=== PATIENT | female | born 2000 | race Caucasian/White ===

== ENCOUNTER 2021-11-02 11:46 | Outpatient (CLI) | payer OTHER, SELFPAY ==
[2021-11-02 12:14] LABS: Appearance Urine Clear (Clear); Bilirubin Urine Negative (Negative); Color Urine Light Yellow (Yellow); Glucose Urine UA Negative (Negative); Ketones Urine Negative (Negative); Leukocyte Esterase Ur Negative (Negative); Nitrate Urine Negative (Negative); Protein Urine Negative (Negative); Urobilinogen Urine 0.2 mg/dL (0.2-1.0); pH Urine 5.5 (5.0-8.0)
[2021-11-02 12:34] LABS: Influenza Control Valid (Valid)
[2021-11-02 12:40] LABS: Add Urine Microscopic? YES; Bacteria Urine Trace /hpf; Blood Urine Trace-Intact (Negative); RBC Urine 0-2 /hpf (0-2); Squamous Epithelial Cell Urine Few /hpf (Few); WBC Urine None seen /hpf (0-3)
== END 2021-11-02 11:47 | disposition home or self-care (01) ==
LOC: CHSLAB 11:51
PROVIDERS: PCP Internal Medicine; Visit Provider Nurse Practitioner Family
DX: R30.0 Dysuria (principal); R50.9 Fever, unspecified; R52 Pain, unspecified
CPT/HCPCS: 81001; 87086; 87804

== ENCOUNTER 2022-12-20 13:14 | Outpatient (CLI) | payer SELFPAY ==
--- NOTE | ~2022-12-20 | XR_ITS ---
EXAMINATION: XR chest 2V 12/20/2022 13:46 INDICATION: Chronic cough PROCEDURE: 2 view chest COMPARISON: 07/19/2016 FINDINGS: The lungs are clear. The cardiomediastinal silhouette is within normal limits. There are no pleural effusions. There is no pneumothorax suspected. IMPRESSION: 1: NO ACUTE CARDIOPULMONARY DISEASE. 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
[2022-12-20 13:35] LABS: Hematocrit 44.6 % (35.0-49.0); Hemoglobin 14.7 g/dL (12.0-15.0); Mean Corpuscular Hemoglobin 28.5 pg (27.0-31.0); Mean Corpuscular Volume 86.6 fL (78.0-102.0); Mean Platelet Volume 9.8 fl (9.2-11.8); Platelet Count Result 387 K/mm3 (150-420); Red Blood Count 5.15 M/mm3 (4.20-5.40); Red Cell Distribution Width 13.1 % (11.6-14.4); White Blood Count 18.8 K/mm3 (4.8-10.8)
[2022-12-20 13:51] LABS: Band Neutrophils Percent 0 % (0-6); Eosinophils Absolute Manual 0.18 K/mm3 (0.02-0.5); Eosinophils Percent Manual 1 % (1-6); Lymphocytes Absolute Manual 7.33 K/mm3 (1.1-4.5); Lymphocytes Percent Manual 39 % (18-44); Monocytes Absolute Manual 0.75 K/mm3 (0.1-0.90); Monocytes Percent Manual 4 % (3-9); Neutrophils Absolute Manual 10.52 K/mm3 (1.7-7.2); Neutrophils Percent Manual 56 % (46-73); Platelet Estimate Adequate (Adequate); Total Cells Counted 100
[2022-12-20 13:58] LABS: SPREG INTERNAL CONTROL Positive; Serum Qual hCG Negative
[2022-12-20 14:21] LABS: Alanine Aminotransferase 46 U/L (14-59); Albumin Level 3.7 g/dL (3.4-5.0); Alkaline Phosphatase 78 U/L (46-116); Anion Gap 11 mmol/L (8-16); Aspartate Amino Transferase 26 U/L (15-37); Bilirubin,Total 0.5 mg/dL (0.00-1.00); Blood Urea Nitrogen 17 mg/dL (7-18); Calcium 9.1 mg/dL (8.5-10.1); Carbon Dioxide 25 mmol/L (21-32); Chloride 107 mmol/L (98-108); Estimated Glomerular Filt Rate > 60; Free T3 3.16 pg/mL (2.18-3.98); Free T4 Free Thyroxine 1.06 ng/dL (0.76-1.46); Glucose 107 mg/dL (70-99); Osmolality Calculated 297 mOsm/kg (285-295); Potassium 4.3 mmol/L (3.5-5.1); Sodium 143 mmol/L (136-145); Thyroid Stimulating Hormone 3.22 uIU/mL (0.36-3.74); Total Protein 7.8 g/dL (6.4-8.2)
[2022-12-23 04:17] LABS: FSH 7.8 mIU/mL (***); LH 7.1 mIU/mL (***)
[2022-12-26 18:42] LABS: Estrogen 413.2 pg/mL
[2022-12-27 12:52] LABS: Testosterone Total 36 ng/dL (2-45)
== END 2022-12-20 13:15 | disposition home or self-care (01) ==
PROVIDERS: PCP Internal Medicine; Visit Provider Internal Medicine
DX: R10.9 Unspecified abdominal pain (principal); N91.2 Amenorrhea, unspecified; R05.9 Cough, unspecified
CPT/HCPCS: 36415; 71046; 80053; 82672; 83001; 83002; 84403; 84439; 84443; 84481; 84703; 85025

== ENCOUNTER 2022-12-23 07:56 | Outpatient (CLI) | payer SELFPAY ==
--- NOTE | ~2022-12-23 | US_ITS ---
Pelvic ultrasound. Clinical History: Amenorrhea, pelvic pain Technique: Realtime transabdominal and transvaginal scanning of the pelvis was performed. Color flow Doppler and Doppler spectral analysis were performed. Findings: The uterus is anteverted. The endometrial stripe has a thickness of 7 mm. No focal mass is identified. The right ovary is not visualized. No significant right ovarian or adnexal mass is seen. The left ovary measures 1.7 x 1.8 x 1.5 cm. There is a probable left paraovarian cyst measuring 2.9 c m in diameter. There is no evidence of free fluid in the cul de sac. Impression: Left ovarian cyst versus paraovarian cyst measuring 2.9 cm in diameter. Right ovary not seen. Reviewed, dictated and finalized at [facility]. 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 Right ovary not seen.
--- NOTE | ~2022-12-23 | US_ITS ---
US right upper quadrant INDICATION: Right upper quadrant pain PROCEDURE: Realtime right upper abdominal ultrasound. COMPARISON: No prior studies for comparison. FINDINGS: The pancreas is normal without focal mass or pancreatic ductal dilation. Liver echotexture is increased, consistent with fatty infiltration. There is a small hypoechoic mass of the left hepat ic lobe measuring 3 cm. There is normal directional flow in the portal vein. There are gallstones. No gallbladder wall thickening or pericholecystic fluid. Common bile duct mike ures 5 mm. No sonographic Rios's sign. IMPRESSION: 1: 3 cm hypoechoic mass of the liver. Recommend correlation with CT or MRI abdomen with/without contr ast. 2: Gallstones. Reviewed, dictated and finalized at location L. 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 Recommend correlation with CT or MRI abdo men with/without contrast. 2: Gallstones.
== END 2022-12-23 07:57 | disposition home or self-care (01) ==
LOC: CHSIMG 07:58
PROVIDERS: PCP Internal Medicine; Visit Provider Internal Medicine
DX: R10.9 Unspecified abdominal pain (principal); N91.2 Amenorrhea, unspecified; R05.9 Cough, unspecified; N83.202 Unspecified ovarian cyst, left side; R16.0 Hepatomegaly, not elsewhere classified; K80.20 Calculus of gallbladder without cholecystitis without obstruction
CPT/HCPCS: 76705; 76856

== ENCOUNTER 2022-12-30 08:29 | Outpatient (CLI) | payer OTHER, SELFPAY | END 2022-12-30 08:30 | disposition home or self-care (01) | LOC: CHSIMG 08:30 | PROVIDERS: PCP Internal Medicine; Visit Provider Internal Medicine | DX: R16.0 Hepatomegaly, not elsewhere classified (principal) | CPT/HCPCS: 99199 ==

== ENCOUNTER 2023-01-14 15:29 | Emergency (ER) | payer SELFPAY ==
--- NOTE | ~2023-01-14 | XR_ITS ---
XR knee RT 3V DATE: 01/14/2023 17:20 INDICATION: Knee locked up TECHNIQUE: 3 views including crosstable lateral COMPARISON: None FINDINGS: No fracture or dislocation or joint effusion. Joint spaces are well preserved. No radiopaqu e intra-articular loose body or chondrocalcinosis. No periosteal reaction or bone destruction. IMPRESSION: Negative Reviewed, dictated and finalized at location A. IMPRESSION: Negative
[2023-01-14 16:08] VITALS: BP 124/85; PULSE 68; RESP 16; TEMP 36.7; O2SAT 100
--- NOTE | 2023-01-14 17:51 | ED.EXTPRO ---
HPI - Extremity Problem General Chief complaint: Extremity Problem,Nontraumatic Stated complaint: right knee locked up Time Seen by Provider: 01/14/23 17:44 Source: RN notes reviewed History of Present Illness HPI Narrative: Patient presents emergency department from work via EMS for right knee pain. Patient states she was standing working when her right knee locked up. States that she had pain over the right anterior knee and felt like she could not bend it. She states is now better and does feel like she can mildly bend states that she has had similar episodes before in the past and has seen orthopedics states she was told she needs an MRI but secondary to insurance reasons has not had the MRI. She states she did take a Tylenol with some relief she denies any direct trauma or injury or falling on the knee she denies any pain in the right hip or ankle denies numbness or tingling in the Related Data Allergies Allergy/AdvReac Type Severity Reaction Status Date / Time No Known Allergies Allergy Verified 01/14/23 15:29 Review of Systems Review of Systems: Gen.: Denies fevers or chills Musculoskeletal: See HPI Neuro: Denies numbness, tingling, weakness Skin: Denies rash Endo: Denies DM PMFSH Past Medical History Medical History (Updated 01/14/23 @ 17:54 by Edwar Burns DO) Patient denies significant medical history Social History Social History (Updated 01/14/23 @ 17:52 by Edwar Burns DO) Smoking status: Never smoker Exam Narrative: APPEARANCE: No acute distress, nontoxic, resting in bed Eyes: EOMI HEENT: Normocephalic, atraumatic, RESPIRATORY: No respiratory distress MUSCULOSKELETAl: Tender to palpation over the anterior knee no tenderness over the medial lateral or posterior knee, pain with flexion greater than 45 degrees no tenderness of the right hip or ankle, posterior tibialis pulse 2+ neurovascular intact NEURO: Awake and alert. Following commands, speech normal, no focal deficits SKIN:: Warm, dry. Normal Color no rash or lesions Course Course Emergency Course: Discussed with patient results of workup and diagnosis. Discussed need for follow-up with primary care, proper use of medication, and reasons to return to the emergency department. Patient understands and agrees to current treatment plan Vital Signs Vital signs: Vital Signs Temperature 98.1 F 01/14/23 16:08 Pulse Rate 68 01/14/23 16:08 Respiratory Rate 16 01/14/23 16:08 Blood Pressure 124/85 01/14/23 16:08 Pulse Oximetry 100 01/14/23 16:08 Oxygen Delivery Room Air 01/14/23 16:08 Temperature 98.1 F 01/14/23 16:08 Pulse Rate 68 01/14/23 16:08 Respiratory Rate 16 01/14/23 16:08 Blood Pressure 124/85 01/14/23 16:08 Pulse Oximetry 100 01/14/23 16:08 Oxygen Delivery Room Air 01/14/23 16:08 MDM - Extremity (Nontraumatic) MDM Narrative Medical decision making narrative: Patient presents for right knee locking up to [place] history of similar total she is MRI tenderness over the anterior knee suspect a component of a meniscus tear. I did discuss this with the patient with shared decision making will place in knee immobilizer and discharged to follow-up with orthopedics Imaging Data Radiologist's impression: ITS Impressions Knee X-Ray 01/14/23 17:34 IMPRESSION: Negative Discharge Plan Discharge Clinical Impression: Right knee sprain Patient Disposition: Home, Self-Care Condition: Stable Instructions: Antibiotic Form, Knee Pain (ED) Additional Instructions: Return for increasing pain numbness or tingling in extremities or any other symptoms or concern Prescriptions: New ibuprofen 600 mg tablet 600 mg PO TID PRN (Reason: pain) Qty: 12 0RF Follow-up/Referrals: Cleveland Barahona MD [Primary Care Provider] - Pepe Hall MD [Physician] - (Follow-up in 2 to 3 days for further orthopedic treatment and evaluation) Stand Alone Forms: Wo
[2023-01-14] MEDS: IBUPROFEN 600 MG TABLET PO (18:02)
== END 2023-01-14 18:08 | disposition home or self-care (01) ==
PROVIDERS: Emergency Provider Emergency Medicine; PCP Internal Medicine
DX: S83.91XA Sprain of unspecified site of right knee, initial encounter (principal); X58.XXXA Exposure to other specified factors, initial encounter
CPT/HCPCS: 73562; 99283; A9270

== ENCOUNTER 2023-02-08 11:59 | Emergency (ER) | payer SELFPAY ==
--- NOTE | ~2023-02-08 | US_ITS ---
US abdomen limited DATE: 02/08/2023 13:32 INDICATION: Right upper quadrant abdominal pain. Gallstones reported on 12/23/2022 right upper quadrant abdominal ultrasound examination TECHNIQUE: Real-time imaging of liver, pancreas, gallbladder COMPARISON: 12/23/2022 right upper quadrant abdominal ultrasound examination FINDINGS: There are multiple dependent filling defects of the gallbladder consistent with cholelithia sis. No gallbladder wall thickening or pericholecystic fluid or fat stranding. Negative sonographic M urphy's sign. The common bile duct measures up to 5.5 mm, within normal range. Hepatic steatosis. Normal hepatopedal portal venous flow direction. No pancreatic abnormality. IMPRESSION: Cholelithiasis; no gallbladder wall thickening, pericholecystic fluid collection. Negativ e sonographic Rios's sign Reviewed, dictated and finalized at Location A. Reviewed, dictated and finalized at location L. IMPRESSION: Cholelithiasis; no gallbladder wall thickening, pericholecystic flu id collection. Negative sonographic Rios's sign
[2023-02-08 12:00] VITALS: BP 136/94; PULSE 82; RESP 16; TEMP 36.5; O2SAT 98
--- NOTE | 2023-02-08 12:03 | ED.ABDPAIN ---
HPI - Abdominal Pain General Chief Complaint: Abdominal Pain Stated Complaint: abdominal pain Time Seen by Provider: 02/08/23 12:03 Source: patient Mode of arrival: ambulatory Limitations: no limitations History of Present Illness HPI narrative: 22-year-old female was diagnosed with gallstones last month. She presents to the ER with a 2 day history of -- right upper quadrant abdominal pain with radiation to the back. She has nausea without any vomiting. No fever or chills. MD elicited complaint: abdominal pain Pertinent past history: other ( History of gallstones) Onset (ago): day(s) ( started 2 days ago) Pain Consistency: constant Location: RUQ Severity: moderate Quality: aching Radiation: R flank and back Exacerbating factors: nothing Relieving factors: nothing Associated symptoms: denies other symptoms and nausea Related Data Date of Last Menstrual Period: 01/10/23 Patient : No Home Medications Medication Instructions Recorded Confirmed No Home Medications 02/08/23 02/08/23 Allergies Allergy/AdvReac Type Severity Reaction Status Date / Time No Known Allergies Allergy Verified 02/08/23 12:02 Review of Systems Review of Systems: All systems reviewed & are unremarkable except as noted in HPI and below Constitutional: Constitutional: Reports as per HPI and Reports no additional constitutional complaints Eyes: Eyes: Reports as per HPI and Reports no additional eye complaints ENT: Reports system reviewed and no additional complaints, except as documented and Reports as per HPI Cardiovascular: Cardiovascular: Reports as per HPI and Reports no additional cardiovascular complaints Respiratory: Respiratory: Reports as per HPI and Reports no additional respiratory complaints Gastrointestinal: Gastrointestinal: Reports as per HPI, Reports no additional gastrointestinal complaints, Reports abdominal pain and Reports nausea Genitourinary: Genitourinary: Reports no additional female genitourinary complaints and Reports as per HPI Musculoskeletal: Musculoskeletal: Reports no additional musculoskeletal complaints and Reports as per HPI Integumentary/Breasts: Skin/Breast: Reports system reviewed and no additional complaints, except as docu and Reports as per HPI Neurologic: Reports system reviewed and no additional complaints, except as documented and Reports as per HPI Psychiatric: Psychiatric: Reports no additional psychiatric complaints and Reports as per HPI Endocrine: Endocrine: Reports no additional endocrine complaints and Reports as per HPI Hematologic/Lymphatic: Hematologic/Lymphatic: Reports no additional hematologic/lymphatic complaints Allergic/Immunologic: Allergic/Immunologic: Reports no additional allergic/immunologic complaints and Reports as per HPI PMFSH Past Medical History Medical History (Updated 02/08/23 @ 14:26 by Andrew Yip MD) Gallstones Patient denies significant medical history Social History Social History (Updated 01/14/23 @ 17:52 by Edwar Burns DO) Smoking status: Never smoker Exam Const: General: healthy appearing Orientation/consciousness: patient oriented x3 Limitations: no limitations HENMT: Head: normal to inspection Ears: external ears normal Face/Nose/Sinus: Normal external nose present Face and sinus: normal facial exam Mouth: Yes Normal oral and palatal mucosa present Throat: posterior oropharynx normal Eyes: Conjunctivae: conjunctivae normal Pupils: Equal, round and reactive pupils present EOM: EOMs intact bilaterally Direct Ophthalmoscopy: no photophobia Neck: Neck: normal visual inspection, no lymphadenopathy and no meningeal signs Chest: Chest palpation & inspection: normal inspection of the chest Resp: Effort & Inspection: normal respiratory effort Auscultation: clear to auscultation bilaterally Cardio: Rate: regular rate Rhythm: regular rhythm GI: GI Palp: Yes Soft to palpation Auscultation: normal bowel sounds
[2023-02-08 12:24] LABS: Basophils Absolute Auto 0.05 K/mm3 (0.00-0.10); Basophils Percent Auto 0.4 % (0.0-1.0); Eosinophils Absolute Auto 0.28 K/mm3 (0.02-0.50); Hematocrit 42.9 % (35.0-49.0); Hemoglobin 13.8 g/dL (12.0-15.0); Immature Granulocyte Absolute 0.07 K/mm3 (0.00-0.00); Immature Granulocyte Percent A 0.5 % (0.0-0.0); Lymphocytes Absolute Auto 4.24 K/mm3 (1.10-4.50); Lymphocytes Percent Auto 30.9 % (18.0-42.0); Mean Corpuscular HGB Conc 32.2 g/dL (32.0-36.0); Mean Corpuscular Hemoglobin 28.3 pg (27.0-31.0); Mean Corpuscular Volume 87.9 fL (78.0-102.0); Mean Platelet Volume 9.7 fl (9.2-11.8); Monocytes Absolute Auto 0.77 K/mm3 (0.10-0.90); Monocytes Percent Auto 5.6 % (2.0-11.0); Neutrophils Absolute Auto 8.3 K/mm3 (1.7-7.2); Neutrophils Percent Auto 60.6 % (50.0-70.0); Platelet Count Result 343 K/mm3 (150-420); Red Blood Count 4.88 M/mm3 (4.20-5.40); Red Cell Distribution Width 13.5 % (11.6-14.4); White Blood Count 13.7 K/mm3 (4.8-10.8)
[2023-02-08 12:37] LABS: INR 0.9; Prothrombin Time 9.9 Seconds (9.50-12.10)
[2023-02-08 12:40] LABS: Alanine Aminotransferase 39 U/L (14-59); Albumin Level 3.2 g/dL (3.4-5.0); Alkaline Phosphatase 66 U/L (46-116); Anion Gap 7 mmol/L (8-16); Aspartate Amino Transferase 17 U/L (15-37); Bilirubin Direct 0.1 mg/dL (0-0.2); Bilirubin,Total 0.5 mg/dL (0.00-1.00); Blood Urea Nitrogen 14 mg/dL (7-18); Calcium 8.7 mg/dL (8.5-10.1); Carbon Dioxide 30 mmol/L (21-32); Chloride 104 mmol/L (98-108); Estimated CRCL calculation 123 ml/min; Estimated Glomerular Filt Rate > 60; Glucose 110 mg/dL (70-99); Lipase 28 U/L (16-77); Osmolality Calculated 293 mOsm/kg (285-295); Potassium 4.3 mmol/L (3.5-5.1); Sodium 141 mmol/L (136-145); Total Protein 7.1 g/dL (6.4-8.2)
[2023-02-08 12:40] LABS: Appearance Urine Clear (Clear); Bilirubin Urine Negative (Negative); Blood Urine Negative (Negative); Color Urine Light Yellow (Yellow); Glucose Urine UA Negative (Negative); Ketones Urine Negative (Negative); Leukocyte Esterase Ur Trace LEU/UL (Negative); Nitrate Urine Negative (Negative); Protein Urine Negative (Negative); Specific Grav Ur 1.025 (1.010-1.020); Urobilinogen Urine 0.2 mg/dL (0.2-1.0)
[2023-02-08 12:42] LABS: Pregnancy On Board Control Positive; Urine Pregnancy Test Negative
[2023-02-08 12:45] LABS: Add Urine Microscopic? YES; Bacteria Urine 2+ /hpf; RBC Urine None seen /hpf (0-2); Squamous Epithelial Cell Urine Moderate /hpf (Few); WBC Urine 0-3 /hpf (0-3)
[2023-02-08 12:46] LABS: Lactic Acid Reflex 1.5 mmol/L (0.4-2.0)
[2023-02-08 14:10] VITALS: BP 137/92; PULSE 62; RESP 16; O2SAT 98
[2023-02-08] MEDS: HYDROmorphone HCL INJ (*CRX) 2 MG/ML VIAL 1 MG IM (14:15)
[2023-02-08] MEDS: ONDANSETRON HCL ODT 4 MG TABLET PO (14:16)
[2023-02-08 14:41] VITALS: TEMP 36.7
== END 2023-02-08 14:43 | disposition home or self-care (01) ==
PROVIDERS: Emergency Provider Internal Medicine Critical Care Medicine; PCP Internal Medicine
DX: K80.20 Calculus of gallbladder without cholecystitis without obstruction (principal)
CPT/HCPCS: 36415; 76705; 80048; 80076; 81001; 81025; 83605; 83690; 85025; 85610; 96372; 99284; A9270; J1170

== ENCOUNTER 2023-05-17 16:41 | Outpatient (CLI) | payer OTHER, SELFPAY ==
[2023-05-17 17:27] LABS: Alanine Aminotransferase 40 U/L (14-59); Albumin Level 3.6 g/dL (3.4-5.0); Alkaline Phosphatase 76 U/L (46-116); Amylase 28 U/L (25-115); Aspartate Amino Transferase 25 U/L (15-37); Bilirubin Direct 0.1 mg/dL (0-0.2); Bilirubin,Total 0.7 mg/dL (0.00-1.00); Lipase 30 U/L (16-77); Total Protein 7.3 g/dL (6.4-8.2)
== END 2023-05-17 16:42 | disposition home or self-care (01) ==
LOC: CHSLAB 16:45
PROVIDERS: PCP Internal Medicine; Visit Provider Surgery
DX: K80.20 Calculus of gallbladder without cholecystitis without obstruction (principal)
CPT/HCPCS: 36415; 80076; 82150; 83690

== ENCOUNTER 2023-05-20 00:48 | Day surgery (SDC) | payer OTHER, SELFPAY ==
[2023-05-16 10:26] VITALS: BMI 58.9
--- NOTE | 2023-05-16 10:35 | PC.NURSE ---
Report to the Outpatient Waiting Room, entrance under the green pavilion located off [facility], at time 11:30 on date 05/20/23. Planned Procedure Time: 1:30. Time changes happen often and if your time is changed the preop area will call you the afternoon before. - You and your visitor will be asked to self-screen and do not enter if you have any COVID symptoms. - A mask is optional within the hospital at this time. Patients may have clear liquids (water, carbonated beverages, clear teas, apple juice) until 3 hours prior to surgery (10:30) with a maximum of 20 ounces. - No food from midnight until time of surgery Take the following medications with a SIP of water the morning of surgery: N/A DO NOT STOP ANY OF YOUR OTHER PRESCRIPTION MEDICATIONS PRIOR TO SURGERY ?EXCEPT THE FOLLOWING Medications to discontinue per physician: N/A Date to take last dose: N/A Please no make-up, nail nauruan, hairspray, perfume, deodorant, or body powder the day of surgery. No jewelry (including any body piercings) or valuables the day of surgery, leave them at home. Please take a shower or bath the night before, or the morning of, surgery with an antibacterial soap (HIBICLENS). Wear comfortable, loose fitting clothing. - Jewelry must be removed prior to entering the operating room. Rings and piercings that are not removed may be cut off. - The hospital will not accept responsibility for valuables. - Please leave all valuables, including medications, at home the day of surgery. If you are going home after surgery, a licensed lokie driver must drive you home. - NO public transportation without another adult if you receive anesthesia. - We recommend that an adult stay with you for 24 hours following discharge. - We also recommend that you do not drive, make important decision, drink alcoholic beverages, or take any drugs that were not prescribed by your health care provider for at least 24 hours after your discharge time. Follow any additional instructions given to you from your surgeon. If you or anyone in your household have experienced Covid symptoms in the past week, please notify your surgeon or the nurse liaison at the phone number below for possible testing. Telephone instructions given to PT - ALBIN HENLEY and asked if any additional questions and then verbalized understanding. Patient advised to call surgeon office or pre surgery nurse liaison [phone] if any additional questions.
--- NOTE | 2023-05-19 09:07 | WPDANESEPPF ---
Anes - Initial Pre Proc Eval Procedure: Operation Date: 05/20/23 13:30 Proposed Procedures p Laparoscopic Cholecystectomy, Possible Open - He Lowe DO Date/Time: 05/19/23 09:07 Surgeon: He Lowe DO Pre Op Diagnosis: symptomatic cholelithiasis Patient Data Age: 22 Gender: F Height: 1.55 m Weight: 141.55 kg Allergies Allergy/AdvReac Type Severity Reaction Status Date / Time morphine Allergy Hives Verified 05/20/23 12:00 Home Medications Medication Instructions Recorded Confirmed Type medroxyprogesterone 10 mg tablet 10 mg PO MONTHLY 02/23/23 05/16/23 History (Provera) Patient hx anesthesia problems: none Family hx anesthesia problems: none Results Review: All pre-operative results and documents have been reviewed as part of the pre-operative evaluation. [facility] Past Medical History Medical History Gallstones Patient denies significant medical history Family History Family History Other Diabetes mellitus Heart disease Hypertension Lung cancer Social History Social History Smoking status: Never smoker Alcohol intake: current Alcohol use details: NONE SINCE April Substance use: never Substance use type: does not use Living arrangements: with family Spiritual care concerns: No Anes - Eval Final PreProcedure Day of Procedure 05/19/23 09:07 Patient weight: super morbidly obese Heart: regular rate and rhythm Lungs: clear to auscultation Airway: Mallampati scale class II Neurological: alert and oriented Last oral intake: >/= 8 hours ASA classification: III Emergent: no Anesthetic plan: proceed Anesthesia type and monitoring: general ETT and standard monitoring Results Review: All pre-operative results and documents have been reviewed as part of the pre-operative evaluation. Informed Consent: The patient's anesthetic plan and its attendant risks and benefits were discussed with the patient/family/POA. Questions were solicited and answers provided to the satisfaction of the patient/family/POA.
[2023-05-20] VITALS (8 sets, daily range): BP systolic 124–150; BP diastolic 70–97; PULSE 61–87; RESP 14–23; TEMP 36.3–37.1; O2SAT 96–100
[2023-05-20] MEDS: ACETAMINOPHEN 500 MG TABLET 1000 MG PO (12:01)
[2023-05-20] MEDS: KETOROLAC 15 MG/ML VIAL (*BKC) IV PUSH (12:34)
[2023-05-20] MEDS: LACTATED RINGERS 1,000 ML 30 ML IV CONT ×2 (12:34→14:49)
--- NOTE | 2023-05-20 13:32 | PM.IMHP ---
H&P: HPI History of Present Illness Date/Time: 05/20/23 13:32 Chief Complaint: Symptomatic cholelithiasis Narrative: This is a 22-year-old woman who presents for laparoscopic cholecystectomy. She reports no significant changes since last seen in the office. Review of Systems Review of Systems: All systems reviewed & are unremarkable except as noted in HPI and below Constitutional: Constitutional: Denies chills, Denies fever(s), Denies headache(s) and Denies weight loss Eyes: Eyes: Denies change in vision ENT: Denies dizziness, Denies headache(s), Denies neck mass and Denies throat swelling Cardiovascular: Cardiovascular: Denies chest pain, Denies lightheadedness and Denies dyspnea Respiratory: Respiratory: Denies cough, Denies dyspnea and Denies wheezing Gastrointestinal: Gastrointestinal: Denies abdominal pain, Denies change in bowel habits, Denies nausea and Denies vomiting Genitourinary: Genitourinary: Denies hematuria and Denies dysuria Musculoskeletal: Musculoskeletal: Reports as per HPI Integumentary/Breasts: Skin/Breast: Reports as per HPI Neurologic: Denies dizziness and Denies headache(s) Allergic/Immunologic: Allergic/Immunologic: Denies throat swelling and Denies wheezing PMFSH Past Medical History Medical History Gallstones Patient denies significant medical history Family History Family History Other Diabetes mellitus Heart disease Hypertension Lung cancer Social History Social History Smoking status: Never smoker Alcohol intake: current Alcohol use details: NONE SINCE April Substance use: never Substance use type: does not use Living arrangements: with family Spiritual care concerns: No Meds Home Medications and Allergies Home Medications Medication Instructions Recorded Confirmed Type medroxyprogesterone 10 mg tablet 10 mg PO MONTHLY 02/23/23 05/16/23 History (Provera) Allergies Allergy/AdvReac Type Severity Reaction Status Date / Time morphine Allergy Hives Verified 05/20/23 12:00 Vital Signs Vital Signs - 24 hr 05/20/23 12:35 Temperature 37.1 C Pulse Rate 78 Respiratory Rate 18 Blood Pressure 144/97 H Pulse Oximetry 100 Oxygen Delivery Room Air Exam Const: General: no acute distress and alert Orientation/consciousness: patient oriented x3 HENMT: Head: normocephalic and atraumatic Ears: hearing grossly normal bilaterally Face/Nose/Sinus: Normal nares present Mouth: Yes Normal oral and palatal mucosa present Eyes: Periorbital: periorbital findings normal Sclera: sclerae normal EOM: EOMs intact bilaterally Neck: Neck: normal visual inspection, no lymphadenopathy and trachea midline Chest: Chest palpation & inspection: normal inspection of the chest Resp: Effort & Inspection: normal respiratory effort Auscultation: clear to auscultation bilaterally Cardio: Jugular venous distension: no JVD Rate: regular rate Rhythm: regular rhythm Heart sounds: S1 normal heart sound present and S2 normal heart sound present Peripheral pulses: Peripheral pulses 2+ throughout GI: Inspection: normal to inspection GI Palp: Yes Soft to palpation, No Tenderness to palpation present (GI), No Guarding due to palpation present (GI) and No Rebound tenderness present Percussion: Yes normal to percussion Auscultation: normal bowel sounds : General: Yes no CVA tenderness Back/Spine/Pelvis: Back: no CVA tenderness Neuro: General: patient oriented x3, no focal motor deficits and CN's II-XI intact bilaterally Cognition (Neuro): normal cognition Speech: normal speech Motor exam (neuro): 5/5 motor strength present throughout Extrem: General: capillary refill normal and no clubbing, cyanosis or edema Assessment and Plan Assessment and plan (1) Symptomatic cholelith
--- NOTE | 2023-05-20 13:36 | WPDHPUPDATE1 ---
History and Physical Update Update Date/Time: 05/20/23 13:36 History and Physical has been reviewed, including an updated exam of the patient. There are NO changes in the patient's condition. Risks, benefits, and alternatives have been discussed and questions answered. Patient agrees to proceed with procedure.
[2023-05-20] MEDS: ceFAZolin 3 GM/D5W 100 ML 100 ML IVPB (13:47)
[2023-05-20] MEDS: BUPIVACAINE/EPINEPHRINE 0.25% 50 ML VIAL 30 ML INFILTRATE (14:05)
--- NOTE | 2023-05-20 14:58 | W.PM.PROC2 ---
Procedure Note - Detailed Date of Procedure 05/20/23 Pre-op Diagnosis symptomatic cholelithiasis Post-op Diagnosis Same Procedure Performed Laparoscopic Cholecystectomy Surgeon He Lowe, DO Anesthesia General and Local (0.5% bupivacaine) Indications A 22-year-old woman who presents for laparoscopic cholecystectomy. She has been experiencing frequent bouts of upper abdominal pain for the past 8-10 months. She sometimes has symptoms for 5 times a day. She has tried staying on a low-fat diet but still continues to have symptoms. An ultrasound was obtained in [place] and this showed evidence of cholelithiasis. Discussions were made with the patient about treatment options and decision was made to proceed with laparoscopic cholecystectomy, possible open. Findings Laparoscopic cholecystectomy was performed. The patient's gallbladder had a few pericholecystic adhesions and was slightly dilated and distended. The cystic duct appeared normal in size. There were several small gallstones within the gallbladder. No other intra-abdominal abnormalities were noted. The gallbladder was removed and sent to the lab for pathology. Description of Procedure Procedure as well as risks, benefits, and alternatives were discussed with patient. Written consent was obtained and placed in chart prior to procedure. The patient was brought back to surgical suite. Patient was placed in supine position on operating table. Time-out was done to confirm patient and procedure. Patient was then intubated by the anesthesia department. Abdomen was prepped and draped in sterile fashion using chlorhexidine prep. 0.5% bupivacaine with epinephrine was infiltrated at each site of incision. A 5 millimeter incision was made near the umbilicus, and a 5 millimeter Optiview trocar was advanced through the abdominal layers under direct visualization. Once inside the abdominal cavity, carbon dioxide was insufflated to create a pneumoperitoneum. The camera was inserted and the abdomen was inspected. No immediate abnormalities were identified. The patient was placed in reverse Trendelenburg position and rotated slightly to the left. An 11 millimeter incision was made in the subxiphoid region, and an 11 millimeter trocar was inserted under direct visualization. Two 5 millimeter incisions were made in the right upper quadrant, and two 5 millimeter trocars were inserted under direct visualization. The gallbladder was identified and grasped at the fundus and retracted superiorly. It was then grasped at the infundibulum retracted laterally. Careful dissection around the neck of the gallbladder was performed using blunt dissection with a [place] grasper and hook electrocautery. The cystic duct was identified, and a window was created behind it. The cystic artery was also identified and a window was created behind it. The critical view of safety was identified, visualizing the cystic duct running directly into the neck of the gallbladder, and the cystic artery running directly into the wall of the gallbladder. A 5 millimeter clip boiler operator was then used to place 2 clips proximally and 1 clip distally on both the cystic duct and cystic artery. They were then both transected using endoscopic scissors. Once safely away from the quentin hepatitis, the gallbladder was dissected free from the liver bed using hook electrocautery. Hemostasis was achieved along the way. The gallbladder was removed completely and then removed through the subxiphoid port. The liver bed was then inspected. Hemostasis appeared adequate, and our clips appeared secure. The area was gently irrigated with sterile saline. No other abnormalities were seen. The patient was flattened out in bed, and 1 final inspection was made around the abdominal cavity. The subxiphoid port was removed, and a Chris Valeria cone was used to approximate the fascia with an 0-Vicryl simple interrupted suture. The remaining ports were then rem
[2023-05-20] MEDS: fentaNYL CITRATE INJ (*CRX) 100 MCG/2 ML VIAL 25 MCG IV PUSH ×4 (15:06→15:25)
--- NOTE | 2023-05-20 15:18 | SUR.PHASEI ---
1516: Simple mask removed.
[2023-05-20] MEDS: ONDANSETRON INJ 4 MG/2 ML VIAL IV PUSH (16:04)
[2023-05-20] MEDS: oxyCODONE HCL (*CRX) 5 MG TAB IR PO (16:08)
== END 2023-05-20 16:42 | disposition home or self-care (01) ==
PROVIDERS: PCP Internal Medicine; Visit Provider Surgery
PROC: 0FT44ZZ Resection of Gallbladder, Percutaneous Endoscopic Approach (ICD-10-PCS; CPT 47562; principal; 2023-05-20 13:30)
DX: K80.10 Calculus of gallbladder with chronic cholecystitis without obstruction (principal); E66.01 Morbid (severe) obesity due to excess calories; Z68.43 Body mass index [BMI] 50.0-59.9, adult
CPT/HCPCS: 47562; 36415; 86850; 86900; 86901; 88304; A9270; J0330; J0690; J1100; J1885; J2250; J2405; J2704; J3010; J7030; J7120

== ENCOUNTER 2023-10-11 14:59 | Outpatient (CLI) | payer OTHER, SELFPAY ==
[2023-10-11 15:13] LABS: Basophils Absolute Auto 0.1 K/mm3 (0.0-0.1); Basophils Percent Auto 0.5 % (0.2-1.2); Eosinophils Absolute Auto 0.4 K/mm3 (0-0.3); Eosinophils Percent Auto 2.2 % (0-4.4); Hematocrit 42.4 % (37.0-47.0); Hemoglobin 13.7 g/dL (12.0-15.0); Immature Granulocyte Percent A 0.6 % (0-0.5); Lymphocytes Absolute Auto 6.85 K/mm3 (0.9-3.2); Lymphocytes Percent Auto 40.5 % (18.3-44.2); Mean Corpuscular HGB Conc 32.3 g/dl (32-36); Mean Corpuscular Hemoglobin 28.1 pg (26-34); Mean Corpuscular Volume 86.9 fl (80-100); Mean Platelet Volume 9.3 fl (7.4-10.4); Monocytes Absolute Auto 1.1 K/mm3 (0.1-0.6); Monocytes Percent Auto 6.4 % (2.6-8.5); Neutrophils Absolute Auto 8.4 K/mm3 (1.3-6.7); Neutrophils Percent Auto 49.8 % (45.5-73.1); Platelet Count Result 379 k/mm3 (150-375); Red Blood Count 4.88 M/mm3 (4.2-5.4); Red Cell Distribution Width 13.5 % (11.5-14.5); White Blood Count 16.9 K/mm3 (4.5-10.0)
[2023-10-11 15:25] LABS: Alanine Aminotransferase 37 U/L (6-35); Albumin Level 4.2 g/dL (3.5-5.1); Alkaline Phosphatase 66 U/L (38-126); Anion Gap 8 mmol/L (8-16); Aspartate Amino Transferase 36 U/L (14-36); Bilirubin,Total 0.5 mg/dL (0.2-1.3); Blood Urea Nitrogen 16 mg/dL (7-17); Calcium 9.3 mg/dL (8.4-10.2); Carbon Dioxide 26 mmol/L (22-30); Chloride 105 mmol/L (98-107); Cholesterol 173 mg/dL (0-200); Estimated Glomerular Filt Rate > 60; Glucose 81 mg/dL (65-110); HDL Direct 39 mg/dL; Potassium 4.2 mmol/L (3.4-5.0); Sodium 139 mmol/L (137-145); Triglycerides 210 mg/dL (<150)
[2023-10-11 15:35] LABS: LDL Cholesterol Direct 98 mg/dL
== END 2023-10-11 15:00 | disposition home or self-care (01) ==
LOC: ANHLAB 15:01
PROVIDERS: PCP Internal Medicine; Visit Provider Nurse Practitioner Family
DX: D72.829 Elevated white blood cell count, unspecified (principal); R73.09 Other abnormal glucose; K76.0 Fatty (change of) liver, not elsewhere classified; R16.0 Hepatomegaly, not elsewhere classified; Z13.6 Encounter for screening for cardiovascular disorders
CPT/HCPCS: 36415; 80053; 80061; 83036; 85025

== ENCOUNTER 2023-10-25 21:42 | Emergency (ER) | payer OTHER, SELFPAY ==
--- NOTE | ~2023-10-25 | XR_ITS ---
Clinical Indication: Pain PA view of the chest: Comparison: 12/20/2022 Findings: The lungs are clear, without evidence of focal consolidation or pleural effusion. Cardiome diastinal silhouette is within normal limits. Bones and soft tissues are unremarkable. Impression: Normal chest. Reviewed, dictated and finalized at [facility]. INE TRACER Impression: Normal chest.
--- NOTE | ~2023-10-25 | US_ITS ---
US abdomen limited DATE: 10/26/2023 08:43 INDICATION: Right upper quadrant abdominal pain TECHNIQUE: Real-time imaging of liver, pancreas, gallbladder COMPARISON: None FINDINGS: There is hepatic steatosis. No hepatic space occupying mass lesion is detected. Normal hepatopedal portal venous flow direction. The gallbladder is surgically absent. The common bile duct measures 4 mm, normal. IMPRESSION: Hepatic steatosis Status post cholecystectomy Reviewed, dictated and finalized at [facility]. Reviewed, dictated and finalized at [facility]. SUPPORT ENGINEER
--- NOTE | ~2023-10-25 | CT_ITS ---
CT of the Abdomen and Pelvis: Indication: Abdominal pain Technique: 2.5 mm axial scans were obtained through the abdomen and pelvis following intravenous adm inistration of 100 cc of Omnipaque 350. Dose reduction technique was used on this scan by utilizing a utomated exposure control and iterative reconstruction technique. The dose-length product (DLP) was 1 834.40 mGy-cm. Findings: Scans through the lung bases are unremarkable. There is diffuse fatty infiltration of liver. Cholecystectomy clips are present. The spleen, pancreas , adrenals and kidneys are within normal limits. No evidence of aortic aneurysm. No lymphadenopathy . No bowel obstruction or bowel wall thickening. There is no evidence to suggest acute appendicitis. Images through the pelvis were performed. Urinary bladder unremarkable. No adnexal mass seen. No asci david. Impression: No acute abnormality. Diffuse fatty infiltration of liver. Reviewed, dictated and finalized at [facility]. ER Impression: No acute abnormality. Diffuse fatty infiltration of liver.
[2023-10-25 21:49] VITALS: BP 144/93; PULSE 62; RESP 15; TEMP 36.9; O2SAT 99
[2023-10-26 02:15] LABS: Hematocrit 42.2 % (37.0-47.0); Hemoglobin 13.3 g/dL (12.0-15.0); Mean Corpuscular HGB Conc 31.5 g/dl (32-36); Mean Corpuscular Hemoglobin 27.7 pg (26-34); Mean Corpuscular Volume 87.9 fl (80-100); Mean Platelet Volume 10.1 fl (7.4-10.4); Platelet Count Result 369 k/mm3 (150-375); Red Cell Distribution Width 13.5 % (11.5-14.5); White Blood Count 15.9 K/mm3 (4.5-10.0)
[2023-10-26 02:22] LABS: Appearance Urine Clear (Clear); Bacteria Urine Rare /hpf; Bilirubin Urine Negative (Negative); Blood Urine 2+ (Negative); Color Urine Yellow (Yellow); Glucose Urine UA Negative (Negative); Ketones Urine Negative (Negative); Leukocyte Esterase Ur Negative LEU/UL (Negative); Nitrate Urine Negative (Negative); Non Pathogenic Casts 0-2; Protein Urine Negative (Negative); RBC Urine 0-2 /hpf (0-2); Specific Grav Ur 1.027 (1.001-1.035); Squamous Epithelial Cell Urine None seen /hpf (Few); WBC Urine 0-5 /hpf; pH Urine 6.5 (5.0-9.0)
[2023-10-26 02:26] LABS: Add Urine Microscopic? YES
[2023-10-26 02:28] LABS: Alanine Aminotransferase 28 U/L (6-35); Albumin Level 3.9 g/dL (3.5-5.1); Alkaline Phosphatase 54 U/L (38-126); Anion Gap 10 mmol/L (8-16); Aspartate Amino Transferase 33 U/L (14-36); Bilirubin,Total 0.6 mg/dL (0.2-1.3); Blood Urea Nitrogen 19 mg/dL (7-17); Carbon Dioxide 23 mmol/L (22-30); Chloride 106 mmol/L (98-107); Estimated CRCL calculation 131 ml/min; Estimated Glomerular Filt Rate > 60; Glucose 96 mg/dL (65-110); Lipase 97 U/L (23-300); Potassium 4.2 mmol/L (3.4-5.0); Sodium 139 mmol/L (137-145)
[2023-10-26 02:49] LABS: Band Neutrophils Percent 2 % (0-6); Eosinophils Absolute Manual 0.31 K/mm3 (0.02-0.5); Eosinophils Percent Manual 2 % (0-4); Lymphocytes Absolute Manual 5.56 K/mm3 (1.1-4.5); Lymphocytes Percent Manual 35 % (18-44); Monocytes Absolute Manual 0.63 K/mm3 (0.1-0.90); Monocytes Percent Manual 4 % (3-9); Neutrophils Absolute Manual 9.38 K/mm3 (1.7-7.2); Neutrophils Percent Manual 57 % (46-73); Platelet Estimate Adequate (Adequate); Total Cells Counted 100
[2023-10-26 02:50] LABS: Hypochromasia 1+ (NORMAL); Schistocytes None Seen (NORMAL)
[2023-10-26 03:37] VITALS: BP 140/88; PULSE 78; RESP 17; O2SAT 98
--- NOTE | 2023-10-26 05:30 | ED.ABDPAIN ---
HPI - Abdominal Pain General Chief Complaint: Abdominal Pain <Leandro Brito DO - Last Filed: 10/26/23 08:29> Stated Complaint: RUQ pain/flank pain <Leandro Brito DO - Last Filed: 10/26/23 08:29> Time Seen by Provider: 10/26/23 03:20 <Leandro Brito DO - Last Filed: 10/26/23 08:29> Source: patient <Leandro Brito DO - Last Filed: 10/26/23 08:29> Limitations: no limitations <Leandro Brito DO - Last Filed: 10/26/23 08:29> History of Present Illness HPI narrative: Patient is a 22-year-old female present to the emergency department complaining of abdominal pain. Patient states she has been having pain in her right upper quadrant that is stabbing and has been going on since the past 1 week with no history of pain in the past, originally was coming and going last for about 5 minutes when it happened and she had associated anything that was bringing not make it go away however last night around 8:43 p.m. became constant, the pain is radiating to her back, right side, has not noticed any making it better or worse, tried Tylenol and 9:00 p.m. without any significant relief. Patient also last menstrual period was in August. Patient denies being sexually active. Patient denies dysuria, hematuria, history kidney stones, chest pain, shortness of breath, cough, fever, nausea, vomiting, diarrhea, melena, hematochezia, recent injuries, recent illness. <DO Reji Jaimes Last Filed: 10/26/23 08:29> Related Data Home Medications: Home Medications Medication Instructions Recorded Confirmed norethindrone 1 mg-ethinyl 1 tablet PO DAILY 10/10/23 10/10/23 estradiol 20 mcg (24)-iron 75 mg (4) tablet () omeprazole 20 mg capsule,delayed 20 mg PO DAILY 10/10/23 10/10/23 release <DO Reji Jaimes Last Filed: 10/26/23 08:29> Allergies/Adverse Reactions: Allergies Allergy/AdvReac Type Severity Reaction Status Date / Time morphine Allergy Hives Verified 10/26/23 05:05 <Leandro Brito DO - Last Filed: 10/26/23 08:29> Review of Systems Review of Systems: A 10 system review of systems was completed on the patient and is negative except for what is stated in the HPI. Nursing and ancillary documentation was reviewed. <Leandro Brito DO - Last Filed: 10/26/23 08:29> [facility] Past Medical History Medical History: Medical History (Updated 10/26/23 @ 08:14 by Leandro Brito DO) Acid reflux Elevated glucose Elevated WBCs Encounter to establish care Gallstones Hepatic steatosis Hypersomnia Left ankle pain Major depression Mass of left lobe of liver Morbid obesity with BMI of 60.0-69.9, adult Patient denies significant medical history Right knee pain Snoring <Laendro Brito DO - Last Filed: 10/26/23 08:29> Surgical History Surgical History: Surgical History (Updated 10/10/23 @ 12:50 by Darrell Hylton [facility]) History of cholecystectomy 05/20/2023 <Leandro Brito DO - Last Filed: 10/26/23 08:29> Family History Family History: Family History (Updated 10/10/23 @ 13:07 by Darrell Hylton [facility]) Father Alcoholism Diabetes mellitus Hypertension Heart disease Mother Ovarian cancer Sibling Depression Grandparent Hypertension Heart disease Grandparent Alcoholism Lung cancer <Leandro Brito DO - Last Filed: 10/26/23 08:29> Social History Social History: Social History (Updated 10/10/23 @ 13:10 by Darrell Hylton [facility]) Smoking status: Current every day smoker Tobacco type: e-cigarettes/vaping Smokeless tobacco user: chewing tobacco Alcohol intake: current Drinks per week: 20 Alcohol use details: Vodka Substance use: current Substance use type: marijuana Do You Feel Safe in your Home?: Yes Lack of Transportation: No Lack of Food: Never True Current Housing: I Have Housing Concerned About Future Housing: No Difficulty Paying Gas/Electric Bills: No
[2023-10-26] MEDS: KETOROLAC 15 MG/ML VIAL (*BKC) IV PUSH (05:34)
[2023-10-26 05:38] VITALS: BP 141/67; PULSE 80; RESP 16; O2SAT 99
[2023-10-26 06:09] LABS: Creatine Kinase 92 U/L (30-135)
[2023-10-26 07:18] VITALS: BP 132/77; PULSE 78; RESP 18; O2SAT 100
[2023-10-26] MEDS: FAMOTIDINE 20 MG/2 ML VIAL IV PUSH (08:28)
[2023-10-26] MEDS: MAG HYDROX/AL HYDROX/SIMETH 30 ML UDC PO (08:28)
== END 2023-10-26 09:54 | disposition home or self-care (01) ==
PROVIDERS: Student in an Organized Health Care Education/Training Program; Emergency Provider Emergency Medicine; PCP Nurse Practitioner Family
DX: R10.11 Right upper quadrant pain (principal); F17.290 Nicotine dependence, other tobacco product, uncomplicated
CPT/HCPCS: 36415; 71045; 74177; 76705; 80053; 81001; 81025; 82550; 83690; 85025; 96374; 96375; 99284; A9270; J1885; Q9967

== ENCOUNTER 2023-12-06 08:19 | Outpatient (CLI) | payer OTHER, SELFPAY ==
--- NOTE | 2023-12-08 16:53 | WPDHOMESLEEP ---
Sleep Study - Home Unattended Date of Study: 12/06/23 Ordering Provider: Ethel Liz NP Interpreting Provider: Alley Carreno MD Home Sleep Study Type: Watch PAT Height: 1.57 m Weight: 148.778 kg Body Mass Index: 60.0 Neck Circumference (inches): 19.5 [place]: 3 Reason for Sleep Study Hypersomnolence Sleep History Kristian Matta is a 23-year-old woman with difficulty getting to sleep and staying asleep. Melatonin helped for about a month but then it lost its benefit. She has depression, anxiety, heartburn, IBS, PCOS, recent diagnosis of hypertension. She was taken off bupropion after she completed her sleep questionnaire. She rarely awakens from sleep short of breath. She frequently wakes at night with heartburn, belching or coughing.??She constantly snores, and constantly snores loudly enough that others complain. She rarely has trouble sleeping when she has a cold. She rarely wakes up gasping for breath during the night. She occasionally has breathing problems at night. She occasionally sweats excessively at night. She occasionally notices her heart pounding or beating irregularly during the night. She never falls asleep during the day. She never falls asleep involuntarily, never falls asleep while driving. She never experiences loss of muscle tone with strong emotion. She never feels paralyzed on waking or falling asleep. She constantly experiences vivid dreams upon waking or falling asleep. She rarely feels afraid of going to sleep. She constantly has nightmares. She frequently recalls her dreams. She constantly has thoughts racing through her mind. She constantly feels sad or depressed. She occasionally feels anxiety. She constantly notices parts of her body jerk. She never kicks during the night. She occasionally feels crawling or aching feelings in her legs. She rarely feels leg pain at night. She never has morning jaw pain, nor does she grind her teeth at night. She constantly feels bothered by pain during the day, is occasionally awakened by pain during the night. She constantly wakes up feeling stiff in the morning, constant wakes feeling sore or achy in the morning. She rarely awakens with pain in her neck, spine, or joints. She reports a weight gain of 30 lb during the last year. Normal bedtime is between 9:00 p.m. and 10:00 p.m., falling asleep within an hour or two, waking at least 5 times during the night, occurring in the middle of the night or the isotope technologist hours. While awake, she goes to the bathroom or sometimes stays in bed and repositions herself. It may take her anywhere between 10 minutes and 25 minutes to return to sleep. Her normal wake time is between 5:00 a.m. and 9:00 a.m.. On weekends, her bedtime is later, between 10:00 p.m. and 11:00 p.m.. Her wake time on weekends is between 3:00 a.m. and 11:00 a.m.. She estimates getting between 3 and 4 hours of sleep on a normal night. She is always so tired that she never wants to go out to have social activities. She takes naps in the afternoon or evening however a short nap lasting 10-15 minutes is not refreshing. She is drowsy for 3 hours after waking. Habits:??Tobacco: Never smoker Caffeine: 1-3 per day. Alcohol: none Recreational substances: none PMFSH Past Medical History Medical History Acid reflux Elevated BP without diagnosis of hypertension Elevated glucose Elevated WBCs Encounter to establish care Essential hypertension Gallstones Hepatic steatosis Hypersomnia Left ankle pain Major depression Mass of left lobe of liver Morbid obesity with BMI of 60.0-69.9, adult Palpitations Patient denies significant medical history Right knee pain Right sided abdominal pain Snoring Surgical History Surgical History History of cholecystectomy 05/20/2023 Family History Family History (Reviewed 12/13/23 @ 00:26 by Alley Plascencia
[2023-12-13 00:44] VITALS: BMI 60.0
== END 2023-12-07 07:30 | disposition home or self-care (01) ==
LOC: ANHCSM 08:20
PROVIDERS: PCP Nurse Practitioner Family; Visit Provider Nurse Practitioner Family
DX: G47.10 Hypersomnia, unspecified (principal)
CPT/HCPCS: 95800

== ENCOUNTER 2023-12-08 12:35 | Emergency (ER) | payer OTHER, SELFPAY | END 2023-12-08 14:03 | disposition left against medical advice (07) | PROVIDERS: PCP Nurse Practitioner Family | DX: Z53.21 Procedure and treatment not carried out due to patient leaving prior to being seen by health care provider (principal) | CPT/HCPCS: 99199 ==

== ENCOUNTER 2023-12-14 13:33 | Outpatient (CLI) | payer OTHER, SELFPAY ==
--- NOTE | 2023-12-14 13:41 | ECHO_ITS ---
Patient Info Name: Esme Matta Age: 23 years : 2000 Gender: Female Ht: 61 in Wt: 328 lbs BSA: 2.64 m2 HR: 76 bpm BP: 146 / 86 mmHg Technical Quality: Fair Exam Date: 12/14/2023 1:54 PM Exam Location: Echo Lab Patient Status: Outpatient Admit Date: 12/14/2023 Staff Ordering Physician: Ethel Liz NP Electron Beam Machine Welder Setter: Attending Provider: Ethel Liz NP Exam Type: CA echo doppler color flow Study Info Indications R00.2 - Palpitations Summary 1. Left ventricular chamber dimension is normal. 2. Left ventricular systolic function is normal, estimated at 60-65%. 3. There is mild concentric increased left ventricular wall thickness. 4. The left ventricular diastolic function is normal. 5. E/e' 7 is not elevated. Left Ventricle E/e' 7 is not elevated. Left ventricular chamber dimension is normal. Left ventricular systolic function is normal, estimated at 60-65%. There is mild concentric increased left ventricular wall thickness. The left ventricular diastolic function is normal. Right Ventricle Right ventricular systolic function is normal and with normal TAPSE 2.0 cm. Right ventricular chamber dimension is normal. Left Atria Left atrial chamber dimension is normal. Right Atria Right atrial chamber dimension is normal. Aortic Valve The aortic valve is trileaflet. There is no aortic valve stenosis. There is no aortic valve regurgitation. Pulmonic Valve There is no pulmonic regurgitation. Mitral Valve There is no mitral valve stenosis. There is no mitral valve regurgitation. Tricuspid Valve There is no tricuspid valve regurgitation. Pericardium/Pleural There is no pericardial effusion. Inferior Vena Cava Normal inferior vena cava with >50% collapse upon inspiration consistent with normal right atrial pressure, 5 mmHg. Aorta The aortic root size at the sinus of Valsalva is normal. Left Ventricular Outflow Tract Name Value Normal LVOT 2D LVOT Diameter 2.1 cm LVOT Doppler LVOT Peak Gradient 3 mmHg LVOT Mean Gradient 2 mmHg LVOT VTI 17 cm LVOT VTI/AV VTI Ratio 0.8 LVOT Stroke Volume 63 ml LVOT CO 4.7 l/min LVOT CI 1.8 l/min/m2 Pulmonic Valve Name Value Normal PV Doppler PV Peak Gradient 3 mmHg Mitral Valve Name Value Normal MV Doppler MV Decel [place] 863 cm/s2 MV PHT 28 ms MV Area (PHT) 7.8 cm2 4.0-5.0 MV Diastolic Function
--- NOTE | 2023-12-14 14:21 | ECG_ITS ---
Measurements Intervals [place] Rate: 71 P: 37 ID: [id number] QRS: 57 QRSD: 93 T: 19 QT: 381 QTc: 414 Interpretive Statements SINUS RHYTHM WITH SINUS ARRHYTHMIA BORDERLINE ECG NO PREVIOUS ECG AVAILABLE FOR COMPARISON Electronically Signed On 12-14-2023 16:30:52 LINE CREW SUPERVISOR by Shilo Bridges M.D.
== END 2023-12-14 13:34 | disposition home or self-care (01) ==
LOC: ANHCARD 13:33
PROVIDERS: PCP Nurse Practitioner Family; Visit Provider Nurse Practitioner Family
DX: R93.1 Abnormal findings on diagnostic imaging of heart and coronary circulation (principal); E66.01 Morbid (severe) obesity due to excess calories; Z68.44 Body mass index [BMI] 60.0-69.9, adult
CPT/HCPCS: 93005; 93306

== ENCOUNTER 2023-12-22 09:30 | Outpatient (CLI) | payer OTHER, SELFPAY ==
--- NOTE | 2024-01-11 20:20 | WPDSLEEPSTUD ---
Sleep Study Date of Study: 12/22/23 Ordering Provider: Ethel Liz NP Interpreting Physician: Iram Johnson DO Sleep Study Type: CPAP Titration Height: 1.55 m Weight: 147.871 kg Body Mass Index: 61.6 Neck Circumference (inches): 19.5 [place]: 3 Reason for Sleep Study The patient had a WatchPAT home sleep test on 12/06/2023 that showed an overall AHI of 4.3 with desaturation down to 86%. Sleep History Kristian Matta is a 23-year-old woman with difficulty getting to sleep and staying asleep.? Melatonin helped for about a month but then it lost its benefit.? She has depression, anxiety, heartburn, IBS, PCOS, recent diagnosis of hypertension.? She was taken off bupropion after she completed her sleep questionnaire.? She rarely awakens from sleep short of breath.? She frequently wakes at night with heartburn, belching or coughing.??She constantly snores, and constantly snores loudly enough that others complain. She rarely has trouble sleeping when she has a cold.? She rarely wakes up gasping for breath during the night. She occasionally has breathing problems at night. She occasionally sweats excessively at night. She occasionally notices her heart pounding or beating irregularly during the night.? She never falls asleep during the day.? She never falls asleep involuntarily, never falls asleep while driving. She never experiences loss of muscle tone with strong emotion.? She never feels paralyzed on waking or falling asleep. She?constantly experiences vivid dreams upon waking or falling asleep. She rarely feels afraid of going to sleep. She?constantly has nightmares. She frequently recalls her dreams. She constantly has thoughts racing through her mind. She constantly feels sad or depressed. She occasionally feels anxiety. She constantly notices parts of her body jerk.? She never kicks during the night. She? occasionally feels crawling or aching feelings in her legs. She rarely feels leg pain at night. She never has morning jaw pain, nor does she grind her teeth at night.? She?constantly feels bothered by pain during the day, is occasionally awakened by pain during the night. She constantly wakes up feeling stiff in the morning,? constant wakes feeling sore or achy in the morning.? She rarely awakens with pain in her neck, spine, or joints.? ? She reports a weight gain of 30 lb during the last year. Normal bedtime is between 9:00 p.m. 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 While awake, she goes to the bathroom or sometimes stays in bed and repositions herself.? It may take her anywhere between 10 minutes and 25 minutes to return to sleep.? Her normal wake time is between 5:00 a.m. and 9:00 a.m..? On weekends, her bedtime is later, between 10:00 p.m. and 11:00 p.m..? Her wake time on weekends is between 3:00 a.m. and 11:00 a.m..? She estimates getting between 3 and 4 hours of sleep on a normal night.? She is always so tired that she never wants to go out to have social activities. ? She takes naps in the afternoon or evening however a short nap lasting 10-15 minutes is not refreshing.? She is drowsy for 3 hours after waking.? Habits:??Tobacco:? Never smoker? ? ? Caffeine: 1-3 per day. ? Alcohol: none ? ? Recreational substances: none PMFSH Past Medical History Medical History Acid reflux Elevated BP without diagnosis of hypertension Elevated glucose Elevated WBCs Encounter to establish care Essential hypertension Gallstones Hepatic steatosis Hypersomnia Left ankle pain Major depression Mass of left lobe of liver Morbid obesity with BMI of 60.0-69.9, adult Palpitations Patient denies significant medical history Right knee pain Right sided abdominal pain Snoring Surgical History Surgical History History of cholecys
== END 2023-12-23 06:52 | disposition home or self-care (01) ==
LOC: ANHCSM 09:31
PROVIDERS: PCP Nurse Practitioner Family; Visit Provider Nurse Practitioner Family
DX: G47.10 Hypersomnia, unspecified (principal)
CPT/HCPCS: 95811; 99199

== ENCOUNTER 2023-12-24 19:20 | Emergency (ER) | payer OTHER, SELFPAY ==
--- NOTE | 2023-12-24 20:18 | ED.GENADULT ---
HPI - General Adult General Chief complaint: Extremity Injury, Lower Stated complaint: L ankle injury Time Seen by Provider: 12/24/23 19:27 Source: patient Mode of arrival: ambulatory Limitations: no limitations History of Present Illness HPI narrative: This is a 23-year-old female who presents to the ED with chief complaint of left ankle pain x2 years. States it is worse in the past couple of days and has been affecting her ability to work. She works long shifts and has had difficulty with standing on the ankle for long periods of time. States that she had initial injury 2 years ago where she slipped on the ice never had it looked at. She feels that this is caused her to have chronic pain in the ankle. She also reports bilateral lower extremity edema at baseline. Denies fevers, chills, nausea, vomiting, numbness, weakness Related Data Home Medications Medication Instructions Recorded Confirmed norethindrone 1 mg-ethinyl 1 tablet PO DAILY 10/10/23 12/22/23 estradiol 20 mcg (24)-iron 75 mg (4) tablet () dulaglutide 0.75 mg/0.5 mL 0.75 mg subcut WEEKLY 11/11/23 12/22/23 subcutaneous pen injector (Trulicity) Allergies Allergy/AdvReac Type Severity Reaction Status Date / Time morphine Allergy Hives Verified 12/24/23 19:53 Review of Systems Review of Systems: All systems as dictated in [facility] Past Medical History Medical History Acid reflux Elevated BP without diagnosis of hypertension Elevated glucose Elevated WBCs Encounter to establish care Essential hypertension Gallstones Hepatic steatosis Hypersomnia Left ankle pain Major depression Mass of left lobe of liver Morbid obesity with BMI of 60.0-69.9, adult Palpitations Patient denies significant medical history Right knee pain Right sided abdominal pain Snoring Surgical History Surgical History History of cholecystectomy 05/20/2023 Family History Family History Father Alcoholism Diabetes mellitus Hypertension Heart disease Mother Ovarian cancer Sibling Depression Grandparent Hypertension Heart disease Grandparent Alcoholism Lung cancer Social History Social History Smoking status: Current every day smoker Smokeless tobacco user: chewing tobacco Alcohol intake: former Substance use: current Substance use type: marijuana Other substance usage details: daily Do You Feel Safe in your Home?: Yes Lack of Transportation: No Lack of Food: Never True Current Housing: I Have Housing Concerned About Future Housing: No Difficulty Paying Gas/Electric Bills: No Difficulty Paying for Meds: No Currently Unemployed: YES Education: Trade/Vocational Certificate Difficulty w/ Childcare or Family Care: No Living arrangements: with family Spiritual care concerns: No Exam Narrative: GENERAL: Well-appearing, well-nourished, and in no acute distress. Morbidly obese HEAD: Normocephalic, atraumatic. EYES: PERRLA and EOMI. ENT: Nares clear, no rhinorrhea or epistaxis. Mucous membranes moist. Oropharynx without tonsillar hypertrophy exudate or other lesions. NECK: Supple. No adenopathy or masses. CHEST: No respiratory distress. Clear to auscultation. No wheezes rales or rhonchi HEART: Regular rate and rhythm. No murmur heard. Normal peripheral pulses. ABDOMEN: Soft, nontender, nondistended, normal active bowel sounds. MSK: Mild left ankle swelling and tenderness. Pain with range of motion. SKIN: Warm, dry, no rash. NEURO: Alert and oriented x3. No focal deficits. PSYCH: Normal mood and affect. Course Vital Signs Vital signs: Vital Signs Pulse Rate 92 12/24/23 20:51 Respiratory Rate 18 12/24/23 20:51 Blood Pressure 146/84 H 12/24/23 20:51
[2023-12-24] MEDS: KETOROLAC 30 MG/ML VIAL (*BKC) IM (20:49)
[2023-12-24 20:51] VITALS: BP 146/84; PULSE 92; RESP 18; O2SAT 98
== END 2023-12-24 20:52 | disposition home or self-care (01) ==
PROVIDERS: Emergency Provider Physician Assistant; PCP Nurse Practitioner Family
DX: M25.572 Pain in left ankle and joints of left foot (principal); I10 Essential (primary) hypertension; E66.01 Morbid (severe) obesity due to excess calories; Z68.43 Body mass index [BMI] 50.0-59.9, adult; K21.9 Gastro-esophageal reflux disease without esophagitis; F17.220 Nicotine dependence, chewing tobacco, uncomplicated; Z90.49 Acquired absence of other specified parts of digestive tract; F32.9 Major depressive disorder, single episode, unspecified; R06.83 Snoring; Z79.85 Long-term (current) use of injectable non-insulin antidiabetic drugs
CPT/HCPCS: 96372; 99283; J1885

== ENCOUNTER 2024-01-18 10:14 | Outpatient (CLI) | payer OTHER, SELFPAY ==
--- NOTE | 2024-01-27 13:04 | WPDSLEEPSTUD ---
Sleep Study Date of Study: 01/18/24 Ordering Provider: Ethel Liz NP Interpreting Physician: Iram Johnson DO Sleep Study Type: Split Polysomnogram Height: 1.55 m Weight: 147.871 kg Body Mass Index: 61.6 Neck Circumference (inches): 19 Fithian: 3 Reason for Sleep Study Difficulty falling and staying asleep Sleep History Kristian Matta is a 23-year-old woman with difficulty getting to sleep and staying asleep.? Melatonin helped for about a month but then it lost its benefit.? She has depression, anxiety, heartburn, IBS, PCOS, recent diagnosis of hypertension.? She was taken off bupropion after she completed her sleep questionnaire.? She rarely awakens from sleep short of breath.? She frequently wakes at night with heartburn, belching or coughing.??She constantly snores, and constantly snores loudly enough that others complain. She rarely has trouble sleeping when she has a cold.? She rarely wakes up gasping for breath during the night. She occasionally has breathing problems at night. She occasionally sweats excessively at night. She occasionally notices her heart pounding or beating irregularly during the night.? She never falls asleep during the day.? She never falls asleep involuntarily, never falls asleep while driving. She never experiences loss of muscle tone with strong emotion.? She never feels paralyzed on waking or falling asleep. She?constantly experiences vivid dreams upon waking or falling asleep. She rarely feels afraid of going to sleep. She?constantly has nightmares. She frequently recalls her dreams. She constantly has thoughts racing through her mind. She constantly feels sad or depressed. She occasionally feels anxiety. She constantly notices parts of her body jerk.? She never kicks during the night. She? occasionally feels crawling or aching feelings in her legs. She rarely feels leg pain at night. She never has morning jaw pain, nor does she grind her teeth at night.? She?constantly feels bothered by pain during the day, is occasionally awakened by pain during the night. She constantly wakes up feeling stiff in the morning,? constant wakes feeling sore or achy in the morning.? She rarely awakens with pain in her neck, spine, or joints.? ? She reports a weight gain of 30 lb during the last year. Normal bedtime is between 9:00 p.m. 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 While awake, she goes to the bathroom or sometimes stays in bed and repositions herself.? It may take her anywhere between 10 minutes and 25 minutes to return to sleep.? Her normal wake time is between 5:00 a.m. and 9:00 a.m..? On weekends, her bedtime is later, between 10:00 p.m. and 11:00 p.m..? Her wake time on weekends is between 3:00 a.m. and 11:00 a.m..? She estimates getting between 3 and 4 hours of sleep on a normal night.? She is always so tired that she never wants to go out to have social activities. ? She takes naps in the afternoon or evening however a short nap lasting 10-15 minutes is not refreshing.? She is drowsy for 3 hours after waking.? Habits:??Tobacco:? Never smoker? ? ? Caffeine: 1-3 per day. ? Alcohol: none ? ? Recreational substances: none [facility] Past Medical History Medical History Acid reflux Elevated BP without diagnosis of hypertension Elevated glucose Elevated WBCs Encounter to establish care Essential hypertension Gallstones Hepatic steatosis Hypersomnia Left ankle pain Major depression Mass of left lobe of liver Morbid obesity with BMI of 60.0-69.9, adult Palpitations Patient denies significant medical history Right knee pain Right sided abdominal pain Snoring Surgical History Surgical History History of cholecystectomy 05/20/2023 Family History Family History (Reviewed 01/27/24 @ 13:0
[2024-01-27 13:07] VITALS: BMI 61.6
== END 2024-01-19 07:30 | disposition home or self-care (01) ==
LOC: ANHCSM 10:14
PROVIDERS: PCP Nurse Practitioner Family; Visit Provider Nurse Practitioner Family
DX: G47.33 Obstructive sleep apnea (adult) (pediatric) (principal)
CPT/HCPCS: 95811

== ENCOUNTER 2024-02-08 16:13 | Emergency (ER) | payer OTHER, SELFPAY ==
[2024-02-08 16:23] VITALS: BP 126/88; PULSE 75; RESP 18; TEMP 36.8; O2SAT 98
[2024-02-08 16:24] VITALS: BP 126/88; PULSE 75; RESP 18; TEMP 36.8; O2SAT 98
--- NOTE | 2024-02-08 16:25 | ED.URI ---
HPI - URI/Sore Throat General Chief Complaint: Upper Respiratory Infection Stated Complaint: sorethroat,bilateral ear discomfort,cough Time Seen by Provider: 02/08/24 16:25 History of Present Illness HPI Narrative: 23 y/o female presented for c/o sore throat, nasal congestion, bilateral ear pressure and cough. Onset 2 days. Endorses sick contacts. Taking otc med for symptoms. Denies sob, wheezing, n/v/d/f/c. Related Data Home Medications Medication Instructions Recorded Confirmed drospirenone (contraceptive) 4 mg 02/08/24 02/08/24 (28) tablet (Slynd) Allergies Allergy/AdvReac Type Severity Reaction Status Date / Time morphine Allergy Hives Verified 02/08/24 16:23 Review of Systems Review of Systems: CONSTITUTIONAL: Denies body aches, fever, chills, or sweats. EYES: Denies visual changes, redness, or discharge. ENT: Reports rhinorrhea, congestion, sore throat, otalgia. CARDIOVASCULAR: Denies chest pain, palpitations, or edema. RESPIRATORY: Denies dyspnea. GASTROINTESTINAL: Denies abdominal pain, nausea, vomiting, or diarrhea. SKIN: Denies rash, itching, or wounds. MUSCULOSKELETAL: Denies back pain, joint pain, or myalgia. NEUROLOGIC: Denies headache PMFSH Past Medical History Medical History Acid reflux Elevated BP without diagnosis of hypertension Elevated glucose Elevated WBCs Encounter to establish care Essential hypertension Gallstones Hepatic steatosis Hypersomnia Left ankle pain Major depression Mass of left lobe of liver Morbid obesity with BMI of 60.0-69.9, adult Palpitations Patient denies significant medical history Right knee pain Right sided abdominal pain Snoring Surgical History Surgical History History of cholecystectomy 05/20/2023 Family History Family History Father Alcoholism Diabetes mellitus Hypertension Heart disease Mother Ovarian cancer Sibling Depression Grandparent Hypertension Heart disease Grandparent Alcoholism Lung cancer Social History Social History Smoking status: Current every day smoker Smokeless tobacco user: chewing tobacco Alcohol intake: former Substance use: current Substance use type: marijuana Other substance usage details: daily Do You Feel Safe in your Home?: Yes Lack of Transportation: No Lack of Food: Never True Current Housing: I Have Housing Concerned About Future Housing: No Difficulty Paying Gas/Electric Bills: No Difficulty Paying for Meds: No Currently Unemployed: YES Education: Trade/Vocational Certificate Difficulty w/ Childcare or Family Care: No Living arrangements: with family Spiritual care concerns: No Exam Narrative: GENERAL: well-appearing, no acute distress. EYES: conjunctivae clear ENT: Mucous membranes moist. Right TM erythematous, bulging and intact; canal not erythematous, no drainage no tragal tenderness; Left TM unable to visualize due to excess cerumen. Oropharynx erythematous without lesions. Tonsils enlarged and without exudate. No drooling, no hoarseness, no trismus, uvula midline. No tripod positioning, hot potato voice, or soft palate swelling. CHEST: Clear to auscultation, breath sounds equal. HEART: Regular rate and rhythm. No murmur heard. SKIN: Warm, dry, no rash. NEURO: Alert and oriented x3. Course Course Emergency Course: Patient is aware of diagnosis, understands and agrees to treatment plan. Anticipatory guidance given. Patient agrees to follow-up as directed and is aware of reasons to seek care at the emergency department. Portions of this record may have been created with voice recognition software Level of Care: Express Care Visit Vital Signs Vital signs: Vital Signs Temperature 98.2 F 02/07
== END 2024-02-08 16:46 | disposition home or self-care (01) ==
PROVIDERS: Emergency Provider Nurse Practitioner Family; PCP Nurse Practitioner Family
DX: U07.1 COVID-19 (principal); H66.001 Acute suppurative otitis media without spontaneous rupture of ear drum, right ear; F17.220 Nicotine dependence, chewing tobacco, uncomplicated; F12.90 Cannabis use, unspecified, uncomplicated; K21.9 Gastro-esophageal reflux disease without esophagitis; I10 Essential (primary) hypertension; E66.01 Morbid (severe) obesity due to excess calories; Z68.44 Body mass index [BMI] 60.0-69.9, adult
CPT/HCPCS: 87081; 87426; 87804; 87880; 99213; G0463

== ENCOUNTER 2024-02-21 12:22 | Emergency (ER) | payer OTHER, SELFPAY ==
[2024-02-21] VITALS (14 sets, daily range): BP systolic 110–161; BP diastolic 77–125; PULSE 91–105; RESP 16–29; TEMP 36.5; O2SAT 98–100
--- NOTE | ~2024-02-21 | XR_ITS ---
EXAMINATION: XR chest 2V DATE: 02/21/2024 12:53 INDICATION: Chest pain. Heart palpitations. TECHNIQUE: Frontal and lateral views of the chest were obtained. COMPARISON: Chest single view 10/26/2023 FINDINGS: The lung volumes are small. There is no pneumonia, pleural effusion, or pneumothorax. The h eart size is normal. IMPRESSION: 1. No acute cardiopulmonary disease. Reviewed, dictated and finalized at location A.
--- NOTE | 2024-02-21 12:30 | ECG_ITS ---
SEE SCANNED COPY FOR CONFIRMED REPORT. MTDD
[2024-02-21 12:45] LABS: Basophils Absolute Auto 0.1 K/mm3 (0.0-0.1); Basophils Percent Auto 0.6 % (0.2-1.2); Eosinophils Absolute Auto 0.5 K/mm3 (0-0.3); Eosinophils Percent Auto 2.9 % (0-4.4); Hematocrit 42.6 % (37.0-47.0); Hemoglobin 13.8 g/dL (12.0-15.0); Immature Granulocyte Absolute 0.14 K/mm3 (0.00-0.031); Immature Granulocyte Percent A 0.9 % (0-0.5); Lymphocytes Absolute Auto 3.83 K/mm3 (0.9-3.2); Lymphocytes Percent Auto 24.5 % (18.3-44.2); Mean Corpuscular HGB Conc 32.4 g/dl (32-36); Mean Corpuscular Hemoglobin 27.7 pg (26-34); Mean Corpuscular Volume 85.5 fl (80-100); Mean Platelet Volume 9.8 fl (7.4-10.4); Monocytes Absolute Auto 0.9 K/mm3 (0.1-0.6); Monocytes Percent Auto 5.8 % (2.6-8.5); Neutrophils Absolute Auto 10.2 K/mm3 (1.3-6.7); Neutrophils Percent Auto 65.3 % (45.5-73.1); Platelet Count Result 331 k/mm3 (150-375); Red Blood Count 4.98 M/mm3 (4.2-5.4); Red Cell Distribution Width 14.2 % (11.5-14.5); White Blood Count 15.7 K/mm3 (4.5-10.0)
[2024-02-21 12:55] LABS: INR 0.9; Prothrombin Time 12.9 Seconds (11.1-14.7)
[2024-02-21 12:56] LABS: Alanine Aminotransferase 50 U/L (6-35); Albumin Level 4.3 g/dL (3.5-5.1); Alkaline Phosphatase 75 U/L (38-126); Anion Gap 4 mmol/L (4-12); Aspartate Amino Transferase 39 U/L (14-36); Bilirubin,Total 0.7 mg/dL (0.2-1.3); Blood Urea Nitrogen 13 mg/dL (7-17); Calcium 9.1 mg/dL (8.4-10.2); Carbon Dioxide 27 mmol/L (22-30); Chloride 104 mmol/L (98-107); Estimated CRCL calculation 177 ml/min; Estimated Glomerular Filt Rate > 60; Glucose 133 mg/dL (65-110); Lipase 100 U/L (23-300); Partial Thromboplastin Time 27.8 Seconds (22.3-36.8); Potassium 4.3 mmol/L (3.4-5.0); Sodium 135 mmol/L (137-145)
[2024-02-21 13:07] LABS: Troponin I < 0.012 ng/mL (0.000-0.034)
--- NOTE | 2024-02-21 14:15 | ED.GENADULT ---
HPI - General Adult General Chief complaint: Chest Pain <Martina Chacko February, YOUTH DIRECTOR - Last Filed: 02/21/24 19:32> Stated complaint: chest pain <Martina Chacko February, YOUTH DIRECTOR - Last Filed: 02/21/24 19:32> Time Seen by Provider: 02/21/24 14:16 <Martina Cahcko February, - Last Filed: 02/21/24 19:32> Focused HPI: Esme Matta is a 23 y/o female who presents today [facility] reports of driving today and started to have mid sternal chest pain radiating to the left and then shortly after started to have heart palpations maybe about 2 hours ago. Reports of having chest pain at an 8/10 and the palpitations are now off and on. She also reports of feeling shortness of breath that is new. She has a Warehouse Shipping Clerk Dr. Stoner who currently has her on a heart monitor for two weeks she will have it removed on February 23 - this is to clear her for surgery to have an upper scope done. GENERAL: Well-appearing, well-nourished, and in no acute distress. HEAD: Normocephalic, atraumatic. CHEST: Clear to auscultation. ?No respiratory distress. HEART: Regular rate and rhythm.? NEURO: ?Alert and oriented x3. Patient screened in triage and initial orders placed.? ?Additional care and disposition to be based upon?diagnostic testing and treatment. <Martina Chacko February, - Last Filed: 02/21/24 19:32> History of Present Illness HPI narrative: 23-year-old female present to the emergency department for evaluation substernal chest pain and heart palpitations. Patient states that she has both these on a frequent basis. Patient states she has chest pain multiple times a week and states she is currently being worked up for heart palpitations and patient does have an event recorder in place. patient states today she had short episode chest pain and then had an episode of heart palpitations and patient presented emergency department for evaluation. Upon arrival to the ED patient is no longer having her palpitations or chest pain. <Aron Sanchez MD - Last Filed: 02/21/24 22:12> Related Data Home medications: Home Medications Medication Instructions Recorded Confirmed drospirenone (contraceptive) 4 mg 02/08/24 02/08/24 (28) tablet (Slynd) <Martina Chacko February, - Last Filed: 02/21/24 19:32> Allergies/adverse reactions: Allergies Allergy/AdvReac Type Severity Reaction Status Date / Time morphine Allergy Hives Verified 02/08/24 16:23 <Martina Chacko February, - Last Filed: 02/21/24 19:32> Review of Systems Review of Systems: All systems reviewed & are unremarkable except as noted in HPI and below <Aron Sanchez MD - Last Filed: 02/21/24 22:12> [facility] Past Medical History Medical History: Medical History Acid reflux Elevated BP without diagnosis of hypertension Elevated glucose Elevated WBCs Encounter to establish care Essential hypertension Gallstones Hepatic steatosis Hypersomnia Left ankle pain Major depression Mass of left lobe of liver Morbid obesity with BMI of 60.0-69.9, adult Palpitations Patient denies significant medical history Right knee pain Right sided abdominal pain Snoring <Martina Gandhi - Last Filed: 02/21/24 19:32> Surgical History Surgical History: Surgical History History of cholecystectomy 05/20/2023 <Martina Gandhi - Last Filed: 02/21/24 19:32> Family History Family History: Family History Father Alcoholism Diabetes mellitus Hypertension Heart disease Mother Ovarian cancer Sibling Depression Grandparent Hypertension Heart disease Grandparent Alcoholism Lung cancer <Martina Gandhi - Last Filed: 02/21/24 19:32> Social History Social History: Social History Smoking status: Current every day smoker Smokeless tobacco user: chewing tobacco
[2024-02-21 15:09] LABS: D Dimer 0.36 ug/mL (<0.48)
--- NOTE | 2024-02-21 15:29 | ECG_ITS ---
SEE SCANNED COPY FOR CONFIRMED REPORT. MTDD
[2024-02-21 16:07] LABS: Troponin I < 0.012 ng/mL (0.000-0.034)
== END 2024-02-21 17:32 | disposition home or self-care (01) ==
PROVIDERS: Student in an Organized Health Care Education/Training Program; Emergency Provider Emergency Medicine; PCP Nurse Practitioner Family
DX: R07.2 Precordial pain (principal); R00.2 Palpitations; I10 Essential (primary) hypertension; E66.01 Morbid (severe) obesity due to excess calories; Z68.44 Body mass index [BMI] 60.0-69.9, adult; K21.9 Gastro-esophageal reflux disease without esophagitis; F32.9 Major depressive disorder, single episode, unspecified; Z90.49 Acquired absence of other specified parts of digestive tract; F17.220 Nicotine dependence, chewing tobacco, uncomplicated; R94.31 Abnormal electrocardiogram [ECG] [EKG]
CPT/HCPCS: 36415; 71046; 80053; 83690; 83735; 84443; 84484; 85025; 85380; 85610; 85730; 93005; 99284

== ENCOUNTER 2024-02-24 09:47 | Outpatient (CLI) | payer OTHER, SELFPAY ==
--- NOTE | ~2024-02-24 | US_ITS ---
EXAMINATION: US retroperitoneal duplex ltd DATE: 02/24/2024 10:40 CDT INDICATION: Accelerated hypertension. TECHNIQUE: Sonographic imaging of the kidneys was performed with a 3.5 MHz transducer. Retroperitone al duplex sonogram of the renal arteries also obtained. FINDINGS: No focal flow abnormalities are seen in the renal arteries on color Doppler. The peak syst olic velocity ranges of the right and left renal arteries and aorta are 53 cm per second, 119 cm per second, and 128 cm per second, respectively. The velocities and renal to aortic ratios are within nor mal limits. IMPRESSION: 1. No Doppler evidence of renal artery stenosis. Reviewed, dictated and finalized at location B.
== END 2024-02-24 09:48 | disposition home or self-care (01) ==
LOC: ANHIMG 09:47
PROVIDERS: PCP Nurse Practitioner Family; Visit Provider Internal Medicine
DX: I10 Essential (primary) hypertension (principal)
CPT/HCPCS: 93976

== ENCOUNTER 2024-03-26 11:08 | Outpatient (CLI) | payer OTHER, SELFPAY ==
[2024-03-30 07:08] LABS: Renin 35.51 ng/mL/h (0.25-5.82)
[2024-04-02 13:22] LABS: Metanephrine, Free <25 pg/mL (<=57); Normetanephrine, Free 69 pg/mL (<=148); Total, Free (MN + NMN) 69 pg/mL (<=205)
[2024-04-08 14:53] LABS: PRA 24.23 ng/mL/h (0.25-5.82)
== END 2024-03-26 11:09 | disposition home or self-care (01) ==
LOC: ANHLAB 11:10
PROVIDERS: PCP Nurse Practitioner Family; Visit Provider Internal Medicine
DX: I10 Essential (primary) hypertension (principal)
CPT/HCPCS: 36415; 82088; 83835; 84244; 84443

== ENCOUNTER 2024-04-01 22:16 | Emergency (ER) | payer OTHER, SELFPAY ==
[2024-04-01] VITALS (8 sets, daily range): BP systolic 135–143; BP diastolic 86–100; PULSE 106–115; RESP 19–29; TEMP 36.9; O2SAT 94–100
--- NOTE | ~2024-04-01 | CT_ITS ---
CT of the Abdomen and Pelvis: Indication: Abdominal pain Technique: 2.5 mm axial scans were obtained through the abdomen and pelvis following intravenous adm inistration of 100 cc of Omnipaque 350. Dose reduction technique was used on this scan by utilizing a utomated exposure control and iterative reconstruction technique. The dose-length product (DLP) was 1 672.66 mGy-cm. COMPARISON: 10/26/2019 Findings: Scans through the lung bases are unremarkable. There is diffuse hepatic steatosis. Cholecystectomy clips are present. The spleen, pancreas, adrenals and kidneys are within normal limits. No evidence of aortic aneurysm. No lymphadenopathy. No bowel obstruction or bowel wall thickening. There is no evidence to suggest acute appendicitis. Images through the pelvis were performed. Urinary bladder unremarkable. No pelvic mass seen. No ascit es. Impression: Diffuse hepatic steatosis. No acute abnormality seen otherwise. Reviewed, dictated and finalized at [facility]. Impression: Diffuse hepatic steatosis. No acute abnormality seen otherwise.
--- NOTE | ~2024-04-01 | XR_ITS ---
Clinical Indication: Chest pain PA and lateral views of the chest: Comparison: 02/21/2024 Findings: The lungs are clear, without evidence of focal consolidation or pleural effusion. Cardiome diastinal silhouette is within normal limits. Bones and soft tissues are unremarkable. Impression: Normal chest. Reviewed, dictated and finalized at location . Impression: Normal chest.
--- NOTE | 2024-04-01 22:21 | ECG_ITS ---
[facility] [address] Test Date: 2024-04-01 Pat Name: Esme Matta Department: Room: Gender: F Sql Dba: : 2000 Requested By: July tSroud Order Number: [id number] Cely MD: Roddy Leahy M.D. Measurements Intervals [place] Rate: 114 P: 38 [place]: 159 QRS: 38 QRSD: 94 T: 27 QT: 324 QTc: 447 Interpretive Statements SINUS TACHYCARDIA OTHERWISE NORMAL ECG ECG No previous ECG available for comparison Electronically Signed On 04-02-2024 08:11:30 CDT by Roddy Leahy M.D.
[2024-04-01 23:21] LABS: Basophils Absolute Auto 0.1 K/mm3 (0.0-0.1); Basophils Percent Auto 0.4 % (0.2-1.2); Eosinophils Absolute Auto 0.3 K/mm3 (0-0.3); Eosinophils Percent Auto 1.7 % (0-4.4); Hematocrit 41.6 % (37.0-47.0); Hemoglobin 13.4 g/dL (12.0-15.0); Immature Granulocyte Absolute 0.19 K/mm3 (0.00-0.031); Lymphocytes Absolute Auto 5.25 K/mm3 (0.9-3.2); Lymphocytes Percent Auto 27.6 % (18.3-44.2); Mean Corpuscular HGB Conc 32.2 g/dl (32-36); Mean Corpuscular Hemoglobin 27.6 pg (26-34); Mean Corpuscular Volume 85.8 fl (80-100); Mean Platelet Volume 9.7 fl (7.4-10.4); Monocytes Absolute Auto 1.2 K/mm3 (0.1-0.6); Monocytes Percent Auto 6.3 % (2.6-8.5); Platelet Count Result 353 k/mm3 (150-375); Red Blood Count 4.85 M/mm3 (4.2-5.4); Red Cell Distribution Width 13.9 % (11.5-14.5)
[2024-04-01 23:34] LABS: Alanine Aminotransferase 39 U/L (6-35); Albumin Level 4.1 g/dL (3.5-5.1); Alkaline Phosphatase 80 U/L (38-126); Anion Gap 6 mmol/L (4-12); Aspartate Amino Transferase 35 U/L (14-36); Bilirubin,Total 0.5 mg/dL (0.2-1.3); Blood Urea Nitrogen 14 mg/dL (7-17); Calcium 8.8 mg/dL (8.4-10.2); Carbon Dioxide 28 mmol/L (22-30); Chloride 102 mmol/L (98-107); Estimated CRCL calculation 156 ml/min; Estimated Glomerular Filt Rate > 60; Glucose 273 mg/dL (65-110); Lipase 121 U/L (23-300); Potassium 4.1 mmol/L (3.4-5.0); Sodium 136 mmol/L (137-145)
[2024-04-01] MEDS: SODIUM CHLORIDE 0.9% IV 1,000 ML 999 ML IV CONT (23:34)
[2024-04-01 23:44] LABS: INR 0.9; Partial Thromboplastin Time 28.9 Seconds (22.3-36.8); Prothrombin Time 12.8 Seconds (11.1-14.7)
[2024-04-01 23:45] LABS: Troponin I < 0.012 ng/mL (0.000-0.034)
[2024-04-01 23:52] LABS: D Dimer 0.33 ug/mL (<0.48)
[2024-04-02] VITALS (7 sets, daily range): BP systolic 135–165; BP diastolic 92–95; PULSE 99–111; RESP 16–25; O2SAT 95–100
--- NOTE | 2024-04-02 00:12 | ED.CHESTPAIN ---
HPI - Chest Pain General Chief Complaint: Chest Pain <NADER Marques Last Filed: 04/02/24 14:04> Stated Complaint: chest pain, SOB, elevated HR, N/V <Lili Golden PA-C - Last Filed: 04/02/24 14:04> Time Seen by Provider: 04/01/24 23:10 <NADER Marques Last Filed: 04/02/24 14:04> Source: patient <NADER Marques Last Filed: 04/02/24 14:04> Mode of arrival: ambulatory <NADER Marques Filed: 04/02/24 14:04> Limitations: no limitations <NADER Marques Last Filed: 04/02/24 14:04> History of Present Illness HPI narrative: Patient is a 23-year-old female who presents the ED with report of chest pain and shortness of breath. Patient reports around 8:00 p.m. tonight she began vomiting. She had a few episodes of emesis. She thought she may be having acid reflux. She attempted taking famotidine, but denied improvement. She then developed chest pain around 10:00 p.m. throughout her left-sided chest. States pain radiates through to her back. She also reports feeling short of breath. Mother bedside reports patient's heart rate was in the 130s at that time while she was resting. She was then prompted here for further evaluation. Patient has been seeing Dr. Stoner with cardiology for similar issues. She reports pain throughout her right upper abdomen, which she reports is fairly chronic related to her fatty liver disease. Denies fevers. Denies lower extremity pain or swelling. <NADER Marques Last Filed: 04/02/24 14:04> Related Data Home Medications: Home Medications Medication Instructions Recorded Confirmed drospirenone (contraceptive) 4 mg 02/08/24 03/21/24 (28) tablet (Slynd) <NADER Marques Last Filed: 04/02/24 14:04> Allergies/Adverse Reactions: Allergies Allergy/AdvReac Type Severity Reaction Status Date / Time morphine Allergy Hives Verified 04/01/24 23:01 <Lili Golden PA-C - Last Filed: 04/02/24 14:04> Review of Systems Review of Systems: CONSTITUTIONAL: Denies fever, chills, or sweats. ENT: Denies rhinorrhea, congestion, sore throat. CARDIOVASCULAR: See HPI. RESPIRATORY: See HPI. GASTROINTESTINAL: See HPI GENITOURINARY: Denies dysuria or hematuria. MUSCULOSKELETAL: See HPI <Lili Golden PA-C - Last Filed: 04/02/24 14:04> All systems reviewed & are unremarkable except as noted in HPI and below <Lili Golden PA-C - Last Filed: 04/02/24 14:04> [facility] Past Medical History Medical History: Medical History Acid reflux Elevated BP without diagnosis of hypertension Elevated glucose Elevated WBCs Encounter to establish care Essential hypertension Gallstones Hepatic steatosis Hypersomnia Left ankle pain Major depression Mass of left lobe of liver Morbid obesity with BMI of 60.0-69.9, adult Palpitations Patient denies significant medical history Right knee pain Right sided abdominal pain Snoring <Lili Golden PA-C - Last Filed: 04/02/24 14:04> Surgical History Surgical History: Surgical History History of cholecystectomy 05/20/2023 <Lili Golden PA-C - Last Filed: 04/02/24 14:04> Family History Family History: Family History Father Alcoholism Diabetes mellitus Hypertension Heart disease Mother Ovarian cancer Sibling Depression Grandparent Hypertension Heart disease Grandparent Alcoholism Lung cancer <Lili Golden PA-C - Last Filed: 04/02/24 14:04> Social History Social History: Social History Smoking status: Current every day smoker Smokeless tobacco user: chewing tobacco Alcohol intake: form
[2024-04-02] MEDS: ACETAMINOPHEN 500 MG TABLET 1000 MG PO (00:19)
[2024-04-02] MEDS: KETOROLAC 30 MG/ML VIAL (*BKC) IV PUSH (00:19)
[2024-04-02] MEDS: BELLADONNA ALK/PHENOB ELIX 10 ML, MAG HYDROX/ALUMINUM HYD/SIMETH 30 ML, LIDOCAINE HCL 2... PO (00:19)
--- NOTE | 2024-04-02 00:41 | PC.NURSE ---
Patient taken to CT via stretcher at this time.
--- NOTE | 2024-04-02 00:45 | PC.NURSE ---
MAR is down at this time, patients pain reassessment is 3/10 on pain in her chest.
[2024-04-02 00:57] LABS: SPREG INTERNAL CONTROL Positive; Serum Qual hCG Negative
--- NOTE | 2024-04-02 01:15 | PC.NURSE ---
MAR is down at this time, unable to scan NS. 2nd liter of NS hung via gravity for 2nd bolus at 0115.
[2024-04-02 02:25] LABS: Troponin I < 0.012 ng/mL (0.000-0.034)
== END 2024-04-02 03:09 | disposition home or self-care (01) ==
PROVIDERS: Emergency Medicine; Emergency Provider Physician Assistant; PCP Nurse Practitioner Family
DX: R07.89 Other chest pain (principal); R10.10 Upper abdominal pain, unspecified; R00.0 Tachycardia, unspecified; E66.01 Morbid (severe) obesity due to excess calories; Z68.44 Body mass index [BMI] 60.0-69.9, adult
CPT/HCPCS: 36415; 71046; 74177; 80053; 83690; 84484; 84703; 85025; 85380; 85610; 85730; 93005; 96361; 96374; 99284; A9270; J1885; J7030; Q9967

== ENCOUNTER 2024-04-27 00:24 | Emergency (ER) | payer OTHER, SELFPAY ==
[2024-04-27 00:25] VITALS: BP 153/87; PULSE 113; RESP 20; TEMP 36.4; O2SAT 99
[2024-04-27 02:11] LABS: Basophils Absolute Auto 0.1 K/mm3 (0.0-0.1); Basophils Percent Auto 0.4 % (0.2-1.2); Eosinophils Absolute Auto 0.4 K/mm3 (0-0.3); Eosinophils Percent Auto 2.1 % (0-4.4); Hematocrit 39.9 % (37.0-47.0); Hemoglobin 13.5 g/dL (12.0-15.0); Immature Granulocyte Absolute 0.18 K/mm3 (0.00-0.031); Immature Granulocyte Percent A 0.9 % (0-0.5); Lymphocytes Absolute Auto 5.46 K/mm3 (0.9-3.2); Lymphocytes Percent Auto 27.4 % (18.3-44.2); Mean Corpuscular HGB Conc 33.8 g/dl (32-36); Mean Corpuscular Hemoglobin 28.4 pg (26-34); Mean Platelet Volume 9.7 fl (7.4-10.4); Monocytes Absolute Auto 1.3 K/mm3 (0.1-0.6); Monocytes Percent Auto 6.3 % (2.6-8.5); Neutrophils Absolute Auto 12.5 K/mm3 (1.3-6.7); Neutrophils Percent Auto 62.9 % (45.5-73.1); Platelet Count Result 342 k/mm3 (150-375); Red Blood Count 4.75 M/mm3 (4.2-5.4); White Blood Count 19.9 K/mm3 (4.5-10.0)
[2024-04-27 02:20] LABS: Alanine Aminotransferase 38 U/L (6-35); Albumin Level 4.2 g/dL (3.5-5.1); Alkaline Phosphatase 76 U/L (38-126); Anion Gap 9 mmol/L (4-12); Aspartate Amino Transferase 32 U/L (14-36); Bilirubin,Total 0.5 mg/dL (0.2-1.3); Blood Urea Nitrogen 15 mg/dL (7-17); Calcium 9.2 mg/dL (8.4-10.2); Carbon Dioxide 24 mmol/L (22-30); Chloride 104 mmol/L (98-107); Estimated CRCL calculation 162 ml/min; Estimated Glomerular Filt Rate > 60; Glucose 257 mg/dL (65-110); Lipase 143 U/L (23-300); Sodium 137 mmol/L (137-145)
[2024-04-27 03:33] LABS: Appearance Urine Clear (Clear); Bacteria Urine None Seen /hpf; Bilirubin Urine Negative (Negative); Blood Urine 3+ (Negative); Color Urine Yellow (Yellow); Glucose Urine UA 1+ mg/dL (Negative); Ketones Urine Negative (Negative); Leukocyte Esterase Ur Negative LEU/UL (Negative); Nitrate Urine Negative (Negative); Non Pathogenic Casts 0-2; Protein Urine Negative (Negative); RBC Urine >100 /hpf (0-2); Specific Grav Ur 1.021 (1.001-1.035); Squamous Epithelial Cell Urine None Seen /hpf (Few); WBC Urine 0-5 /hpf (0-3); pH Urine 5.5 (5.0-9.0)
[2024-04-27 03:34] LABS: Add Urine Microscopic? YES
--- NOTE | 2024-04-27 03:55 | ED.ABDPAIN ---
HPI - Abdominal Pain General Chief Complaint: Abdominal Pain Stated Complaint: liver pain Time Seen by Provider: 04/27/24 03:31 Source: patient Limitations: no limitations History of Present Illness HPI narrative: Patient is a 23-year-old female presents to the emergency department complaining of right upper quadrant pain. Patient states she had she knows that he liver can cause pain however she woke up this morning approximately 24 hours ago with right upper quadrant pain that overall been constant, stabbing, nonradiating, no history the pain in the past, notes that she has been having chronic pain in her epigastric region for the past approximately 1 month and has an upcoming appointment with Gastroenterology for an EGD in approximately 10 days and has been taking Protonix. Patient denies urinary discomfort, diarrhea, constipation, recent injuries, recent illness, nausea, vomiting, chest pain, difficulty breathing, fever, rash. Patient admits to taking Tylenol for the pain with only minimal relief. Patient is noticing the making the pain better or worse. Related Data Home Medications Medication Instructions Recorded Confirmed drospirenone (contraceptive) 4 mg 1 tablet PO DAILY 02/08/24 04/23/24 (28) tablet (Slynd) Allergies Allergy/AdvReac Type Severity Reaction Status Date / Time morphine Allergy Hives Verified 04/01/24 23:01 Review of Systems Review of Systems: A 10 system review of systems was completed on the patient and is negative except for what is stated in the HPI. Nursing and ancillary documentation was reviewed. [facility] Past Medical History Medical History Acid reflux Elevated BP without diagnosis of hypertension Elevated glucose Elevated WBCs Encounter to establish care Essential hypertension Gallstones Hepatic steatosis Hypersomnia Left ankle pain Major depression Mass of left lobe of liver Morbid obesity with BMI of 60.0-69.9, adult Palpitations Patient denies significant medical history Right knee pain Right sided abdominal pain Snoring Surgical History Surgical History History of cholecystectomy 05/20/2023 Family History Family History Father Alcoholism Diabetes mellitus Hypertension Heart disease Mother Ovarian cancer Sibling Depression Grandparent Hypertension Heart disease Grandparent Alcoholism Lung cancer Social History Social History Smoking status: Current every day smoker Smokeless tobacco user: chewing tobacco Alcohol intake: former Substance use: current Substance use type: marijuana Other substance usage details: daily Do You Feel Safe in your Home?: Yes Lack of Transportation: No Lack of Food: Never True Current Housing: I Have Housing Concerned About Future Housing: No Difficulty Paying Gas/Electric Bills: No Difficulty Paying for Meds: No Currently Unemployed: YES Education: Trade/Vocational Certificate Difficulty w/ Childcare or Family Care: No Living arrangements: with roommate(s) Spiritual care concerns: No Comments At time of signature, I have reviewed and agree with nursing past medical, surgical, social and family history unless otherwise noted. Please see the nursing chart for further information. There is no relevant family history pertinent to the presenting complaint. Exam Narrative: CONST: No acute distress. Well nourished. Obese. HENMT: Head is normocephalic and atraumatic. Moist mucous membranes. No posterior oropharynx erythema. EYES: No conjunctival icterus, injection, or pallor. PERRL. NECK: No meningeal signs. RESP: Able to speak in full sentences. Normal respiratory effort. CTAB. CARDIO: Regular rate. Regular rhythm. 2+ DP and rad
[2024-04-27] MEDS: FAMOTIDINE 20 MG/2 ML VIAL IV PUSH (04:11)
[2024-04-27] MEDS: DICYCLOMINE HCL INJ 20 MG/2 ML VIAL IM (04:11)
[2024-04-27] MEDS: KETOROLAC 15 MG/ML VIAL (*BKC) IV PUSH (04:12)
[2024-04-27] MEDS: MAG HYDROX/AL HYDROX/SIMETH 30 ML UDC PO (04:12)
[2024-04-27] MEDS: SODIUM CHLORIDE 0.9% IV 1,000 ML 999 ML IV CONT (04:12)
[2024-04-27 04:22] VITALS: BP 116/70; PULSE 102; RESP 21; TEMP 36.7; O2SAT 97
--- NOTE | 2024-04-27 04:45 | ECG_ITS ---
Test Date: 2024-04-27 05:15:29 Measurements Intervals [place] Rate: 92 P: 31 HI: 165 QRS: 56 QRSD: 92 T: 10 QT: 357 QTc: 442 Interpretive Statements SINUS RHYTHM DELAYED PRECORDIAL R/S TRANSITION CONSIDER INFERIOR INFARCT, AGE INDETERMINATE ABNORMAL ECG Compared to ECG 04/01/2024 22:30:46 Sinus tachycardia no longer present Electronically Signed On 04-27-2024 06:18:51 CDT by Michael Encinas D.O.
== END 2024-04-27 05:49 | disposition home or self-care (01) ==
PROVIDERS: Emergency Provider Student in an Organized Health Care Education/Training Program; PCP Nurse Practitioner Family
DX: R10.11 Right upper quadrant pain (principal); I10 Essential (primary) hypertension; E66.01 Morbid (severe) obesity due to excess calories; Z68.44 Body mass index [BMI] 60.0-69.9, adult; K21.9 Gastro-esophageal reflux disease without esophagitis; F32.9 Major depressive disorder, single episode, unspecified; F17.200 Nicotine dependence, unspecified, uncomplicated; F17.220 Nicotine dependence, chewing tobacco, uncomplicated; Z90.49 Acquired absence of other specified parts of digestive tract; Z79.3 Long term (current) use of hormonal contraceptives; Z79.899 Other long term (current) drug therapy
CPT/HCPCS: 36415; 80053; 81001; 83690; 85025; 93005; 96361; 96372; 96374; 96375; 99284; A9270; J0500; J1885; J7030

== ENCOUNTER 2024-05-08 02:11 | Day surgery (SDC) | payer OTHER, SELFPAY ==
[2024-04-23 16:19] VITALS: BMI 63.6
[2024-05-08 09:55] VITALS: BP 133/67; PULSE 106; RESP 22; TEMP 36.2; O2SAT 96
[2024-05-08] MEDS: LACTATED RINGERS 1,000 ML 150 ML IV CONT (10:10)
--- NOTE | 2024-05-08 10:50 | WPDANESEPPF ---
Anes - Initial Pre Proc Eval Procedure: Operation Date: 05/08/24 15:00 Proposed Procedures p Esophagogastroduodenoscopy - Ming Silva MD Date/Time: 05/08/24 10:50 Surgeon: Ming Silva MD Pre Op Diagnosis: Unspecified abdominal pain, GERD without esophagit Patient Data Age: 23 Gender: F Height: 1.57 m Weight: 157.7 kg Last Vital Signs Temp 97.2 F L 05/08/24 09:55 Pulse 106 H 05/08/24 09:55 Resp 22 H 05/08/24 09:55 BP 133/67 05/08/24 09:55 Pulse Ox 96 05/08/24 09:55 O2 Del Method Room Air 05/08/24 09:55 Allergies Allergy/AdvReac Type Severity Reaction Status Date / Time morphine Allergy Hives Verified 05/08/24 09:54 Home Medications Medication Instructions Recorded Confirmed Type escitalopram oxalate 20 mg tablet 20 mg PO DAILY #30 tabs 12/06/23 04/23/24 Rx (Lexapro) amlodipine 5 mg tablet 5 mg PO DAILY #30 tabs 12/22/23 04/23/24 Rx dicyclomine 20 mg tablet See Rx Instructions .Route 01/06/24 04/23/24 Rx .COMPLEX #90 tabs drospirenone (contraceptive) 4 mg 1 tablet PO DAILY 02/08/24 04/23/24 History (28) tablet (Slynd) hydrochlorothiazide 12.5 mg tablet 12.5 mg PO QAM #30 tabs 02/09/24 04/23/24 Rx lisinopril 10 mg tablet 10 mg PO DAILY #30 tabs 03/21/24 04/23/24 Rx pantoprazole 40 mg tablet,delayed See Rx Instructions .Route 04/09/24 04/23/24 Rx release .COMPLEX #60 tabs trazodone 50 mg tablet 50 mg PO QHS #30 tabs 04/18/24 04/23/24 Rx acetaminophen 500 mg tablet 500 mg PO Q6H PRN pain #30 tabs 04/27/24 05/08/24 Rx aluminum-mag hydroxide-simethicone 10 ml PO QID PRN dyspepsia #3,000 04/27/24 05/08/24 Rx 200 mg-200 mg-20 mg/5 mL oral susp mL (Maalox Advanced) dicyclomine 10 mg capsule 10 mg PO QID PRN abdominal pain 04/27/24 05/08/24 Rx #20 caps Patient hx anesthesia problems: none Family hx anesthesia problems: none Results Review: All pre-operative results and documents have been reviewed as part of the pre-operative evaluation. [facility] Past Medical History Medical History Acid reflux Elevated BP without diagnosis of hypertension Elevated glucose Elevated WBCs Encounter to establish care Essential hypertension Gallstones Hepatic steatosis Hypersomnia Left ankle pain Major depression Mass of left lobe of liver Morbid obesity with BMI of 60.0-69.9, adult Palpitations Patient denies significant medical history Right knee pain Right sided abdominal pain Snoring Surgical History Surgical History History of cholecystectomy 05/20/2023 Family History Family History Father Alcoholism Diabetes mellitus Hypertension Heart disease Mother Ovarian cancer Sibling Depression Grandparent Hypertension Heart disease Grandparent Alcoholism Lung cancer Social History Social History Smoking status: Current every day smoker Smokeless tobacco user: chewing tobacco Alcohol intake: former Substance use: current Substance use type: marijuana Other substance usage details: daily Do You Feel Safe in your Home?: Yes Lack of Transportation: No Lack of Food: Never True Current Housing: I Have Housing Concerned About Future Housing: No Difficulty Paying Gas/Electric Bills: No Difficulty Paying for Meds: No Currently Unemployed: YES Education: Trade/Vocational Certificate Difficulty w/ Childcare or Family Care: No Living arrangements: with roommate(s) Spiritual care concerns: No Anes - Eval Final PreProcedure Day of Procedure 05/08/24 10:50 Patient weight: super morbidly obese Heart: regular rate and rhythm Lungs: clear to auscultation Airway: Mallampati scale class II Neurological: alert and oriented Last oral intake: >/= 8 hours
--- NOTE | 2024-05-08 10:57 | PM.HPGS ---
History of Present Illness History of Present Illness Consent: Risks, benefits, and alternatives have been discussed and questions answered. Patient agrees to proceed with procedure. Chief complaint: Unspecified abdominal pain, GERD without esophagit Narrative: Esme Matta is a 23 year old female here for first egd, c/o intermittent upper abdominal pain, had cholecystectomy Review of Systems Review of Systems: All systems reviewed & are unremarkable except as noted in HPI and below PMFSH Past Medical History Medical History Acid reflux Elevated BP without diagnosis of hypertension Elevated glucose Elevated WBCs Encounter to establish care Essential hypertension Gallstones Hepatic steatosis Hypersomnia Left ankle pain Major depression Mass of left lobe of liver Morbid obesity with BMI of 60.0-69.9, adult Palpitations Patient denies significant medical history Right knee pain Right sided abdominal pain Snoring Surgical History Surgical History History of cholecystectomy 05/20/2023 Family History Family History Father Alcoholism Diabetes mellitus Hypertension Heart disease Mother Ovarian cancer Sibling Depression Grandparent Hypertension Heart disease Grandparent Alcoholism Lung cancer Social History Social History Smoking status: Current every day smoker Smokeless tobacco user: chewing tobacco Alcohol intake: former Substance use: current Substance use type: marijuana Other substance usage details: daily Do You Feel Safe in your Home?: Yes Lack of Transportation: No Lack of Food: Never True Current Housing: I Have Housing Concerned About Future Housing: No Difficulty Paying Gas/Electric Bills: No Difficulty Paying for Meds: No Currently Unemployed: YES Education: Trade/Vocational Certificate Difficulty w/ Childcare or Family Care: No Living arrangements: with roommate(s) Spiritual care concerns: No Meds Home Medications and Allergies Home Medications Medication Instructions Recorded Confirmed Type escitalopram oxalate 20 mg tablet 20 mg PO DAILY #30 tabs 12/06/23 04/23/24 Rx (Lexapro) amlodipine 5 mg tablet 5 mg PO DAILY #30 tabs 12/22/23 04/23/24 Rx dicyclomine 20 mg tablet See Rx Instructions .Route 01/06/24 04/23/24 Rx .COMPLEX #90 tabs drospirenone (contraceptive) 4 mg 1 tablet PO DAILY 02/08/24 04/23/24 History (28) tablet (Slynd) hydrochlorothiazide 12.5 mg tablet 12.5 mg PO QAM #30 tabs 02/09/24 04/23/24 Rx lisinopril 10 mg tablet 10 mg PO DAILY #30 tabs 03/21/24 04/23/24 Rx pantoprazole 40 mg tablet,delayed See Rx Instructions .Route 04/09/24 04/23/24 Rx release .COMPLEX #60 tabs trazodone 50 mg tablet 50 mg PO QHS #30 tabs 04/18/24 04/23/24 Rx acetaminophen 500 mg tablet 500 mg PO Q6H PRN pain #30 tabs 04/27/24 05/08/24 Rx aluminum-mag hydroxide-simethicone 10 ml PO QID PRN dyspepsia #3,000 04/27/24 05/08/24 Rx 200 mg-200 mg-20 mg/5 mL oral susp mL (Maalox Advanced) dicyclomine 10 mg capsule 10 mg PO QID PRN abdominal pain 04/27/24 05/08/24 Rx #20 caps Allergies Allergy/AdvReac Type Severity Reaction Status Date / Time morphine Allergy Hives Verified 05/08/24 09:54 Vital Signs Vital Signs - 24 hr 05/08/24 09:55 Temperature 97.2 F L Pulse Rate 106 H Respiratory Rate 22 H Blood Pressure 133/67 Pulse Oximetry 96 Oxygen Delivery Room Air Exam Const: General: comfortable, no acute distress and obese HENMT: Face/Nose/Sinus: Normal nares present Eyes: General: appearance normal, both eyes and all related structures Neck: Neck: no JVD Resp: Auscultation: clear to auscultation bilaterally Cardio: Rate: regular rate Rhythm: regular rhythm
[2024-05-08] MEDS: BENZOCAINE (*SP) 60 ML SPRAY CAN (HURRICAINE) 1 SPRAY MUCOUS MEM (11:05)
[2024-05-08 11:18] VITALS: BP 118/78; PULSE 102; RESP 19; O2SAT 99
[2024-05-08 11:28] VITALS: BP 123/61; PULSE 96; RESP 20; O2SAT 100
[2024-05-08 11:38] VITALS: BP 129/74; PULSE 98; RESP 22; O2SAT 100
== END 2024-05-08 11:42 | disposition home or self-care (01) ==
PROVIDERS: PCP Nurse Practitioner Family; Referring Provider Nurse Practitioner; Visit Provider Internal Medicine Gastroenterology
PROC: 0DJ08ZZ Inspection of Upper Intestinal Tract, Via Natural or Artificial Opening Endoscopic (ICD-10-PCS; CPT 43235; principal; 2024-05-08 15:00)
DX: K29.50 Unspecified chronic gastritis without bleeding (principal); K29.80 Duodenitis without bleeding; I10 Essential (primary) hypertension; K21.9 Gastro-esophageal reflux disease without esophagitis; K76.0 Fatty (change of) liver, not elsewhere classified; F32.A Depression, unspecified; E66.01 Morbid (severe) obesity due to excess calories; Z68.44 Body mass index [BMI] 60.0-69.9, adult; F12.90 Cannabis use, unspecified, uncomplicated; Z87.891 Personal history of nicotine dependence
CPT/HCPCS: 43239; 88305; J2704; J7120

== ENCOUNTER 2024-05-28 08:11 | Outpatient (CLI) | payer OTHER, SELFPAY ==
[2024-05-28 08:44] LABS: Anion Gap 9 mmol/L (4-12); Blood Urea Nitrogen 18 mg/dL (7-17); Calcium 8.8 mg/dL (8.4-10.2); Carbon Dioxide 26 mmol/L (22-30); Chloride 98 mmol/L (98-107); Cholesterol 174 mg/dL (0-200); Estimated Glomerular Filt Rate > 60; Glucose 255 mg/dL (65-110); HDL Direct 28 mg/dL; Potassium 4.6 mmol/L (3.4-5.0); Sodium 133 mmol/L (137-145); Triglycerides 294 mg/dL (<150)
[2024-05-28 08:47] LABS: Rheumatoid Factor < 12.0 IU/ML (<12)
[2024-05-28 08:55] LABS: LDL Cholesterol Direct 114 mg/dL
[2024-05-28 09:15] LABS: Cortisol Random 1.11 ug/dL
[2024-05-28 14:42] LABS: Hemoglobin A1C 8.3 % (<5.7)
[2024-05-30 12:28] LABS: ANA Cascade Screen NEGATIVE (NEGATIVE)
[2024-05-30 13:43] LABS: CRP, High Sensitivity >20.0 mg/L
== END 2024-05-28 08:12 | disposition home or self-care (01) ==
LOC: ANHLAB 08:12
PROVIDERS: PCP Nurse Practitioner Family; Visit Provider Nurse Practitioner Family
DX: M25.50 Pain in unspecified joint (principal); I10 Essential (primary) hypertension; R63.5 Abnormal weight gain; R73.09 Other abnormal glucose
CPT/HCPCS: 36415; 80048; 80061; 82533; 83036; 86038; 86141; 86225; 86235; 86364; 86430; 87081; 87426; 87880; 99213; G0463

== ENCOUNTER 2024-05-28 08:42 | Emergency (ER) | payer OTHER, SELFPAY ==
[2024-05-28 09:30] VITALS: BP 129/87; PULSE 87; RESP 18; TEMP 36.2; O2SAT 100
--- NOTE | 2024-05-28 09:31 | ED.URI ---
HPI - URI/Sore Throat General Chief Complaint: Upper Respiratory Infection Stated Complaint: sorethroat,cough Source: patient, RN notes reviewed and old records reviewed Mode of arrival: ambulatory Limitations: no limitations History of Present Illness HPI Narrative: patient presents with complaints of dry cough for approximately 1 month. She denies any shortness of breath. Denies any wheezes. She is also complaining that she had a few episodes of nausea yesterday and some diarrhea. She has not had any episodes today. She did vomit 1 time yesterday. She reports runny nose and sore throat for about 3 days. She is unsure of fever status. She does complain of some headache and body ache well as some left ear pain. She has not been taking anything for her symptoms Related Data Home Medications Medication Instructions Recorded Confirmed progesterone micronized PO 05/23/24 05/23/24 Allergies Allergy/AdvReac Type Severity Reaction Status Date / Time morphine Allergy Hives Verified 05/28/24 09:32 Review of Systems Review of Systems: All systems reviewed & are unremarkable except as noted in HPI and below Constitutional: Constitutional: Reports no additional constitutional complaints ENT: Reports system reviewed and no additional complaints, except as documented, Reports otalgia and Reports post nasal drip Cardiovascular: Cardiovascular: Reports as per HPI and Reports no additional cardiovascular complaints Respiratory: Respiratory: Reports as per HPI, Reports no additional respiratory complaints, Reports cough, Denies pain with cough and Denies wheezing Gastrointestinal: Gastrointestinal: Reports as per HPI, Reports no additional gastrointestinal complaints, Denies abdominal pain, Reports loose stools and Reports nausea Genitourinary: Genitourinary: Reports no additional female genitourinary complaints Musculoskeletal: Musculoskeletal: Reports as per HPI and Reports myalgias Neurologic: Reports as per HPI [facility] Past Medical History Medical History Acid reflux Arthralgia of multiple joints Elevated BP without diagnosis of hypertension Elevated glucose Elevated WBCs Encounter to establish care Essential hypertension Gallstones Hepatic steatosis Hypersomnia Hypertension Left ankle pain Major depression Mass of left lobe of liver Morbid obesity with BMI of 60.0-69.9, adult Palpitations Patient denies significant medical history Right knee pain Right sided abdominal pain Snoring Weight gain, abnormal Surgical History Surgical History History of cholecystectomy 05/20/2023 Family History Family History Father Alcoholism Diabetes mellitus Hypertension Heart disease Mother Ovarian cancer Sibling Depression Grandparent Hypertension Heart disease Grandparent Alcoholism Lung cancer Social History Social History Smoking status: Current every day smoker Smokeless tobacco user: chewing tobacco Alcohol intake: former Substance use: current Substance use type: marijuana Other substance usage details: daily Do You Feel Safe in your Home?: Yes Lack of Transportation: No Lack of Food: Never True Current Housing: I Have Housing Concerned About Future Housing: No Difficulty Paying Gas/Electric Bills: No Difficulty Paying for Meds: No Currently Unemployed: YES Education: Trade/Vocational Certificate Difficulty w/ Childcare or Family Care: No Living arrangements: with roommate(s) Spiritual care concerns: No Comments At the time of my signature, I reviewed and agree with the nursing past medical, surgical, social, and family history. There is no relevant family history pertinent to the patient complaint. Exam Const: General: maritza
[2024-05-28 09:54] LABS: EDSTREPNEGPOS1 Presumptive Negative
== END 2024-05-28 10:27 | disposition home or self-care (01) ==
PROVIDERS: Emergency Provider Nurse Practitioner Family; PCP Nurse Practitioner Family
DX: J40 Bronchitis, not specified as acute or chronic (principal); H60.332 Swimmer's ear, left ear; Z20.822 Contact with and (suspected) exposure to COVID-19; F17.220 Nicotine dependence, chewing tobacco, uncomplicated; F12.90 Cannabis use, unspecified, uncomplicated; K21.9 Gastro-esophageal reflux disease without esophagitis; I10 Essential (primary) hypertension; K76.0 Fatty (change of) liver, not elsewhere classified; E66.01 Morbid (severe) obesity due to excess calories; Z68.43 Body mass index [BMI] 50.0-59.9, adult
CPT/HCPCS: 87081; 87426; 87880; 99213; G0463

== ENCOUNTER 2024-07-10 02:29 | Day surgery (SDC) | payer OTHER, SELFPAY ==
[2024-07-04 09:28] VITALS: BMI 67.3
--- NOTE | 2024-07-04 09:36 | PC.NURSE ---
Addendum entered by Val Miranda RN 07/04/24 13:46: PT INSTRUCTED NOT TO USE CHEWING TOBACCO ON THE MORNING OF SURGERY Original Note: Report to the Outpatient Waiting Room, entrance under the [facility] located off [facility], at time _0900_ on date 07/10/24_. Planned Procedure Time: _1100_.? Time changes happen often and if your time is changed the preop area will call you the afternoon before. - You and your visitor will be asked to self-screen and do not enter if you have any COVID symptoms. Please call surgeon if you need to reschedule. - A mask is optional within the hospital at this time. Patients may have clear liquids (water, carbonated beverages, clear teas, apple juice) until 3 hours prior to surgery with a maximum of 20 ounces. - No food from midnight until time of surgery and no smoking - Infants may have breast milk until 4 hours before surgery, infant formula 6 hours prior to surgery. - Children will be allowed to drink immediately following surgery.? If applicable, please bring a bottle or sippy cup to assist with drinking. Juice, water, soda, and popsicles are readily available.? For infants on formula, please bring formula the day of surgery.? Pacifiers are allowed. Take only the following medications with a SIP of water on the morning of surgery: ____AMLODIPINE, BUSPERONE, SERTRALINE DO NOT STOP ANY OF YOUR OTHER PRESCRIPTION MEDICATIONS PRIOR TO SURGERY EXCEPT THE FOLLOWING Medications to discontinue per physician NONE Date to take last dose Please no make-up, nail croatian, hairspray, perfume, deodorant, or body powder the day of surgery.? No jewelry (including any body piercings) or valuables the day of surgery, leave them at home.? Please take a shower or bath the night before, or the morning of, surgery with an antibacterial soap.? Wear comfortable, loose fitting clothing.? Children are encouraged to wear pajamas. - Jewelry must be removed prior to entering the operating room.? Rings and piercings that are not removed may be cut off. - The hospital will not accept responsibility for valuables.? - Please leave all valuables, including medications, at home the day of surgery. If you are going home after surgery, a licensed trolley coach driver must drive you home.? - NO public transportation without another adult if you receive anesthesia. - We recommend that an adult stay with you for 24 hours following discharge. - We also recommend that you do not drive, make important decision, drink alcoholic beverages, or take any drugs that were not prescribed by your health care provider for at least 24 hours after your discharge time. For Pediatric surgeries, we recommend two adults accompany the child home. Follow any additional instructions given to you from your surgeon. Telephone instructions given to BEER__and asked if any additional questions and then verbalized understanding. Patient advised to call surgeon office or pre surgery nurse liaison [phone] if any additional questions.
[2024-07-10] VITALS (8 sets, daily range): BP systolic 137–159; BP diastolic 78–99; PULSE 76–100; RESP 16–27; TEMP 36.6; O2SAT 95–99; BMI 66.0
[2024-07-10 09:09] LABS: Glucose Point of Care 165 mg/dl (65-105)
--- NOTE | 2024-07-10 09:42 | WPDHPUPDATE1 ---
History and Physical Update Update Date/Time: 07/10/24 09:42 History and Physical has been reviewed, including an updated exam of the patient. There are NO changes in the patient's condition. Risks, benefits, and alternatives have been discussed and questions answered. Patient agrees to proceed with procedure.
--- NOTE | 2024-07-10 09:42 | PM.IMHP ---
H&P: HPI History of Present Illness Date/Time: 07/10/24 09:42 Chief Complaint: amenorrhea Narrative: this patient is a 23-year-old female with longstanding amenorrhea and abnormal uterine bleeding. We agreed to perform hysteroscopy D&C with endometrial biopsy. The patient understands the details of the procedure. The procedure has been explained in detail. She understands the risks. She understands that injuries may occur that result in hospitalization, more surgery, and severe illness. She understands risk of hemorrhage and infection. She denies any chest pain or shortness of breath. She denies any nausea, vomiting, fever, chills. Review of Systems Review of Systems: All systems reviewed & are unremarkable except as noted in HPI and below Constitutional: Constitutional: Denies chills, Denies fatigue, Denies fever(s) and Denies weakness Eyes: Eyes: Denies blurry vision, Denies change in vision, Denies loss of peripheral vision, Denies loss of vision, Denies other visual disturbances and Denies eye pain ENT: Denies vertigo, Denies dizziness, Denies hearing loss, Denies mouth pain, Denies nasal obstruction, Denies neck mass and Denies neck pain Cardiovascular: Cardiovascular: Denies chest pain, Denies diaphoresis, Denies syncope, Denies leg edema and Denies dyspnea Respiratory: Respiratory: Denies chest congestion, Denies cough, Denies hemoptysis, Denies dyspnea and Denies wheezing Gastrointestinal: Gastrointestinal: Denies abdominal pain, Denies constipation, Denies diarrhea, Denies nausea and Denies vomiting Genitourinary: Genitourinary: Denies hematuria, Denies change in libido, Denies nocturia, Denies genital lesions, Denies flank pain and Denies urinary urgency Musculoskeletal: Musculoskeletal: Denies abnormal gait, Denies back pain, Denies myalgias, Denies arthralgias, Denies joint swelling, Denies muscle weakness and Denies neck pain Integumentary/Breasts: Skin/Breast: Denies swelling, Denies breast pain, Denies breast mass, Denies dry skin, Denies nipple discharge, Denies unusual bruising and Denies jaundice Neurologic: Denies Neuro-related abnormal movements, Denies Abnormal speech present, Denies abnormal gait, Denies behavioral changes, Denies confusion, Denies vertigo, Denies dizziness, Denies syncope, Denies loss of vision, Denies memory loss, Denies convulsions and Denies weakness Psychiatric: Psychiatric: Denies abnormal sleep pattern, Denies behavioral changes, Denies change in libido, Denies confusion, Denies depression, Denies anhedonia and Denies memory loss Endocrine: Endocrine: Reports no additional endocrine complaints, Denies change in libido and Denies fatigue Hematologic/Lymphatic: Hematologic/Lymphatic: Reports no additional hematologic/lymphatic complaints Allergic/Immunologic: Allergic/Immunologic: Reports no additional allergic/immunologic complaints and Denies wheezing [facility] Past Medical History Medical History (Updated 07/10/24 @ 09:43 by Diogo Bryan MD) Acid reflux Arthralgia of multiple joints Elevated BP without diagnosis of hypertension Elevated glucose Elevated WBCs Encounter to establish care Essential hypertension Gallstones Hepatic steatosis Hypersomnia Hypertension Hypertriglyceridemia Left ankle pain Major depression Mass of left lobe of liver Morbid obesity with BMI of 60.0-69.9, adult Palpitations Patient denies significant medical history Right knee pain Right sided abdominal pain Snoring Type 2 diabetes mellitus with morbid obesity Weight gain, abnormal Surgical History Surgical History History of cholecystectomy 05/20/2023 Family History Family History Father Alcoholism Diabetes mellitus Hypertension Heart disease Mother Ovarian cancer Sibling Depression Grandparent Hypertension Heart disease Grandparent Alcoholism Lung cancer
--- NOTE | 2024-07-10 09:46 | WPDANESEPPF ---
Anes - Initial Pre Proc Eval Procedure: Operation Date: 07/10/24 11:00 Proposed Procedures p Hysteroscopy with Biopsy of Endometrium - Diogo Bryan MD Date/Time: 07/10/24 09:46 Surgeon: Diogo Bryan MD Pre Op Diagnosis: Abnormal Uterine Bleeding Patient Data Age: 23 Gender: F Height: 1.57 m Weight: 167 kg Allergies Allergy/AdvReac Type Severity Reaction Status Date / Time morphine Allergy Hives Verified 07/04/24 09:23 Home Medications Medication Instructions Recorded Confirmed Type amlodipine 5 mg tablet 5 mg PO DAILY #30 tabs 12/22/23 07/04/24 Rx dicyclomine 20 mg tablet See Rx Instructions .Route 01/06/24 07/04/24 Rx .COMPLEX #90 tabs trazodone 50 mg tablet 50 mg PO QHS #30 tabs 04/18/24 07/04/24 Rx hydrochlorothiazide 12.5 mg tablet 12.5 mg PO QAM #30 tabs 05/09/24 07/04/24 Rx pantoprazole 40 mg tablet,delayed See Rx Instructions .Route 05/09/24 07/04/24 Rx release .COMPLEX #60 tabs losartan 25 mg tablet 25 mg PO DAILY #30 tabs 05/23/24 07/04/24 Rx progesterone micronized 200 mg PO DAILY 05/23/24 07/04/24 History albuterol sulfate 90 mcg/actuation 2 puff inhalation QID PRN 05/28/24 07/04/24 Rx aerosol inhaler (Proventil HFA) shortness of breath or wheezing #8.5 grams blood-glucose meter (Blood Glucose #1 ea 06/04/24 07/04/24 Rx Monitoring kit) blood sugar diagnostic (OneTouch #100 ea 06/07/24 07/04/24 Rx Verio test strips) dulaglutide 0.75 mg/0.5 mL 0.75 mg (0.5 mL) subcut WEEKLY #2 06/14/24 07/04/24 Rx [facility] buspirone 7.5 mg tablet 7.5 mg PO BID #60 tabs 06/29/24 07/04/24 Rx sertraline 100 mg tablet 100 mg PO DAILY #30 tabs 06/29/24 07/04/24 Rx metformin 500 mg tablet,extended 1,000 mg PO BID 07/04/24 07/04/24 History release 24 hr Laboratory Tests 07/10/24 09:04 POC Capillary Glucose 165 H mg/dl (65-105) Patient hx anesthesia problems: none Family hx anesthesia problems: none Results Review: All pre-operative results and documents have been reviewed as part of the pre-operative evaluation. [facility] Past Medical History Medical History Acid reflux Arthralgia of multiple joints Elevated BP without diagnosis of hypertension Elevated glucose Elevated WBCs Encounter to establish care Essential hypertension Gallstones Hepatic steatosis Hypersomnia Hypertension Hypertriglyceridemia Left ankle pain Major depression Mass of left lobe of liver Morbid obesity with BMI of 60.0-69.9, adult Palpitations Patient denies significant medical history Right knee pain Right sided abdominal pain Snoring Type 2 diabetes mellitus with morbid obesity Weight gain, abnormal Surgical History Surgical History History of cholecystectomy 05/20/2023 Family History Family History Father Alcoholism Diabetes mellitus Hypertension Heart disease Mother Ovarian cancer Sibling Depression Grandparent Hypertension Heart disease Grandparent Alcoholism Lung cancer Social History Social History Smoking status: Current every day smoker Smokeless tobacco user: chewing tobacco Additional smoking assessment comments: DAILY USE Alcohol intake: former Alcohol use details: LAST DRINK 3 MONTHS- HEAVY USE PRIOR TO THIS DATE Substance use: former Substance use type: marijuana Other substance usage details: daily Last use: 2 MONTHS 2 TIMES PER WEEK Do You Feel Safe in your Home?: Yes Lack of Transportation: No Lack of Food: Never True Current Housing: I Have Housing Concerned About Future Housing: No Difficulty Paying Gas/Electric Bills: No Difficulty Paying for Meds: No Currently Unemployed: YES Education: Trade/Vocational Certificate Diffic
[2024-07-10] MEDS: ACETAMINOPHEN 500 MG TABLET 1000 MG PO (09:47)
[2024-07-10] MEDS: LACTATED RINGERS 1,000 ML 30 ML IV CONT ×2 (09:55→12:25)
[2024-07-10 09:57] LABS: BEDSIDEPREGUCG Negative (Negative)
[2024-07-10] MEDS: LIDOCAINE HCL 1% LOCAL INJ 20 ML VIAL 10 ML INFILTRATE (10:46)
--- NOTE | 2024-07-10 10:47 | W.PM.PROC2 ---
Procedure Note - Detailed Date of Procedure 07/10/24 Pre-op Diagnosis Abnormal Uterine Bleeding Post-op Diagnosis Same Procedure Performed Hysteroscopy D&C , IUD insertion Surgeon Diogo Bryan MD Anesthesia MAC Indications abnormal uterine bleeding Findings normal-appearing vulva, vagina, cervix. Normal endometrial cavity. Description of Procedure the patient was taken the operating room. She was prepped and draped in the dorsal lithotomy position after induction of mac anesthesia. A speculum was placed in the vagina. The cervix was grasped with a tenaculum. The cervix was dilated about 1 cm. The hysteroscope was inserted. The intrauterine cavity and endocervix were evaluated. Hysteroscope was withdrawn. A medium-size curette was used to curettage all the surfaces were within the endometrial cavity. the sample was collected on Telfa and sent to pathology. The hysteroscope was reinserted and the above findings were noted. IUD was inserted. It was inserted to the uterine fundus and the applicator was discharged and withdrawn. Patient tolerated the procedure well. The speculum and tenaculum were removed. She was taken recovery room in stable condition. Sponge lap and needle counts were correct x2. Estimated Blood Loss 40 Drains No Packing No Pathology Yes Complications No immediate complications Condition Stable Disposition PACU
[2024-07-10 10:56] LABS: Glucose Point of Care 146 mg/dl (65-105)
[2024-07-10] MEDS: fentaNYL CITRATE INJ (*CRX) 100 MCG/2 ML VIAL 25 MCG IV PUSH ×4 (10:58→11:14)
[2024-07-10] MEDS: oxyCODONE HCL (*CRX) 5 MG TAB IR PO (11:40)
[2024-07-10] MEDS: KETOROLAC 30 MG/ML VIAL (*BKC) IV PUSH (12:28)
[2024-07-10] MEDS: HYDROmorphone HCL INJ (*CRX) 1 MG/ML SYR IV PUSH (12:29)
== END 2024-07-10 13:05 | disposition home or self-care (01) ==
PROVIDERS: PCP Nurse Practitioner Family; Visit Provider Obstetrics & Gynecology
PROC: 0U5B8ZZ Destruction of Endometrium, Via Natural or Artificial Opening Endoscopic (ICD-10-PCS; CPT 58563; principal; 2024-07-10 11:00)
DX: N93.9 Abnormal uterine and vaginal bleeding, unspecified (principal); I10 Essential (primary) hypertension; E11.9 Type 2 diabetes mellitus without complications; E78.1 Pure hyperglyceridemia; K21.9 Gastro-esophageal reflux disease without esophagitis; K76.0 Fatty (change of) liver, not elsewhere classified; F12.90 Cannabis use, unspecified, uncomplicated; F17.220 Nicotine dependence, chewing tobacco, uncomplicated; Z79.51 Long term (current) use of inhaled steroids; Z79.85 Long-term (current) use of injectable non-insulin antidiabetic drugs; Z79.84 Long term (current) use of oral hypoglycemic drugs
CPT/HCPCS: 58558; 58300; 82948; 88305; A9270; J1170; J1885; J2250; J2405; J2704; J3010; J7120

== ENCOUNTER 2024-08-29 11:14 | Outpatient (CLI) | payer OTHER, SELFPAY ==
[2024-08-29 12:15] LABS: Alanine Aminotransferase 55 U/L (6-35); Albumin Level 4.3 g/dL (3.5-5.1); Alkaline Phosphatase 99 U/L (38-126); Anion Gap 11 mmol/L (4-12); Aspartate Amino Transferase 54 U/L (14-36); Bilirubin,Total 0.7 mg/dL (0.2-1.3); Blood Urea Nitrogen 14 mg/dL (7-17); Calcium 9.2 mg/dL (8.4-10.2); Carbon Dioxide 28 mmol/L (22-30); Chloride 97 mmol/L (98-107); Cholesterol 185 mg/dL (0-200); Estimated Glomerular Filt Rate > 60; Glucose 333 mg/dL (65-110); HDL Direct 27 mg/dL; Potassium 4.2 mmol/L (3.4-5.0); Sodium 136 mmol/L (137-145); Triglycerides 329 mg/dL (<150)
[2024-08-29 12:25] LABS: LDL Cholesterol Direct 117 mg/dL
== END 2024-08-29 11:15 | disposition home or self-care (01) ==
LOC: ANHLAB 11:16
PROVIDERS: PCP Nurse Practitioner Family; Visit Provider Nurse Practitioner Family
DX: E78.1 Pure hyperglyceridemia (principal); E11.69 Type 2 diabetes mellitus with other specified complication; E66.01 Morbid (severe) obesity due to excess calories
CPT/HCPCS: 36415; 80053; 80061; 83036

== ENCOUNTER 2024-09-06 13:01 | Emergency (ER) | payer OTHER, SELFPAY ==
--- NOTE | ~2024-09-06 | CT_ITS ---
EXAMINATION: CT abdomen pelvis wo con DATE: 09/06/2024 16:47 INDICATION: Left flank pain. Hematuria. TECHNIQUE: Computed tomography (CT) of the abdomen and pelvis was performed without intravenous contr ast. Automated exposure control and iterative reconstruction technique were employed. The dose-length product was 1681.92 mGy-cm. COMPARISON: CT abdomen and pelvis 04/02/2024 FINDINGS: The visualized portions of the lung bases demonstrate minimal atelectasis. No pleural effus ion. The heart size is normal. No pericardial effusion. There is diffuse hepatic steatosis. There are changes of cholecystectomy. The spleen, pancreas, adrenal glands, and kidneys are normal. There is n o urolithiasis. There is an intrauterine device in expected position. There are no dilated loops of b owel. The appendix is normal. There are no pathologically enlarged lymph nodes. There is no free intr aperitoneal fluid. There is mild thoracic and lumbar spondylosis. There is mild chronic height loss o f multiple thoracic vertebral bodies. IMPRESSION: 1. No urolithiasis. 2. Diffuse hepatic steatosis. Reviewed, dictated and finalized at location A. ULTING ANALYST
[2024-09-06 13:03] VITALS: BP 150/94; PULSE 94; RESP 17; TEMP 36.3; O2SAT 98
--- NOTE | 2024-09-06 14:07 | ED_ITS ---
HPI - Back Pain/Injury General Chief Complaint: Back Pain/Injury Stated Complaint: hematuria, left flank pain Time Seen by Provider: 09/06/24 17:40 Focused HPI: 23-year-old female presents emergency department for gross hematuria and left flank pain for 1 day. Patient denies abdominal pain, dysuria. She is reporting urinary frequency and urgency. Denies history of kidney stones. No fevers. Denies nausea or vomiting GENERAL: Well-appearing, well-nourished, and in no acute distress. HEAD: Normocephalic, atraumatic. CHEST: Clear to auscultation. ?No respiratory distress. HEART: Regular rate and rhythm.? NEURO: ?Alert and oriented x3. Patient screened in triage and initial orders placed.? ?Additional care and disposition to be based upon?diagnostic testing and treatment. History of Present Illness HPI Narrative: Agree with the above triage Related Data Home Medications Medication Instructions Recorded Confirmed progesterone micronized 200 mg PO DAILY 05/23/24 09/04/24 metformin 500 mg tablet,extended 1,000 mg PO BID 07/04/24 09/04/24 release 24 hr losartan 25 mg tablet 100 mg PO DAILY 09/04/24 09/04/24 Allergies Allergy/AdvReac Type Severity Reaction Status Date / Time morphine Allergy Hives Verified 09/04/24 13:09 Review of Systems Review of Systems: All systems reviewed & are unremarkable except as noted in HPI and below PMFSH Past Medical History Medical History Acid reflux Anxiety Arthralgia of multiple joints Elevated BP without diagnosis of hypertension Elevated glucose Elevated WBCs Encounter to establish care Essential hypertension Gallstones Hepatic steatosis Hypersomnia Hypertension Hypertriglyceridemia Left ankle pain Major depression Mass of left lobe of liver Morbid obesity with BMI of 60.0-69.9, adult Palpitations Patient denies significant medical history Right knee pain Right sided abdominal pain Snoring Type 2 diabetes mellitus with morbid obesity Weight gain, abnormal Surgical History Surgical History History of cholecystectomy 05/20/2023 Family History Family History Father Alcoholism Diabetes mellitus Hypertension Heart disease Mother Ovarian cancer Sibling Depression Grandparent Hypertension Heart disease Grandparent Alcoholism Lung cancer Social History Social History Smoking status: Never smoker Smokeless tobacco user: chewing tobacco Additional smoking assessment comments: DAILY USE Alcohol intake: former Alcohol use details: LAST DRINK 3 MONTHS- HEAVY USE PRIOR TO THIS DATE Substance use: former Substance use type: marijuana Other substance usage details: daily Last use: 2 MONTHS 2 TIMES PER WEEK Do You Feel Safe in your Home?: Yes Lack of Transportation: No Lack of Food: Never True Current Housing: I Have Housing Concerned About Future Housing: No Difficulty Paying Gas/Electric Bills: No Difficulty Paying for Meds: No Currently Unemployed: YES Education: Trade/Vocational Certificate Difficulty w/ Childcare or Family Care: No Living arrangements: with family Spiritual care concerns: No Exam Narrative: GENERAL: Well-appearing, well-nourished, and in no acute distress. HEAD: Normocephalic, atraumatic. EYES: EOMI. ENT: Nares clear, no rhinorrhea or epistaxis. Mucous membranes moist. NECK: Supple. CHEST: Clear to auscultation. No respiratory distress. HEART: Regular rate and rhythm. No murmur heard. Normal peripheral pulses. ABDOMEN: Soft, nontender, nondistended, normal active bowel sounds. Left CVA tenderness EXTREMITIES: Normal range of motion. No edema. SKIN: Warm, dry, no rash. NEURO: No focal deficits. Alert and oriented x3 Course Vital Signs Vital signs: Vital Signs Temperature 97.4 F L 09/06/24 13:03 Pulse Rate 94 09/06/24 13:03 Respiratory Rate 17 09/06/24 13:03 Blood Pressure 150/94 H 09/06/24 13:03 Pulse Oximetry 98 09/06/24 13:03 Oxygen Delivery Room Air 09/06/24 13:03 Temperature 97.4 F L 09/06/24 13:03 Pulse Rate 94 09/06/24 13:03 Respiratory Rate 17 09/06/24 13:03 Blood Pressure 150/94 H 09/06/24 13:03 Pulse Oximetry 98 09/06/24 13:03 Oxygen Delivery Room Air 09/06/24 13:03 MDM - Back Pain/Injury MDM Narrative Medical decision making narrative: 23-year-old female with history of hypertension, insulin-dependent diabetes, GERD presents to the emergency department for hematuria and left flank pain for 1 day. Triage vitals are significant for blood pressure 150/94, otherwise un remarkable. Patient is afebrile nontoxic appearing. Exam significant for left- sided CVA tenderness. Abdomen is soft and nontender. Workup reveals a leukocytosis of 17.2 which patient states is chronic, no bandemia. Chemistries reveal chronic elevation in AST and ALT, stable creatinine of 0.7. Urinalysis significant for large amount of hematuria and 51-[address] abdomen pelvis shows no urolithiasis. There is evidence of hepatic steatosis which is also known to the patient. Patient was updated on workup. Plan to treat as pyelonephritis with ciprofloxacin and azo. Encouraged Tylenol ibuprofen as needed for pain and close follow-up with her PCP. Discussed strict ED return precautions. She is agreeable with the plan verbalized understanding. Discharged in stable condition. Lab Data 09/06/24 16:04 09/06/24 16:04 Labs: Lab Results 09/06/24 09/06/24 Range/Units 14:07 16:04 WBC 17.2 H (4.5-10.0) K/mm3 RBC 5.15 (4.2-5.4) M/mm3 Hgb 14.0 (12.0-15.0) g/dL Hct 42.7 (37.0-47.0) % MCV 82.9 (80-100) fl MCH 27.2 (26-34) pg MCHC 32.8 (32-36) g/dl RDW 14.2 (11.5-14.5) % Plt Count 357 (150-375) k/mm3 MPV 10.0 (7.4-10.4) fl Immature Gran % (Auto) 0.8 H (0-0.5) % Neut % (Auto) 64.6 (45.5-73.1) % Lymph % (Auto) 26.0 (18.3-44.2) % [place] % (Auto) 5.6 (2.6-8.5) % Eos % (Auto) 2.6 (0-4.4) % Baso % (Auto) 0.4 (0.2-1.2) % Lymph # (Auto) 4.47 H (0.9-3.2) K/mm3 [place] # (Auto) 1.0 H (0.1-0.6) K/mm3 Eos # (Auto) 0.4 H (0-0.3) K/mm3 Baso # (Auto) 0.1 (0.0-0.1) K/mm3 Abs Immat Gran (auto) 0.13 H (0.00-0.031) K/mm3 Absolute Neuts (auto) 11.1 H (1.3-6.7) K/mm3 Absolute Nucleated RBC 0.000 (0.0-0.012) K/mm3 Nucleated RBC % 0.0 (0.0-0.2) % Sodium 136 L (137-145) mmol/L Potassium 4.1 (3.4-5.0) mmol/L Chloride 97 L (98-107) mmol/L Carbon Dioxide 29 (22-30) mmol/L Anion Gap 10 (4-12) mmol/L BUN 17 (7-17) mg/dL Creatinine 0.70 (0.7-1.0) mg/dL Estim Creat Clear Calc 162 ml/min Estimated GFR > 60 (59 - ) Glucose 278 H (65-110) mg/dL Calcium 9.4 (8.4-10.2) mg/dL Total Bilirubin 0.8 (0.2-1.3) mg/dL AST 55 H (14-36) U/L ALT 56 H (6-35) U/L Alkaline Phosphatase 85 (38-126) U/L Total Protein 9.0 H (6.3-8.2) g/dL Albumin 4.5 (3.5-5.1) g/dL Lipase 111 (23-300) U/L Urine Color Adriana (Yellow) Urine Appearance Sl cloudy (Clear) Urine pH 7.5 (5.0-9.0) Ur Specific [place] 1.035 (1.001-1.035) Urine Protein 2+ H (Negative) mg/dL Urine Glucose (UA) 3+ H (Negative) mg/dL Urine Ketones Negative (Negative) mg/dL Ur Blood (Man) 3+ H (Negative) Urine Nitrate Negative (Negative) Urine Bilirubin 1+ H (Negative) Urine Urobilinogen 1.0 (<2.0) mg/dL Add Ur Microanalysis Reviewed Leukocyte Esterase Rfl 1+ H (Negative) MICKY/UL Urine RBC >100 H (0-2) /hpf Urine WBC 51-100 H (0-3) /hpf Ur Squamous Epith Cells Few (Few) /hpf Urine Bacteria 4+ /hpf Urine Casts 3-5 Hyaline Casts Present (None) /lpf POC Urine HCG, Qual Negative (Negative) Discharge Plan Discharge Clinical Impression: Pyelonephritis, Fatty liver Patient Disposition: Home, Self-Care Condition: Stable Instructions: Antibiotic Form, Kidney Infection (ED) Additional Instructions: You were evaluated in the emergency department for left flank pain and blood in your urine. The CT scan shows no kidney stones. You do have evidence of fatty liver disease on CT. Your urine does show infection. Given your pain overlying her kidneys and your urine test, I am concerned you have a kidney infection called pyelonephritis. Please take the antibiotics as directed. Take azo as needed for bladder spasms. Take Tylenol ibuprofen as needed for pain. Return to the emergency department if he develops significantly worsening pain, your are unable to tolerate food or fluids, fever, or other concerning symptoms. Prescriptions: New ciprofloxacin HCl 500 mg tablet 500 mg PO Q12H Qty: 14 0RF phenazopyridine [Pyridium] 200 mg tablet 200 mg PO TID PRN (Reason: pain) Qty: 10 0RF No Action albuterol sulfate [Proventil HFA] 90 mcg/actuation HFA aerosol inhaler 2 puff inhalation QID PRN (Reason: shortness of breath or wheezing) Qty: 8.5 0RF amlodipine 5 mg tablet 5 mg PO DAILY Qty: 30 11RF progesterone micronized 200 mg PO DAILY losartan 25 mg tablet 100 mg PO DAILY Trulicity 1.5 mg/0.5 mL pen injector 1.5 mg subcut WEEKLY Qty: 2 0RF Rx Instructions: call office for refill sertraline 50 mg tablet 50 mg PO DAILY Qty: 30 11RF Rx Instructions: take with 100mg sertraline tab to equal 150mg tab Jardiance 10 mg tablet 10 mg PO QAM Qty: 30 11RF sertraline 100 mg tablet 100 mg PO DAILY Qty: 30 11RF buspirone 7.5 mg tablet 7.5 mg PO BID Qty: 60 11RF metformin 500 mg tablet extended release 24 hr 1,000 mg PO BID Rx Instructions: start 1 tab daily x1 week. Increase by 1 tab each week to 2 tabs 2x/day with meals. trazodone 50 mg tablet 50 mg PO QHS Qty: 30 5RF pantoprazole 40 mg tablet,delayed release (DR/EC) See Rx Instructions .ROUTE .COMPLEX Qty: 60 11RF Dose Instruction: TAKE 1 TABLET BY MOUTH TWICE DAILY Rx Instructions: TAKE 1 TABLET BY MOUTH TWICE DAILY hydrochlorothiazide 12.5 mg tablet 12.5 mg PO QAM Qty: 30 5RF (DME) blood-glucose meter [Blood Glucose Monitoring] Kit See Rx Instructions .Route Qty: 1 0RF Rx Instructions: As directed (DME) OneTouch Verio test strips Strip See Rx Instructions .Route Qty: 100 3RF Rx Instructions: As directed dicyclomine 20 mg tablet See Rx Instructions .ROUTE .COMPLEX Qty: 90 11RF Dose Instruction: TAKE 1 TABLET BY MOUTH THREE TIMES DAILY Rx Instructions: TAKE 1 TABLET BY MOUTH THREE TIMES DAILY Follow-up/Referrals: Ethel Liz NP [Primary Care Provider] -
[2024-09-06 16:08] LABS: BEDSIDEPREGUCG Negative (Negative)
[2024-09-06 16:13] LABS: Basophils Absolute Auto 0.1 K/mm3 (0.0-0.1); Basophils Percent Auto 0.4 % (0.2-1.2); Eosinophils Absolute Auto 0.4 K/mm3 (0-0.3); Eosinophils Percent Auto 2.6 % (0-4.4); Hematocrit 42.7 % (37.0-47.0); Immature Granulocyte Absolute 0.13 K/mm3 (0.00-0.031); Immature Granulocyte Percent A 0.8 % (0-0.5); Lymphocytes Absolute Auto 4.47 K/mm3 (0.9-3.2); Mean Corpuscular HGB Conc 32.8 g/dl (32-36); Mean Corpuscular Hemoglobin 27.2 pg (26-34); Mean Corpuscular Volume 82.9 fl (80-100); Monocytes Percent Auto 5.6 % (2.6-8.5); Neutrophils Absolute Auto 11.1 K/mm3 (1.3-6.7); Neutrophils Percent Auto 64.6 % (45.5-73.1); Platelet Count Result 357 k/mm3 (150-375); Red Blood Count 5.15 M/mm3 (4.2-5.4); Red Cell Distribution Width 14.2 % (11.5-14.5); White Blood Count 17.2 K/mm3 (4.5-10.0)
[2024-09-06 16:22] LABS: Alanine Aminotransferase 56 U/L (6-35); Albumin Level 4.5 g/dL (3.5-5.1); Alkaline Phosphatase 85 U/L (38-126); Anion Gap 10 mmol/L (4-12); Aspartate Amino Transferase 55 U/L (14-36); Bilirubin,Total 0.8 mg/dL (0.2-1.3); Blood Urea Nitrogen 17 mg/dL (7-17); Calcium 9.4 mg/dL (8.4-10.2); Carbon Dioxide 29 mmol/L (22-30); Chloride 97 mmol/L (98-107); Estimated CRCL calculation 162 ml/min; Estimated Glomerular Filt Rate > 60; Glucose 278 mg/dL (65-110); Lipase 111 U/L (23-300); Potassium 4.1 mmol/L (3.4-5.0); Sodium 136 mmol/L (137-145)
[2024-09-06 16:26] LABS: Add Urine Microscopic? YES; Bacteria Urine 4+ /hpf; Bilirubin Urine 1+ (Negative); Blood Urine 3+ (Negative); Glucose Urine UA 3+ mg/dL (Negative); Hyaline Casts Urine Present /lpf; Ketones Urine Negative (Negative); Leukocyte Esterase Ur 1+ LEU/UL (Negative); Need Manual Microscopic Reviewed; Nitrate Urine Negative (Negative); Protein Urine 2+ mg/dL (Negative); RBC Urine >100 /hpf (0-2); Specific Grav Ur 1.035 (1.001-1.035); Squamous Epithelial Cell Urine Few /hpf (Few); WBC Urine 51-100 /hpf (0-3); pH Urine 7.5 (5.0-9.0)
[2024-09-06 16:38] LABS: Appearance Urine Sl Cloudy (Clear); Color Urine Amber (Yellow)
[2024-09-06] MEDS: PHENAZOPYRIDINE HCL 100 MG TABLET PO (18:26)
[2024-09-06] MEDS: CIPROFLOXACIN 500 MG TAB PO (18:26)
== END 2024-09-06 18:27 | disposition home or self-care (01) ==
PROVIDERS: Emergency Provider Physician Assistant; PCP Nurse Practitioner Family
DX: N12 Tubulo-interstitial nephritis, not specified as acute or chronic (principal); K76.0 Fatty (change of) liver, not elsewhere classified; I10 Essential (primary) hypertension; F41.8 Other specified anxiety disorders; E11.9 Type 2 diabetes mellitus without complications; E66.01 Morbid (severe) obesity due to excess calories; Z68.44 Body mass index [BMI] 60.0-69.9, adult
CPT/HCPCS: 36415; 74176; 80053; 81001; 81025; 83690; 85025; 87077; 87086; 87186; 99284; A9270

== ENCOUNTER 2024-10-23 11:25 | Emergency (ER) | payer OTHER, SELFPAY ==
[2024-10-23 11:36] VITALS: BP 148/78; PULSE 109; RESP 18; TEMP 37.1; O2SAT 98
--- NOTE | 2024-10-23 12:21 | ED_ITS ---
HPI - URI/Sore Throat General Chief Complaint: Upper Respiratory Infection Stated Complaint: sore throat and tonsil swelling Time Seen by Provider: 10/23/24 12:25 Source: patient, RN notes reviewed and old records reviewed Mode of arrival: ambulatory Limitations: no limitations History of Present Illness HPI Narrative: 23-year-old female presents to the [facility] with complaints of a sore throat. Symptoms started 2 days ago. Reports fevers as high as 101. Onset (ago): day(s) (2) Treatments prior to arrival: acetaminophen Related Data Home Medications ?Medication ?Instructions ?Recorded ?Confirmed ?Last Taken ?Type metformin 500 mg tablet,extended 1,000 mg PO BID 07/04/24 10/23/24 Unknown History release 24 hr metoprolol tartrate 25 mg tablet mg 10/23/24 Unknown History Allergies Allergy/AdvReac Type Severity Reaction Status Date / Time bupropion (From Wellbutrin) Allergy Intermediate Agitated Verified 10/23/24 12:33 morphine Allergy Hives Verified 10/23/24 12:33 Review of Systems Review of Systems: All systems reviewed & are unremarkable except as noted in HPI and below Constitutional: Constitutional: Reports no additional constitutional complaints ENT: Reports as per HPI Cardiovascular: Cardiovascular: Reports no additional cardiovascular complaints, Denies chest pain and Denies dyspnea Respiratory: Respiratory: Reports no additional respiratory complaints, Denies chest congestion, Denies cough and Denies dyspnea Musculoskeletal: Musculoskeletal: Reports no additional musculoskeletal complaints Integumentary/Breasts: Skin/Breast: Reports system reviewed and no additional complaints, except as docu PMFSH Past Medical History Medical History Anxiety Hypertriglyceridemia Type 2 diabetes mellitus with morbid obesity Arthralgia of multiple joints Hypertension Weight gain, abnormal Essential hypertension Elevated BP without diagnosis of hypertension Palpitations Right sided abdominal pain Morbid obesity with BMI of 60.0-69.9, adult Mass of left lobe of liver Hepatic steatosis Elevated glucose Elevated WBCs Hypersomnia Snoring Right knee pain Left ankle pain Major depression Encounter to establish care Acid reflux Gallstones Patient denies significant medical history Surgical History Surgical History History of cholecystectomy 05/20/2023 Family History Family History Father Alcoholism Diabetes mellitus Hypertension Heart disease Mother Ovarian cancer Sibling Depression Grandparent Hypertension Heart disease Grandparent Alcoholism Lung cancer Social History Social History Smoking status: Never smoker Smokeless tobacco user: chewing tobacco Additional smoking assessment comments: DAILY USE Alcohol intake: former Alcohol use details: LAST DRINK 3 MONTHS- HEAVY USE PRIOR TO THIS DATE Substance use: former Substance use type: marijuana Other substance usage details: daily Last use: 2 MONTHS 2 TIMES PER WEEK Do You Feel Safe in your Home?: Yes Lack of Transportation: No Lack of Food: Never True Current Housing: I Have Housing Concerned About Future Housing: No Difficulty Paying Gas/Electric Bills: No Difficulty Paying for Meds: No Currently Unemployed: YES Education: Trade/Vocational Certificate Difficulty w/ Childcare or Family Care: No Living arrangements: with family Spiritual care concerns: No Comments At the time of my signature, I reviewed and agree with the nursing past medical, surgical, social, and family history. There is no relevant family history pertinent to the patient complaint. Exam Const: General: cooperative, healthy appearing, comfortable, no acute distress, well developed, alert and well nourished Nutritional Appearance: well nourished and obese Orientation/consciousness: patient oriented x3 Limitations: no limitations HENMT: Head: normal to inspection Ears: hearing grossly normal bilaterally, external ears normal, TM's normal bilaterally, EAC's normal, mastoids normal and no periauricular adenopathy Mouth: Yes Normal oral and palatal mucosa present, Yes lip normal, Yes tongue normal and Yes moist mucous membranes Throat: posterior oropharynx normal, tonsils normal, uvula midline, postnasal drainage and no uvular edema Eyes: General: appearance normal, both eyes and all related structures Alignment and Position: alignment normal Neck: Neck: normal visual inspection, full ROM, no lymphadenopathy and no meningeal signs Chest: Chest palpation & inspection: normal inspection of the chest Resp: Effort & Inspection: normal respiratory effort and able to speak in complete sentences Auscultation: clear to auscultation bilaterally, no crackles, no rales, no rhonchi and no wheezes Cardio: Rate: regular rate Skin: General skin exam: normal color and no rashes or lesions noted Neuro: General: patient oriented x3, gait normal, moves all extremities and no meningeal signs Cognition (Neuro): normal cognition Speech: normal speech Gait exam (Neuro): Normal gait present Extrem: General: normal to inspection, full ROM, capillary refill normal and normal gait Psych: Appearance: grossly normal and well kempt Mental Status: mental status grossly normal Speech and movement: Normal speech and movement present and Clear speech present Affect: normal affect Attitude: cooperative Course Course Level of Care: Express Care Visit Vital Signs Vital signs: Vital Signs Temperature 98.8 F 10/23/24 11:36 Pulse Rate 109 H 10/23/24 11:36 Respiratory Rate 18 10/23/24 11:36 Blood Pressure 148/78 H 10/23/24 11:36 Pulse Oximetry 98 10/23/24 11:36 Oxygen Delivery Room Air 10/23/24 11:36 Temperature 98.8 F 10/23/24 11:36 Pulse Rate 109 H 10/23/24 11:36 Respiratory Rate 18 10/23/24 11:36 Blood Pressure 148/78 H 10/23/24 11:36 Pulse Oximetry 98 10/23/24 11:36 Oxygen Delivery Room Air 10/23/24 11:36 Reviewed MDM - URI/Sore Throat MDM Narrative Medical decision making narrative: Patient sitting comfortably in exam room. Nontoxic, vitals stable. Patient in no acute distress. Patient presents with 2 day history of a sore throat. Strep test is negative. Postnasal drainage noted on exam. No other acute findings. Patient appropriate for outpatient treatment and follow-up Discharge instructions reviewed with patient, as well as provided in writing per nursing staff. The instructions also include specific and strict return/GO TO THE ER as well as f/u information. All questions have been answered, and the patient deny any further questions with discharge and discharge plan. Some parts of this dictation were generated by voice recognition software and may contain typographical and/or grammatical inaccuracies. Differential Diagnosis Differential diagnosis: Likely upper respiratory infection, otitis media, sinusitis, viral infection, bronchitis, influenza and pharyngitis Lab Data Labs: Lab Results 10/23/24 Range/Units 12:45 POC Grp A Strep Screen Negative (Negative) Reviewed Critical Care Time Critical Care Time Critical Care Time: No Discharge Plan Discharge Clinical Impression: Acute viral pharyngitis Patient Disposition: Home, Self-Care Condition: Stable Instructions: Antibiotic Form, Pharyngitis (ED) Additional Instructions: Your rapid strep swab was negative today at [facility]. A throat culture will be sent to the laboratory for further testing. If the test is positive, you will receive a phone call within 48 hours and an appropriate antibiotic will be initiated at that time. Your symptoms are likely due to a viral illness, which is not treated with antibiotics. Typically viral infections last 7-10 days, can linger for couple of weeks. It is very important to treat your symptoms. Drink plenty of water, Gatorade, Pedialyte, ice pops or Jell-O. -Alternate Tylenol and Motrin per package directions for fever or pain. You can alternate every 4 hours -Antihistamine medication such as Zyrtec/Claritin/Ekta during the day can help improve symptoms. -doing daily nasal irrigations can help relieve pressure your sinuses. Things like a Neti pot -Use Flonase twice a day for 5 days then daily to help reduce the inflammation and dry up your sinuses. -You can also use Mucinex. Be sure to drink plenty of water with this medication at least 8 ounces with every dose and it is important to drink 8 to 10 glasses of water per day. Water is a natural decongestant -Eat and drink things that are easy to swallow, like tea or soup, or popsicles. -Oral rinses such as: Salt water gargles and/or may use topical anesthetic (eg. Chloraseptic spray) or lozenges to relieve dryness or throat pain). -Frequent hand washing or hand supervisor landscape is one of the best ways to prevent spread of infection. -Using a vaporizer or humidifier at night will also help thin secretions and help with coughing up phlegm. -Follow up with primary care provider in 7-10 days if condition is not improving - For new or worsening symptoms go directly to the nearest ER Patient Language: Latvian Prescriptions: No Action albuterol sulfate [Proventil HFA] 90 mcg/actuation HFA aerosol inhaler 2 puff inhalation QID PRN (Reason: shortness of breath or wheezing) Qty: 8.5 0RF metoprolol tartrate 25 mg tablet sertraline 50 mg tablet 50 mg PO DAILY Qty: 30 11RF Rx Instructions: take with 100mg sertraline tab to equal 150mg tab Jardiance 10 mg tablet 10 mg PO QAM Qty: 30 11RF sertraline 100 mg tablet 100 mg PO DAILY Qty: 30 11RF buspirone 7.5 mg tablet 7.5 mg PO BID Qty: 60 11RF metformin 500 mg tablet extended release 24 hr 1,000 mg PO BID Rx Instructions: start 1 tab daily x1 week. Increase by 1 tab each week to 2 tabs 2x/day with meals. ciprofloxacin HCl 500 mg tablet 500 mg PO Q12H Qty: 14 0RF phenazopyridine [Pyridium] 200 mg tablet 200 mg PO TID PRN (Reason: pain) Qty: 10 0RF pantoprazole 40 mg tablet,delayed release (DR/EC) See Rx Instructions .ROUTE .COMPLEX Qty: 60 11RF Dose Instruction: TAKE 1 TABLET BY MOUTH TWICE DAILY Rx Instructions: TAKE 1 TABLET BY MOUTH TWICE DAILY hydrochlorothiazide 12.5 mg tablet 12.5 mg PO QAM Qty: 30 5RF (DME) blood-glucose meter [Blood Glucose Monitoring] Kit See Rx Instructions .Route Qty: 1 0RF Rx Instructions: As directed dicyclomine 20 mg tablet See Rx Instructions .ROUTE .COMPLEX Qty: 90 11RF Dose Instruction: TAKE 1 TABLET BY MOUTH THREE TIMES DAILY Rx Instructions: TAKE 1 TABLET BY MOUTH THREE TIMES DAILY trazodone 50 mg tablet 50 mg PO QHS Qty: 30 5RF (DME) OneTouch Verio test strips Strip See Rx Instructions .Route Qty: 100 3RF Rx Instructions: As directed Trulicity 1.5 mg/0.5 mL pen injector 1.5 mg subcut WEEKLY Qty: 2 5RF Rx Instructions: call office for refill losartan 100 mg tablet 100 mg PO DAILY Qty: 90 3RF amlodipine 5 mg tablet 5 mg PO DAILY Qty: 30 11RF Follow-up/Referrals: Ethel Liz NP [Primary Care Provider] - 2 Weeks ([facility] follow-up Blood pressure check, 148/78) Time of Disposition: 12:51
[2024-10-23 12:47] LABS: EDSTREPNEGPOS1 Negative (Negative)
== END 2024-10-23 12:56 | disposition home or self-care (01) ==
PROVIDERS: Emergency Provider Nurse Practitioner; PCP Nurse Practitioner Family
DX: J02.8 Acute pharyngitis due to other specified organisms (principal); E11.9 Type 2 diabetes mellitus without complications; Z79.84 Long term (current) use of oral hypoglycemic drugs; I10 Essential (primary) hypertension; K21.9 Gastro-esophageal reflux disease without esophagitis; E78.1 Pure hyperglyceridemia; E66.01 Morbid (severe) obesity due to excess calories; Z68.44 Body mass index [BMI] 60.0-69.9, adult
CPT/HCPCS: 87081; 87880; 99203; G0463

== ENCOUNTER 2024-12-27 12:15 | Outpatient (CLI) | payer OTHER, SELFPAY ==
--- OUTSIDE RECORDS SUMMARY | 2024-12-27 13:35 | XMS_ITS | Clinical Summary ---
Author Organization [facility] Address [facility] [place] [address] Care Team Providers Care Fire And Safety Helper Name Role Phone Cleveland Barahona MD Primary Care Provider [phone] Allergies Active Allergy Reactions Criticality Noted Date Comments Morphine Hives 10/27/2023 Medications medroxyPROGESTERon e (PROVERA) 10 MG tablet Take 1 tablet x 10 days every 30 days if no menses occurs and urine test is neg. 3 Active HYDROcodone-acetam inophen (NORCO) 5-325 MG tabletIndications: Acute Pain < 7 Day Supply Take 1-2 tablets by mouth every 6 (six) hours as needed for Pain. Indications: Acute Pain < 7 Day Supply 16 tablet 3 Active ondansetron (ZOFRAN-ODT) 4 MG disintegrating tabletIndications: Biliary colic Take 1 tablet (4 mg total) by mouth every 8 (eight) hours as needed for Nausea. 12 tablet 3 Active Active Problems No known active problems Family History Medical History Relation Comments Diabetes Father No Known Problems Mother Relation Status Comments Father Mother Alive Social History Tobacco Use Types Packs/Day Years Used Date Smoking Tobacco: Never Smokeless Tobacco: Never Tobacco Cessation:Counseling Given: Not Answered Alcohol Use Standard Drinks/Week Comments Yes 0 (1 standard drink = 0.6 oz pur e alcohol) Comments No Sex and Gender Information Value Date Recorded Sex Assigned at Not on file Legal Sex Female 8:12 PM CDT Gender Identity Not on file Sexual Orientation Not on file Last Filed Vital Signs Vital Sign Reading Time Taken Comments Blood Pressure 158/103 10/27/2023 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 Pulse 73 10/27/2023 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 Temperature 36.6 C (97.9 F) 10/27/2023 2:18 PM CHEMICAL PLANT OPERATOR Respiratory Rate 20 10/27/2023 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 Oxygen Saturation 98% 10/27/2023 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 Inhaled Oxygen Concentration - - Weight 147.8 kg (325 lb 13.4 oz) 10/27/2023 2:18 PM CHEMICAL PLANT OPERATOR Height 154.9 cm (5' 1 ) 10/27/2023 2:18 PM CHEMICAL PLANT OPERATOR Body Mass Index 61.57 10/27/2023 2:18 PM CHEMICAL PLANT OPERATOR Plan of Treatment Health Maintenance Due Date Last Done Comments Annual Physical 2003 Hepatitis C 2018 DTaP, Tdap and Td Vaccines (7 - Td or Tdap) 05/24/2022 05/24/2012, 08/26/2005, 04/15/2003, Additional history exists COVID-19 Vaccine ( season) 2024 12/22/2021, 10/21/2021, 04/08/2021, Additional history exists Chlamydia Screening Females ages 16-24 07/07/2024 07/07/2023 Influenza Adult (#1) 2024 09/28/2003 Cervical Cancer Screening Pap Smear (Age 21 to 29) Every 3 Years 07/07/2026 07/07/2023, 07/07/2023, 07/07/2023 Cervical Cancer Screening 07/07/2026 Hepatitis B Vaccines Completed 08/17/2001, 2000, 2000 Pneumococcal Vaccine: Pediatrics (0 to 5 Years) and At-Risk Patients (6 to 64 Years) Aged Out 04/15/2003, 05/17/2001, 03/15/2001, Additional history exists No longer eligible based on patient's age to complete this topic HPV Vaccines Completed 05/24/2012, 050 10/2011, 12/01/2011 Meningococcal Vaccine Completed 05/31/2018, 012 Meningococcal B Vaccine Aged Out No l onger eligible based on patient's age to complete this topic RSV Immunizations Under 20 Months Aged Out No longer eligible based on patient's age to complete this topic Insurance [employer] Care Teams Fire And Safety Helper Relationship Specialty Start Date End Date Cleveland Barahona MD [address] [place] [address] PCP - General INTERNAL MEDICINE 02/18/22
--- OUTSIDE RECORDS SUMMARY | 2024-12-27 13:35 | XMS_ITS | CONTINUITY OF CARE DOCUMENT ---
Author Name paola, paola Address Unknown Organization [facility] Address [id number] [place] [address] [address] [place] [address] Phone [phone] Care Team Providers Care Community Health Educator Name Role Phone Raj SIMS, Marvin Unavailable [phone] TREVOR SIMS, HUSSEIN Unavailable Unavailable INSURANCE PROVIDERS Payer name Policy type / Coverage type [place] [employer] party ID [employer] MEDICA[employer] Medicaid [id number]
--- OUTSIDE RECORDS SUMMARY | 2024-12-27 13:35 | XMS_ITS | Referral Summary ---
Author Organization [facility] Address [address] [place] [address] Care Team Providers Care Fingerprint Expert Name Role Phone Becca Hernandez NP Primary Care Provid er Allergies Active Allergy Reactions Criticality Noted Date Comments Morphine Hives Medium 12/08/2023 Bupropion Agitation Low 12/08/2023 Medications amLODIPine (NORVASC) 5 mg tablet Take 1 tablet (5 mg total) by mouth daily 12/22/2023 Active amoxicillin-clav ulanate (AUGMENTIN) 875-125 mg per tablet Take 1 tablet by mouth every 12 (twelve) hours for 7 days 02/08/2024 Active dicyclomine (BENTYL) 20 mg tablet Take 1 tablet (20 mg total) by mouth 3 (three) times a day Active Slynd tablet tablet TAKE 1 TABLET BY MOUTH WITH A MEAL EVERY DAY FOR 90 DAYS 01/24/2024 Active escitalopram (LEXAPRO) 20 mg tablet Take 1 tablet (20 mg total) by mouth daily 01/12/2024 Active hydroCHLOROthiaz yaron (HYDRODIURIL) 12.5 mg tablet Take 1 tablet (12.5 mg total) by mouth daily 02/09/[address] (PROTONIX) 40 mg EC tablet Take 1 tablet (40 mg total) by mouth 2 (two) times a day Active Active Problems Problem Noted Date Diagnosed Date Morbid obesity 02/10/2024 Palpitations 02/10/2024 Hypertension 02/10/2024 Obstructive sleep apnea 02/10/2024 Tobacco dependence 02/10/2024 Social History Tobacco Use Types Packs/Day Years Used Date Smoking Tobacco: Never Smokeless Tobacco: Never Tobacco Cessation:Counseling Given: Not Answered Personal Safety Answer Date Recorded Have you ever been in or are you currently in a harmful physical or emotional relationship or is someone making you feel afraid or unsafe? 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 Gender Identity Not on file Sexual Orientation Not on file Last Filed Vital Signs Vital Sign Reading Time Taken Comments Blood Pressure 125/67 04/27/2024 8:53 PM CDT Pulse 99 04/27/2024 8:53 PM CDT Temperature 36.7 C (98.1 F) 04/27/2024 5:54 PM CDT Respiratory Rate 20 04/27/2024 8:53 PM CDT Oxygen Saturation 97% 04/27/2024 8:53 PM CDT Inhaled Oxygen Concentration - - Weight 158.8 kg (350 lb) 04/27/2024 5:54 PM CDT Height 157.5 cm (5' 2 ) 04/27/2024 5:54 PM CDT Body Mass Index 64.02 04/27/2024 5:54 PM CDT Plan of Treatment Not on file Insurance [facility] Care Teams Fingerprint Expert Relationship Specialty Start Date End Date Becca Hernandez NP [address] [place], [place] [id number] PCP - General Nurse Practitioner 12/14/23
--- OUTSIDE RECORDS SUMMARY | 2024-12-27 13:35 | XMS_ITS | Data Portability ---
Author Organization [facility] Address [address] [place] [address] [place] [address] Care Team Providers Care Chief Arson Division Name Role Phone PATRICIA WILLIAM Primary Care Provider RACHEL ALBERT Primary Care Provider Assessment No assessment recorded. Plan of Treatment Reminders Order Date Submit Date Provider Last Modified By Organization Details Last Modified Time Details Appointments None recorded. Lab None recorded. Referral None recorded. Procedures None recorded. Surgeries None recorded. Imaging US, transvagina l 2023 024 [email or web address] [facility], [address], [place], [address], 4 19:45:10 Medication Orders clotrimazol e-betametha sone 1 %-0.05 % topical cream 2024 025 [id number], [address], [place], [id number], 5 12:50:15 metronidazo le 0.75 % (37.5 mg/5 gram) vaginal gel 2023 024 [id number], [address], [place], [id number], 4 11:06:13 Mirena 21 mcg/24 hr (up to 8 years) 52 mg intrauterin e device 2023 024 [email or web address] Not available 14:08:12 Patient TargetsNo targets recorded. Patient InstructionsNo instructions recorded. Reason for Referral None Reported. Results Created Date Observation Date Name Description Value Unit Range Abnormal Flag Note LastModifiedBy Organization Detail LastModifiedTime 08/15/2008/15/2024 US, pelvi s No observ ation record ed. [facility] [address], [place], [address], 08/15/2024 17:30:18 08/15/2008/15/2024 US, trans vagin al No observ ation record ed. [facility] [address], [place], [address], 08/15/2024 17:30:31 08/15/2008/15/2024 US, pelvi s No observ ation record ed. [email or web address], [place], [address], 08/16/2024 16:07:33 08/30/20 24 08/30/2024 US, trans vagin al No observ ation record ed. [email or web address] [facility] [address], [place], [address], 08/30/2024 21:42:27 08/30/2008/30/2024 , trans vagin al No observ ation record ed. [email or web address] [address], [place], [address], 08/30/2024 21:42:27 Result Notes None recorded. Problems Name Problem SNOMED Code Status Onset Date Resolution Date Notes Provider Name and Address Organization Details Recorded Time Polycystic ovary syndrome 768996317 Active 2023 Becca Hernandez [facility]- [address], [place], [address], [place] - [facility] 14:57:33 Insulin resistance 223916004 Active 2014 Becca Hernandez [facility] [address], [place], [address], [facility] 4 09:49:09 Secondary amenorrhea 438553878 Active 2017 Becca Hernandez [facility] [address], [place], [address], [facility] 4 09:50:15 Hypertriglyc eridemia 711341533 Active 2023 Becca Hernandez [facility] [address], [place], [address], [facility] 4 09:50:27 Chronic peptic ulcer 628005174 Active 2022 Becca Hernandez [facility] [address], [place], [address], [facility] 4 09:50:53 Problem Notes None recorded. Procedures Surgical History Date Name Laterality Status Provider Name and Address Organization Details Recorded Time 024 IUD Removal completed Diogo Bryan MD [address], [place], [address], [facility] 08/20/2024 14:41:43 024 IUD Insertion completed Diogo Bryan MD [address], [place], [address], [facility] 08/20/2024 14:41:33 024 Laparoscopy completed Digna Ace [facility] 10/26/2024 14:39:20 024 endoscopy completed Estrella Johnson [facility] 05/10/2024 16:00:13 023 Date of Last Pap Smear completed Digna Ace [facility] 08/09/2023 15:03:22 023 cholecystectomy completed Digna Ace [facility] 06/30/2023 14:39:16 Imaging Results Imaging Date Name Status LastModified by Organization Details LastModified Time 08/15/2024 US, pelvis completed [facility] [address], [place], [address], 08/15/2024 17:30:18 08/15/2024 US, transvaginal completed [email or web address] [address], [place], [address], 08/15/2024 17:30:31 08/15/2024 US, pelvis completed [email or web address], [place], [address], 08/16/2024 16:07:33 08/30/2024 US, [facility]aginal [email or web address] [address], [place], [address], 08/30/2024 21:42:27 08/30/2024 US, transvaginal completed [email or web address] [address], [place], [address], 08/30/2024 21:42:27 Procedure Notes None recorded. Medical Equipment None Reported. Allergies Allergen ID Allergen Name Allergen Category Reaction Reaction Severity Criticality Documentation Date Start Date Code Code System Note Provider Name and Address Organization Details Recorded Time 69639 morphine medicatio n Not available Not available Not available 05/18/2024 7052 RxNorm Tara lira [facility] 14:01:04 Medications Name Sig Start Date Stop Date Status Note LastModified by Organization Details LastModified Time Prescriptio n - Prior Authorizati on Request 11/01 completed Not Available Not Available Not Available medroxyprog esterone 10 mg tablet Take 1 tablet x 10 days every 30 days if no menses occurs and urine test is neg. 10/07 completed Not Available Not Available Not Available Mirena 21 mcg/24 hr (up to 8 years) 52 mg intrauterin e device Take 1 device by intrauter ine route. 2023 active Not Available Not Available Not Avai lable trazodone 50 mg tablet TAKE 1 TABLET BY MOUTH EVERY DAY AT BEDTIME active Not Available Not Available No t Available azithromyci n 250 mg tablet 07/07 completed Not Available Not Available Not Available ibuprofen 800 mg tablet Take 1 tablet 2 hours before the procedure . active Not Available Not Available No t Available hydrocodone 5 mg-acetamin ophen 325 mg tablet 06/30 completed Not Available Not Available Not Available metronidazo le 0.75 % (37.5 mg/5 gram) vaginal gel Insert 1 applicato rful every day by vaginal route. 09/24 completed Not Available Not Available Not Available famotidine 40 mg tablet TAKE 1 TABLET BY MOUTH EVERY DAY AT BEDTIME 11/01 completed Not Available Not Available Not Available prednisone 20 mg tablet 08/09 completed Not Available Not Available Not Available sertraline 100 mg tablet TAKE 1 TABLET BY MOUTH DAILY active Not Available Not Available No t Available amlodipine 2.5 mg tablet TAKE 1 TABLET BY MOUTH DAILY 01/23 completed Not Available Not Available Not Available amlodipine 5 mg tablet TAKE 1 TABLET BY MOUTH DAILY active Not Available Not Available No t Available ciprofloxac in 500 mg tablet TAKE 1 TABLET BY MOUTH EVERY 12 HOURS 09/24 completed Not Available Not Available Not Available tramadol 50 mg tablet TAKE 1 TO 2 TABLETS BY MOUTH EVERY 6 HOURS NEEDED FOR PAIN 12/30 completed Not Available Not Available Not Available ondansetron 8 mg disintegrat ing tablet Take 1 tablet 2 hours before procedure . 08/29 completed Not Available Not Available Not Available ketorolac 10 mg tablet TAKE 1 TABLET BY MOUTH EVERY 6 HOURS FOR 5 DAYS 05/18 completed Not Available Not Available Not Available oxycodone-a cetaminophe n 5 mg-325 mg tablet take 2 tablets 2 hours before the procedure 08/29 completed Not Available Not Available Not Available alprazolam 0.5 mg tablet Take 1 tablet 2 hours before the procedure . 08/29 completed Not Available Not Available Not Available dicyclomine 20 mg tablet TAKE 1 TABLET BY MOUTH THREE TIMES DAILY active Not Available Not Available No t Available dexamethaso ne 1 mg tablet 07/27 completed Not Available Not Available Not Available phenazopyri dine 100 mg tablet TAKE 1 TABLET BY MOUTH THREE TIMES DAILY NEEDED FOR PAIN 09/24 completed Not Available Not Available Not Available pantoprazol e 40 mg tablet,abdi yed release TAKE 1 TABLET BY MOUTH TWICE DAILY active Not Available Not Available No t Available clotrimazol e-betametha sone 1 %-0.05 % topical cream APPLY TOPICALLY TO THE AFFECTED AND SURROUNDI NG AREAS TWICE DAILY IN THE MORNING AND IN THE EVENING FOR 2 WEEKS active Not Available Not Available No t Available lisinopril 10 mg tablet TAKE 1 TABLET BY MOUTH DAILY 07/27 completed Not Available Not Available Not Available losartan 25 mg tablet TAKE 1 TABLET BY MOUTH DAILY 07/27 completed Not Available Not Available Not Available progesteron e micronized 200 mg capsule TAKE 1 CAPSULE BY MOUTH EVERY DAY active Not Available Not Available No t Available betamethaso ne dipropionat e 0.05 % topical cream Apply by topical route for 20 days. active Not Available Not Available No t Available buspirone 7.5 mg tablet TAKE 1 TABLET BY MOUTH TWICE DAILY active Not Available Not Available No t Available zolpidem 10 mg tablet TAKE 1 TABLET BY MOUTH ONCE WHEN YOU GO TO SLEEP STUDY 07/27 completed Not Available Not Available Not Available albuterol sulfate HFA 90 mcg/actuati on aerosol inhaler INHALE 2 PUFFS BY MOUTH FOUR TIMES DAILY NEEDED FOR SHORTNESS OF BREATH OR WHEEZING active Not Available Not Available No t Available losartan 100 mg tablet TAKE 1 TABLET BY MOUTH EVERY DAY 10/26 completed Not Available Not Available Not Available metformin ER 500 mg tablet,exte nded release 24 hr active Not Available Not Available Not Available clotrimazol e 1 % topical cream APPLY TO THE AFFECTED AND SURROUNDI NG AREAS OF SKIN BY TOPICAL ROUTE 2 TIMES PER DAY IN THE MORNING AND EVENING active Not Available Not Available No t Available sertraline 50 mg tablet active Not Available Not Available Not Available dicyclomine 10 mg capsule TAKE 1 CAPSULE BY MOUTH FOUR TIMES DAILY NEEDED FOR ABDOMINAL PAIN 05/18 completed Not Available Not Available Not Available Kelsi (28) 3 mg-0.03 mg tablet Take 1 tablet every day by oral route. 10/07 completed Not Available Not Available Not Available amoxicillin 875 mg-potassiu m clavulanate 125 mg tablet TAKE 1 TABLET BY MOUTH EVERY 12 HOURS FOR 7 DAYS 05/10 completed Not Available Not Available Not Available neomycin-po lymyxin-hyd rocort 3.5 mg-10,000 unit/mL-1 % ear drops,susp SHAKE LIQUID AND INSTILL 4 DROPS INTO LEFT EAR EVERY 12 HOURS FOR 7 DAYS 07/27 completed Not Available Not Available Not Available escitalopra m 10 mg tablet TAKE 1 TABLET BY MOUTH DAILY 07/27 completed Not Available Not Available Not Available escitalopra m 20 mg tablet TAKE 1 TABLET BY MOUTH DAILY 10/26 completed Not Available Not Available Not Available aripiprazol e 5 mg tablet TAKE 1 TABLET BY MOUTH EVERY DAY AT BEDTIME 08/20 completed Not Available Not Available Not Available bupropion HCl XL 150 mg 24 hr tablet, extended release TAKE 1 TABLET BY MOUTH EVERY MORNING 07/27 completed Not Available Not Available Not Available .03/22 (28) 1.5 mg-30 mcg (21)/75 mg (7) tablet Take 1 tablet every day by oral route with meal(s) for 90 days. 11/01 completed Not Available Not Available Not Available metoprolol tartrate 25 mg tablet TAKE 1 TABLET BY MOUTH TWICE DAILY active Not Available Not Available No t Available hydrochloro thiazide 12.5 mg tablet TAKE 1 TABLET BY MOUTH EVERY MORNING active Not Available Not Available No t Available OneTouch Verio test strips USE DIRECTED 10/26 completed Not Available Not Available Not Available Jardiance 10 mg tablet TAKE 1 TABLET BY MOUTH EVERY MORNING active Not Available Not Available No t Available Trulicity 1.5 mg/0.5 mL subcutaneou s pen injector Inject 0.5 mL every week by subcutane ous route as directed for 28 days. active Not Available Not Available No t Available Trulicity 0.75 mg/0.5 mL subcutaneou s pen injector ADMINISTE R 0.75 MG UNDER THE SKIN WEEKLY 09/24 completed Not Available Not Available Not Available OneTouch Verio Flex Meter USE DIRECTED 07/27 completed Not Available Not Available Not Available Ozempic 0.25 mg or 0.5 mg (2 mg/1.5 mL) subcutane s pen injector 11/16 completed Not Available Not Available Not Available Slynd 4 mg (28) tablet TAKE 1 TABLET BY MOUTH WITH A MEAL EVERY DAY FOR 90 DAYS 05/10 completed Not Available Not Available Not Available Jolanta 1.5 mg-30 mcg tablet TAKE 1 TABLET BY MOUTH EVERY DAY WITH A MEAL FOR 90 DAYS 12/15 completed Not Available Not Available Not Available Ozempic 0.25 mg or 0.5 mg (2 mg/3 mL) [facility] pen injector 11/16 completed Not Available Not Available Not Available Vitals Date Recorded Body height Body mass index (BMI) Body weight Systolic blood pressure Diastolic blood pressure Provider Name and Address Organization Details Last Updated DateTime 08/20/2024 157.48 cm 65.8 kg/m2 200802.2 5 g 118 mm[Hg] 80 mm[Hg] [facility] 4 11:16:01 Date Recorded Body height Body mass index (BMI) Body weight Systolic blood pressure Diastolic blood pressure Provider Name and Address Organization Details Last Updated DateTime 08/29/2024 157.48 cm 65.3 kg/m2 261956.4 8 g 150 mm[Hg] 94 mm[Hg] [facility] 4 14:16:12 Date Recorded Body height Body mass index (BMI) Body weight Systolic blood pressure Diastolic blood pressure Provider Name and Address Organization Details Last Updated DateTime 09/24/2024 157.48 cm 65.3 kg/m2 988464.4 8 g 141 mm[Hg] 95 mm[Hg] [facility] 4 11:03:39 Date Recorded Body height Body mass index (BMI) Body weight Systolic blood pressure Diastolic blood pressure Provider Name and Address Organization Details Last Updated DateTime 10/26/2024 157.48 cm 62.7 kg/m2 285564.1 8 g 131 mm[Hg] 93 mm[Hg] Digna Ace [facility] 14:36:46 Social History Question Answer Notes LastModified by Organizat ion Details LastModified Time Tobacco Smoking Status Never Smoker Stefanie Nassar soraya, [facility] 06/30/2023 14:31:55 Do You Have An Advance Directive? No Information not available 05/03/2023 What Is Your Level Of Alcohol Consumption? Occasional Information not available 12/30/2022 How Many Years Have You Consumed Alcohol? 1 Information not available 01/11/2023 Are You Blind Or Do You Have Difficulty Seeing? No Information not available 01/11/2023 What Is Your Level Of Caffeine Consumption? Moderate Information not available 01/11/2023 How Much Tobacco Do You Chew? 2-4/day Information not available 07/27/2024 In The 14 Days Before Symptom Onset, Have You Had Close Contact With A Laboratory-confi rmed COVID-19 While That Case Was Ill? No Information not available 12/30/2022 In The 14 Days Before Symptom Onset, Have You Had Close Contact With A Person Who Is Under Investigation For COVID-19 While That Person Was Ill? No Information not available 12/30/2022 Have You Been To An Area Known To Be High Risk For COVID-19? No Information not available 12/30/2022 Are You Currently Employed? Yes [email or web address] Information not available 06/30/2023 Are You Deaf Or Do You Have Serious Difficulty Hearing? No Information not available 01/11/2023 What Type Of Diet Are You Following? REGULAR Information not available 12/30/2022 What Is The Highest Grade Or Level Of School You Have Completed Or The Highest Degree You Have Received? 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 Yes Information not available 01/11/2023 Do You Use Protection During Sex? No Information not available 01/11/2023 Do You Use Your Seat Belt Or Car Seat Routinely? No Information not available 01/11/2023 Are You Sexually Active? Yes Female Partners Information not available 06/30/2023 Do You Have Smoke And Carbon Monoxide Detectors In Your Home? Yes Information not available 01/11/2023 How Much Tobacco Do You Smoke? No Information not available 01/11/2023 Do You Feel Stressed (tense, Restless, Nervous, Or Anxious, Or Unable To Sleep At Night)? [id number] Information not available 01/11/2023 Do You Use Any Illicit Or Recreational Drugs? No Information not available 12/30/2022 Do You Use Sunscreen Routinely? No Information not available 01/11/2023 Has Tobacco Cessation Counseling Been Provided? No [email or web address] Information not available 06/30/2023 Have You Used IV Drugs? No Information not available 01/11/2023 Do You Or Have You Ever Used Any Other Forms Of Tobacco Or Nicotine? No [email or web address] Information not available 06/30/2023 Sex: Unknown Functional Status Question Answer Note LastModified by Organization D etails LastModified Time Are you able to walk? YESWOREST Information not available 01/11/2023 What is your exercise level? Moderate Information not available 01/11/2023 Mental Status None recorded. Family History Relationship Description Onset Age of this Age Resolved Age Notes LastModified by Organization Details LastModified Time Father Diabetes mellitus [email or web address] Not available 2022 14:42:16 Mother Malignant tumor of ovary [email or web address] Not available 2022 14:42:16 Paternal Grandmother Malignant tumor of lung [email or web address] Not available 2022 14:42:16 Maternal Grandmother Hypertensive disorder [email or web address] Not available 2022 14:42:16 Maternal Grandmother Hypercholest erolemia [email or web address] Not available 2022 14:42:16 Unspecified Relation Family history unknown [email or web address] Not available 2024 13:56:33 Medical History Condition Response Allergies (Food, seasonal, environmental ) N Other Y Breast Cancer N Drug/Latex Allergies/Reactions N Blood Transfusion N Dermatologic Disorders N Lung Disease N Defects or Inherited Disease N Breast Problem N Gestational Diabetes N Hematologic disorders N Anesthesia Complications N History of STI N Deep Vein Thrombosis N Polycystic ovary syndrome Y Anxiety Disorder N Autoimmune disease N Arthritis N Infertility N Polyps N Acid Reflux (GERD) N History of abnormal pap N Cancer N Stroke N Varicosities N Neurologic/Epilepsy N Endometriosis N High Cholesterol Y Headaches N Fibromyalgia N Kidney Disease N Heart Problems N Kidney or Bladder Problems N Thyroid Problems N GI Problems Y Eating Disorder N Anemia N Art (IVF or FET) N Psychiatric Illness N Ovarian Cancer N Diabetes Y Pulmonary (TB, Asthma) N Hepatitis/Liver Disease N No Past Medical History Y Eczema N Urinary Tract Infection N Abuse/Domestic Violence N Asthma N Trauma/Violence N Depression/ depression N Heart Disease N Pre-Eclampsia N Hypertension Y Osteoporosis N Thrombophilias N Gynecological History Statement/Question Response Abnormal Pap N Flow Heavy Date of LMP 08/20/2024 N Was last menstrual period normal N STIs/STDs N HPV Vaccine Y Current Control Method IUD Are cycles usually normal N Sexually Active? Y Menses Monthly N Age of first menstrual cycle 10 Date of Last Pap Smear 07/07/2023 Sexual Problems? N LMP Unknown N Obstetrics History GPAL:G 0 P 0 0 0 0 Past Encounters Encounter ID Performer Location Encounter Start Date Encounter Closed Date Diagnosis/Indication Diagnosis SNOMED-CT Code Diagnosis ICD10 Code Diagnosis Note [id number] Becca Hernandez [facility] [address] [address] 12/30/2022 12:18:03 12/30/2022 16:58:19 Secondary amenorrhea 609631278 N91.1 Today we discussed menses & amenorrhei c status.Ris k for precancers and cancers with this type of situation. Recommend EMBx, pap, STD screen.She is very hesitant today for pelvic exam .We decided we would do the following: Trial of provera for withdrawal bleed; US is 7mm EMC.Discus sed US. Will f/u x 2wks and continue to discuss PCOS/menst rual status; deciding what we will do to continue monthly or q3mos menses; discuss EMBx to ensure no cancers/ab n cells present. Agreeable to working in a step-rodriguez fashion and building rapport before more invasive procedures pursued.Se casey gleason and heather gleason of this plan of care. Rx sent with instructsonia herrera reviewed. Counseled on medication R/B's, Most common side effects, & use. All questions were answered to patient satisfacti on. Time spent in visit is a total of 30 mins with at least 50% of visit consisting of counseling and review of plan of care. Cyst of left ovary 12831 50120 4658876 N83.202 Left cyst vs paratubal cyst very smallLikel y not the source of pain that has been plaguing herMore concerned about lack of monthly cycles which we discussedP COS is suspected. Will see if recent cholestero l, hbga1c etc have been performed by PCP.If not will update those next visit. FSH/LH: 7.8/7.1Tot al T- 36 wnlEstroge n (e1): 413.2 [id number] Becca Hernandez [facility] [address] [address] 01/11/2023 12:29:58 01/11/2023 13:32:02 Secondary amenorrhea 157430155 N91.1 Today we discussed trial of provera.Maida gleason tolerated medication well but has not initiated a withdrawal bleed.She likely has PCOS/Secon norma PCOS.She is nervous about EMBx so we agreed to the followin. Use Provera monthly every 30 days after ensuring neg UPT.Not interested in daily BC method at this time. 2. Repeat US in 8wks to ensure small cyst is gone but also evaluate the uterine lining. We will then revisit the need for EMBx at that time. 3. she is also self pay so we are trying to minimize costs while still moving forward with what is required for her health. Will reach out with US results & additional plan of care moving forward. Time spent in visit is a total of 15 mins with at least 50% of visit consisting of counseling and review of plan of care. [id number] Sharita Lieberman [facility] [address] [address] 05/02/2023 16:04:08 05/02/2023 16:44:12 Pain in pelvis 79124713 R10.2 [id number] Becca Hernandez [place] [address] [address] 05/03/2023 14:32:39 05/03/2023 15:07:47 Secondary amenorrhea 313458775 N91.1 Today we discussed US.Left ovarian cyst is smaller than previous 3cm cyst and no sx's.Not reported to be complex or alarming.W ill monitor for now and repeat if any changes or sx's.She voices she is having cycles with Provera every 30 days.Had not had a cycle yet at time of US but will have one as soon as she is done taking her 10 days of provera. Will make appt for pap smear/WWE this coming month prior to gallbladde r surgery 05/20. Time spent in visit is a total of 15 mins with at least 50% of visit consisting of counseling and review of plan of care. [id number] Becca Hernandez [facility] [address],[place] [address] 06/30/2023 14:31:50 06/30/2023 14:54:46 Sexually transmitted infectious disease 5995410 A64 Today would like STD urine & serum labs.Will update on resultsRes chedule WWE visit. Time spent in visit is a total of 15 mins with at least 50% of visit consisting of counseling and review of plan of care. [id number] Becca Hernandez [facility] [address],[place] [address] 07/07/2023 14:22:21 07/07/2023 14:48:02 Gynecologic examination 08149917 Z01.419 Take Calcium with Vitamin D 1200mg daily if not receiving in daily diet. It is strongly advised to have an annual flu shot and up can obtain at most pharmacies . If you have not had a TDap shot in the last 10 years you should obtain one as well. Discussed with patient & provided with informatio n regarding Gardisil vaccine to prevent the 4 strains for HPV that cause cervical cancer if under age 26. Encourage safe sexual practices, to use condoms and limit partners if not already in a monogamous relationsh ip. Do monthly self breast exams. Have mammogram yearly or every other year depending on family history. BRCA testing is now available for patients with strong genetic history of female cancer. If interested contact the office. Engage in daily exercise of low impact aerobic exercise 45-60 minutes 4-5 times weekly. Avoid tobacco and illicit drugs as well as using moderation with alcohol intake less than 1-2 8 oz beverages daily. This lifestyle behavior pattern will lead to less health conditions and longer life span. If BMI greater than 25 weight watchers or dietary consult advised. Patient received above instructio ns, and questions have been answered. If you have any questions please call or respond to this email. Patient was made aware of the patient portal and may obtain a paper copy of today's plan if desired. Pap sentSTD Screen sentGeneti c Screen discussedC olon Screen naDexa [facility] [id number] Becca Hernandez [facility] [address],[place] [address] 08/09/2023 14:35:44 08/09/2023 15:26:55 Secondary amenorrhea [id number] N91.1 Today we discussed switching from Provera q1mos to daily BCP CONNER to regularly produce a cycle for reassuranc e. She declined need for UPT as has not been sexually active in the last few months;ivana e test neg. Discussed all control options in great detail. Pt would like to start ocp. She is aware of the risks and benefits. She does not have any medical condition that is contraindi cated with the use of estrogen containing control. Pt will start her pills on the first tuesday following the start of her period. She is aware it is not effective for control the first month. She is also aware of the importance of taking at the same time every day. Encouraged use of condoms as the pill does not protect against STD's. Will return in 3 months for med check. Consent was read and signed. Pt verbalized understand ing. Time spent in visit is a total of 30 mins with at least 50% of visit consisting of counseling and review of plan of care. [id number] Becca Hernandez [facility] [address],[place] [address] 11/01/2023 13:43:06 11/01/2023 15:07:32 Polycystic ovary syndrome [id number] E28.2 Z68.44 Today we discussed PCOS and the multifacet ed aspects of this health condition which include metabolic syndrome/I ncrease risks type 2 diabetes/H TN/Hyperch olesteremi a/obesity/ fertility. Criteria for metabolic syndrome discussed (meets 3 out of the five listed)-wi ll test for additional risks/abn labs.Abdom inal obesity. High blood pressure of 130/80 mm Hg (millimete rs of mercury) or higher. Impaired fasting blood glucose. ... High triglyceri de levels of more than 150 mg/dL. Low HDL (good) cholestero l. Insulin resistance 16755 5000 E88.819 Will see if qualifies for injectable or something other than Metformin with her prominent Hx of peptic ulcer/Gall bladder and it likelihood of causing significan t GI issues or exacerbati on of these issues. [facility] [id number] N91.1 Patient is here today for a medicaton check of control. She voices goals of therapy have been met with use of this therapy. She denies neg side effects. She is eating, drinking, sleeping well; moods are stable & periods are well regulated. Wishes to continue this method of BC. Appropriat e to continue this medication but aware she will omit the placebo week which has iron and is aggravatin g her peptic ulcer. Time spent in visit is a total of 30 mins with at least 50% of visit consisting of counseling and review of plan of care. Hyperlipid emia screening [id number] Z13.220 Update to check for high LDL/TG/Tot al/Low HDL [id number] MARCK [facility] [address] [address] 11/16/2023 15:55:38 11/22/2023 17:14:20 Insulin resistance 278024242 E88.819 Z68.44 E66.9 E88.810 E28.2 Will complete 0.75mg weekly x 4wks.Then, return to office for med check & if tolerating we increase to next dose. In depth deputy general counsel on trulicity purpose, dosage, dosage schedule, administra tion, and our goals.Unde rstanding verbalized by both patient & her female partner.Wi ll return in 4wks med check & will likely increase dosage at that time.Advis ed to bring used injector pens to office to throw in biohazard waste.Unde rstanding and agreeable. Time spent in visit is a total of 30 mins with at least 50% of visit consisting of counseling and review of plan of care. [id number] Becca Hernandez [facility] [address],[place] [address] 12/13/2023 15:42:18 12/13/2023 16:18:12 Prediabetes 182552724 R73.03 Z68.44 E88.810 E28.2 Z83.49 Patient is here today for a medicaton check of trulicity. She has noticed a decrease in her appetite but does feel she starts to overeat towards the end of the week.We also discussed bringing up emotional eating to her current therapist. We need to work on this aspect or else no medication we give will ever help her. She denies neg side effects. She is eating, drinking, sleeping well; moods are stable & periods are well regulated. Wishes to continue this method of Pre-diabet es medication . Appropriat e to continue this medication . Rx increase to 1.5/wk for the next 2mos. Time spent in visit is a total of 25 mins with at least 50% of visit consisting of counseling and review of plan of care. Tachycardia 6791113 R00. [address] for random HBP/Palpit ations Contracept ion care management [id number] N91.1 BCP switched to POP only vs CONNER due to verbalizat ion of heart palpitatio ns/HBP. Will f/u in 7wks at med check for trulicity. [id number] [facility] [address],[place] [address] 01/24/2024 15:12:35 01/24/2024 16:03:45 Venereal disease screening 299226339 Z11.3 STD screen urine sent to confirm no std.Partne r recently treated for trich (female partner)Wi ll reach out with results. Time spent in visit is a total of 15 mins with at least 50% of visit consisting of counseling and review of plan of care. Contracept ion care management [id number] N91.1 BCP switched to POP only vs CONNER due to verbalizat ion of heart palpitatio ns/HBP.Alon ples given x 6mosCall for additional samples if neededDoin g well. [id number] MARCK Donohue [facility] [address] [address] 05/10/2024 15:49:03 05/10/2024 16:28:39 Abnormal uterine bleeding 2917229503 9100 N93.9 The patient and I discussed the various causes of abnormal uterine bleeding, including polyps, fibroids, hyperplasi a, atypia, anovulatio n, etc. We reviewed the typical evaluation with labs, pelvic US and possible endometria l biopsy. pelvic u/s scheduledd eclined STI screen and UPTlabs orderedwil l d/c slynd and start prometrium 200mg daily until f/u appointmen tquestions answered, ED precaution s discussed Patient is to contact office or go to nearest ED/Urgent care if fever >/= 100.1, pain, excessive bleeding, unusual drainage or swelling in area of concern; or experienci ng worsening sx's or new onset of concerning sx's. Understand ing verbalized . All questions answered to patient satisfacti on. Time spent in visit is a total of 20 mins with at least 50% of visit consisting of counseling and review of plan of care. Polycystic ovary syndrome [id number] E28.2 [id number] [facility] [address],[place] [address] 05/15/2024 11:58:20 05/15/2024 12:31:15 Abnormal uterine bleeding [id number] 9100 N93.9 [id number] Diogo Bryan MD [facility] [address] [address] 05/18/2024 13:42:09 05/18/2024 14:52:30 Abnormal uterine bleeding 5785447824 9100 N93.9 this patient is a 23-year-ol d female presents for follow-up on ultrasound and abnormal uterine bleeding. We talked about her excess body weight and polycystic ovarian syndrome. We discussed abnormal uterine bleeding and amenorrhea . We discussed polycystic ovarian syndrome. We discussed the diagnosis. We discussed the underlying disease process. We discussed laboratory evaluation . We discussed her ultrasound and laboratory results. We discussed the prevention of endometria l cancer. We discussed protecting the endometriu m and how that is carried out. We discussed treatment in the context of a desired . We discussed medical treatment. We discussed the risk associated with PCOS and long-term health outcomes. We talked about treatment. Talked about ruling endometria l cancer and preventing endometria l cancer. Patient has never had irregular. . We need to rule out endometria l cancer in this young individual . We will perform hysterosco py D&C. I strongly recommend that for her she agreed to proceed. At that time we will insert Mirena IUD to prevent endometria l cancer. I spent over 40 minutes on the patient's care. We arranged for surgery. We talked about the procedure in detail. Talked about the risks, benefits, and alternativ es. Talked about laboratory evaluation . We agreed to proceed with laboratory evaluation Preoperative state 57753 002 Z78.9 [id number] Diogo Bryan MD [facility] [address],[place] [address] 07/27/2024 11:03:55 07/27/2024 12:23:34 Contraception care management [id number] Z30.9 23-year-ol d female who 1 week from a IUD insertion under anesthesia . Hysterosco py D and C was also performed. She tolerated well. She has no complaints . She will return later for IUD check. [id number] [facility] [address] [address] 08/15/2024 10:37:45 08/15/2024 11:14:49 Pain in pelvis 89460544 R10.2 [id number] Diogo Bryan MD [facility] [address],[place] [address] 08/20/2024 10:28:22 08/20/2024 15:10:06 Insertion of intrauterine contraceptive device [id number] Z30.430 IUD was removed replaced. She tolerated it well. To follow up in 1 month [id number] Diogo Bryan MD [facility] [address],[place] [address] 08/29/2024 13:50:59 08/29/2024 15:00:33 Pain in pelvis 87810890 R10.2 23-year-ol d female. Patient has pain after IUD insertion. She also has some foul-smell ing vaginal discharge. She has had some unusual vaginal discharge some acute mucus and brown flecks. I spent over 20 minutes on her care. Talked about solutions, treatment, prescribed medication , we discussed risks, benefits, and alternativ es to medication s. She was given precaution s and instructio ns on medication . We agreed to ultrasound the uterus and determine IUD placement. Possible malpositio sonia of the IUD Bacterial vaginosis 4197 16338 N76.0 [id number] [facility] [address],[place] [address] 08/30/2024 16:35:42 08/30/2024 17:27:27 Mechanical complication of intrauterine contraceptive device 443357576 T83.39XA [id number] Diogo Bryan MD [facility] [address],[place] [address] 09/24/2024 10:33:04 09/24/2024 11:22:24 Contraception care management 895337549 Z30.9 This patient is a 23 female who presents for IUD check. She had a mirena IUD inserted [facility] 1 month ago. She has no complaints . She denies any excessive bleeding or pain. She has had some cramping and some spotting. Otherwise, she feels that is going well and wants to continue her IUD. [id number] Diogo Bryan MD [facility] [address],[place] [address] 10/26/2024 13:56:29 10/29/2024 07:50:21 Tinea corporis 82798471 B35.4 Health Concerns Section Related Observation LastModified by Organization Detai ls LastModified Time None Recorded Concern Status LastModified by Organization Details LastModified Time None Recorded Advance Directives Directive N: Payers Encounter Date Sequence Insurance Name Policy Number Policy Leija Covered Member ID Leija Member ID Guarantor Name 08/20/2024 1 [employer] (MEDICAID HMO) [id number] Mac Matta [id number] [facility] 08/29/2024 1 [employer] (MEDICAID HMO) [id number] Mac Cuevaelin [id number] [facility] 08/30/2024 1 [employer] (MEDICAID HMO) [id number] Mac Cuevaelin [id number] [facility] 09/24/2024 1 [employer] (MEDICAID HMO) [id number] Mac Cuevaelin [id number] [facility] 10/26/2024 1 [employer] (MEDICAID HMO) [id number] Mac Cuevaelin [id number] [facility] Notes Date Note Type Note Provider Name and Address Organization Details Recorded Time 08/20/2024 text/html Patient presents for IUD removal and insertion. The procedure was explained to the patient in detail. She understands the procedure. She understands the risks, benefits, and alternatives. She has completed the informed consent process and is ready to proceed. Digoo Bryan MD [address], [place], [address], [facility] 08/20/2024 14:47:03 08/29/2024 text/html 23-year-old fema le. Patient has pain after IUD insertion. She also has some foul-smelling vaginal discharge. She has had some unusual vaginal discharge some acute mucus and brown flecks. I spent over 20 minutes on her care. Talked about solutions, treatment, prescribed medication, we discussed risks, benefits, and alternatives to medications. She was given precautions and instructions on medication. We agreed to ultrasound the uterus and determine IUD placement. Possible malpositioned of the IUD Diogo Bryan MD [address], [place], [address], [facility] 08/29/2024 15:00:24 09/24/2024 text/html This patient is a 23 female who presents for IUD check. She had a mirena IUD inserted approximately 1 month ago. She has no complaints. She denies any excessive bleeding or pain. She has had some cramping and some spotting. Otherwise, she feels that is going well and wants to continue her IUD. Diogo Bryan MD [address], [place], [address], [facility] 09/24/2024 11:20:29 10/26/2024 text/html 23-year-old ángel ross complains of skin changes on her pannus in the bilateral inguinal areas. It was examined. There is erythema with sharp demarcation and well-defined borders. It is erythematous this, white areas. Clearly tinea corporis is present. To start a anti-Fungal/steroid cream. to follow-up in a couple of weeks. Talked about the medication. However risks, benefits, and alternatives. Talked about instructions. Diogo Bryan MD [address], [place], [address], [facility] 10/27/2024 12:52:27 OBGyn Episode No OBEpisode recorded.
--- OUTSIDE RECORDS SUMMARY | 2024-12-27 13:35 | XMS_ITS | Encounter Summary ---
Author Organization [facility] Address [address] [place] [address] Care Team Providers Care Retail Service Lead Merchandiser Name Role Phone Unavailable Primary Care Provider Unavailabl e Encounter Details Date Type Department Care Team (Late st Contact Info) Description 12/26/2024 External Device Data [facility] Provider, Abstract NO ADDRESS ON FILE Social History Tobacco Use Types Packs/Day Years Used Date Smoking Tobacco: Never Smokeless Tobacco: Never Alcohol Use Standard Drinks/Week Comments Yes 0 (1 standard drink = 0.6 oz pur e alcohol) None since 11/2023 Feeling Safe Answer Date Recorded Are you in a relationship wi th someone who hurts you emotionally and/or physically? No 06/08/2024 Comments No Sex and Gender Information Value Date Recorded Sex Assigned at Not on file Legal Sex Female 12:12 PM CDT Gender Identity Not on file Sexual Orientation Not on file documented as of this encounter Plan of Treatment Upcoming Encounters Date Type Department Care Team (Late st Contact Info) Description 12/31/2024 1:30 PM CDT Office Visit [facility] Oncology and Hematology - [place] [address] [place] [address] Felipe Joyner MD [address] [facility] [address] [place] [address] documented as of this encounter Visit Diagnoses Not on filedocumented in this encounter
--- OUTSIDE RECORDS SUMMARY | 2024-12-27 13:35 | XMS_ITS | Clinical Summary ---
Author Organization [facility] Address [address] [place] [address] Care Team Providers Care Visual Education Director Name Role Phone Becca Hernandez NP Primary [...] Obstructive sleep apnea 02/10/2024 Tobacco dependence 02/10/2024 Medical History Medical History Date Comments Hypertension Family History Medical History Relation Name Comments Diabetes Father Heart disease Father Diabetes Maternal Grandmother Hypertension Maternal Grandmother Ovarian cancer Mother Lung cancer Paternal Grandmother Relation Name Status Comments Father Maternal Grandmother Mother Paternal Grandmother Social History Tobacco Use Types Packs/Day Years [...] on file Legal Sex 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 Gender Identity Not on file Sexual Orientation Not on file Obstetrics History Last Filed Vital Signs Vital Sign Reading [...] 04/27/2024 5:54 PM CDT Plan of Treatment Health Maintenance Due Date Last Done Comments Cervical Cancer Screening 2000 Depression Screening 2000 Hepatitis C Screening 2000 Regular Well Visit/Exam 18-64 2018 DTaP/Tdap/Td Vaccine (7 - Td or Tdap) 05/24/2022 05/24/2012, 08/26/2005, 04/15/2003, Additional history exists Influenza Vaccine (#1) 2024 09/28/2003 Hepatitis B Screening Completed 08/17/2001 , 2000, 2000 Pneumococcal vaccine <65 Completed 003, 05/17/2001, 03/15/2001, Additional history exists HPV Vaccines Completed 05/24/2012, 05/0 10/2011, 12/01/2011 Varicella Vaccines Completed 06/09/2015, 02/08/2002 Insurance [facility] Care Teams Visual Education Director Relationship Specialty Start Date End Date Becca Hernandez NP [address] [place] [address] PCP - General Nurse Practitioner 12/14/23
--- OUTSIDE RECORDS SUMMARY | 2024-12-27 13:35 | XMS_ITS | Clinical Summary ---
Author Organization [facility] Address [address] [address] [place] [address] Phone Care Team Providers Care Trial Management Associate Name Role Phone Unavailable Primary Care Provider Unavailabl e Allergies Active Allergy Reactions Criticality Noted Date Comments Morphine Hives,Nausea and Vomiting High 05/01/2024 Medications dicyclomine (BENTYL) 20 mg tablet Take 20 mg by mouth 3 times daily. Active amLODIPine (NORVASC) 5 mg tablet Take 5 mg by mouth daily. Active escitalopram oxalate (LEXAPRO) 20 mg tablet Take 20 mg by mouth daily. Active hydroCHLOROthiaz yaron 12.5 mg tablet Take 12.5 mg by mouth daily. Active lisinopriL (PRINIVIL) 10 mg tablet Take 10 mg by mouth daily. Active pantoprazole (PROTONIX) 40 mg Tablet, Delayed Release (E.C.) Take 40 mg by mouth daily. Active drospirenone, contraceptive, (Slynd) 4 mg (28) Tablet Take by mouth daily. Active traZODone (DESYREL) 50 mg tablet Take 50 mg by mouth daily at bedtime. Active losartan potassium (LOSARTAN ORAL) Take by mouth daily. Active PROGESTERONE MICRONIZED ORAL Take by mouth daily at bedtime. Active Active Problems No known active problems Encounters Date Type Department Care Team Description 12/26/2024 External Device Data [facility] ABSTRACTION Provider, Abstract 12/12/2024 External Device Data [facility] ABSTRACTION Provider, Abstract 11/20/2024 External Device Data [facility] ABSTRACTION Provider, Abstract 11/15/2024 External Device Data [facility] ABSTRACTION Provider, Abstract from Last 3 Months Social History Tobacco Use Types Packs/Day Years [...] Sign Reading Time Taken Comments Blood Pressure 119/78 06/08/2024 9:10 AM CDT Pulse 79 06/08/2024 9:10 AM CDT Temperature 36.1 C (96.9 F) 06/08/2024 9:10 AM CDT Respiratory Rate 18 06/08/2024 9:10 AM CDT Oxygen Saturation 96% 06/08/2024 9:10 AM CDT Inhaled Oxygen Concentration - - Weight 165.1 kg (364 lb) 06/08/2024 6:45 AM CDT Height 157.5 cm (5' 2 ) 05/01/2024 9:36 AM CDT Body Mass Index 66.58 05/01/2024 9:36 AM CDT Plan of Treatment Upcoming Encounters Date Type Department Care Team (Late st Contact Info) Description 12/31/2024 1:30 PM CDT Office Visit [facility] Oncology and Hematology [facility] [address] [facility] [address] [place] [address] Felipe Joyner MD [address] [facility] [address] [place] [address] Health Maintenance Due Date Last Done Comments HPV VACCINES (1 - 3-dose series) 2015 DTAP/TDAP/TD VACCINES (1 - Tdap) 2019 HEPATITIS B VACCINES (1 of 3 - 19+ 3-dose series) 10/24 CERVICAL CANCER SCREENING 2021 INFLUENZA VACCINE (#1) 2024 Preventative Visit-Managed Medicaid 07/08/202407/07 [place] Advance Directives For more information, please contact: [phone] * Full Code (Latest Code Status on File) Date Activated Date Inactivated Comments 06/08/2024 6:25 AM 06/08/2024 11:33 AM
[2024-12-27 13:51] LABS: Alanine Aminotransferase 60 U/L (6-35); Albumin Level 4.1 g/dL (3.5-5.1); Alkaline Phosphatase 77 U/L (38-126); Anion Gap 8 mmol/L (4-12); Aspartate Amino Transferase 64 U/L (14-36); Bilirubin,Total 0.5 mg/dL (0.2-1.3); Blood Urea Nitrogen 11 mg/dL (7-17); Calcium 9.1 mg/dL (8.4-10.2); Carbon Dioxide 28 mmol/L (22-30); Chloride 104 mmol/L (98-107); Cholesterol 156 mg/dL (0-200); Estimated Glomerular Filt Rate > 60; Glucose 149 mg/dL (65-110); HDL Direct 29 mg/dL; Potassium 4.4 mmol/L (3.4-5.0); Sodium 140 mmol/L (137-145); Triglycerides 161 mg/dL (<150)
[2024-12-27 14:04] LABS: LDL Cholesterol Direct 104 mg/dL
[2024-12-27 15:52] LABS: Hemoglobin A1C 7.2 % (<5.7)
== END 2024-12-27 12:16 | disposition home or self-care (01) ==
LOC: ANHLAB 12:16
PROVIDERS: PCP Nurse Practitioner Family; Visit Provider Nurse Practitioner Family
DX: E11.69 Type 2 diabetes mellitus with other specified complication (principal); E78.1 Pure hyperglyceridemia; E66.01 Morbid (severe) obesity due to excess calories
CPT/HCPCS: 36415; 80053; 80061; 83036

== ENCOUNTER 2024-12-28 11:35 | Emergency (ER) | payer OTHER, SELFPAY ==
--- NOTE | 2024-12-28 11:39 | ED.NAVMDI ---
HPI - Nausea/Vomiting/Diarrhea General Chief complaint: Nausea/Vomiting/Diarrhea Stated complaint: vomiting and diarrhea Time Seen by Provider: 12/28/24 11:38 Source: patient Mode of arrival: ambulatory Limitations: no limitations History of Present Illness HPI Narrative: Patient is a 24-year-old female who presents with persistent diarrhea for 2 and half months. Patient states she normally has diarrhea but is more intermittent. Patient has GI doctor that she has not called. Patient had lab work completed yesterday with no significant abnormalities. Patient reports vomiting multiple times yesterday with bile like consistency. Patient states she has only vomited once this morning. Denies any blood in vomit or diarrhea. Denies any dark brown or black bile or diarrhea. Patient states she is currently able to keep fluids down. Patient denies any changes in diet or medications. Related Data Home Medications ?Medication ?Instructions ?Recorded ?Confirmed ?Last Taken ?Type metformin 500 mg tablet,extended 1,000 mg PO BID 07/04/24 10/23/24 Unknown History release 24 hr metoprolol tartrate 25 mg tablet mg 10/23/24 Unknown History Allergies Allergy/AdvReac Type Severity Reaction Status Date / Time bupropion (From Wellbutrin) Allergy Intermediate Agitated Verified 12/28/24 11:38 morphine Allergy Mild Hives Verified 12/28/24 11:38 Review of Systems Review of Systems: All systems reviewed & are unremarkable except as noted in HPI and below Constitutional: Constitutional: Denies body ache(s), Denies chills, Denies fatigue, Denies fever(s), Denies headache(s), Denies malaise and Denies weakness Eyes: Eyes: Denies blurry vision, Denies irritation and Denies loss of vision ENT: Denies otalgia, Denies headache(s), Denies nasal discharge, Denies sinus pain and Denies sore throat Cardiovascular: Cardiovascular: Denies chest pain, Denies irregular heart rhythm and Denies dyspnea Respiratory: Respiratory: Denies dyspnea Gastrointestinal: Gastrointestinal: Denies abdominal pain, Denies melena, Denies hematochezia, Reports diarrhea, Reports nausea and Reports vomiting Musculoskeletal: Musculoskeletal: Denies back pain, Denies myalgias and Denies arthralgias Integumentary/Breasts: Skin/Breast: Denies pruritus and Denies rash Neurologic: Denies headache(s), Denies loss of vision and Denies weakness Psychiatric: Psychiatric: Reports no additional psychiatric complaints Endocrine: Endocrine: Denies fatigue PMFSH Past Medical History Medical History Anxiety Hypertriglyceridemia Type 2 diabetes mellitus with morbid obesity Arthralgia of multiple joints Hypertension Weight gain, abnormal Essential hypertension Elevated BP without diagnosis of hypertension Palpitations Right sided abdominal pain Morbid obesity with BMI of 60.0-69.9, adult Mass of left lobe of liver Hepatic steatosis Elevated glucose Elevated WBCs Hypersomnia Snoring Right knee pain Left ankle pain Major depression Encounter to establish care Acid reflux Gallstones Patient denies significant medical history Surgical History Surgical History History of cholecystectomy 05/20/2023 Family History Family History Father Alcoholism Diabetes mellitus Hypertension Heart disease Mother Ovarian cancer Sibling Depression Grandparent Hypertension Heart disease Grandparent Alcoholism Lung cancer Social History Social History Smoking status: Never smoker Smokeless tobacco user: chewing tobacco Additional smoking assessment comments: DAILY USE Alcohol intake: former Alcohol use details: LAST DRINK 3 MONTHS- HEAVY USE PRIOR TO THIS DATE Substance use: former Substance use type: marijuana Other substance usage details: daily Last use: 2 MONTHS 2 TIMES PER WEEK Do You Feel Safe in your Home?: Yes Lack of Transportation: No Lack of Food: Never True Current Housing: I Have Housing Concerned About Future Housing: No Difficulty Paying Gas/Electric Bills: No Difficulty Paying for Meds: No Currently Unemployed: YES Education: Trade/Vocational Certificate Difficulty w/ Childcare or Family Care: No Living arrangements: with family Spiritual care concerns: No Comments At time of signature, agree with nursing past medical, surgical, social and family history. There is no relevant family history pertinent to the presenting complaint. Exam Const: General: cooperative, healthy appearing, comfortable, no acute distress and well nourished Nutritional Appearance: well nourished and obese Orientation/consciousness: patient oriented x3 Limitations: no limitations HENMT: Head: normal to inspection, normocephalic and atraumatic Ears: hearing grossly normal bilaterally and external ears normal Face/Nose/Sinus: Normal external nose present, normal facial exam and face symmetric Face and sinus: normal facial exam and face symmetric Mouth: Yes lip normal Eyes: General: appearance normal, both eyes and all related structures Alignment and Position: alignment normal and position normal Periorbital: periorbital findings normal Eyelids: eyelids normal Pupils: Equal, round and reactive pupils present EOM: EOMs intact bilaterally Neck: Neck: normal visual inspection, full ROM and supple Chest: Chest palpation & inspection: normal inspection of the chest Resp: Effort & Inspection: normal respiratory effort and able to speak in complete sentences Auscultation: clear to auscultation bilaterally Cardio: Rate: regular rate Rhythm: regular rhythm Heart sounds: S1 normal heart sound present and S2 normal heart sound present GI: Inspection: normal to inspection GI Palp: No abdominal tenderness and Yes Soft to palpation Auscultation: normal bowel sounds Skin: General skin exam: normal color and no rashes or lesions noted Neuro: General: patient oriented x3 and moves all extremities Cranial nerves: Yes Equal, round and reactive pupils present Speech: normal speech Gait exam (Neuro): Normal gait present Extrem: General: normal to inspection, full ROM and no edema Psych: Appearance: grossly normal and well kempt Mental Status: mental status grossly normal Speech and movement: Normal speech and movement present Affect: normal affect Attitude: cooperative Thought process: Normal thought process present Course Course Emergency Course: Patient is aware of diagnosis, understands and agrees to treatment plan. Anticipatory guidance given. Patient agrees to follow-up as directed and is aware of reasons to seek care at the emergency department. Portions of this record may have been created with voice recognition software Level of Care: Express Care Visit Vital Signs Vital signs: Reviewed MDM - Nausea/Vomiting/Diarrhea MDM Narrative Medical decision making narrative: Patient has called PCP and waning phone call. Patient states she will call her GI doctor and make an appointment. Pt well hydrated appearing, in no respiratory distress, hemodynamically stable. Recommend supportive care. The patient is stable at time of discharge the clinical impression was discussed and the patient was given the opportunity to ask questions, which were addressed as completely as possible given the information available at present. Anticipatory guidance and return to care precautions were discussed and the importance of primary care follow-up was stressed and encouraged. The patient voiced understanding of the plan, indications to return, and the need for follow-up. Exam findings show no acute concerns or changes Patient is appropriate for outpatient treatment and follow-up. Differential Diagnosis Differential diagnosis: Likely traveler's diarrhea, food poisoning, gastroenteritis, clostridium difficile infection, drug-induced nausea and vomiting and dehydration Medical Records Attestation: I reviewed the patient's medical records. Discharge Plan Discharge Clinical Impression: Gastroenteritis Patient Disposition: Home, Self-Care Condition: Stable Instructions: Gastroenteritis (ED) Additional Instructions: Stay hydrated. Take small sips of fluid containing electrolytes frequently(Body [place], Gatorade, Powerade, liquid IV). Eat small meals that her very bland including bananas, applesauce, rice, toast, boiled or grilled chicken, soup. Do not eat anything fried, spicy or overly acidic. You should go to the hospital if you experience return of persistent nausea and vomiting that does not resolve and does not allow you to tolerate any food or fluids, persistent fevers for greater than 2-3 more days, increasing abdominal pain that persists despite medications, persistent diarrhea, dizziness, syncope (fainting), or for any other concerns. Patient Language: Romansh Prescriptions: No Action albuterol sulfate [Proventil HFA] 90 mcg/actuation HFA aerosol inhaler 2 puff inhalation QID PRN (Reason: shortness of breath or wheezing) Qty: 8.5 0RF metoprolol tartrate 25 mg tablet sertraline 50 mg tablet 50 mg PO DAILY Qty: 30 11RF Rx Instructions: take with 100mg sertraline tab to equal 150mg tab Jardiance 10 mg tablet 10 mg PO QAM Qty: 30 11RF sertraline 100 mg tablet 100 mg PO DAILY Qty: 30 11RF buspirone 7.5 mg tablet 7.5 mg PO BID Qty: 60 11RF metformin 500 mg tablet extended release 24 hr 1,000 mg PO BID Rx Instructions: start 1 tab daily x1 week. Increase by 1 tab each week to 2 tabs 2x/day with meals. ciprofloxacin HCl 500 mg tablet 500 mg PO Q12H Qty: 14 0RF phenazopyridine [Pyridium] 200 mg tablet 200 mg PO TID PRN (Reason: pain) Qty: 10 0RF pantoprazole 40 mg tablet,delayed release (DR/EC) See Rx Instructions .ROUTE .COMPLEX Qty: 60 11RF Dose Instruction: TAKE 1 TABLET BY MOUTH TWICE DAILY Rx Instructions: TAKE 1 TABLET BY MOUTH TWICE DAILY (DME) blood-glucose meter [Blood Glucose Monitoring] Kit See Rx Instructions .Route Qty: 1 0RF Rx Instructions: As directed dicyclomine 20 mg tablet See Rx Instructions .ROUTE .COMPLEX Qty: 90 11RF Dose Instruction: TAKE 1 TABLET BY MOUTH THREE TIMES DAILY Rx Instructions: TAKE 1 TABLET BY MOUTH THREE TIMES DAILY (DME) OneTouch Verio test strips Strip See Rx Instructions .Route Qty: 100 3RF Rx Instructions: As directed Trulicity 1.5 mg/0.5 mL pen injector 1.5 mg subcut WEEKLY Qty: 2 5RF Rx Instructions: call office for refill losartan 100 mg tablet 100 mg PO DAILY Qty: 90 3RF amlodipine 5 mg tablet 5 mg PO DAILY Qty: 30 11RF hydrochlorothiazide 12.5 mg tablet 12.5 mg PO QAM Qty: 30 5RF trazodone 50 mg tablet 50 mg PO QHS PRN (Reason: sleep) Qty: 30 3RF Follow-up/Referrals: Ethel Liz NP [Primary Care Provider] - 3 Days Stand Alone Forms: Work/School Release IP Time of Disposition: 12:05
[2024-12-28 11:47] VITALS: BP 130/79; PULSE 70; RESP 16; TEMP 36.4; O2SAT 99
--- OUTSIDE RECORDS SUMMARY | 2024-12-28 12:28 | XMS_ITS | Encounter Summary ---
Author Organization [facility] Address [address] [place] [address] Care Team Providers Care Shovel Loader Operator Name Role Phone Unavailable Primary Care Provider [...] Description 12/31/2024 1:30 PM CDT Office Visit [facility] [place] [place] [address] Felipe Joyner MD [address] [facility] [address] [place] [address] documented as of this encounter Visit Diagnoses Not on filedocumented in this encounter
--- OUTSIDE RECORDS SUMMARY | 2024-12-28 12:28 | XMS_ITS | Clinical Summary ---
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
--- OUTSIDE RECORDS SUMMARY | 2024-12-28 12:28 | XMS_ITS | Referral Summary ---
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
--- OUTSIDE RECORDS SUMMARY | 2024-12-28 12:28 | XMS_ITS | CONTINUITY OF CARE DOCUMENT ---
Author Name paola, paola Address Unknown Organization [facility] Address [address] [place] [address] [address] [place] [address] Phone [phone] Care Team Providers Care Linen Grader Name Role Phone Raj SIMS, Marvin Unavailable TREVOR SIMS, HUSSEIN Unavailable Unavailable INSURANCE PROVIDERS Payer name Policy type / Coverage type [place] red constitution party ID [employer] MEDICAID Medicaid [id number]
--- OUTSIDE RECORDS SUMMARY | 2024-12-28 12:28 | XMS_ITS | Clinical Summary ---
Author Organization [facility] Address [address] [address] [place] [address] Phone Care Team Providers Care Dominatrix Name Role Phone Unavailable Primary Care Provider [...] Office Visit [facility] [address] [facility] [address] [place] [address] Felipe Joyner MD [address] [facility] [address] [place] [address] Health Maintenance Due Date Last Done Comments HPV VACCINES (1 - 3-dose series) 2015 DTAP/TDAP/TD VACCINES (1 - Tdap) 2019 HEPATITIS B VACCINES (1 of 3 - 19+ 3-dose series) 10/24 CERVICAL CANCER SCREENING 2021 INFLUENZA VACCINE (#1) 2024 Preventative Visit-Managed Medicaid 07/08/202407/07 [place] Advance Directives For more information, please contact: [phone] * Full Code (Latest Code Status on File) Date Activated Date Inactivated Comments 06/08/2024 6:25 AM 06/08/2024 11:33 AM
--- OUTSIDE RECORDS SUMMARY | 2024-12-28 12:28 | XMS_ITS | Clinical Summary ---
Author Organization [facility] Address [facility] [place] [address] Care Team Providers Care Building Mover Name Role Phone Cleveland Barahona MD Primary Care Provider [phone] Allergies Active Allergy Reactions Criticality Noted Date [...] Comments Blood Pressure 158/103 10/27/2023 3:45 PM KITCHEN RUNNER Pulse 73 10/27/2023 3:45 PM KITCHEN RUNNER Temperature 36.6 C (97.9 F) 10/27/2023 2:18 PM KITCHEN RUNNER Respiratory Rate 20 10/27/2023 3:45 PM KITCHEN RUNNER Oxygen Saturation 98% 10/27/2023 3:45 PM KITCHEN RUNNER Inhaled Oxygen Concentration - - Weight 147.8 kg (325 lb 13.4 oz) 10/27/2023 2:18 PM KITCHEN RUNNER Height 154.9 cm (5' 1 ) 10/27/2023 2:18 PM KITCHEN RUNNER Body Mass Index 61.57 10/27/2023 2:18 PM KITCHEN RUNNER Plan of Treatment Health Maintenance Due Date [...] complete this topic Insurance [employer] Care Teams Building Mover Relationship Specialty Start Date End Date Cleveland Barahona MD [address] [place] [address] PCP - General INTERNAL MEDICINE 02/18/22
--- OUTSIDE RECORDS SUMMARY | 2024-12-28 12:30 | XMS_ITS | CONTINUITY OF CARE DOCUMENT ---
Author Name paola, paola Address Unknown Organization [facility] Address [address] [place] [address] [address] [place] [address] Phone [phone] Care Team Providers Care Maintenance Craftsman Name Role Phone Raj SIMS, Marvin Unavailable TREVOR SIMS, HUSSEIN Unavailable Unavailable INSURANCE PROVIDERS Payer name Policy type / Coverage type [place] red libertarian ID [employer] MEDICAID Medicaid [id number]
== END 2024-12-28 12:07 | disposition home or self-care (01) ==
PROVIDERS: Emergency Provider Nurse Practitioner Family; PCP Nurse Practitioner Family
DX: K52.9 Noninfective gastroenteritis and colitis, unspecified (principal); I10 Essential (primary) hypertension; E11.8 Type 2 diabetes mellitus with unspecified complications; Z79.84 Long term (current) use of oral hypoglycemic drugs; E78.1 Pure hyperglyceridemia; E66.01 Morbid (severe) obesity due to excess calories; K76.0 Fatty (change of) liver, not elsewhere classified; K21.9 Gastro-esophageal reflux disease without esophagitis; F41.9 Anxiety disorder, unspecified; Z68.44 Body mass index [BMI] 60.0-69.9, adult
CPT/HCPCS: 99211; G0463

== ENCOUNTER 2024-12-31 14:10 | Outpatient (CLI) | payer OTHER, SELFPAY ==
[2024-12-31 14:27] LABS: Basophils Absolute Auto 0.1 K/mm3 (0.0-0.1); Basophils Percent Auto 0.4 % (0.2-1.2); Eosinophils Absolute Auto 0.4 K/mm3 (0-0.3); Eosinophils Percent Auto 2.1 % (0-4.4); Hematocrit 42.4 % (37.0-47.0); Hemoglobin 13.7 g/dL (12.0-15.0); Immature Granulocyte Absolute 0.19 K/mm3 (0.00-0.031); Lymphocytes Absolute Auto 4.74 K/mm3 (0.9-3.2); Lymphocytes Percent Auto 23.9 % (18.3-44.2); Mean Corpuscular HGB Conc 32.3 g/dl (32-36); Mean Corpuscular Hemoglobin 27.2 pg (26-34); Mean Corpuscular Volume 84.3 fl (80-100); Mean Platelet Volume 9.7 fl (7.4-10.4); Monocytes Absolute Auto 1.2 K/mm3 (0.1-0.6); Monocytes Percent Auto 5.8 % (2.6-8.5); Neutrophils Absolute Auto 13.2 K/mm3 (1.3-6.7); Neutrophils Percent Auto 66.8 % (45.5-73.1); Platelet Count Result 394 k/mm3 (150-375); Red Blood Count 5.03 M/mm3 (4.2-5.4); Red Cell Distribution Width 14.7 % (11.5-14.5); White Blood Count 19.8 K/mm3 (4.5-10.0)
--- OUTSIDE RECORDS SUMMARY | 2024-12-31 16:26 | XMS_ITS | Clinical Summary ---
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
--- OUTSIDE RECORDS SUMMARY | 2024-12-31 16:26 | XMS_ITS | Data Portability ---
Author Organization [facility] [place] Address [address] [place] [address] [place] [address] Care Team Providers Care Warranty Manager Name Role Phone PATRICIA WILLIAM Primary Care Provider [phone] RACHEL ALBERT Primary Care Provider Assessment No assessment recorded. Plan of Treatment Reminders Order Date Submit Date Provider Last Modified By Organization Details Last Modified Time Details Appointments None recorded. Lab None recorded. Referral None recorded. Procedures None recorded. Surgeries None recorded. Imaging US, transvagina l 2023 024 [email or web address] [place] [facility] [address], [place], [address], 4 19:45:10 Medication Orders clotrimazol e-betametha sone 1 %-0.05 % topical cream 2024 025 [id number], [address], [place], [id number], 5 12:50:15 metronidazo le 0.75 % (37.5 mg/5 gram) vaginal gel 2023 024 [id number], [address], [place], [phone], 4 11:06:13 Mirena 21 mcg/24 hr (up to 8 years) 52 mg intrauterin e device 2023 024 [email or web address] Not available 14:08:12 Patient TargetsNo targets recorded. Patient InstructionsNo instructions recorded. Reason for Referral None Reported. Results Created Date Observation Date Name Description Value Unit Range Abnormal Flag Note LastModifiedBy Organization Detail LastModifiedTime 08/15/2008/15/2024 US, pelvi s No observ ation record ed. [facility] [address], [place], [address], 08/15/2024 17:30:18 08/15/2008/15/2024 US, trans vagin al No observ ation record ed. [facility] [address], [place], [address], 08/15/2024 17:30:31 08/15/2008/15/2024 US, pelvi s No observ ation record ed. [email or web address] [address], [place], [address], 08/16/2024 16:07:33 08/30/20 24 08/30/2024 US, trans vagin al No observ ation record ed. [email or web address] [place] [address], [place], [address], 08/30/2024 21:42:27 08/30/2008/30/2024 , trans vagin al No observ ation record ed. [email or web address] [address], [place], [address], 08/30/2024 21:42:27 Result Notes None recorded. Problems Name Problem SNOMED Code Status Onset Date Resolution Date Notes Provider Name and Address Organization Details Recorded Time Polycystic ovary syndrome 960540007 Active 2023 Becca Hernandez NADINE- [address], [place], [address], [place] MD - [facility] 14:57:33 Insulin resistance 676518688 Active 2014 Becca Hernandez [facility] [address], [place], [address], [facility] 4 09:49:09 Secondary amenorrhea 579579241 Active 2017 Becca Hernandez [facility] [address], [place], [address], [facility] 4 09:50:15 Hypertriglyc eridemia 254972027 Active 2023 Becca Hernandez [facility] [address], [place], [address], [facility] 4 09:50:27 Chronic peptic ulcer 097584697 Active 2022 Becca Hernandez [facility] [address], [place], [address], [facility] 4 09:50:53 Problem Notes None recorded. Procedures Surgical History Date Name Laterality Status Provider Name and Address Organization Details Recorded Time 024 IUD Removal completed Diogo Bryan MD [address], [place], [address], [facility] 08/20/2024 14:41:43 024 IUD Insertion completed Diogo Bryan MD [address], [place], [address], [facility] 08/20/2024 14:41:33 024 Laparoscopy completed Digna Ace [facility] 10/26/2024 14:39:20 024 endoscopy completed Estrella Johnson [facility] 05/10/2024 16:00:13 023 Date of Last Pap Smear completed Digna Ace [facility] 08/09/2023 15:03:22 023 cholecystectomy completed Digna Ace [facility] 06/30/2023 14:39:16 Imaging Results Imaging Date Name Status LastModified by Organization Details LastModified Time 08/15/2024 US, pelvis completed [facility] [address], [place], [address], 08/15/2024 17:30:18 08/15/2024 US, transvaginal completed [email or web address] [place] [address], [place], [address], 08/15/2024 17:30:31 08/15/2024 US, pelvis completed [email or web address] [address], [place], [address], 08/16/2024 16:07:33 08/30/2024 US, [facility]aginal [email or web address] [address], [place], [address], 08/30/2024 21:42:27 08/30/2024 US, transvaginal completed [email or web address] [address], [place], [address], 08/30/2024 21:42:27 Procedure Notes None recorded. Medical Equipment None Reported. Allergies Allergen ID Allergen Name Allergen Category Reaction Reaction Severity Criticality Documentation Date Start Date Code Code System Note Provider Name and Address Organization Details Recorded Time 07320 morphine medicatio n Not available Not available Not available 05/18/2024 7052 RxNorm Tara lira [facility] 14:01:04 Medications Name Sig Start [...] mg or 0.5 mg (2 mg/3 mL) [facility] 11/16 completed Not Available Not Available Not Available Vitals Date Recorded Body height Body mass index (BMI) Body weight Systolic blood pressure Diastolic blood pressure Provider Name and Address Organization Details Last Updated DateTime 08/20/2024 157.48 cm 65.8 kg/m2 579898.2 5 g 118 mm[Hg] 80 mm[Hg] [facility] 4 11:16:01 Date Recorded Body height Body mass index (BMI) Body weight Systolic blood pressure Diastolic blood pressure Provider Name and Address Organization Details Last Updated DateTime 08/29/2024 157.48 cm 65.3 kg/m2 579541.4 8 g 150 mm[Hg] 94 mm[Hg] [facility] 4 14:16:12 Date Recorded Body height Body mass index (BMI) Body weight Systolic blood pressure Diastolic blood pressure Provider Name and Address Organization Details Last Updated DateTime 09/24/2024 157.48 cm 65.3 kg/m2 790780.4 8 g 141 mm[Hg] 95 mm[Hg] [facility] 4 11:03:39 Date Recorded Body height Body mass index (BMI) Body weight Systolic blood pressure Diastolic blood pressure Provider Name and Address Organization Details Last Updated DateTime 10/26/2024 157.48 cm 62.7 kg/m2 141223.1 8 g 131 mm[Hg] 93 mm[Hg] Digna Ace [facility] 14:36:46 Social History Question Answer Notes LastModified by Organizat ion Details LastModified Time Tobacco Smoking Status Never Smoker Stefanie Nassar soraya, [facility] 06/30/2023 14:31:55 Do You Have [...] available 12/30/2022 Are You Currently Employed? Yes [email or web address] Information not available 06/30/2023 Are You Deaf Or Do You Have Serious Difficulty Hearing? No Information not available 01/11/2023 What Type Of Diet Are You Following? REGULAR Information not available 12/30/2022 What Is The Highest Grade Or Level Of School You Have Completed Or The Highest Degree You Have Received? 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 Yes Information not available 01/11/2023 Do You Use Protection During Sex? No Information not available 01/11/2023 Do You Use Your Seat Belt Or Car Seat Routinely? No Information not available 01/11/2023 Are You Sexually Active? Yes Female Partners [email or web address] Information not available 06/30/2023 Do You Have Smoke And Carbon Monoxide Detectors In Your Home? Yes Information not available 01/11/2023 How Much Tobacco Do You Smoke? No Information not available 01/11/2023 Do You Feel Stressed (tense, Restless, Nervous, Or Anxious, Or Unable To Sleep At Night)? [id number] Information not available 01/11/2023 Do You Use Any Illicit Or Recreational Drugs? No Information not available 12/30/2022 Do You Use Sunscreen Routinely? No Information not available 01/11/2023 Has Tobacco Cessation Counseling Been Provided? No [email or web address] Information not available 06/30/2023 Have You Used IV Drugs? No Information not available 01/11/2023 Do You Or Have You Ever Used Any Other Forms Of Tobacco Or Nicotine? No [email or web address] Information not available 06/30/2023 Sex: Unknown Functional [...] 2022 14:42:16 Unspecified Relation Family history unknown [email or web address] Not available 2024 13:56:33 Medical History Condition Response Other Y Blood Transfusion N Dermatologic Disorders N Gestational Diabetes N Anxiety Disorder N Autoimmune disease N Arthritis N Polyps N Infertility N Acid Reflux (GERD) N Cancer N Varicosities N Stroke N Neurologic/Epilepsy N Fibromyalgia N Headaches N Kidney Disease N Heart Problems N Kidney or Bladder Problems N Eating Disorder N Art (IVF or FET) N Hepatitis/Liver Disease N No Past Medical History Y Urinary Tract Infection N Asthma N Trauma/Violence N Thrombophilias N Allergies (Food, seasonal, environmental ) N Breast Cancer N Drug/Latex Allergies/Reactions N Lung Disease N Defects or Inherited Disease N Breast Problem N Hematologic disorders N Anesthesia Complications N History of STI N Deep Vein Thrombosis N Polycystic ovary syndrome Y History of abnormal pap N Endometriosis N High Cholesterol Y Thyroid Problems N GI Problems Y Anemia N Psychiatric Illness N Ovarian Cancer N Diabetes Y Pulmonary (TB, Asthma) N Eczema N Abuse/Domestic Violence N Depression/ depression N Heart Disease N Pre-Eclampsia N Hypertension Y Osteoporosis N Gynecological History Statement/Question Response Abnormal Pap [...] SNOMED-CT Code Diagnosis ICD10 Code Diagnosis Note [id number] Becca [facility] [address] [address] 12/30/2022 12:18:03 12/30/2022 16:58:19 Secondary amenorrhea 007436513 N91.1 Today we discussed menses & amenorrhei [...] plan of care. Cyst of left ovary 49191 82575 4525124 N83.202 Left cyst vs paratubal cyst very smallLikel y not the source of pain that has been plaguing herMore concerned about lack of monthly cycles which we discussedP COS is suspected. Will see if recent cholestero l, hbga1c etc have been performed by PCP.If not will update those next visit. FSH/LH: 7.8/7.1Tot al T- 36 wnlEstroge n (e1): 413.2 [id number] Becca Hernandez [facility] [address] [address] 01/11/2023 12:29:58 01/11/2023 13:32:02 Secondary amenorrhea 769849464 N91.1 Today we discussed trial of provera.Maida [...] counseling and review of plan of care. [id number] Sharita Lieberman [place] [address] [address] 05/02/2023 16:04:08 05/02/2023 16:44:12 Pain in pelvis 84367227 R10.2 [id number] Becca Hernandez [place] [address] [address] 05/03/2023 14:32:39 05/03/2023 15:07:47 Secondary amenorrhea 495741261 N91.1 Today we discussed US.Left ovarian cyst [...] counseling and review of plan of care. [id number] Becca [facility] [address],[place] [address] 06/30/2023 14:31:50 06/30/2023 14:54:46 Sexually transmitted infectious disease 3143569 A64 Today would like STD urine & serum labs.Will update on resultsRes chedule WWE visit. Time spent in visit is a total of 15 mins with at least 50% of visit consisting of counseling and review of plan of care. [id number] Becca [facility] [address],[place] [address] 07/07/2023 14:22:21 07/07/2023 14:48:02 Gynecologic examination 62344084 Z01.419 Take Calcium with Vitamin D 1200mg [...] c Screen discussedC olon Screen [facility]Dexa [facility] [id number] Becca Hernandez [facility] [address],[place] [address] 08/09/2023 14:35:44 08/09/2023 15:26:55 Secondary amenorrhea 921053000 N91.1 Today we discussed switching from Provera [...] counseling and review of plan of care. [id number] Becca Hernandez [facility] [address],[place] [address] 11/01/2023 13:43:06 11/01/2023 15:07:32 Polycystic ovary syndrome 824745675 E28.2 Z68.44 Today we discussed PCOS and [...] Low HDL (good) cholestero l. Insulin resistance 39413 5000 E88.819 Will see if qualifies for injectable or something other than Metformin with her prominent Hx of peptic ulcer/Gall bladder and it likelihood of causing significan t GI issues or exacerbati on of these issues. [facility] 976334099 N91.1 Patient is here today for a [...] of plan of care. Hyperlipid emia screening 513550782 Z13.220 Update to check for high LDL/TG/Tot al/Low HDL [id number] MARCK [facility] [address] [address] 11/16/2023 15:55:38 11/22/2023 17:14:20 Insulin resistance 732510817 E88.819 Z68.44 E66.9 E88.810 E28.2 Will complete 0.75mg weekly x 4wks.Then, return to office for med check & if tolerating we increase to next dose. In depth intellectual property counsel on trulicity purpose, dosage, dosage schedule, [...] counseling and review of plan of care. [id number] Becca [facility] [address],[place] [address] 12/13/2023 15:42:18 12/13/2023 16:18:12 Prediabetes 649346565 R73.03 Z68.44 E88.810 E28.2 Z83.49 Patient is [...] and review of plan of care. Tachycardia 6714117 R00. [address] for random HBP/Palpit ations Contracept ion care management 948335890 N91.1 BCP switched to POP only vs CONNER due to verbalizat ion of heart palpitatio ns/HBP. Will f/u in 7wks at med check for trulicity. [id number] [facility] [address] [address] 01/24/2024 15:12:35 01/24/2024 16:03:45 Venereal disease screening 767270709 Z11.3 STD screen urine sent to confirm no std.Partne r recently treated for trich (female partner)Wi ll reach out with results. Time spent in visit is a total of 15 mins with at least 50% of visit consisting of counseling and review of plan of care. Contracept ion care management 554868861 N91.1 BCP switched to POP only vs CONNER due to verbalizat ion of heart palpitatio ns/HBP.Alon ples given x 6mosCall for additional samples if neededDoin g well. [id number] MARCK Donohue [place] [address] [address] 05/10/2024 15:49:03 05/10/2024 16:28:39 Abnormal uterine bleeding 9746105567 9100 N93.9 The patient and I discussed [...] of plan of care. Polycystic ovary syndrome 413660125 E28.2 [id number] Jos[facility] [address] [address] 05/15/2024 11:58:20 05/15/2024 12:31:15 Abnormal uterine bleeding 4678210738 9100 N93.9 [id number] Diogo Bryan MD [place] [address] [address] 05/18/2024 13:42:09 05/18/2024 14:52:30 Abnormal uterine bleeding 5974621002 9100 N93.9 this patient is a 23-year-ol [...] to proceed with laboratory evaluation Preoperative state 06383 002 Z78.9 [id number] Diogo Bryan MD [place] [address],[place] [address] 07/27/2024 11:03:55 07/27/2024 12:23:34 Contraception care management 279902753 Z30.9 23-year-ol d female who 1 week from a IUD insertion under anesthesia . Hysterosco py D and C was also performed. She tolerated well. She has no complaints . She will return later for IUD check. [id number] [facility] [address] [address] 08/15/2024 10:37:45 08/15/2024 11:14:49 Pain in pelvis 11341527 R10.2 [id number] Diogo Bryan MD [place] [address],[place] [address] 08/20/2024 10:28:22 08/20/2024 15:10:06 Insertion of intrauterine contraceptive device 99682541 Z30.430 IUD was removed replaced. She tolerated it well. To follow up in 1 month [id number] Diogo Bryan MD [place] [address] [address] 08/29/2024 13:50:59 08/29/2024 15:00:33 Pain in pelvis 48395464 R10.2 23-year-ol d female. Patient has pain [...] sonia of the IUD Bacterial vaginosis 4197 77893 N76.0 [id number] Josi [facility] [address],[place] [address] 08/30/2024 16:35:42 08/30/2024 17:27:27 Mechanical complication of intrauterine contraceptive device 006902927 T83.39XA [id number] Diogo Bryan MD [place] [address] [address] 09/24/2024 10:33:04 09/24/2024 11:22:24 Contraception care management 173339924 Z30.9 This patient is a 23 female who presents for IUD check. She had a mirena IUD inserted [facility] 1 month ago. She has no complaints . She denies any excessive bleeding or pain. She has had some cramping and some spotting. Otherwise, she feels that is going well and wants to continue her IUD. [id number] Diogo Bryan MD [place] [address] [address] 10/26/2024 13:56:29 10/29/2024 07:50:21 Tinea corporis 52070340 B35.4 Health Concerns Section Related Observation LastModified by Organization Detai ls LastModified Time None Recorded Concern Status LastModified by Organization Details LastModified Time None Recorded Advance Directives Directive N: Payers Encounter Date Sequence Insurance Name Policy Number Policy Leija Covered Member ID Leija Member ID Guarantor Name 08/20/2024 1 [facility] (MEDICAID HMO) [id number] Mac Matta [id number] [facility] 08/29/2024 1 [facility] (MEDICAID HMO) [id number] Mac Cuevaelin [id number] [facility] 08/30/2024 1 [facility] (MEDICAID HMO) [id number] Mac Cuevaelin [id number] [facility] 09/24/2024 1 [facility] (MEDICAID HMO) [id number] Mac Cuevaelin [id number] [facility] 10/26/2024 1 [facility] (MEDICAID HMO) [id number] 0003 Mac Cuevaelin [id number] [facility] Notes Date Note Type Note Provider Name and Address Organization Details Recorded Time 08/20/2024 text/html Patient presents for IUD removal and insertion. The procedure was explained to the patient in detail. She understands the procedure. She understands the risks, benefits, and alternatives. She has completed the informed consent process and is ready to proceed. Diogo Bryan MD [address], [place], [address], [facility] 08/20/2024 14:47:03 08/29/2024 text/html 23-year-old fema [...] IUD Diogo Bryan MD [address], [place], [address], [facility] 08/29/2024 15:00:24 09/24/2024 text/html This patient [...] IUD. Diogo Bryan MD [address], [place], [address], [facility] 09/24/2024 11:20:29 10/26/2024 text/html 23-year-old ángel [...] instructions. Diogo Bryan MD [address], [place], [address], [facility] 10/27/2024 12:52:27 OBGyn Episode No OBEpisode recorded.
--- OUTSIDE RECORDS SUMMARY | 2024-12-31 16:26 | XMS_ITS | Encounter Summary ---
Author Organization [facility] JUAN Amezcua [facility] Address [address] [place] [address] Care Team Providers Care Snuff Packing Machine Operator Name Role Phone Unavailable Primary Care Provider Unavailabl e Reason for Visit * Reason Comments Establish Care Encounter Details Date Type Department Care Team (Late st Contact Info) Description 12/31/2024 1:30 PM CDT Office Visit [facility] Oncology and Hematology - Mikie [address] [facility] [address] [place] [address] Felipe Joyner MD [address] [facility] [address] [place] [address] Leukocytosis, unspecified type (Primary Dx) Social History Tobacco Use Types Packs/Day Years [...] on file documented as of this encounter Last Filed Vital Signs Vital Sign Reading Time Taken Comments Blood Pressure 137/94 12/31/2024 1:36 PM CDT Pulse 101 12/31/2024 1:31 PM CDT Temperature 36.1 C (97 F) 12/31/2024 1:31 PM CDT Respiratory Rate 17 12/31/2024 1:31 PM CDT Oxygen Saturation 98% 12/31/2024 1:31 PM CDT Inhaled Oxygen Concentration - - Weight 154.5 kg (340 lb 9.6 oz) 12/31/2024 1:31 PM CDT Height 154.9 cm (5' 1 ) 12/31/2024 1:31 PM CDT Body Mass Index 64.36 12/31/2024 1:31 PM CDT documented in this encounter Progress Notes * Felipe Joyner MD - 12/31/2024 2:05 PM CDT Hematology-oncology consult Note Requesting Physician Primary Care Physician No primary care provider on file. Problem list There is no problem list on file for this patient. Previous TREATMENT ? Measurable Disease ? Reason for Visit Esme Matta is a 24 y.o. female who was referred for consultation for leukocytosis. History of present illness This is a 24-year-old obese female with history of diabetes, hypertension, bipolar disorder and GERD referred to me for leukocytosis. Patient had labs done in April 2024 that showed WBC count of 19.9. She denies any signs of infection. Denies any rash and diarrhea. Denies any arthritis. Denies any upper respiratory infection symptoms. No history of smoking. She has a history of fatty liver. Denies any new lumps bumps and lymphadenopathy. She has lost 10 pound weight unintentionally recently. Denies any other new complaints. Past Medical History Past Medical History: Diagnosis Date Depression Diabetes mellitus (CMS/HCC) Fatty liver RONNA (generalized anxiety disorder) GERD (gastroesophageal reflux disease) Heart disease Hypertension IBS (irritable bowel syndrome) Obstructive sleep apnea cpap PUD (peptic ulcer disease) Surgical History Past Surgical History: Procedure Laterality Date HX CHOLECYSTECTOMY [place] EGD TRANSORAL BIOPSY SINGLE/MULTIPLE N/A 06/08/2024 ESOPHAGOGASTRODUODENOSCOPY WITH POSS BIOPSY performed by Suresh Lemos MD at [facility] Medications Current Outpatient Medications Medication Sig Dispense Refill sertraline (ZOLOFT) 100 mg tablet Take 1 Tablet by mouth daily. busPIRone (BUSPAR) 7.5 mg Tablet Take 7.5 mg by mouth 2 times daily. Trulicity 1.5 mg/0.5 mL injection Inject 1.5 mg by subcutaneous injection every 7 days. Jardiance 10 mg tablet Take 10 mg by mouth daily in the morning. metFORMIN (GLUCOPHAGE XR) 500 mg Extended Release 24 hour tablet Take 1,000 mg by mouth 2 times daily with meals. metoprolol tartrate (LOPRESSOR) 25 mg tablet Take 1 Tablet by mouth 2 times daily. sertraline (ZOLOFT) 50 mg tablet Take 50 mg by mouth daily. losartan potassium (LOSARTAN ORAL) Take 100 mg by mouth daily. dicyclomine (BENTYL) 20 mg tablet Take 20 mg by mouth 3 times daily. hydroCHLOROthiazide 12.5 mg tablet Take 12.5 mg by mouth daily. pantoprazole (PROTONIX) 40 mg Tablet, Delayed Release (E.C.) Take 40 mg by mouth 2 times daily. traZODone (DESYREL) 50 mg tablet Take 50 mg by mouth daily at bedtime. No current facility-administered medications for this visit. Allergies Allergies Allergen Reactions Morphine Hives and Nausea and Vomiting Immunizations: There is no immunization history on file for this patient. Family History Family History Problem Relation Name Age of Onset Diabetes Father Ovarian Cancer Mother No Known Problems Sister No Known Problems Sister No Known Problems Sister Social History Social History Tobacco Use Smoking status: Never Smokeless tobacco: Never Substance Use Topics Alcohol use: Yes Comment: None since 11/2023 Review of Systems Constitutional: Patient did not mention fever; no night sweats; no anorexia; no weight loss; no fatique NEENT: Patient did not mention headache; no change in vision; no change in hearing; no sore throat;no dysphagia Respiratory: Patient did not mention shortness of breath; no pleuritic chest pain; no cough; no hemoptysis Cardiac: Patient did not mention cardiac-like chest pain; no palpitations; no orthopnea; no PND; noDOE Breasts: Patient did not mention tenderness; no masses GI: Patient did not mention abdominal pain; no nausea; no vomiting; no diarrhea; no hematochezia; no melena : Patient did not mention dysuria; no frequency; no hesitancy; no hematuria WAREHOUSE OPERATIONS ASSOCIATE: Musculosketetal: Patient did not mention bone pain; no arthralgia; no joint swelling; no myalgia; Skin: Patient did not mention pruritis; no rash; no petechiae; no ecchymoses Endocrine: Patient did not mention polydipsia; no polyuria; no unusual weight gain Neuro: Patient did not mention headache; no change in vision; no sensory changes; no muscle weakness; no confusion; no seizures Psych: Patient did not mention anxiety; no depression; Physical Exam Vitals: As per nursing note Constitutional: Well developed, well nourished, no acute distress, non-toxic appearance Teeth and gum. No signs of infection or swelling. Eyes: PERRL, conjunctiva normal HEENT: Atraumatic, external ears normal, nose normal, oropharynx moist, no pharyngeal exudates. no sinus tenderness Neck- normal range of motion, no tenderness, supple Respiratory: No respiratory distress, normal breath sounds, no rales, no wheezing Cardiovascular: Normal rate, normal rhythm, no murmurs, no gallops, no rubs GI: Soft, nondistended, normal bowel sounds, nontender, no splenomegaly, no hepatomegaly, no mass, no rebound, no guarding : No costovertebral angle tenderness Musculoskeletal: No edema, no tenderness, no deformities. Back- no tenderness Integument: Well hydrated, no rash, Digits and nails inspection normal Lymphatic: No lymphadenopathy noted Neurologic: Alert & oriented x 3, CN 2-12 normal, normal motor function, normal sensory function, no focal deficits noted Psychiatric: Speech and behavior appropriate ? labs No results found for this or any previous visit (from the past 24 hours). Labs from April 2024 showed WBC 19.9 hemoglobin 13.5 platelet count 342,000 neutrophils 62% lymphocyte 27% Pathology ? Imaging & Other Studies Performance Status? Assessment / Plan: ? Leukocytosis. Patient is a 24-year-old obese female with history of diabetes, hypertension, bipolar disorder and GERD referred to me for leukocytosis. Labs reviewed showed patient had high white blood cell count and November 2022 when WBC count was 18.8. She has no signs of infection and i nflammation. Denies any arthritis. Denies any rash and diarrhea. There is no enlarged lymph node. Patient has lost 10 pound weight and unintentionally. On my examination there is no evidence of hepatosplenomegaly and lymphadenopathy. Most likely this is reactive leukocytosis. I will order the workup that will include CBC with differential, CMP, C-reactive protein, sedimentation rate and flow cytometric analysis for leukemia panel. I do not see need for bone marrow biopsy testing at this time. Follow-up with me in 2 weeks. I have answered all the questions to patient satisfaction. Bipolar disorder. Patient is on Desyrel and Zoloft. Diabetes. Patient is on metformin, Jardiance and Trulicity. Hypertension. She is on losartan. GERD. She is on Protonix. Thank you very much for allowing me to participate in Esme Matta's evaluation and management. Please feel free to contact if I can be of any further assistance in your patient???s care requiring hematology or oncology evaluation. Sincerely, ? ? Felipe Joyner M.D. cell TOBACCO COUNSELING She is not a tobacco/nicotine user. Felipe Joyner MD ,12/31/2024 2:05 PM ? Total time spent 60 minutes, two third of the total time spent counseling patient [id number]. CC:? documented in this encounter Plan of Treatment Upcoming Encounters Date Type Department Care Team (Late st Contact Info) Description 01/16/2025 4:15 PM CDT Telephone Check Up [facility] Oncology and Hematology - [place]ie [address] [place] [address] [address] [id number] Felipe Joyner MD [address] [facility] [address] [place] [address] Scheduled Orders Name Type Priority Associated Diagnoses Orde r Schedule CBC WITH DIFFERENTIAL Lab Stat Leukocytosis, unspecified type Expected: 12/31/2024, Expires: 12/31/2025 COMPREHENSIVE METABOLIC PANEL Lab Stat Leukocytosis, unspecified type Expected: 12/31/2024, Expires: 12/31/2025 C-REACTIVE PROTEIN Lab Routine Leukocytosis, unspecified type Expected: 12/31/2024, Expires: 12/31/2025 SEDIMENTATION RATE Lab Routine Leukocytosis, unspecified type Expected: 12/31/2024, Expires: 12/31/2025 FLOW CYTOMETRY PANEL Lab Routine Leukocytosis, unspecified type Expected: 12/31/2024, Expires: 12/31/2025 documented as of this encounter Visit Diagnoses Diagnosis Leukocytosis, unspecified type- Primary documented in this encounter
--- OUTSIDE RECORDS SUMMARY | 2024-12-31 16:26 | XMS_ITS | Referral Summary ---
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
--- OUTSIDE RECORDS SUMMARY | 2024-12-31 16:26 | XMS_ITS | Encounter Summary ---
Author Organization [facility] Address [address] [place] [address] Care Team Providers Care Shrink Pit Supervisor Name Role Phone Unavailable Primary Care Provider Unavailabl e Encounter Details Date Type Department Care Team (Late st Contact Info) Description 12/28/2024 External Device Data STL ABSTRACTION Provider, Abstract [...] 01/16/2025 4:15 PM CDT Telephone Check Up [facility] Oncology and Hematology - Mikie [address] [place] [address] Felipe Joyner MD [address] [facility] [address] [place] [address] documented as of this encounter Visit Diagnoses Not on filedocumented in this encounter
--- OUTSIDE RECORDS SUMMARY | 2024-12-31 16:26 | XMS_ITS | Clinical Summary ---
Author Organization [facility] Address [address] [address] [place] [address] Phone Care Team Providers Care Trust Advisor Name Role Phone Unavailable Primary Care Provider Unavailabl e Allergies Active Allergy Reactions Criticality Noted Date Comments Morphine Hives,Nausea and Vomiting High 05/01/2024 Medications dicyclomine (BENTYL) 20 mg tablet Take 20 mg by mouth 3 times daily. Active hydroCHLOROthia zide 12.5 mg tablet Take 12.5 mg by mouth daily. Active pantoprazole (PROTONIX) 40 mg Tablet, Delayed Release (E.C.) Take 40 mg by mouth 2 times daily. Active traZODone (DESYREL) 50 mg tablet Take 50 mg by mouth daily at bedtime. Active losartan potassium (LOSARTAN ORAL) Take 100 mg by mouth daily. Active busPIRone (BUSPAR) 7.5 mg Tablet Take 7.5 mg by mouth 2 times daily. Active Trulicity 1.5 mg/0.5 mL injection Inject 1.5 mg by subcutaneous injection every 7 days. Active Jardiance 10 mg tablet Take 10 mg by mouth daily in the morning. Active metFORMIN (GLUCOPHAGE XR) 500 mg Extended Release 24 hour tablet Take 1,000 mg by mouth 2 times daily with meals. Active metoprolol tartrate (LOPRESSOR) 25 mg tablet Take 1 Tablet by mouth 2 times daily. Active sertraline (ZOLOFT) 50 mg tablet Take 50 mg by mouth daily. Active sertraline (ZOLOFT) 100 mg tablet Take 1 Tablet by mouth daily. Active Active Problems No known active problems Encounters Date Type Department Care Team Description 12/31/2024 1:30 PM CDT Office Visit [facility] Oncology and Hematology - Mikie [address] [place] [address] Felipe Joyner MD Leukocytosis, unspecified type (Primary Dx) 12/28/2024 External Device Data STL ABSTRACTION Provider, Abstract 12/26/2024 External Device Data STL ABSTRACTION Provider, Abstract 12/12/2024 External Device Data STL ABSTRACTION Provider, Abstract 11/20/2024 External Device Data STL ABSTRACTION Provider, Abstract 11/15/2024 External Device Data STL ABSTRACTION Provider, Abstract from Last 3 Months Family History Medical History Relation Name Comments Diabetes Father Ovarian Cancer Mother No Known Problems Sister 1 No Known Problems Sister 2 No Known Problems Sister 3 Relation Name Status Comments Father Mother Alive Sister 1 Alive Sister 2 Alive Sister 3 Alive Social History Tobacco Use Types Packs/Day [...] Mass Index 64.36 12/31/2024 1:31 PM CDT Plan of Treatment Upcoming Encounters Date Type Department Care Team (Late st Contact Info) Description 01/16/2025 4:15 PM CDT Telephone Check Up [facility] Oncology and Hematology - Mikie [address] [facility] [address] [place] [address] Felipe Joyner MD [address] [facility] [address] [place] [address] Health Maintenance Due Date Last Done Comments HPV VACCINES (1 - 3-dose series) 2015 DTAP/TDAP/TD VACCINES (1 - Tdap) 2019 HEPATITIS B VACCINES (1 of 3 - 19+ 3-dose series) 10/24 CERVICAL CANCER SCREENING 2021 INFLUENZA VACCINE (#1) 2024 Preventative Visit-Managed Medicaid 07/08/202407/07 [place] Advance Directives For more information, please contact: [phone] * Full Code (Latest Code Status on File) Date Activated Date Inactivated Comments 06/08/2024 6:25 AM 06/08/2024 11:33 AM
--- OUTSIDE RECORDS SUMMARY | 2024-12-31 16:26 | XMS_ITS | CONTINUITY OF CARE DOCUMENT ---
Author Name paola, paola Address Unknown Organization [facility] Address [address] [place] [address] [address] [place] [address] Phone [phone] Care Team Providers Care Internist Name Role Phone Raj SIMS, Marvin Unavailable [phone] TREVOR SIMS, HUSSEIN Unavailable Unavailable INSURANCE PROVIDERS Payer name Policy type / Coverage type Jean red green party ID [employer] MEDICAID Medicaid [id number]
--- OUTSIDE RECORDS SUMMARY | 2024-12-31 16:26 | XMS_ITS | Clinical Summary ---
Author Organization [facility] Address [facility] [place] [address] Care Team Providers Care Hog Sticker Name Role Phone Cleveland Barahona MD Primary Care Provider [phone] Allergies Active Allergy Reactions Criticality Noted Date [...] Comments Blood Pressure 158/103 10/27/2023 3:45 PM RUBBER COMPOUNDER Pulse 73 10/27/2023 3:45 PM RUBBER COMPOUNDER Temperature 36.6 C (97.9 F) 10/27/2023 2:18 PM RUBBER COMPOUNDER Respiratory Rate 20 10/27/2023 3:45 PM RUBBER COMPOUNDER Oxygen Saturation 98% 10/27/2023 3:45 PM RUBBER COMPOUNDER Inhaled Oxygen Concentration - - Weight 147.8 kg (325 lb 13.4 oz) 10/27/2023 2:18 PM RUBBER COMPOUNDER Height 154.9 cm (5' 1 ) 10/27/2023 2:18 PM RUBBER COMPOUNDER Body Mass Index 61.57 10/27/2023 2:18 PM RUBBER COMPOUNDER Plan of Treatment Health Maintenance Due Date [...] complete this topic Insurance [employer] Care Teams Hog Sticker Relationship Specialty Start Date End Date Cleveland Barahona MD [address] [place] [address] PCP - General INTERNAL MEDICINE 02/18/22
[2024-12-31 16:47] LABS: Alanine Aminotransferase 61 U/L (6-35); Albumin Level 4.4 g/dL (3.5-5.1); Alkaline Phosphatase 85 U/L (38-126); Anion Gap 9 mmol/L (4-12); Aspartate Amino Transferase 60 U/L (14-36); Bilirubin,Total 0.6 mg/dL (0.2-1.3); Blood Urea Nitrogen 17 mg/dL (7-17); CRP 1.8 mg/dL (<1.0); Calcium 9.5 mg/dL (8.4-10.2); Carbon Dioxide 31 mmol/L (22-30); Chloride 99 mmol/L (98-107); Estimated Glomerular Filt Rate > 60; Glucose 174 mg/dL (65-110); Potassium 4.2 mmol/L (3.4-5.0); Sodium 139 mmol/L (137-145)
[2024-12-31 16:59] LABS: Erythrocyte Sedimentation Rate 13 mm/hr (0-20)
== END 2024-12-31 14:11 | disposition home or self-care (01) ==
LOC: ANHLAB 14:11
PROVIDERS: PCP Nurse Practitioner Family; Visit Provider Internal Medicine Hematology & Oncology
DX: D72.829 Elevated white blood cell count, unspecified (principal)
CPT/HCPCS: 36415; 80053; 85025; 85652; 86140; 88184

== ENCOUNTER 2025-01-01 08:43 | Emergency (ER) | payer OTHER, SELFPAY ==
[2025-01-01 09:05] VITALS: BP 132/84; PULSE 83; RESP 17; TEMP 36.6; O2SAT 99
--- OUTSIDE RECORDS SUMMARY | 2025-01-01 09:06 | XMS_ITS | Referral Summary ---
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
--- OUTSIDE RECORDS SUMMARY | 2025-01-01 09:06 | XMS_ITS | Clinical Summary ---
Author Organization [facility] Address [facility] [place] [address] Care Team Providers Care Inspector Precision Assembly Name Role Phone Cleveland Barahona MD Primary Care Provider [phone] Allergies Active Allergy Reactions Criticality Noted Date [...] Comments Blood Pressure 158/103 10/27/2023 3:45 PM REHABILITATION TECHNICIAN Pulse 73 10/27/2023 3:45 PM REHABILITATION TECHNICIAN Temperature 36.6 C (97.9 F) 10/27/2023 2:18 PM REHABILITATION TECHNICIAN Respiratory Rate 20 10/27/2023 3:45 PM REHABILITATION TECHNICIAN Oxygen Saturation 98% 10/27/2023 3:45 PM REHABILITATION TECHNICIAN Inhaled Oxygen Concentration - - Weight 147.8 kg (325 lb 13.4 oz) 10/27/2023 2:18 PM REHABILITATION TECHNICIAN Height 154.9 cm (5' 1 ) 10/27/2023 2:18 PM REHABILITATION TECHNICIAN Body Mass Index 61.57 10/27/2023 2:18 PM REHABILITATION TECHNICIAN Plan of Treatment Health Maintenance Due Date [...] complete this topic Insurance [employer]OS Care Teams Inspector Precision Assembly Relationship Specialty Start Date End Date Cleveland Barahona MD [address] [place] [address] PCP - General INTERNAL MEDICINE 02/18/22
--- OUTSIDE RECORDS SUMMARY | 2025-01-01 09:06 | XMS_ITS | CONTINUITY OF CARE DOCUMENT ---
Author Name paola, paola Address Unknown Organization [facility] Address [address] [place] [address] [address] [place] [address] Phone [phone] Care Team Providers Care Motor Builder Winder Name Role Phone Raj SIMS, Marvin Unavailable [phone] TREVOR SIMS, HUSSEIN Unavailable Unavailable INSURANCE PROVIDERS Payer name Policy type / Coverage type Bourg red alliance party ID [place] MEDICAID Medicaid [id number]
--- OUTSIDE RECORDS SUMMARY | 2025-01-01 09:06 | XMS_ITS | Encounter Summary ---
Author Organization [facility] JUAN Amezcua [employer] Address [address] [place] [address] Care Team Providers Care Cryptological Technician Name Role Phone Unavailable Primary Care Provider Unavailabl e Reason for Visit * Reason Comments Establish Care Encounter Details Date Type Department Care Team (Late st Contact Info) Description 12/31/2024 1:30 PM CDT Office Visit [facility] Oncology and Hematology - Mikie [address] [facility] [address] [place] [address] Felipe Joyner MD [address] [facility] [address] [place] [address] Leukocytosis, unspecified type (Primary Dx) [...] Surgical History: Procedure Laterality Date HX CHOLECYSTECTOMY CT EGD TRANSORAL BIOPSY SINGLE/MULTIPLE N/A 06/08/2024 ESOPHAGOGASTRODUODENOSCOPY WITH POSS BIOPSY performed by Suresh Lemos MD at [facility] Medications Current Outpatient Medications Medication Sig [...] dysuria; no frequency; no hesitancy; no hematuria DOCUMENT ANALYST: Musculosketetal: Patient did not mention bone pain; [...] of the total time spent counseling patient [id number]. CC:? documented in this encounter Plan of Treatment Upcoming Encounters Date Type Department Care Team (Late st Contact Info) Description 01/16/2025 4:15 PM CDT Telephone Check Up [facility] Oncology and Hematology - [place] [address] [place] [address] [address] [phone] Felipe Joyner MD [address] [facility] [address] [place] [address] Scheduled Orders Name Type Priority [...]
--- OUTSIDE RECORDS SUMMARY | 2025-01-01 09:06 | XMS_ITS | Encounter Summary ---
Author Organization [facility] Address [address] [place] [address] Care Team Providers Care Corrections Specialist Name Role Phone Unavailable Primary Care Provider Unavailabl e Encounter Details Date Type Department Care Team (Late st Contact Info) Description 12/29/2024 External Device Data STL ABSTRACTION Provider, Abstract [...] 01/16/2025 4:15 PM CDT Telephone Check Up [facility] Oncology and Hematology - Mikie [address] [place] [address] Felipe Joyner MD [address] [facility] [address] [place] [address] documented as of this encounter Visit Diagnoses Not on filedocumented in this encounter
--- OUTSIDE RECORDS SUMMARY | 2025-01-01 09:06 | XMS_ITS | Clinical Summary ---
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
--- OUTSIDE RECORDS SUMMARY | 2025-01-01 09:06 | XMS_ITS | Clinical Summary ---
Author Organization [facility] Address [address] [address] [place] [address] Phone Care Team Providers Care Store Person Name Role Phone Unavailable Primary Care Provider [...] Description 12/31/2024 1:30 PM CDT Office Visit [facility] Oncology and Hematology - Mikie [address] [place] [address] Felipe Joyner MD Leukocytosis, unspecified type (Primary Dx) 12/29/2024 External Device Data STL ABSTRACTION Provider, Abstract 12/28/2024 External Device Data STL ABSTRACTION Provider, [...] 01/16/2025 4:15 PM CDT Telephone Check Up [facility] Oncology and Hematology - Mikie [address] [facility] [address] [place] [address] Felipe Joyner MD [address] [facility] [address] [place] [address] Health Maintenance Due Date Last Done Comments HPV VACCINES (1 - 3-dose series) 2015 DTAP/TDAP/TD VACCINES (1 - Tdap) 2019 HEPATITIS B VACCINES (1 of 3 - 19+ 3-dose series) 10/24 CERVICAL CANCER SCREENING 2021 INFLUENZA VACCINE (#1) 2024 [place] Advance Directives For more information, please contact: [phone] * Full Code (Latest Code Status on File) Date Activated Date Inactivated Comments 06/08/2024 6:25 AM 06/08/2024 11:33 AM
[2025-01-01 09:08] LABS: BEDSIDEPREGUCG Negative (Negative)
[2025-01-01 09:20] LABS: Add Urine Microscopic? YES; Appearance Urine Clear (Clear); Bacteria Urine 1+ /hpf; Bilirubin Urine Negative (Negative); Blood Urine 1+ (Negative); Color Urine Yellow (Yellow); Glucose Urine UA Trace mg/dL (Negative); Ketones Urine Negative (Negative); Leukocyte Esterase Ur Negative LEU/UL (Negative); Nitrate Urine Negative (Negative); Non Pathogenic Casts 0-2; Protein Urine Trace mg/dL (Negative); RBC Urine 0-2 /hpf (0-2); Specific Grav Ur 1.027 (1.001-1.035); Squamous Epithelial Cell Urine Few /hpf (Few); Urobilinogen Urine 0.2 mg/dL (<2.0); WBC Urine 0-5 /hpf (0-3); pH Urine 5.5 (5.0-9.0)
--- NOTE | 2025-01-01 09:39 | ED_ITS ---
HPI - Nausea/Vomiting/Diarrhea General Chief complaint: Nausea/Vomiting/Diarrhea Stated complaint: diarrhea x2 months, vomiting today Time Seen by Provider: 01/01/25 09:07 Source: patient Mode of arrival: ambulatory Limitations: no limitations History of Present Illness HPI Narrative: This is a 24-year-old female that presents to the emergency department for hematemesis. Reports she has been having a lot of trouble with nausea and vomiting over the last several months. She does see a GI doctor for this. She takes dicyclomine and pantoprazole. Reports history of gastritis. Today she saw bright red blood in her vomit which concerned her and prompted her to be seen. Reports she has an appointment with her GI doctor on the . Denies fever, abdominal pain, melena. Related Data Home Medications ?Medication ?Instructions ?Recorded ?Confirmed ?Last Taken ?Type metformin 500 mg tablet,extended 1,000 mg PO BID 07/04/24 10/23/24 Unknown History release 24 hr metoprolol tartrate 25 mg tablet mg 10/23/24 Unknown History Allergies Allergy/AdvReac Type Severity Reaction Status Date / Time morphine Allergy Mild Hives Verified 12/28/24 11:38 bupropion (From Wellbutrin) AdvReac Intermediate Agitated Verified 01/01/25 09:35 Review of Systems 2 Review of Systems: CONSTITUTIONAL: Denies fever GASTROINTESTINAL: Reports nausea and vomiting. Denies abdominal pain All systems reviewed & are unremarkable except as noted in HPI and below PMFSH Past Medical History Medical History Anxiety Hypertriglyceridemia Type 2 diabetes mellitus with morbid obesity Arthralgia of multiple joints Hypertension Weight gain, abnormal Essential hypertension Elevated BP without diagnosis of hypertension Palpitations Right sided abdominal pain Morbid obesity with BMI of 60.0-69.9, adult Mass of left lobe of liver Hepatic steatosis Elevated glucose Elevated WBCs Hypersomnia Snoring Right knee pain Left ankle pain Major depression Encounter to establish care Acid reflux Gallstones Patient denies significant medical history Surgical History Surgical History History of cholecystectomy 05/20/2023 Family History Family History Father Alcoholism Diabetes mellitus Hypertension Heart disease Mother Ovarian cancer Sibling Depression Grandparent Hypertension Heart disease Grandparent Alcoholism Lung cancer Social History Social History Smoking status: Never smoker Smokeless tobacco user: chewing tobacco Additional smoking assessment comments: DAILY USE Alcohol intake: former Alcohol use details: LAST DRINK 3 MONTHS- HEAVY USE PRIOR TO THIS DATE Substance use: former Substance use type: marijuana Other substance usage details: daily Last use: 2 MONTHS 2 TIMES PER WEEK Do You Feel Safe in your Home?: Yes Lack of Transportation: No Lack of Food: Never True Current Housing: I Have Housing Concerned About Future Housing: No Difficulty Paying Gas/Electric Bills: No Difficulty Paying for Meds: No Currently Unemployed: YES Education: Trade/Vocational Certificate Difficulty w/ Childcare or Family Care: No Living arrangements: with family Spiritual care concerns: No Exam 2 Narrative: GENERAL: Well-appearing, well-nourished, and in no acute distress. HEAD: Normocephalic, atraumatic. EYES: EOMI. CHEST: Clear to auscultation. No respiratory distress. No wheezes rales or rhonchi HEART: Regular rate and rhythm. No murmur heard. Normal peripheral pulses. ABDOMEN: Soft, nontender, nondistended, normal active bowel sounds. EXTREMITIES: Normal range of motion. No edema. SKIN: Warm, dry, no rash. NEURO: No focal deficits. Alert and oriented x3. PSYCH: Normal mood and affect Course Course Emergency Course: Patient updated on her workup. Tolerating p.o. intake Vital Signs Vital signs: Vital Signs Temperature 97.9 F 01/01/25 09:05 Pulse Rate 83 01/01/25 09:05 Respiratory Rate 17 01/01/25 09:05 Blood Pressure 132/84 01/01/25 09:05 Pulse Oximetry 99 01/01/25 09:05 Oxygen Delivery Room Air 01/01/25 09:05 Temperature 97.9 F 01/01/25 09:05 Pulse Rate 83 01/01/25 09:05 Respiratory Rate 17 01/01/25 09:05 Blood Pressure 132/84 01/01/25 09:05 Pulse Oximetry 99 01/01/25 09:05 Oxygen Delivery Room Air 01/01/25 09:05 MDM - Nausea/Vomiting/Diarrhea MDM Narrative Medical decision making narrative: Patient presents to the emergency department for ongoing trouble with nausea and vomiting. Today reporting she saw bright red blood in her vomit. She has had no further episodes of hematemesis. Her vitals are stable. Hemoglobin is normal. CBC shows leukocytosis, this appears chronic for patient. She does report she has seen a diabetes trainer for this. Metabolic panel with mild transaminitis, which also appears stable. She reports known history of fatty liver disease. Urine without evidence of infection. Patient reports known history of gastritis, she does have a incident handler that she follows with. Reports she has an appointment with them next week. Patient was updated on her workup and agrees with plan of care. Instructed to have close follow-up with her incident handler. She was given warnings to return to the ER Differential Diagnosis Differential diagnosis: Likely gastroenteritis, dehydration and other (Gastritis, peptic ulcer disease) Lab Data Attestation: I reviewed the patient's lab results. 01/01/25 09:57 01/01/25 09:57 Labs: Lab Results 01/01/25 01/01/25 01/01/25 Range/Units 09:01 09:04 09:57 WBC 15.2 H (4.5-10.0) K/mm3 RBC 5.21 (4.2-5.4) M/mm3 Hgb 14.0 (12.0-15.0) g/dL Hct 44.1 (37.0-47.0) % MCV 84.6 (80-100) fl MCH 26.9 (26-34) pg MCHC 31.7 L (32-36) g/dl RDW 15.0 H (11.5-14.5) % Plt Count 371 (150-375) k/mm3 MPV 9.7 (7.4-10.4) fl Immature Gran % (Auto) 1.2 H (0-0.5) % Neut % (Auto) 63.1 (45.5-73.1) % Lymph % (Auto) 27.0 (18.3-44.2) % [place] % (Auto) 5.3 (2.6-8.5) % Eos % (Auto) 2.8 (0-4.4) % Baso % (Auto) 0.6 (0.2-1.2) % Lymph # (Auto) 4.11 H (0.9-3.2) K/mm3 [place] # (Auto) 0.8 H (0.1-0.6) K/mm3 Eos # (Auto) 0.4 H (0-0.3) K/mm3 Baso # (Auto) 0.1 (0.0-0.1) K/mm3 Abs Immat Gran (auto) 0.18 H (0.00-0.031) K/mm3 Absolute Neuts (auto) 9.6 H (1.3-6.7) K/mm3 Absolute Nucleated RBC 0.000 (0.0-0.012) K/mm3 Nucleated RBC % 0.0 (0.0-0.2) % PT 13.5 (11.1-14.7) Seconds INR 1.0 APTT 26.8 (22.3-36.8) Seconds Sodium 138 (137-145) mmol/L Potassium 4.3 (3.4-5.0) mmol/L Chloride 102 (98-107) mmol/L Carbon Dioxide 23 (22-30) mmol/L Anion Gap 13 H (4-12) mmol/L BUN 15 (7-17) mg/dL Creatinine 0.63 L (0.7-1.0) mg/dL Estim Creat Clear Calc 168 ml/min Estimated GFR > 60 (59 - ) Glucose 223 H (65-110) mg/dL Calcium 9.2 (8.4-10.2) mg/dL Total Bilirubin 0.7 (0.2-1.3) mg/dL AST 70 H (14-36) U/L ALT 58 H (6-35) U/L Alkaline Phosphatase 83 (38-126) U/L Total Protein 8.0 (6.3-8.2) g/dL Albumin 4.2 (3.5-5.1) g/dL Lipase 90 (23-300) U/L Urine Color Yellow (Yellow) Urine Appearance Clear (Clear) Urine pH 5.5 (5.0-9.0) Ur Specific [place] 1.027 (1.001-1.035) Urine Protein Trace (Negative) mg/dL Urine Glucose (UA) Trace H (Negative) mg/dL Urine Ketones Negative (Negative) mg/dL Ur Blood (Man) 1+ H (Negative) Urine Nitrate Negative (Negative) Urine Bilirubin Negative (Negative) Urine Urobilinogen 0.2 (<2.0) mg/dL Leukocyte Esterase Rfl Negative (Negative) MICKY/UL Urine RBC 0-2 (0-2) /hpf Urine WBC 0-5 (0-3) /hpf Ur Squamous Epith Cells Few (Few) /hpf Urine Bacteria 1+ H /hpf Urine Casts 0-2 POC Urine HCG, Qual Negative (Negative) Critical Care Time Critical Care Time Critical Care Time: No Discharge Plan Discharge Clinical Impression: Hematemesis Qualifiers: Nausea presence: with nausea Qualified Code(s): K92.0 - Hematemesis Patient Disposition: Home, Self-Care Condition: Improved Instructions: Gastritis (ED) Additional Instructions: Return to the ER if you experience fever, abdominal pain with nausea and vomiting, you are unable to keep down liquids or solids, worsening bleeding, or any other symptoms that are concerning to you Remain well hydrated. Avoid anti-inflammatories (Aleve, ibuprofen, naproxen, etc). Avoid spicy/acidic foods. Avoid alcohol. Increase your pantoprazole to 40 mg twice daily Follow up with your incident handler Patient Language: Cape Verdean Prescriptions: No Action albuterol sulfate [Proventil HFA] 90 mcg/actuation HFA aerosol inhaler 2 puff inhalation QID PRN (Reason: shortness of breath or wheezing) Qty: 8.5 0RF metoprolol tartrate 25 mg tablet sertraline 50 mg tablet 50 mg PO DAILY Qty: 30 11RF Rx Instructions: take with 100mg sertraline tab to equal 150mg tab Jardiance 10 mg tablet 10 mg PO QAM Qty: 30 11RF sertraline 100 mg tablet 100 mg PO DAILY Qty: 30 11RF buspirone 7.5 mg tablet 7.5 mg PO BID Qty: 60 11RF metformin 500 mg tablet extended release 24 hr 1,000 mg PO BID Rx Instructions: start 1 tab daily x1 week. Increase by 1 tab each week to 2 tabs 2x/day with meals. ciprofloxacin HCl 500 mg tablet 500 mg PO Q12H Qty: 14 0RF phenazopyridine [Pyridium] 200 mg tablet 200 mg PO TID PRN (Reason: pain) Qty: 10 0RF pantoprazole 40 mg tablet,delayed release (DR/EC) See Rx Instructions .ROUTE .COMPLEX Qty: 60 11RF Dose Instruction: TAKE 1 TABLET BY MOUTH TWICE DAILY Rx Instructions: TAKE 1 TABLET BY MOUTH TWICE DAILY (DME) blood-glucose meter [Blood Glucose Monitoring] Kit See Rx Instructions .Route Qty: 1 0RF Rx Instructions: As directed dicyclomine 20 mg tablet See Rx Instructions .ROUTE .COMPLEX Qty: 90 11RF Dose Instruction: TAKE 1 TABLET BY MOUTH THREE TIMES DAILY Rx Instructions: TAKE 1 TABLET BY MOUTH THREE TIMES DAILY (DME) OneTouch Verio test strips Strip See Rx Instructions .Route Qty: 100 3RF Rx Instructions: As directed Trulicity 1.5 mg/0.5 mL pen injector 1.5 mg subcut WEEKLY Qty: 2 5RF Rx Instructions: call office for refill losartan 100 mg tablet 100 mg PO DAILY Qty: 90 3RF amlodipine 5 mg tablet 5 mg PO DAILY Qty: 30 11RF hydrochlorothiazide 12.5 mg tablet 12.5 mg PO QAM Qty: 30 5RF trazodone 50 mg tablet 50 mg PO QHS PRN (Reason: sleep) Qty: 30 3RF Follow-up/Referrals: Ethel Liz NP [Primary Care Provider] - Stand Alone Forms: Work/School Release IP
[2025-01-01] MEDS: ONDANSETRON INJ 4 MG/2 ML VIAL IV PUSH (09:40)
[2025-01-01] MEDS: PANTOPRAZOLE SODIUM IV 40 MG VIAL IV PUSH (09:40)
[2025-01-01 10:05] LABS: Basophils Absolute Auto 0.1 K/mm3 (0.0-0.1); Basophils Percent Auto 0.6 % (0.2-1.2); Eosinophils Absolute Auto 0.4 K/mm3 (0-0.3); Eosinophils Percent Auto 2.8 % (0-4.4); Hematocrit 44.1 % (37.0-47.0); Immature Granulocyte Absolute 0.18 K/mm3 (0.00-0.031); Immature Granulocyte Percent A 1.2 % (0-0.5); Lymphocytes Absolute Auto 4.11 K/mm3 (0.9-3.2); Mean Corpuscular HGB Conc 31.7 g/dl (32-36); Mean Corpuscular Hemoglobin 26.9 pg (26-34); Mean Corpuscular Volume 84.6 fl (80-100); Mean Platelet Volume 9.7 fl (7.4-10.4); Monocytes Absolute Auto 0.8 K/mm3 (0.1-0.6); Monocytes Percent Auto 5.3 % (2.6-8.5); Neutrophils Absolute Auto 9.6 K/mm3 (1.3-6.7); Neutrophils Percent Auto 63.1 % (45.5-73.1); Platelet Count Result 371 k/mm3 (150-375); Red Blood Count 5.21 M/mm3 (4.2-5.4); White Blood Count 15.2 K/mm3 (4.5-10.0)
[2025-01-01 10:17] LABS: Prothrombin Time 13.5 Seconds (11.1-14.7)
[2025-01-01 10:18] LABS: Partial Thromboplastin Time 26.8 Seconds (22.3-36.8)
--- OUTSIDE RECORDS SUMMARY | 2025-01-01 11:13 | XMS_ITS | Referral Summary ---
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 Care Teams Nc Machinist Relationship Specialty Start Date End Date Becca Hernandez NP [address] [place], [place] [id number] PCP - General Nurse Practitioner 12/14/23
--- OUTSIDE RECORDS SUMMARY | 2025-01-01 11:13 | XMS_ITS | Clinical Summary ---
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
--- OUTSIDE RECORDS SUMMARY | 2025-01-01 11:13 | XMS_ITS | Encounter Summary ---
Author Organization [facility] Address [address] [place] [address] Care Team Providers Care Papeterie Table Assembler Name Role Phone Unavailable Primary Care Provider Unavailabl e Encounter Details Date Type Department Care Team (Late Contact Info) Description 01/01/2025 Orders Only [facility] Oncology and Hematology - [address] [place] [address] Felipe Joyner MD [address] [place] [address] Social History Tobacco Use Types Packs/Day Years [...] Encounters Date Type Department Care Team (Late Contact Info) Description 01/16/2025 4:15 PM CDT Telephone Check Up [facility] Oncology and Hematology - [address] [place] [address] Felipe Joyner MD [address] [place] [address] documented as of this encounter Procedures Procedure Name Priority Date/Time Associated Diagnosis Comments COMPREHENSIVE METABOLIC PANEL Routine 12/31/2024 10:31 AM CDT documented in this encounter Results * COMPREHENSIVE METABOLIC PANEL (12/31/2024 10:31 AM CDT) Blood Felipe Joyner MD CHEMISTRY ORDERABLES Final Resu lt documented in this encounter Visit Diagnoses Not on filedocumented in this encounter
--- OUTSIDE RECORDS SUMMARY | 2025-01-01 11:13 | XMS_ITS | Clinical Summary ---
Author Organization [facility] Address [address] [address] [place] [address] Phone Care Team Providers Care Planning Assistant Name Role Phone Unavailable Primary Care Provider [...] Encounters Date Type Department Care Team Description 01/01/2025 Orders Only [facility] Oncology and Hematology - [address] [place] [address] Felipe Joyner MD 12/31/2024 1:30 PM CDT Office Visit [facility] Oncology and Hematology [address] [place] [address] Felipe Joyner MD Leukocytosis, unspecified type (Primary [...] 01/16/2025 4:15 PM CDT Telephone Check Up [facility] Oncology and Hematology - Mik[address] [place] [phone] Felipe Joyner MD [address] [facility] [address] [place] [address] Health Maintenance Due Date Last Done Comments HPV VACCINES (1 - 3-dose series) 2015 DTAP/TDAP/TD VACCINES (1 - Tdap) 2019 HEPATITIS B VACCINES (1 of 3 - 19+ 3-dose series) 10/24 CERVICAL CANCER SCREENING 2021 INFLUENZA VACCINE (#1) 2024 Procedures Procedure Name Priority Date/Time Associated Diagnosis Comments COMPREHENSIVE METABOLIC PANEL Routine 12/31/2024 10:31 AM CDT from Last 3 Months Results * COMPREHENSIVE METABOLIC PANEL (12/31/2024 10:31 AM CDT) Blood us Felipe Joyner MD CHEMISTRY ORDERABLES Final Resu lt from Last 3 Months Insurance [employer] [place] [address] [employer] [place] Advance Directives For more information, please contact: [phone] * Full Code (Latest Code Status on File) Date Activated Date Inactivated Comments 06/08/2024 6:25 AM 06/08/2024 11:33 AM
--- OUTSIDE RECORDS SUMMARY | 2025-01-01 11:13 | XMS_ITS | Clinical Summary ---
Author Organization [facility] Address [facility] [place] [address] Care Team Providers Care Motor Vehicle Or Caravan Salesperson Name Role Phone Cleveland Barahona MD Primary Care Provider Allergies Active Allergy Reactions Criticality Noted Date [...] Comments Blood Pressure 158/103 10/27/2023 3:45 PM LOG YARD MANAGER Pulse 73 10/27/2023 3:45 PM LOG YARD MANAGER Temperature 36.6 C (97.9 F) 10/27/2023 2:18 PM LOG YARD MANAGER Respiratory Rate 20 10/27/2023 3:45 PM LOG YARD MANAGER Oxygen Saturation 98% 10/27/2023 3:45 PM LOG YARD MANAGER Inhaled Oxygen Concentration - - Weight 147.8 kg (325 lb 13.4 oz) 10/27/2023 2:18 PM LOG YARD MANAGER Height 154.9 cm (5' 1 ) 10/27/2023 2:18 PM LOG YARD MANAGER Body Mass Index 61.57 10/27/2023 2:18 PM LOG YARD MANAGER Plan of Treatment Health Maintenance Due Date [...] complete this topic Insurance [employer] Care Teams Motor Vehicle Or Caravan Salesperson Relationship Specialty Start Date End Date Cleveland Barahona MD [address] [place] [address] PCP - General INTERNAL MEDICINE 02/18/22
--- OUTSIDE RECORDS SUMMARY | 2025-01-01 11:13 | XMS_ITS | Encounter Summary ---
Author Organization [facility] Address [address] [place] [address] Care Team Providers Care Marine Fuel Dock Attendant Name Role Phone Unavailable Primary Care Provider [...] 01/16/2025 4:15 PM CDT Telephone Check Up [facility] Oncology and Hematology - [address] [place] [address] Felipe Joyner MD [address] [facility] [address] [place] [address] documented as of this encounter Visit Diagnoses Not on filedocumented in this encounter
--- OUTSIDE RECORDS SUMMARY | 2025-01-01 11:13 | XMS_ITS | Encounter Summary ---
Author Organization [facility] JUAN Amezcua [facility] Address [address] [place] [address] Care Team Providers Care Car Stereo Installer Name Role Phone Unavailable Primary Care Provider Unavailabl e Reason for Visit * Reason Comments Establish Care Encounter Details Date Type Department Care Team (Late st Contact Info) Description 12/31/2024 1:30 PM CDT Office Visit [facility] Oncology and Hematology - [address] [facility] [address] [place] [address] Felipe Joyner MD [address] [facility] [address] [place] [address] Leukocytosis, unspecified type (Primary Dx) [...] Surgical History: Procedure Laterality Date HX CHOLECYSTECTOMY [place] EGD TRANSORAL BIOPSY SINGLE/MULTIPLE N/A 06/08/2024 ESOPHAGOGASTRODUODENOSCOPY WITH POSS BIOPSY performed by Suresh Lemos MD at [facility] Medications Current Outpatient Medications Medication Sig [...] dysuria; no frequency; no hesitancy; no hematuria CUT OFF [place]: Musculosketetal: Patient did not mention bone pain; [...] of the total time spent counseling patient [id number]. CC:? documented in this encounter Plan of Treatment Upcoming Encounters Date Type Department Care Team (Late st Contact Info) Description 01/16/2025 4:15 PM CDT Telephone Check Up [facility] Oncology and Hematology - [place] [address] [place] [address] [address] [phone] Felipe Joyner MD [address] [facility] [address] [place] [address] Scheduled Orders Name Type Priority [...]
[2025-01-01 11:42] LABS: Alanine Aminotransferase 58 U/L (6-35); Albumin Level 4.2 g/dL (3.5-5.1); Alkaline Phosphatase 83 U/L (38-126); Anion Gap 13 mmol/L (4-12); Aspartate Amino Transferase 70 U/L (14-36); Bilirubin,Total 0.7 mg/dL (0.2-1.3); Blood Urea Nitrogen 15 mg/dL (7-17); Calcium 9.2 mg/dL (8.4-10.2); Carbon Dioxide 23 mmol/L (22-30); Chloride 102 mmol/L (98-107); Estimated CRCL calculation 168 ml/min; Estimated Glomerular Filt Rate > 60; Glucose 223 mg/dL (65-110); Lipase 90 U/L (23-300); Potassium 4.3 mmol/L (3.4-5.0); Sodium 138 mmol/L (137-145)
== END 2025-01-01 12:51 | disposition home or self-care (01) ==
PROVIDERS: Emergency Medicine; Emergency Provider Physician Assistant; PCP Nurse Practitioner Family
DX: K92.0 Hematemesis (principal); F41.9 Anxiety disorder, unspecified; E11.9 Type 2 diabetes mellitus without complications; I10 Essential (primary) hypertension; E66.01 Morbid (severe) obesity due to excess calories; Z68.44 Body mass index [BMI] 60.0-69.9, adult; K76.0 Fatty (change of) liver, not elsewhere classified; F32.A Depression, unspecified
CPT/HCPCS: 36415; 80053; 81001; 81025; 83690; 85025; 85610; 85730; 96374; 96375; 99284; J2405; J2470

== ENCOUNTER 2025-01-28 00:55 | Day surgery (SDC) | payer OTHER, SELFPAY ==
[2025-01-23 08:40] VITALS: BMI 66.2
--- NOTE | 2025-01-23 11:38 | PC.NURSE ---
Anesthesia aware of pt's BMI of 66. Okay to proceed.
--- OUTSIDE RECORDS SUMMARY | 2025-01-28 00:58 | XMS_ITS | Clinical Summary ---
Author Organization [facility] Address [facility] [place] [address] Care Team Providers Care Marine Drafter Name Role Phone Cleveland Barahona MD Primary Care Provider [phone] Allergies Active Allergy Reactions Criticality Noted Date [...] Comments Blood Pressure 158/103 10/27/2023 3:45 PM QA SOFTWARE TEST ENGINEER Pulse 73 10/27/2023 3:45 PM QA SOFTWARE TEST ENGINEER Temperature 36.6 C (97.9 F) 10/27/2023 2:18 PM QA SOFTWARE TEST ENGINEER Respiratory Rate 20 10/27/2023 3:45 PM QA SOFTWARE TEST ENGINEER Oxygen Saturation 98% 10/27/2023 3:45 PM QA SOFTWARE TEST ENGINEER Inhaled Oxygen Concentration - - Weight 147.8 kg (325 lb 13.4 oz) 10/27/2023 2:18 PM QA SOFTWARE TEST ENGINEER Height 154.9 cm (5' 1 ) 10/27/2023 2:18 PM QA SOFTWARE TEST ENGINEER Body Mass Index 61.57 10/27/2023 2:18 PM QA SOFTWARE TEST ENGINEER Plan of Treatment Health Maintenance Due Date Last Done Comments Annual Physical 2003 Hepatitis C 2018 DTaP, Tdap and Td Vaccines (7 - Td or Tdap) 05/24/2022 05/24/2012, 08/26/2005, 04/15/2003, Additional history exists COVID-19 Vaccine ( season) 2024 12/22/2021, 10/21/2021, 04/08/2021, Additional history exists Chlamydia Screening Females ages 16-24 07/07/2024 07/07/2023 Cervical Cancer Screening Pap Smear (Age 21 [...] complete this topic HPV Vaccines Completed 05/24/2012, 10/2011, 12/01/2011 Meningococcal Vaccine Completed 05/31/2018, 012 Meningococcal B Vaccine Aged Out No l onger eligible based on patient's age to complete this topic RSV Immunizations Under 20 Months Aged Out No longer eligible based on patient's age to complete this topic Insurance [employer] Care Teams Marine Drafter Relationship Specialty Start Date End Date Cleveland Barahona MD [address] [place] [address] PCP - General INTERNAL MEDICINE 02/18/22
--- OUTSIDE RECORDS SUMMARY | 2025-01-28 00:58 | XMS_ITS | Referral Summary ---
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
--- OUTSIDE RECORDS SUMMARY | 2025-01-28 00:58 | XMS_ITS | Clinical Summary ---
Author Organization [facility] Address [address] [address] AR[place] Marcelo [address] Phone Care Team Providers Care Functional Consultant Name Role Phone Unavailable Primary Care Provider [...] Encounters Date Type Department Care Team Description 01/16/2025 4:15 PM CDT Telephone Check Up [facility] Oncology and Hematology - Mikie [address] [place] [address] Felipe Joyner MD Leukocytosis, unspecified type (Primary Dx) 01/09/2025 External Device Data STL ABSTRACTION Provider, Abstract 01/09/2025 External Device Data STL ABSTRACTION Provider, Abstract 01/07/2025 Orders Only [facility] Oncology and Hematology - Mikie [address] [place] [address] Felipe Joyner MD 01/02/2025 Telephone [facility] Oncology and Hematology [facility] [address] [place] [address] Felipe Joyner MD lab auth 01/02/2025 Abstract [facility] Oncology and Hematology [facility] [address] [place] [address] Felipe Joyner MD 01/01/2025 Orders Only [facility] Oncology and Hematology [place] [address] [place] [address] Felipe Joyner MD 12/31/2024 1:30 PM CDT Office Visit [facility] Oncology and Hematology [facility] [address] [place] [address] Felipe Joyner MD Leukocytosis, unspecified type (Primary [...] Care Team (Late st Contact Info) Description 05/20/2025 1:00 PM CDT Office Visit [facility] Oncology and Hematology [facility] [address] [facility] [address] [place] [address] Felipe Joyner MD [address] [facility] [address] [place] [address] Health Maintenance Due Date Last Done Comments HPV VACCINES (1 - 3-dose series) 2015 DTAP/TDAP/TD VACCINES (1 - Tdap) 2019 HEPATITIS B VACCINES (1 of 3 - 19+ 3-dose series) 10/24 CERVICAL CANCER SCREENING 2021 HPV/Cotest (21-29) 2021 PAP SMEAR 2021 INFLUENZA VACCINE (#1) 2024 Preventative Visit-Managed Medicaid 07/08/202407/07 Procedures Procedure Name Priority Date/Time Associated Diagnosis Comments SEDIMENTATION RATE Routine 01/03/2025 1: 36 PM CDT Leukocytosis, unspecified type C-REACTIVE PROTEIN Routine 01/03/2025 1: 36 PM CDT Leukocytosis, unspecified type FLOW CYTOMETRY REPORT Routine 01/01/2025 1:52 PM CDT COMPREHENSIVE METABOLIC PANEL Routine 12/31/2024 10:31 AM CDT from Last 3 Months Results * (ABNORMAL) SEDIMENTATION RATE (01/03/2025 1:36 PM CDT) ESR (SEDIMENTATION RATE) 46(H) < OR = 20 mm/h [facility] Comment: Test Performed at: [facility] [id number] [address] Steven Roberson MD Blood 01/03/2025 1:36 PM CDT 01/03/2025 1:36 PM CDT us Felipe Joyner MD HEMATOLOGY ORDERABLES Final Res ult [facility] [phone] [facility] [address] [place], [place] [address] * (ABNORMAL) C-REACTIVE PROTEIN (01/03/2025 1:36 PM CDT) CRP 49.2(H) <8.0 mg/L [facility] Comment: Test Performed at: [facility] [id number] [facility] [place] [address] Steven Roberson MD Blood 01/03/2025 1:36 PM CDT 01/03/2025 1:36 PM CDT us Felipe Joyner MD CHEMISTRY ORDERABLES Final Resu lt [facility] [phone] [place] [facility] [address] [address] [facility] [place] [address] * FLOW CYTOMETRY REPORT (01/01/2025 1:52 PM CDT) Felipe Joyner MD PATHOLOGY/CYTOLOGY ORDERABLES F inal Result * COMPREHENSIVE METABOLIC PANEL (12/31/2024 10:31 AM CDT) Blood Felipe Joyner MD CHEMISTRY ORDERABLES Final Resu lt from Last 3 Months Insurance [place] Member Subscriber Plan / Payer ( fective 2023-Present) Name:Esme Matta Relation to Subscriber:Self Name:SigridEsme Payer ID:[id number] (NAIC) Type:PPO Address: [address] [place] [place] Advance Directives For more information, please contact: [phone] * Full Code (Latest Code Status on File) Date Activated Date Inactivated Comments 06/08/2024 6:25 AM 06/08/2024 11:33 AM
--- OUTSIDE RECORDS SUMMARY | 2025-01-28 00:58 | XMS_ITS | CONTINUITY OF CARE DOCUMENT ---
Author Name paola, paola Address Unknown Organization [facility] Address [address] [place] [address] [address] [place] [address] Phone [phone] Care Team Providers Care Rubber Press Operator Name Role Phone Raj SIMS, Marvin Unavailable TREVOR SIMS, HUSSEIN Unavailable Unavailable INSURANCE PROVIDERS Payer name Policy type / Coverage type [place] red republican [place] MEDICA[place] Medicaid [id number]
--- OUTSIDE RECORDS SUMMARY | 2025-01-28 00:58 | XMS_ITS | Data Portability ---
Author Organization [facility] [place] Address [address] [place] [address] [address] Care Team Providers Care Restrictive Preparation Operator Name Role Phone PATRICIA WILLIAM Primary Care Provider RACHEL ALBERT Primary Care Provider Assessment No assessment recorded. Plan of Treatment Reminders Order Date Submit Date Provider Last Modified By Organization Details Last Modified Time Details Appointments None recorded. Lab None recorded. Referral None recorded. Procedures None recorded. Surgeries None recorded. Imaging US, transvagina l 2023 024 [email or web address] [place], [address], [place], [address], 4 19:45:10 Medication Orders clotrimazol e-betametha sone 1 %-0.05 % topical cream 2024 025 [id number], [address], [place], [id number], 5 12:50:15 metronidazo le 0.75 % (37.5 mg/5 gram) vaginal gel 2023 024 [facility], [address], [place], [id number], 4 11:06:13 Mirena 21 mcg/24 hr (up to 8 years) 52 mg intrauterin e device 2023 024 [email or web address] Not available 14:08:12 Patient TargetsNo targets recorded. Patient InstructionsNo instructions recorded. Reason for Referral None Reported. Results Created Date Observation Date Name Description Value Unit Range Abnormal Flag Note LastModifiedBy Organization Detail LastModifiedTime 08/15/2008/15/2024 US, pelvi s No observ ation record ed. [facility] [address], [place], [address], 08/15/2024 17:30:18 08/15/2008/15/2024 US, trans vagin al No observ ation record ed. [facility] [address], [place], [address], 08/15/2024 17:30:31 08/15/2008/15/2024 US, pelvi s No observ ation record ed. [email or web address] [address], [place], [address], 08/16/2024 16:07:33 08/30/20 24 08/30/2024 US, trans vagin al No observ ation record ed. [email or web address] [place] [address], [place], [address], 08/30/2024 21:42:27 08/30/2008/30/2024 , trans vagin al No observ ation record ed. [email or web address] [address], [place], [address], 08/30/2024 21:42:27 Result Notes None recorded. Problems Name Problem SNOMED Code Status Onset Date Resolution Date Notes Provider Name and Address Organization Details Recorded Time Polycystic ovary syndrome 414636433 Active 2023 Becca Hernandez [facility]- [address], [place], [address], [place] - [facility] 14:57:33 Insulin resistance 187154239 Active 2014 Becca Hernandez [facility] [address], [place], [address], [facility] 4 09:49:09 Secondary amenorrhea 391514544 Active 2017 Becca Hernandez [facility] [address], [place], [address], [facility] 4 09:50:15 Hypertriglyc eridemia 534121141 Active 2023 Becca Hernandez [facility] [address], [place], [address], [facility] 4 09:50:27 Chronic peptic ulcer 956603028 Active 2022 Becca Hernandez [facility] [address], [place], [address], [facility] 4 09:50:53 Problem Notes None recorded. Procedures Surgical History Date Name Laterality Status Provider Name and Address Organization Details Recorded Time 024 IUD Removal completed Diogo Bryan MD [address], [place], [address], [facility] 08/20/2024 14:41:43 024 IUD Insertion completed Diogo Bryan MD [address], [place], [address], [facility] 08/20/2024 14:41:33 024 Laparoscopy completed Digna Ace [facility] 10/26/2024 14:39:20 024 endoscopy completed Estrella Johnson [facility] 05/10/2024 16:00:13 023 Date of Last Pap Smear completed Digna Ace [facility] 08/09/2023 15:03:22 023 cholecystectomy completed Digna Ace [facility] 06/30/2023 14:39:16 Imaging Results Imaging Date Name Status LastModified by Organization Details LastModified Time 08/15/2024 US, pelvis completed [facility] [address], [place], [address], 08/15/2024 17:30:18 08/15/2024 US, transvaginal completed [email or web address] [place] [facility] [address], [place], [address], 08/15/2024 17:30:31 08/15/2024 US, pelvis completed [email or web address] [address], [place], [address], 08/16/2024 16:07:33 08/30/2024 [email or web address] [address], [place], [address], 08/30/2024 21:42:27 08/30/2024 US, transvaginal completed [email or web address] [address], [place], [address], 08/30/2024 21:42:27 Procedure Notes None recorded. Medical Equipment None Reported. Allergies Allergen ID Allergen Name Allergen Category Reaction Reaction Severity Criticality Documentation Date Start Date Code Code System Note Provider Name and Address Organization Details Recorded Time 62937 morphine medicatio n Not available Not available Not available 05/18/2024 7052 RxNorm Tara lira [facility] 14:01:04 Medications Name Sig Start Date [...] mg or 0.5 mg (2 mg/3 mL) [facility] pen injector 11/16 completed Not Available Not Available Not Available Vitals Date Recorded Body height Body mass index (BMI) Body weight Systolic blood pressure Diastolic blood pressure Provider Name and Address Organization Details Last Updated DateTime 08/20/2024 157.48 cm 65.8 kg/m2 972244.2 5 g 118 mm[Hg] 80 mm[Hg] [facility] 4 11:16:01 Date Recorded Body height Body mass index (BMI) Body weight Systolic blood pressure Diastolic blood pressure Provider Name and Address Organization Details Last Updated DateTime 08/29/2024 157.48 cm 65.3 kg/m2 160743.4 8 g 150 mm[Hg] 94 mm[Hg] [facility] 4 14:16:12 Date Recorded Body height Body mass index (BMI) Body weight Systolic blood pressure Diastolic blood pressure Provider Name and Address Organization Details Last Updated DateTime 09/24/2024 157.48 cm 65.3 kg/m2 044575.4 8 g 141 mm[Hg] 95 mm[Hg] [facility] 4 11:03:39 Date Recorded Body height Body mass index (BMI) Body weight Systolic blood pressure Diastolic blood pressure Provider Name and Address Organization Details Last Updated DateTime 10/26/2024 157.48 cm 62.7 kg/m2 102706.1 8 g 131 mm[Hg] 93 mm[Hg] Digna Ace [facility] 14:36:46 Social History Question Answer Notes LastModified by Organizat ion Details LastModified Time Tobacco Smoking Status Never Smoker Stefanie Nassar soraya, [facility] 06/30/2023 14:31:55 Do You Have An [...] available 12/30/2022 Are You Currently Employed? Yes [email or web address] Information not available 06/30/2023 Are You Deaf Or Do You Have Serious Difficulty Hearing? No Information not available 01/11/2023 What Type Of Diet Are You Following? REGULAR Information not available 12/30/2022 What Is The Highest Grade Or Level Of School You Have Completed Or The Highest Degree You Have Received? 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 Yes Information not available 01/11/2023 Do You Use Protection During Sex? No Information not available 01/11/2023 Do You Use Your Seat Belt Or Car Seat Routinely? No Information not available 01/11/2023 Are You Sexually Active? Yes Female Partners [email or web address] Information not available 06/30/2023 Do You Have Smoke And Carbon Monoxide Detectors In Your Home? Yes Information not available 01/11/2023 How Much Tobacco Do You Smoke? No Information not available 01/11/2023 Do You Feel Stressed (tense, Restless, Nervous, Or Anxious, Or Unable To Sleep At Night)? [id number] Information not available 01/11/2023 Do You Use Any Illicit Or Recreational Drugs? No Information not available 12/30/2022 Do You Use Sunscreen Routinely? No Information not available 01/11/2023 Has Tobacco Cessation Counseling Been Provided? No Information not available 06/30/2023 Have You Used IV Drugs? No Information not available 01/11/2023 Do You Or Have You Ever Used Any Other Forms Of Tobacco Or Nicotine? No [email or web address] Information not available 06/30/2023 Sex: Unknown Functional [...] 2022 14:42:16 Unspecified Relation Family history unknown Not available 2024 13:56:33 Medical History Condition [...] SNOMED-CT Code Diagnosis ICD10 Code Diagnosis Note [id number] Becca Hernandez [facility] [address] [address] 12/30/2022 12:18:03 12/30/2022 16:58:19 Secondary amenorrhea 912790362 N91.1 Today we discussed menses & amenorrhei [...] plan of care. Cyst of left ovary 07360 76022 6962921 N83.202 Left cyst vs paratubal cyst very smallLikel y not the source of pain that has been plaguing herMore concerned about lack of monthly cycles which we discussedP COS is suspected. Will see if recent cholestero l, hbga1c etc have been performed by PCP.If not will update those next visit. FSH/LH: 7.8/7.1Tot al T- 36 wnlEstroge n (e1): 413.2 [id number] Becca Hernandez [facility] [address] [address] 01/11/2023 12:29:58 01/11/2023 13:32:02 Secondary amenorrhea 568411186 N91.1 Today we discussed trial of provera.Maida [...] counseling and review of plan of care. [id number] Sharita Lieberman [place] [address] [address] 05/02/2023 16:04:08 05/02/2023 16:44:12 Pain in pelvis 68203458 R10.2 [id number] Becca Hernandez [place] [address] [address] 05/03/2023 14:32:39 05/03/2023 15:07:47 Secondary amenorrhea 668403159 N91.1 Today we discussed US.Left ovarian cyst [...] counseling and review of plan of care. [id number] Becca Hernandez [facility] [address] [address] 06/30/2023 14:31:50 06/30/2023 14:54:46 Sexually transmitted infectious disease 7502554 A64 Today would like STD urine & serum labs.Will update on resultsRes chedule WWE visit. Time spent in visit is a total of 15 mins with at least 50% of visit consisting of counseling and review of plan of care. [id number] Becca Hernandez [facility] [address] [address] 07/07/2023 14:22:21 07/07/2023 14:48:02 Gynecologic examination 34943472 Z01.419 Take Calcium with Vitamin D 1200mg [...] c Screen discussedC olon Screen naDexa [facility] [id number] Becca Hernandez [facility] [address],[facility] [place] [address] 08/09/2023 14:35:44 08/09/2023 15:26:55 Secondary amenorrhea 833784918 N91.1 Today we discussed switching from Provera [...] counseling and review of plan of care. [id number] Becca Hernandez [facility] [address],[facility] [address] 11/01/2023 13:43:06 11/01/2023 15:07:32 Polycystic ovary syndrome 994656029 E28.2 Z68.44 Today we discussed PCOS and [...] Low HDL (good) cholestero l. Insulin resistance 11351 5000 E88.819 Will see if qualifies for injectable or something other than Metformin with her prominent Hx of peptic ulcer/Gall bladder and it likelihood of causing significan t GI issues or exacerbati on of these issues. [facility] 583535708 N91.1 Patient is here today for a [...] of plan of care. Hyperlipid emia screening 093423769 Z13.220 Update to check for high LDL/TG/Tot al/Low HDL [id number] MARCK [facility] [address] [address] 11/16/2023 15:55:38 11/22/2023 17:14:20 Insulin resistance 864254294 E88.819 Z68.44 E66.9 E88.810 E28.2 Will complete 0.75mg weekly x 4wks.Then, return to office for med check & if tolerating we increase to next dose. In depth drug abuse counselor on trulicity purpose, dosage, dosage schedule, administra [...] counseling and review of plan of care. [id number] Becca Hernandez [facility] [address],[place] [address] 12/13/2023 15:42:18 12/13/2023 16:18:12 Prediabetes 212498562 R73.03 Z68.44 E88.810 E28.2 Z83.49 Patient is [...] and review of plan of care. Tachycardia 2718555 R00. [address] for random HBP/Palpit ations Contracept ion care management 242205732 N91.1 BCP switched to POP only vs CONNER due to verbalizat ion of heart palpitatio ns/HBP. Will f/u in 7wks at med check for trulicity. [id number] [facility] [address] [address] 01/24/2024 15:12:35 01/24/2024 16:03:45 Venereal disease screening 379626222 Z11.3 STD screen urine sent to confirm no std.Partne r recently treated for trich (female partner)Wi ll reach out with results. Time spent in visit is a total of 15 mins with at least 50% of visit consisting of counseling and review of plan of care. Contracept ion care management 435006047 N91.1 BCP switched to POP only vs CONNER due to verbalizat ion of heart palpitatio ns/HBP.Alon ples given x 6mosCall for additional samples if neededDoin g well. [id number] MARCK Donohue [place] [address] [address] 05/10/2024 15:49:03 05/10/2024 16:28:39 Abnormal uterine bleeding 6019590015 9100 N93.9 The patient and I discussed [...] of plan of care. Polycystic ovary syndrome 064229155 E28.2 [id number] Josi [facility] [address] [address] 05/15/2024 11:58:20 05/15/2024 12:31:15 Abnormal uterine bleeding 6606927118 9100 N93.9 [id number] Diogo Bryan MD [place] [address] [address] 05/18/2024 13:42:09 05/18/2024 14:52:30 Abnormal uterine bleeding 7268547278 9100 N93.9 this patient is a 23-year-ol [...] to proceed with laboratory evaluation Preoperative state 82730 002 Z78.9 [id number] Diogo Bryan MD [place] [address],[place] [address] 07/27/2024 11:03:55 07/27/2024 12:23:34 Contraception care management 248131631 Z30.9 23-year-ol d female who 1 week from a IUD insertion under anesthesia . Hysterosco py D and C was also performed. She tolerated well. She has no complaints . She will return later for IUD check. [id number] [facility] [address] [address] 08/15/2024 10:37:45 08/15/2024 11:14:49 Pain in pelvis 49904836 R10.2 [id number] Diogo Bryan MD [place] [address],[facility] [place] [address] 08/20/2024 10:28:22 08/20/2024 15:10:06 Insertion of intrauterine contraceptive device 31126632 Z30.430 IUD was removed replaced. She tolerated it well. To follow up in 1 month [id number] Diogo Bryan MD [place] [address] [address] 08/29/2024 13:50:59 08/29/2024 15:00:33 Pain in pelvis 50737451 R10.2 23-year-ol d female. Patient has pain [...] sonia of the IUD Bacterial vaginosis 4197 11247 N76.0 [id number] Josi [facility] [address] [address] 08/30/2024 16:35:42 08/30/2024 17:27:27 Mechanical complication of intrauterine contraceptive device 038460002 T83.39XA [id number] Diogo Bryan MD [place] [address] [address] 09/24/2024 10:33:04 09/24/2024 11:22:24 Contraception care management 035950632 Z30.9 This patient is a 23 female who presents for IUD check. She had a mirena IUD inserted [facility] 1 month ago. She has no complaints . She denies any excessive bleeding or pain. She has had some cramping and some spotting. Otherwise, she feels that is going well and wants to continue her IUD. [id number] Diogo Bryan MD [place] [address] [address] 10/26/2024 13:56:29 10/29/2024 07:50:21 Tinea corporis 42612594 B35.4 Health Concerns Section Related Observation LastModified by Organization Detai ls LastModified Time None Recorded Concern Status LastModified by Organization Details LastModified Time None Recorded Advance Directives Directive N: Payers Encounter Date Sequence Insurance Name Policy Number Policy Leija Covered Member ID Leija Member ID Guarantor Name 08/20/2024 1 [facility] (MEDICAID HMO) [id number] Mac Matta [id number] [facility] 08/29/2024 1 [facility] (MEDICAID HMO) [id number] Mac Cuevaelin [id number] [facility] Sigrdi 08/30/2024 1 [facility] (MEDICAID HMO) [id number] Mac Cuevaelin [id number] [facility] Sigrid 09/24/2024 1 [facility] (MEDICAID HMO) [id number] Mac Cuevaelin [id number] [facility] 10/26/2024 1 [facility] (MEDICAID HMO) [id number] Mac Cuevaelin [id number] [facility] Notes Date Note Type Note Provider Name and Address Organization Details Recorded Time 08/20/2024 text/html Patient presents for IUD removal and insertion. The procedure was explained to the patient in detail. She understands the procedure. She understands the risks, benefits, and alternatives. She has completed the informed consent process and is ready to proceed. Diogo Bryan MD [address], [place], [address], [facility] 08/20/2024 14:47:03 08/29/2024 text/html 23-year-old [...] IUD Diogo Bryan MD [address], [place], [address], [facility] 08/29/2024 15:00:24 09/24/2024 text/html This [...] IUD. Diogo Bryan MD [address], [place], [address], [facility] 09/24/2024 11:20:29 10/26/2024 text/html 23-year-old [...] instructions. Diogo Bryan MD [address], [place], [address], [facility] 10/27/2024 12:52:27 OBGyn Episode No OBEpisode recorded.
--- OUTSIDE RECORDS SUMMARY | 2025-01-28 00:58 | XMS_ITS | Clinical Summary ---
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
[2025-01-28 08:14] VITALS: BP 133/79; PULSE 86; RESP 18; TEMP 36.4; O2SAT 98
[2025-01-28 08:18] LABS: Glucose Point of Care 171 mg/dl (65-105)
[2025-01-28 08:22] LABS: BEDSIDEPREGUCG Negative (Negative)
[2025-01-28] MEDS: LACTATED RINGERS 1,000 ML 150 ML IV CONT (08:41)
--- NOTE | 2025-01-28 09:25 | WPDHPUPDATE1 ---
History and Physical Update Update Date/Time: 01/28/25 09:25 History and Physical has been reviewed, including an updated exam of the patient. There are NO changes in the patient's condition. Risks, benefits, and alternatives have been discussed and questions answered. Patient agrees to proceed with procedure.
--- NOTE | 2025-01-28 09:42 | SUR.OPER ---
EGD: start 932, end 935 Colonoscopy: start 939, end 946
[2025-01-28 09:52] VITALS: BP 116/67; PULSE 73; RESP 23; O2SAT 100
[2025-01-28 10:02] VITALS: BP 118/56; PULSE 69; RESP 23; O2SAT 100
[2025-01-28 10:12] VITALS: BP 124/82; PULSE 77; RESP 18; O2SAT 100
== END 2025-01-28 10:31 | disposition home or self-care (01) ==
PROVIDERS: PCP Nurse Practitioner Family; Referring Provider Nurse Practitioner; Visit Provider Internal Medicine Gastroenterology
PROC: 0DJ08ZZ Inspection of Upper Intestinal Tract, Via Natural or Artificial Opening Endoscopic (ICD-10-PCS; CPT 45378; principal; 2025-01-28 09:30)
DX: K21.9 Gastro-esophageal reflux disease without esophagitis (principal); K31.89 Other diseases of stomach and duodenum; K58.0 Irritable bowel syndrome with diarrhea; E78.1 Pure hyperglyceridemia; E11.9 Type 2 diabetes mellitus without complications; I10 Essential (primary) hypertension; E28.2 Polycystic ovarian syndrome; F41.9 Anxiety disorder, unspecified; G47.10 Hypersomnia, unspecified; R00.2 Palpitations; F32.9 Major depressive disorder, single episode, unspecified; F17.220 Nicotine dependence, chewing tobacco, uncomplicated; F12.90 Cannabis use, unspecified, uncomplicated; Z79.51 Long term (current) use of inhaled steroids; Z79.84 Long term (current) use of oral hypoglycemic drugs; Z79.85 Long-term (current) use of injectable non-insulin antidiabetic drugs; Z98.890 Other specified postprocedural states; Z90.49 Acquired absence of other specified parts of digestive tract; Z80.41 Family history of malignant neoplasm of ovary; Z80.1 Family history of malignant neoplasm of trachea, bronchus and lung; Z82.49 Family history of ischemic heart disease and other diseases of the circulatory system
CPT/HCPCS: 43239; 45380; 82948; 88305; J2003; J2704; J7120

== ENCOUNTER 2025-02-06 15:26 | Outpatient (CLI) | payer OTHER, SELFPAY ==
--- OUTSIDE RECORDS SUMMARY | 2025-02-06 16:38 | XMS_ITS | Clinical Summary ---
Author Organization [facility] Address [address] [address] [place] [address] Phone Care Team Providers Care Manager Of Photography Name Role Phone Unavailable Primary Care Provider [...] Encounters Date Type Department Care Team Description 02/05/2025 External Device Data STL ABSTRACTION Provider, Abstract 01/16/2025 4:15 PM CDT Telephone Check Up [facility] Oncology and Hematology - [address] [place] [address] Felipe Joyner MD Leukocytosis, unspecified type (Primary Dx) 01/09/2025 External Device Data STL ABSTRACTION Provider, Abstract 01/09/2025 External Device Data STL ABSTRACTION Provider, Abstract 01/07/[address] [facility] Oncology and Hematology - [address] [place] [address] Felipe Joyner MD 01/02/[address] [facility] Oncology and Hematology - [address] [place] [address] Felipe Joyner MD lab auth 01/02/[address] [facility] Oncology and Hematology - [address] [place] [address] Felipe Joyner MD 01/01/[address] [facility] Oncology and Hematology - [address] [place] [address] Felipe Joyner MD 12/31/2024 1:30 PM CDT Office Visit [facility] Oncology and Hematology - [address] [place] [address] Felipe Joyner MD Leukocytosis, unspecified type (Primary [...] Description 05/20/2025 1:00 PM CDT Office Visit [facility] Oncology and Hematology - [place] [address] [place] [address] [facility] [address] [place] [address] Felipe Joyner MD [address] [facility] [address] [place] [address] Health Maintenance Due Date Last [...] [facility] Comment: Test Performed at: [employer] [address] [place] [address] Steven Roberson MD Blood 01/03/2025 1:36 PM CDT 01/03/2025 1:36 PM CDT Felipe Joyner MD HEMATOLOGY ORDERABLES Final Res ult Performing Organization Address City[facility] Phone Number [facility] [phone] [facility] [employer] [address] [facility] [place] [address] * (ABNORMAL) C-REACTIVE PROTEIN (01/03/2025 1:36 PM CDT) CRP 49.2(H) <8.0 mg/L [facility] Comment: Test Performed at: [employer] [address] [place] [address] Steven Roberson MD Blood 01/03/2025 1:36 PM CDT 01/03/2025 1:36 PM CDT Felipe Joyner MD CHEMISTRY ORDERABLES Final Resu lt [facility] [phone] [facility] [address] [address] [phone] * FLOW CYTOMETRY REPORT (01/01/2025 1:52 PM CDT) us Felipe Joyner MD PATHOLOGY/CYTOLOGY ORDERABLES F inal Result * COMPREHENSIVE METABOLIC PANEL (12/31/2024 10:31 AM CDT) Blood us Felipe Joyner MD CHEMISTRY ORDERABLES Final Resu lt from Last 3 Months Insurance [place] Advance Directives For more information, please contact: [phone] * Full Code (Latest Code Status on File) Date Activated Date Inactivated Comments 06/08/2024 6:25 AM 06/08/2024 11:33 AM
--- OUTSIDE RECORDS SUMMARY | 2025-02-06 16:38 | XMS_ITS | Encounter Summary ---
Author Organization [facility] Address [address] [place] [address] Care Team Providers Care Inspector Aligning Name Role Phone Unavailable Primary Care Provider Unavailabl e Encounter Details Date Type Department Care Team (Late st Contact Info) Description 02/05/2025 External Device Data STL ABSTRACTION [...] Description 05/20/2025 1:00 PM CDT Office Visit [facility] Oncology and Hematology - [address] [place] [address] Felipe Joyner MD [address] [facility] [address] [place] [address] documented as of this encounter Visit Diagnoses Not on filedocumented in this encounter
--- OUTSIDE RECORDS SUMMARY | 2025-02-06 16:38 | XMS_ITS | Clinical Summary ---
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
--- OUTSIDE RECORDS SUMMARY | 2025-02-06 16:38 | XMS_ITS | Referral Summary ---
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
--- OUTSIDE RECORDS SUMMARY | 2025-02-06 16:38 | XMS_ITS | CONTINUITY OF CARE DOCUMENT ---
Author Name paola, paola Address Unknown Organization [facility] Address [id number] [place] [address] [address] [place] [address] Phone [phone] Care Team Providers Care Mineral Ore Processing Labourer Name Role Phone Raj SIMS, Marvin Unavailable TREVOR SIMS, HUSSEIN Unavailable Unavailable INSURANCE PROVIDERS Payer name Policy type / Coverage type [place] [employer] party ID [place] MED[place] Medicaid [id number]
--- OUTSIDE RECORDS SUMMARY | 2025-02-06 16:38 | XMS_ITS | Data Portability ---
Author Organization [facility] [place] Address [address] [place] [address] [place] [address] Care Team Providers Care Air Traffic Control Specialist Name Role Phone PATRICIA WILLIAM Primary Care Provider RACHEL ALBERT Primary Care Provider Assessment No assessment recorded. Plan of Treatment Reminders Order Date Submit Date Provider Last Modified By Organization Details Last Modified Time Details Appointments None recorded. Lab None recorded. Referral None recorded. Procedures None recorded. Surgeries None recorded. Imaging US, transvagina l 2023 024 [email or web address] [place], [address], [place], [address], 4 19:45:10 Medication Orders clotrimazol e-betametha sone 1 %-0.05 % topical cream 2024 025 [facility], [address], [place], [id number], 5 12:50:15 metronidazo le 0.75 % (37.5 mg/5 gram) vaginal gel 2023 024 [facility], [address], [place], [id number], 4 11:06:13 Mirena 21 mcg/24 hr (up to 8 years) 52 mg intrauterin e device 2023 024 [email or web address] Not available 14:08:12 Patient TargetsNo targets recorded. Patient InstructionsNo instructions recorded. Reason for Referral None Reported. Results Created Date Observation Date Name Description Value Unit Range Abnormal Flag Note LastModifiedBy Organization Detail LastModifiedTime 08/15/2008/15/2024 US, pelvi s No observ ation record ed. [facility] [address], [place], [address], 08/15/2024 17:30:18 08/15/2008/15/2024 US, trans vagin al No observ ation record ed. [facility] [address], [place], [address], 08/15/2024 17:30:31 08/15/2008/15/2024 US, pelvi s No observ ation record ed. [address], [place], [address], 08/16/2024 16:07:33 08/30/20 24 08/30/2024 US, trans vagin al No observ ation record ed. [email or web address] [place] [address], [place], [address], 08/30/2024 21:42:27 08/30/2008/30/2024 , trans vagin al No observ ation record ed. [email or web address] [address], [place], [address], 08/30/2024 21:42:27 Result Notes None recorded. Problems Name Problem SNOMED Code Status Onset Date Resolution Date Notes Provider Name and Address Organization Details Recorded Time Polycystic ovary syndrome 365855794 Active 2023 Becca Hernandez NAD[facility]- [address], [place], [address], [place] - [facility] 14:57:33 Insulin resistance 810869702 Active 2014 Becca Hernandez [facility] [address], [place], [address], [facility] 4 09:49:09 Secondary amenorrhea 271457733 Active 2017 Becca Hernandez [facility] [address], [place], [address], [facility] 4 09:50:15 Hypertriglyc eridemia 212405199 Active 2023 Becca Hernandez [facility] [address], [place], [address], [facility] 4 09:50:27 Chronic peptic ulcer 619390518 Active 2022 Becca Hernandez [facility] [address], [place], [address], [facility] 4 09:50:53 Problem Notes None recorded. Procedures Surgical History Date Name Laterality Status Provider Name and Address Organization Details Recorded Time 024 IUD Removal completed Diogo Bryan MD [address], [place], [address], [facility] 08/20/2024 14:41:43 024 IUD Insertion completed Diogo Bryan MD [address], [place], [address], [facility] 08/20/2024 14:41:33 024 Laparoscopy [address] Digna Ace [facility] 10/26/2024 14:39:20 024 endoscopy completed Estrella Johnson [facility] 05/10/2024 16:00:13 023 Date of Last Pap Smear completed Digna Ace [facility] 08/09/2023 15:03:22 023 cholecystectomy completed Digna Ace [facility] 06/30/2023 14:39:16 Imaging Results Imaging Date Name Status LastModified by Organization Details LastModified Time 08/15/2024 US, pelvis completed [facility] [address], [place], [address], 08/15/2024 17:30:18 08/15/2024 US, transvaginal completed [email or web address] [place] [facility] [address], [place], [address], 08/15/2024 17:30:31 08/15/2024 US, pelvis completed [email or web address] [address], [place], [address], 08/16/2024 16:07:33 08/30/2024 US, transvaginal completed [email or web address] [facility] [address], [place], [address], 08/30/2024 21:42:27 08/30/2024 US, transvaginal completed [email or web address] [address], [place], [address], 08/30/2024 21:42:27 Procedure Notes None recorded. Medical Equipment None Reported. Allergies Allergen ID Allergen Name Allergen Category Reaction Reaction Severity Criticality Documentation Date Start Date Code Code System Note Provider Name and Address Organization Details Recorded Time 14480 morphine medicatio n Not available Not available Not available 05/18/[address] [facility] 14:01:04 Medications Name Sig Start Date [...] mg or 0.5 mg (2 mg/3 mL) [facility] 11/16 completed Not Available Not Available Not Available Vitals Date Recorded Body height Body mass index (BMI) Body weight Systolic blood pressure Diastolic blood pressure Provider Name and Address Organization Details Last Updated DateTime 08/20/2024 157.48 cm 65.8 kg/m2 745907.2 5 g 118 mm[Hg] 80 mm[Hg] [facility] 4 11:16:01 Date Recorded Body height Body mass index (BMI) Body weight Systolic blood pressure Diastolic blood pressure Provider Name and Address Organization Details Last Updated DateTime 08/29/2024 157.48 cm 65.3 kg/m2 074055.4 8 g 150 mm[Hg] 94 mm[Hg] [facility] 4 14:16:12 Date Recorded Body height Body mass index (BMI) Body weight Systolic blood pressure Diastolic blood pressure Provider Name and Address Organization Details Last Updated DateTime 09/24/2024 157.48 cm 65.3 kg/m2 564667.4 8 g 141 mm[Hg] 95 mm[Hg] [facility] 4 11:03:39 Date Recorded Body height Body mass index (BMI) Body weight Systolic blood pressure Diastolic blood pressure Provider Name and Address Organization Details Last Updated DateTime 10/26/2024 157.48 cm 62.7 kg/m2 236238.1 8 g 131 mm[Hg] 93 mm[Hg] Digna Ace [facility] 14:36:46 Social History Question Answer Notes LastModified by Organizat ion Details LastModified Time Tobacco Smoking Status Never Smoker Stefanie Nassar soraya, [facility] 06/30/2023 14:31:55 Do You Have An [...] available 12/30/2022 Are You Currently Employed? Yes Information not available 06/30/2023 Are You Deaf Or Do You Have Serious Difficulty Hearing? No Information not available 01/11/2023 What Type Of Diet Are You Following? REGULAR Information not available 12/30/2022 What Is The Highest Grade Or Level Of School You Have Completed Or The Highest Degree You Have Received? 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 Yes Information not available 01/11/2023 Do You Use Protection During Sex? No Information not available 01/11/2023 Do You Use Your Seat Belt Or Car Seat Routinely? No Information not available 01/11/2023 Are You Sexually Active? Yes Female Partners [email or web address] Information not available 06/30/2023 Do You Have Smoke And Carbon Monoxide Detectors In Your Home? Yes Information not available 01/11/2023 How Much Tobacco Do You Smoke? No Information not available 01/11/2023 Do You Feel Stressed (tense, Restless, Nervous, Or Anxious, Or Unable To Sleep At Night)? [id number] Information not available 01/11/2023 Do You Use Any Illicit Or Recreational Drugs? No Information not available 12/30/2022 Do You Use Sunscreen Routinely? No Information not available 01/11/2023 Has Tobacco Cessation Counseling Been Provided? No [email or web address] Information not available 06/30/2023 Have You Used IV Drugs? No Information not available 01/11/2023 Do You Or Have You Ever Used Any Other Forms Of Tobacco Or Nicotine? No [email or web address] Information not available 06/30/2023 Sex: Unknown Functional [...] 2022 14:42:16 Unspecified Relation Family history unknown [email or web address] Not available 2024 13:56:33 Medical History Condition Response Allergies (Food, seasonal, environmental ) N Other Y Blood Transfusion N Breast Cancer N Drug/Latex Allergies/Reactions N Lung Disease N Dermatologic Disorders N Defects or Inherited Disease N Breast Problem N Gestational Diabetes N Hematologic disorders N Anesthesia Complications N History of STI N Deep Vein Thrombosis N Polycystic ovary syndrome Y Anxiety Disorder N Autoimmune disease N Arthritis N Polyps N Infertility N History of abnormal pap N Acid Reflux (GERD) N Cancer N Varicosities N Stroke N Neurologic/Epilepsy N Endometriosis N High Cholesterol Y Headaches N Fibromyalgia N Kidney Disease N Heart Problems N Thyroid Problems N Kidney or Bladder Problems N GI Problems Y Eating Disorder [...] SNOMED-CT Code Diagnosis ICD10 Code Diagnosis Note [id number] Becca Hernandez [facility] [address] [address] 12/30/2022 12:18:03 12/30/2022 16:58:19 Secondary amenorrhea 863196023 N91.1 Today we discussed menses & amenorrhei [...] plan of care. Cyst of left ovary 72916 06582 6271225 N83.202 Left cyst vs paratubal cyst very smallLikel y not the source of pain that has been plaguing herMore concerned about lack of monthly cycles which we discussedP COS is suspected. Will see if recent cholestero l, hbga1c etc have been performed by PCP.If not will update those next visit. FSH/LH: 7.8/7.1Tot al T- 36 wnlEstroge n (e1): 413.2 [id number] Becca Hernandez [facility] [address] [address] 01/11/2023 12:29:58 01/11/2023 13:32:02 Secondary amenorrhea 629669102 N91.1 Today we discussed trial of provera.Maida [...] counseling and review of plan of care. [id number] Sharita Lieberman [place] [address] [address] 05/02/2023 16:04:08 05/02/2023 16:44:12 Pain in pelvis 05777163 R10.2 [id number] Becca Hernandez [place] [address],[place] [address] 05/03/2023 14:32:39 05/03/2023 15:07:47 Secondary amenorrhea 744710865 N91.1 Today we discussed US.Left ovarian cyst [...] counseling and review of plan of care. [id number] Becca Hernandez [facility] [address],[place] [address] 06/30/2023 14:31:50 06/30/2023 14:54:46 Sexually transmitted infectious disease 2463305 A64 Today would like STD urine & serum labs.Will update on resultsRes chedule WWE visit. Time spent in visit is a total of 15 mins with at least 50% of visit consisting of counseling and review of plan of care. [id number] Becca Hernandez [facility] [address],[place] [address] 07/07/2023 14:22:21 07/07/2023 14:48:02 Gynecologic examination 89243674 Z01.419 Take Calcium with Vitamin D 1200mg [...] Screen discussedC olon Screen naDexa [facility] [id number] Becca Hernandez [facility] [address],[facility] [place] [address] 08/09/2023 14:35:44 08/09/2023 15:26:55 Secondary amenorrhea 798393027 N91.1 Today we discussed switching from Provera [...] counseling and review of plan of care. [id number] Becca Hernandez [facility] [address],[facility] [place] [address] 11/01/2023 13:43:06 11/01/2023 15:07:32 Polycystic ovary syndrome 561367128 E28.2 Z68.44 Today we discussed PCOS and [...] Low HDL (good) cholestero l. Insulin resistance 54707 5000 E88.819 Will see if qualifies for injectable or something other than Metformin with her prominent Hx of peptic ulcer/Gall bladder and it likelihood of causing significan t GI issues or exacerbati on of these issues. [facility] 371676850 N91.1 Patient is here today for a [...] of plan of care. Hyperlipid emia screening 406598169 Z13.220 Update to check for high LDL/TG/Tot al/Low HDL [id number] MARCK [facility] [address] [address] 11/16/2023 15:55:38 11/22/2023 17:14:20 Insulin resistance 804098136 E88.819 Z68.44 E66.9 E88.810 E28.2 Will complete 0.75mg weekly x 4wks.Then, return to office for med check & if tolerating we increase to next dose. In depth job counselor on trulicity purpose, dosage, dosage schedule, [...] counseling and review of plan of care. [id number] Becca Hernandez [facility] [address],[place] [address] 12/13/2023 15:42:18 12/13/2023 16:18:12 Prediabetes 288493851 R73.03 Z68.44 E88.810 E28.2 Z83.49 Patient is [...] and review of plan of care. Tachycardia 0385029 R00. [address] for random HBP/Palpit ations Contracept ion care management 180828980 N91.1 BCP switched to POP only vs CONNER due to verbalizat ion of heart palpitatio ns/HBP. Will f/u in 7wks at med check for trulicity. [id number] [facility] [address],[place] [address] 01/24/2024 15:12:35 01/24/2024 16:03:45 Venereal disease screening 548049878 Z11.3 STD screen urine sent to confirm no std.Partne r recently treated for trich (female partner)Wi ll reach out with results. Time spent in visit is a total of 15 mins with at least 50% of visit consisting of counseling and review of plan of care. Contracept ion care management 220708341 N91.1 BCP switched to POP only vs CONNER due to verbalizat ion of heart palpitatio ns/HBP.Alon ples given x 6mosCall for additional samples if neededDoin g well. [id number] MARCK Donohue [place] [address] [address] 05/10/2024 15:49:03 05/10/2024 16:28:39 Abnormal uterine bleeding 1684451696 9100 N93.9 The patient and I discussed [...] of plan of care. Polycystic ovary syndrome 423165883 E28.2 [id number] Josi [facility] [address] [address] 05/15/2024 11:58:20 05/15/2024 12:31:15 Abnormal uterine bleeding 6640323790 9100 N93.9 [id number] Diogo Bryan MD [place] [address] [address] 05/18/2024 13:42:09 05/18/2024 14:52:30 Abnormal uterine bleeding 4888695930 9100 N93.9 this patient is a 23-year-ol [...] to proceed with laboratory evaluation Preoperative state 27198 002 Z78.9 [id number] Diogo Bryan MD [place] [address],[place] [address] 07/27/2024 11:03:55 07/27/2024 12:23:34 Contraception care management 853711918 Z30.9 23-year-ol d female who 1 week from a IUD insertion under anesthesia . Hysterosco py D and C was also performed. She tolerated well. She has no complaints . She will return later for IUD check. [id number] [facility] [address] [address] 08/15/2024 10:37:45 08/15/2024 11:14:49 Pain in pelvis 27202878 R10.2 [id number] Diogo Bryan MD [place] [address],[facility] [place] [address] 08/20/2024 10:28:22 08/20/2024 15:10:06 Insertion of intrauterine contraceptive device 48889310 Z30.430 IUD was removed replaced. She tolerated it well. To follow up in 1 month [id number] Diogo Bryan MD [place] [address],[place] [address] 08/29/2024 13:50:59 08/29/2024 15:00:33 Pain in pelvis 37693634 R10.2 23-year-ol d female. Patient has pain [...] sonia of the IUD Bacterial vaginosis 4197 05558 N76.0 [id number] Josi [facility] [address],[place] [address] 08/30/2024 16:35:42 08/30/2024 17:27:27 Mechanical complication of intrauterine contraceptive device 764445665 T83.39XA [id number] Diogo Bryan MD [place] [address],[place] [address] 09/24/2024 10:33:04 09/24/2024 11:22:24 Contraception care management 923141817 Z30.9 This patient is a 23 female who presents for IUD check. She had a mirena IUD inserted formerly [facility] 1 month ago. She has no complaints . She denies any excessive bleeding or pain. She has had some cramping and some spotting. Otherwise, she feels that is going well and wants to continue her IUD. [id number] Diogo Bryan MD [place] [address],[place] [address] 10/26/2024 13:56:29 10/29/2024 07:50:21 Tinea corporis 51767111 B35.4 Health Concerns Section Related Observation LastModified by Organization Detai ls LastModified Time None Recorded Concern Status LastModified by Organization Details LastModified Time None Recorded Advance Directives Directive N: Payers Encounter Date Sequence Insurance Name Policy Number Policy Leija Covered Member ID Leija Member ID Guarantor Name 08/20/2024 1 [facility] (MEDICAID HMO) [id number] Mac Matta [id number] [facility] 08/29/2024 1 [facility] (MEDICAID HMO) [id number] Mca Cuevaelin [id number] [facility] 08/30/2024 1 [facility] (MEDICAID HMO) [id number] Mac Cuevaelin [id number] [facility] 09/24/2024 1 [facility] (MEDICAID HMO) [id number] Mac Cuevaelin [id number] [facility] 10/26/2024 1 [facility] (MEDICAID HMO) [id number] Mac Cuevaelin [id number] [facility] Notes Date Note Type Note Provider Name and Address Organization Details Recorded Time 08/20/2024 text/html Patient presents for IUD removal and insertion. The procedure was explained to the patient in detail. She understands the procedure. She understands the risks, benefits, and alternatives. She has completed the informed consent process and is ready to proceed. Diogo Bryan MD [address], [place], [address], [facility] 08/20/2024 14:47:03 08/29/2024 text/html [...] IUD Diogo Bryan MD [address], [place], [address], [facility] 08/29/2024 15:00:24 09/24/2024 text/html [...] IUD. Diogo Bryan MD [address], [place], [address], [facility] 09/24/2024 11:20:29 10/26/2024 text/html [...] instructions. Diogo Bryan MD [address], [place], [address], [facility] 10/27/2024 12:52:27 OBGyn Episode No OBEpisode recorded.
--- OUTSIDE RECORDS SUMMARY | 2025-02-06 16:38 | XMS_ITS | Clinical Summary ---
Author Organization [facility] Address [facility] [place] [address] Care Team Providers Care Assistant Spa Manager Name Role Phone Cleveland Barahona MD Primary Care Provider [phone] Allergies Active Allergy Reactions Criticality Noted Date [...] Comments Blood Pressure 158/103 10/27/2023 3:45 PM WAGE CONCILIATOR Pulse 73 10/27/2023 3:45 PM WAGE CONCILIATOR Temperature 36.6 C (97.9 F) 10/27/2023 2:18 PM WAGE CONCILIATOR Respiratory Rate 20 10/27/2023 3:45 PM WAGE CONCILIATOR Oxygen Saturation 98% 10/27/2023 3:45 PM WAGE CONCILIATOR Inhaled Oxygen Concentration - - Weight 147.8 kg (325 lb 13.4 oz) 10/27/2023 2:18 PM WAGE CONCILIATOR Height 154.9 cm (5' 1 ) 10/27/2023 2:18 PM WAGE CONCILIATOR Body Mass Index 61.57 10/27/2023 2:18 PM WAGE CONCILIATOR Plan of Treatment Health Maintenance Due Date [...] 5 Years) and At-Risk Patients (6 to 49 Years) Aged Out 04/15/2003, 05/17/2001, 03/15/2001, Additional [...] complete this topic Insurance RAMOS Care Teams Assistant Spa Manager Relationship Specialty Start Date End Date Cleveland Barahona MD [address] [place] [address] PCP - General INTERNAL MEDICINE 02/18/22
[2025-02-09 02:53] LABS: Tissue Transglutaminase IgA Ab <1.0 U/mL; Tissue Transglutaminase IgG Ab <1.0 U/mL
== END 2025-02-06 15:27 | disposition home or self-care (01) ==
LOC: ANHLAB 15:29
PROVIDERS: PCP Nurse Practitioner Family; Visit Provider Internal Medicine Gastroenterology
DX: K52.9 Noninfective gastroenteritis and colitis, unspecified (principal)
CPT/HCPCS: 36415; 83516

== ENCOUNTER → 2025-02-11 13:21 | Outpatient (CLI) | payer OTHER, SELFPAY ==
--- NOTE | ~2025-02-11 | XR_ITS ---
XR ankle LT min 3V Ordering provider: Ethel Liz NP History: . M25.572 - Pain in left ankle and joints of left foot . Comparison: None. FINDINGS: BONES: No acute fracture or dislocation. JOINT SPACES: The ankle mortise is normal. SOFT TISSUES: Soft tissue swelling over the medial and lateral malleoli. IMPRESSION: No acute osseous abnormality left ankle. Reviewed, dictated and finalized at location A.
--- OUTSIDE RECORDS SUMMARY | 2025-02-11 15:05 | XMS_ITS | Clinical Summary ---
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
--- OUTSIDE RECORDS SUMMARY | 2025-02-11 15:05 | XMS_ITS | Clinical Summary ---
Author Organization [facility] Address [address] [address] [place] [address] Phone Care Team Providers Care Lithographic Press Operator Name Role Phone Unavailable Primary Care [...] 01/16/2025 4:15 PM CDT Telephone Check Up [facility] Oncology and Hematology - [address] [place] [address] Felipe Joyner MD Leukocytosis, unspecified type (Primary Dx) 01/09/2025 External Device Data STL ABSTRACTION Provider, Abstract 01/09/2025 External Device Data STL ABSTRACTION Provider, Abstract 01/07/2025 Orders Only [facility] Oncology and Hematology - [address] [place] [address] Felipe Joyner MD 01/02/2025 Telephone [facility] Oncology and Hematology - [address] [place] [address] Felipe Joyner MD lab auth 01/02/2025 Abstract [facility] Oncology and Hematology - [address] [place] [address] Felipe Joyner MD 01/01/2025 Orders Only [facility] Oncology and Hematology - [address] [place] [address] Felipe Joyner MD 12/31/2024 1:30 PM CDT Office Visit [facility] Oncology and Hematology - [address] [place] [address] Felipe Joyner MD Leukocytosis, unspecified type (Primary [...] Description 05/20/2025 1:00 PM CDT Office Visit [facility] Oncology and Hematology - [place] [address] [place] [address] [facility] [address] [place] [address] Felipe Joyner MD [address] [facility] [address] [place] [address] Health Maintenance Due Date Last [...] [facility] Comment: Test Performed at: [facility] [address] [place] [address] Steven Roberson MD Blood 01/03/2025 1:36 PM CDT 01/03/2025 1:36 PM CDT Felipe Joyner MD HEMATOLOGY ORDERABLES Final Res ult Performing Organization Address [facility] Phone Number [facility] [phone] [facility] [address] [place] [address] * (ABNORMAL) C-REACTIVE PROTEIN (01/03/2025 1:36 PM CDT) CRP 49.2(H) <8.0 mg/L [facility] Comment: Test Performed at: [facility] [address] [place] [address] Steven Roberson MD Blood 01/03/2025 1:36 PM CDT 01/03/2025 1:36 PM CDT Felipe Joyner MD CHEMISTRY ORDERABLES Final Resu lt [facility] [phone] [employer] [facility] [address] [address] [address] * FLOW CYTOMETRY REPORT (01/01/2025 1:52 PM CDT) us Felipe Joyner MD PATHOLOGY/CYTOLOGY ORDERABLES F inal Result * COMPREHENSIVE METABOLIC PANEL (12/31/2024 10:31 AM CDT) Blood us Felipe Joyner MD CHEMISTRY ORDERABLES Final Resu lt from Last 3 Months Insurance [place] Advance Directives For more information, please contact: [phone] * Full Code (Latest Code Status on File) Date Activated Date Inactivated Comments 06/08/2024 6:25 AM 06/08/2024 11:33 AM
--- OUTSIDE RECORDS SUMMARY | 2025-02-11 15:05 | XMS_ITS | Clinical Summary ---
Author Organization [facility] Address [facility] [place] [address] Care Team Providers Care Pals Specialist Name Role Phone Cleveland Barahona MD Primary Care Provider [phone] Allergies Active Allergy Reactions Criticality Noted Date [...] Comments Blood Pressure 158/103 10/27/2023 3:45 PM [employer] Pulse 73 10/27/2023 3:45 PM [employer] Temperature 36.6 C (97.9 F) 10/27/2023 2:18 PM [employer] Respiratory Rate 20 10/27/2023 3:45 PM [employer] Oxygen Saturation 98% 10/27/2023 3:45 PM [employer] Inhaled Oxygen Concentration - - Weight 147.8 kg (325 lb 13.4 oz) 10/27/2023 2:18 PM [employer] Height 154.9 cm (5' 1 ) 10/27/2023 2:18 PM [employer] Body Mass Index 61.57 10/27/2023 2:18 PM [employer] Plan of Treatment Health Maintenance Due Date [...] complete this topic Insurance [employer] Care Teams Pals Specialist Relationship Specialty Start Date End Date Cleveland Barahona MD [address] [place] [address] PCP - General INTERNAL MEDICINE 02/18/22
--- OUTSIDE RECORDS SUMMARY | 2025-02-11 15:05 | XMS_ITS | Referral Summary ---
Author Organization 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 Care Teams Domestic Technician Relationship Specialty Start Date End Date Becca Hernandez NP [address] [place], [place] [id number] PCP - General Nurse Practitioner 12/14/23
--- OUTSIDE RECORDS SUMMARY | 2025-02-11 15:05 | XMS_ITS | CONTINUITY OF CARE DOCUMENT ---
Author Name paola, paola Address Unknown Organization [facility] Address [id number] [place] [address] [address] [place] [address] Phone [phone] Care Team Providers Care Airborne Operations Manager Name Role Phone Raj SIMS, Marvin Unavailable [phone] TREVOR SIMS, HUSSEIN Unavailable Unavailable INSURANCE PROVIDERS Payer name Policy type / Coverage type [place] [employer] [place] [employer] Medicaid [id number]
== END ==
PROVIDERS: PCP Nurse Practitioner Family; Visit Provider Nurse Practitioner Family
DX: M25.572 Pain in left ankle and joints of left foot (principal)
CPT/HCPCS: 73610

== ENCOUNTER 2025-02-22 14:27 | Emergency (ER) | payer OTHER, SELFPAY ==
[2025-02-22 14:54] VITALS: BP 142/95; PULSE 96; RESP 18; TEMP 36.4; O2SAT 100
[2025-02-22 15:20] LABS: EDUAAPPEAR Clear; EDUABILI Negative (Negative); EDUABLOOD Negative (Negative); EDUACOLOR1 Yellow; EDUAGLUCOSE 2+ (Negative); EDUAKETONE Negative (Negative); EDUALEUKO Negative (Negative); EDUANITRATE Negative (Negative); EDUAPH 6.5; EDUAPROTEIN Negative (Negative); EDUAUROBILI 0.2
--- NOTE | 2025-02-22 16:13 | ED.ABDPAIN ---
HPI - Abdominal Pain General Chief Complaint: Abdominal Pain Stated Complaint: Abdominal Pain Time Seen by Provider: 02/22/25 15:20 Source: patient and RN notes reviewed Mode of arrival: ambulatory Limitations: no limitations History of Present Illness HPI narrative: 24-year-old female presents Express Care complaining of abdominal pain and diarrhea for 4 days. 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 Patient describes her lower abdominal pain as sharp and stabbing pain that is constant. Patient says she has been having watery diarrhea as well. She said yesterday she noticed some bright red blood in her stool and when she wiped. Patient denies any urinary symptoms, pelvic pain, vaginal discharge, fevers, body aches, chills, nausea, or vomiting. Patient has been using ice, heat, and Tylenol for symptoms without relief. Related Data Home Medications ?Medication ?Instructions ?Recorded ?Confirmed ?Last Taken ?Type metformin 500 mg tablet,extended 1,000 mg PO BID 07/04/24 02/11/25 01/27/25 History release 24 hr metoprolol tartrate 25 mg tablet 25 mg PO DAILY 10/23/24 02/11/25 01/28/25 07:00 History Allergies Allergy/AdvReac Type Severity Reaction Status Date / Time morphine Allergy Mild Hives Verified 02/22/25 15:28 bupropion (From Wellbutrin) AdvReac Intermediate Agitated Verified 02/22/25 15:28 Review of Systems Review of Systems: CONSTITUTIONAL: Denies fever, chills, body aches, or sweats. EYES: Denies visual changes, redness, or discharge. ENT: Denies rhinorrhea, congestion, sore throat, or otalgia. CARDIOVASCULAR: Denies chest pain, palpitations, or edema. RESPIRATORY: Denies cough or dyspnea. GASTROINTESTINAL: Denies nausea or vomiting. Positive for abdominal pain, bloody stools, and diarrhea. GENITOURINARY: Denies dysuria, vaginal discharge, pelvic pain, or hematuria. SKIN: Denies rash or itching. MUSCULOSKELETAL: Denies back pain, joint pain, or myalgia. NEUROLOGIC: Denies headache, numbness, or weakness. PSYCHIATRIC: Denies anxiety or depression. All other systems reviewed are negative, except as documented in HPI. [facility] Past Medical History Medical History Anxiety Hypertriglyceridemia Type 2 diabetes mellitus with morbid obesity Arthralgia of multiple joints Hypertension Weight gain, abnormal Essential hypertension Elevated BP without diagnosis of hypertension Palpitations Right sided abdominal pain Morbid obesity with BMI of 60.0-69.9, adult Mass of left lobe of liver Hepatic steatosis Elevated glucose Elevated WBCs Hypersomnia Snoring Right knee pain Left ankle pain Major depression Encounter to establish care Acid reflux Gallstones Patient denies significant medical history Surgical History Surgical History History of cholecystectomy 05/20/2023 Family History Family History Father Alcoholism Diabetes mellitus Hypertension Heart disease Mother Ovarian cancer Sibling Depression Grandparent Hypertension Heart disease Grandparent Alcoholism Lung cancer Social History Social History Smoking status: Never smoker Tobacco type: smokeless tobacco Smokeless tobacco user: dissolvable tobacco Additional smoking assessment comments: DAILY USE Alcohol intake: former Alcohol use details: 1-2 a month Substance use: never Substance use type: does not use Other substance usage details: daily Last use: 2 MONTHS 2 TIMES PER WEEK Do You Feel Safe in your Home?: Yes Lack of Transportation: No Lack of Food: Never True Current Housing: I Have Housing Concerned About Future Housing: No Difficulty Paying Gas/Electric Bills: No Difficulty Paying for Meds: No Currently Unemployed: YES Education: Trade/Vocational Certificate Difficulty w/ Childcare or Family Care: No Living arrangements: with friend(s) Spiritual care concerns: No Comments At the time of my signature, I reviewed and agree with the nursing past medical, surgical, social, and family history. There is no relevant family history pertinent to the patient complaint. Exam Narrative: GENERAL: This is a well-nourished, well-developed adult, in no apparent distress. They are non ill-appearing, nontoxic appearing. Patient is morbidly obese. Exam is limited by large body habitus. HEAD: normocephalic, atraumatic. EYES: Sclera clear/white. Conjunctiva normal. Vision is grossly intact. Extraocular movements intact EARS: External ears normal, NOSE: External nose normal THROAT: Mucous membranes moist NECK: Neck supple, non-tender without lymphadenopathy, masses or thyromegaly. CARDIOVASCULAR: Regular rate and rhythm without murmurs, gallops, or rubs. RESPIRATORY: Clear to auscultation. Breath sounds equal bilaterally. No wheezes, rales, or rhonchi. GASTROINTESTINAL: Abdomen is large, tender to palpation to the to the right lower and left lower quadrants. Abdomen is Nondistended. Bowel sounds are active. No palpable masses. No guarding. SKIN: warm, Dry, intact with no suspicious lesions or rash, good texture and turgor. NEURO: awake, alert, and oriented to person, place and time. There were no obvious focal neurologic abnormalities. EXTREMITIES: No joint tenderness, effusion, or edema noted. BACK: Nontender without deformity. No CVA tenderness. Course Course Emergency Course: Portions of this record may have been created with voice recognition software Level of Care: Express Care Visit Vital Signs Vital signs: Vital Signs Temperature 97.5 F L 02/22/25 14:54 Pulse Rate 96 02/22/25 14:54 Respiratory Rate 18 02/22/25 14:54 Blood Pressure 142/95 H 02/22/25 14:54 Pulse Oximetry 100 02/22/25 14:54 Oxygen Delivery Room Air 02/22/25 14:54 Temperature 97.5 F L 02/22/25 14:54 Pulse Rate 96 02/22/25 14:54 Respiratory Rate 18 02/22/25 14:54 Blood Pressure 142/95 H 02/22/25 14:54 Pulse Oximetry 100 02/22/25 14:54 Oxygen Delivery Room Air 02/22/25 14:54 Reviewed Transfer Transfered to: [facility] Transportation: Other (Private vehicle) Transfer rationale: Lower abdominal pain, higher level care Accepting physician: Maribel MCCOY MDM - Abdominal Pain MDM Narrative Medical decision making narrative: Urine dipstick was negative for any evidence of urinary tract infection. 2+ glucose is present however patient is diabetic. Urine culture pending. Given the patient's symptoms and diffuse abdominal pain on exam it is recommended the patient seek higher level care and emergency department for further evaluation and management of her symptoms. Patient is agreeable to go to [facility]. Called report over the [facility] and spoke with Maribel MCCOY who is aware that this patient has accepted the patient for transfer. Patient was advised to immediately go to the emergency department remain NPO. Differential Diagnosis Differential diagnosis: Likely abdominal pain, acute appendicitis, diverticulitis and other (Ovarian cyst) Lab Data Attestation: I reviewed the patient's lab results. Labs: Lab Results 02/22/25 Range/Units 15:17 POC Urine Color Yellow POC Urine Clarity Clear POC Urine pH 6.5 POC Ur Specif [place] 1.020 POC Urine Protein Negative (Negative) POC Ur Glucose (UA) 2+ (Negative) POC Urine Ketones Negative (Negative) POC Urine Blood Negative (Negative) POC Urine Nitrite Negative (Negative) POC Urine Bilirubin Negative (Negative) POC Urine Urobilinogen 0.2 POC U Leukocyte Esteras Negative (Negative) Critical Care Time Critical Care Time Critical Care Time: No Discharge Plan Discharge Clinical Impression: Bilateral lower abdominal pain Patient Disposition: Acute Care Hospital Condition: Stable Patient Language: Yoruba Prescriptions: No Action metoprolol tartrate 25 mg tablet 25 mg PO DAILY sertraline 50 mg tablet 50 mg PO DAILY Qty: 30 11RF Rx Instructions: take with 100mg sertraline tab to equal 150mg tab Jardiance 10 mg tablet 10 mg PO QAM Qty: 30 11RF sertraline 100 mg tablet 100 mg PO DAILY Qty: 30 11RF buspirone 7.5 mg tablet 7.5 mg PO BID Qty: 60 11RF omeprazole 40 mg capsule,delayed release(DR/EC) 40 mg PO BID Qty: 60 3RF metoclopramide HCl [Reglan] 5 mg tablet 5 mg PO .HS Qty: 30 3RF metformin 500 mg tablet extended release 24 hr 1,000 mg PO BID Rx Instructions: start 1 tab daily x1 week. Increase by 1 tab each week to 2 tabs 2x/day with meals. (DME) blood-glucose meter [Blood Glucose Monitoring] Kit See Rx Instructions .Route Qty: 1 0RF Rx Instructions: As directed dicyclomine 20 mg tablet See Rx Instructions .ROUTE .COMPLEX Qty: 90 11RF Dose Instruction: TAKE 1 TABLET BY MOUTH THREE TIMES DAILY Rx Instructions: TAKE 1 TABLET BY MOUTH THREE TIMES DAILY (DME) OneTouch Verio test strips Strip See Rx Instructions .Route Qty: 100 3RF Rx Instructions: As directed Trulicity 1.5 mg/0.5 mL pen injector 1.5 mg subcut WEEKLY Qty: 2 5RF Rx Instructions: call office for refill losartan 100 mg tablet 100 mg PO DAILY Qty: 90 3RF hydrochlorothiazide 12.5 mg tablet 12.5 mg PO QAM Qty: 30 5RF trazodone 50 mg tablet 50 mg PO QHS PRN (Reason: sleep) Qty: 30 3RF hyoscyamine sulfate [Levsin/SL] 0.125 mg tablet, sublingual 0.125 mg PO QID Qty: 120 3RF colestipol 1 gram tablet 1 g PO BID Qty: 60 3RF hyoscyamine sulfate [Levsin] 0.125 mg tablet 0.125 mg PO .every 6 hours Qty: 120 3RF amitriptyline 25 mg tablet 25 mg PO QHS Qty: 30 3RF Follow-up/Referrals: Ethel Liz NP [Primary Care Provider] - Time of Disposition: 15:34
--- OUTSIDE RECORDS SUMMARY | 2025-02-23 14:28 | XMS_ITS | Clinical Summary ---
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 Gender Identity Not on file Sexual Orientation [...] 08/26/2005, 04/15/2003, Additional history exists Influenza Vaccine (Season Ended) 2025 09/28/20 03 Hepatitis B Screening Completed 08/17/2001 , 2000, 2000 Pneumococcal vaccine <65 Completed 003, 05/17/2001, 03/15/2001, Additional history exists HPV Vaccines Completed 05/24/2012, 05/0 10/2011, 12/01/2011 Varicella Vaccines Completed 06/09/2015, 02/08/2002 Insurance [facility] Care Teams Gear Technician Relationship Specialty Start Date End Date Becca Hernandez NP [address] [place] [address] PCP - General Nurse Practitioner 12/14/23
--- OUTSIDE RECORDS SUMMARY | 2025-02-23 14:28 | XMS_ITS | CONTINUITY OF CARE DOCUMENT ---
Author Name paola, paola Address Unknown Organization [facility] Address [address] [place] [address] [address] [place] [address] Phone [phone] Care Team Providers Care Director Of Teaching And Learning Name Role Phone Raj SIMS, Marvin Unavailable TREVOR SIMS, HUSSEIN Unavailable Unavailable INSURANCE PROVIDERS Payer name Policy type / Coverage type [place] [employer] party ID [employer] MEDICA[employer] Medicaid [id number]
--- OUTSIDE RECORDS SUMMARY | 2025-02-23 14:28 | XMS_ITS | Clinical Summary ---
Author Organization [facility] Address [address] [address] [place] [address] Phone Care Team Providers Care Receptionist Telephone Operator Name Role Phone Unavailable Primary Care [...] Hematology - [place] [address] [place] [address] Felipe Joyner MD Leukocytosis, unspecified type (Primary Dx) 01/09/2025 External Device Data [facility] ABSTRACTION Provider, Abstract 01/09/2025 External Device Data [facility] ABSTRACTION Provider, Abstract 01/07/2025 Orders Only [facility] Oncology and Hematology - [place] [address] [place] [id number] Felipe Joyner MD 01/02/2025 Telephone [facility] Oncology and Hematology - [place] [address] [place] [address] Felipe Joyner MD lab auth 01/02/2025 Abstract [facility] Oncology and Hematology - [place] [address] [place] [address] Felipe Joyner MD 01/01/2025 Orders Only [facility] Oncology and Hematology - [place] [address] [place] [address] Felipe Joyner MD 12/31/2024 1:30 PM CDT Office Visit [facility] Oncology and Hematology - [place] [address] [place] [address] Felipe Joyner MD Leukocytosis, unspecified type (Primary [...] [facility] - [place] [address] [facility] [address] [place] [address] Felipe Joyner MD [address] [facility] [address] [place] [address] Health Maintenance Due Date Last Done Comments HPV VACCINES (1 - 3-dose series) 2015 DTAP/TDAP/TD VACCINES (1 - Tdap) 2019 HEPATITIS B VACCINES (1 of 3 - 19+ 3-dose series) 10/24 CERVICAL CANCER SCREENING 2021 HPV/Cotest (21-29) 2021 PAP SMEAR 2021 INFLUENZA VACCINE (#1) 2024 Procedures Procedure [...] 46(H) < OR = 20 mm/h [facility] Comment: Test Performed at: [email or web address] [address] Steven Roberson MD Blood 01/03/2025 1:36 PM CDT 01/03/2025 1:36 PM CDT Felipe Joyner MD HEMATOLOGY ORDERABLES Final Res ult Performing Organization Address City/Special Care Hospital/ZIP Co de Phone Number [employer] [facility] [phone] [facility] [address] [place] [address] * (ABNORMAL) C-REACTIVE PROTEIN (01/03/2025 1:36 PM CDT) CRP 49.2(H) <8.0 mg/L [facility] Comment: Test Performed at: [facility] [id number] [place] [address] Steven Roberson MD Blood 01/03/2025 1:36 PM CDT 01/03/2025 1:36 PM CDT Felipe Joyner MD CHEMISTRY ORDERABLES Final Resu lt [facility] [phone] [facility] [address] [facility] [place] [address] * FLOW CYTOMETRY REPORT (01/01/2025 1:52 PM CDT) Felipe Joyner MD PATHOLOGY/CYTOLOGY ORDERABLES F inal Result * COMPREHENSIVE METABOLIC PANEL (12/31/2024 10:31 AM CDT) Blood Felipe Joyner MD CHEMISTRY ORDERABLES Final Resu lt from Last 3 Months Insurance [place] Advance Directives For more information, please contact: [phone] * Full Code (Latest Code Status on File) Date Activated Date Inactivated Comments 06/08/2024 6:25 AM 06/08/2024 11:33 AM
--- OUTSIDE RECORDS SUMMARY | 2025-02-23 14:28 | XMS_ITS | Data Portability ---
Author Organization [facility] [place] Address [address] [place] [address] [place] [address] Care Team Providers Care Production Utility Worker Name Role Phone PATRICIA WILLIAM Primary Care Provider RACHEL ALBERT Primary Care Provider Assessment No assessment recorded. Plan of Treatment Reminders Order Date Submit Date Provider Last Modified By Organization Details Last Modified Time Details Appointments None recorded. Lab None recorded. Referral None recorded. Procedures None recorded. Surgeries None recorded. Imaging US, transvagina l 2023 024 [email or web address] [place], [address], [place], [address], 4 19:45:10 Medication Orders clotrimazol e-betametha sone 1 %-0.05 % topical cream 2024 025 [facility], [address], [place], [id number], 5 12:50:15 metronidazo le 0.75 % (37.5 mg/5 gram) vaginal gel 2023 024 [facility], [address], [place], [id number], 4 11:06:13 Mirena 21 mcg/24 hr (up to 8 years) 52 mg intrauterin e device 2023 024 [email or web address] Not available 14:08:12 Patient TargetsNo targets recorded. Patient InstructionsNo instructions recorded. Reason for Referral None Reported. Results Created Date Observation Date Name Description Value Unit Range Abnormal Flag Note LastModifiedBy Organization Detail LastModifiedTime 08/15/2008/15/2024 US, pelvi s No observ ation record ed. [facility] [address], [place], [address], 08/15/2024 17:30:18 08/15/2008/15/2024 US, trans vagin al No observ ation record ed. [facility] [address], [place], [address], 08/15/2024 17:30:31 08/15/2008/15/2024 US, pelvi s No observ ation record ed. [email or web address], [place], [address], 08/16/2024 16:07:33 08/30/20 24 08/30/2024 US, trans vagin al No observ ation record ed. [email or web address] [place] [address], [place], [address], 08/30/2024 21:42:27 08/30/2008/30/2024 , trans vagin al No observ ation record ed. [email or web address] [address], [place], [address], 08/30/2024 21:42:27 Result Notes None recorded. Problems Name Problem SNOMED Code Status Onset Date Resolution Date Notes Provider Name and Address Organization Details Recorded Time Polycystic ovary syndrome 015302518 Active 2023 Becca Hernandez NADINE- [address], [place], [address], [place] [facility] 14:57:33 Insulin resistance 112801233 Active 2014 Becca Hernandez [facility] [address], [place], [address], [facility] 4 09:49:09 Secondary amenorrhea 593533024 Active 2017 Becca Hernandez [facility] [address], [place], [address], [facility] 4 09:50:15 Hypertriglyc eridemia 954539320 Active 2023 Becca Hernandez [facility] [address], [place], [address], [facility] 4 09:50:27 Chronic peptic ulcer 217717530 Active 2022 Becca Hernandez [facility] [address], [place], [address], [facility] 4 09:50:53 Problem Notes None recorded. Procedures Surgical History Date Name Laterality Status Provider Name and Address Organization Details Recorded Time 024 IUD Removal completed Diogo Bryan MD [address], [place], [address], [facility] 08/20/2024 14:41:43 024 IUD Insertion completed Diogo Bryan MD [address], [place], [address], [facility] 08/20/2024 14:41:33 024 Laparoscopy completed Digna Ace [facility] 10/26/2024 14:39:20 024 endoscopy completed Esrtella Johnson [facility] 05/10/2024 16:00:13 023 Date of Last Pap Smear completed Digna Ace [facility] 08/09/2023 15:03:22 023 cholecystectomy completed Digna Ace [facility] 06/30/2023 14:39:16 Imaging Results Imaging Date Name Status LastModified by Organization Details LastModified Time 08/15/2024 US, pelvis completed [facility] [address], [place], [address], 08/15/2024 17:30:18 08/15/2024 US, transvaginal completed [email or web address] [place] [address], [place], [address], 08/15/2024 17:30:31 08/15/2024 US, pelvis completed [email or web address] [address], [place], [address], 08/16/2024 16:07:33 08/30/2024 US, [facility]inal [email or web address] [address], [place], [address], 08/30/2024 21:42:27 08/30/2024 US, transvaginal completed [email or web address] [address], [place], [address], 08/30/2024 21:42:27 Procedure Notes None recorded. Medical Equipment None Reported. Allergies Allergen ID Allergen Name Allergen Category Reaction Reaction Severity Criticality Documentation Date Start Date Code Code System Note Provider Name and Address Organization Details Recorded Time 57839 morphine medicatio n Not available Not available Not available 05/18/2024 7052 RxNorm Tara lira [facility] 14:01:04 Medications Name Sig Start Date [...] mg or 0.5 mg (2 mg/3 mL) [facility] 11/16 completed Not Available Not Available Not Available Vitals Date Recorded Body height Body mass index (BMI) Body weight Systolic blood pressure Diastolic blood pressure Provider Name and Address Organization Details Last Updated DateTime 08/20/2024 157.48 cm 65.8 kg/m2 625342.2 5 g 118 mm[Hg] 80 mm[Hg] [facility] 4 11:16:01 Date Recorded Body height Body mass index (BMI) Body weight Systolic blood pressure Diastolic blood pressure Provider Name and Address Organization Details Last Updated DateTime 08/29/2024 157.48 cm 65.3 kg/m2 365055.4 8 g 150 mm[Hg] 94 mm[Hg] [facility] 4 14:16:12 Date Recorded Body height Body mass index (BMI) Body weight Systolic blood pressure Diastolic blood pressure Provider Name and Address Organization Details Last Updated DateTime 09/24/2024 157.48 cm 65.3 kg/m2 834630.4 8 g 141 mm[Hg] 95 mm[Hg] [facility] 4 11:03:39 Date Recorded Body height Body mass index (BMI) Body weight Systolic blood pressure Diastolic blood pressure Provider Name and Address Organization Details Last Updated DateTime 10/26/2024 157.48 cm 62.7 kg/m2 672635.1 8 g 131 mm[Hg] 93 mm[Hg] Digna Ace [facility] 14:36:46 Social History Question Answer Notes LastModified by Organizat ion Details LastModified Time Tobacco Smoking Status Never Smoker Stefanie Nassar soraya, [facility] 06/30/2023 14:31:55 Do You Have An [...] available 12/30/2022 Are You Currently Employed? Yes [email or web address] Information not available 06/30/2023 Are You Deaf Or Do You Have Serious Difficulty Hearing? No Information not available 01/11/2023 What Type Of Diet Are You Following? REGULAR Information not available 12/30/2022 What Is The Highest Grade Or Level Of School You Have Completed Or The Highest Degree You Have Received? 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 Yes Information not available 01/11/2023 Do You Use Protection During Sex? No Information not available 01/11/2023 Do You Use Your Seat Belt Or Car Seat Routinely? No Information not available 01/11/2023 Are You Sexually Active? Yes Female Partners [email or web address] Information not available 06/30/2023 Do You Have Smoke And Carbon Monoxide Detectors In Your Home? Yes Information not available 01/11/2023 How Much Tobacco Do You Smoke? No Information not available 01/11/2023 Do You Feel Stressed (tense, Restless, Nervous, Or Anxious, Or Unable To Sleep At Night)? [id number] Information not available 01/11/2023 Do You Use Any Illicit Or Recreational Drugs? No Information not available 12/30/2022 Do You Use Sunscreen Routinely? No Information not available 01/11/2023 Has Tobacco Cessation Counseling Been Provided? No Information not available 06/30/2023 Have You Used IV Drugs? No Information not available 01/11/2023 Do You Or Have You Ever Used Any Other Forms Of Tobacco Or Nicotine? No [email or web address] Information not available 06/30/2023 Sex: Unknown Functional [...] [email or web address] Not available 2022 14:42:16 Mother Malignant neoplasm of ovary [email or web address] Not available 2022 14:42:16 Paternal Grandmother Malignant neoplasm of lung [email or web address] Not available 2022 14:42:16 Maternal Grandmother Hypertensive disorder [email or web address] Not available 2022 14:42:16 Maternal Grandmother Hypercholest erolemia [email or web address] Not available 2022 14:42:16 Unspecified Relation Family history unknown Not available 2024 13:56:33 Medical History Condition Response Allergies (Food, seasonal, environmental ) N Other Y Blood Transfusion N Drug/Latex Allergies/Reactions N Breast Cancer N Dermatologic Disorders N Lung Disease N [...] SNOMED-CT Code Diagnosis ICD10 Code Diagnosis Note [id number] Becca Hernandez [facility] [address] [address] 12/30/2022 12:18:03 12/30/2022 16:58:19 Secondary amenorrhea 804737552 N91.1 Today we discussed menses & amenorrhei [...] plan of care. Cyst of left ovary 24478 50315 9707444 N83.202 Left cyst vs paratubal cyst very smallLikel y not the source of pain that has been plaguing herMore concerned about lack of monthly cycles which we discussedP COS is suspected. Will see if recent cholestero l, hbga1c etc have been performed by PCP.If not will update those next visit. FSH/LH: 7.8/7.1Tot al T- 36 wnlEstroge n (e1): 413.2 [id number] Becca Hernandez [facility] [address] [address] 01/11/2023 12:29:58 01/11/2023 13:32:02 Secondary amenorrhea 776876428 N91.1 Today we discussed trial of provera.Maida [...] counseling and review of plan of care. [id number] Diogo Bryan MD [place] [address] [address] 05/02/2023 16:04:08 05/02/2023 16:44:12 Pain in pelvis 62160857 R10.2 [id number] Becca Hernandez [place] [address],[place] [address] 05/03/2023 14:32:39 05/03/2023 15:07:47 Secondary amenorrhea 277800201 N91.1 Today we discussed US.Left ovarian cyst [...] counseling and review of plan of care. [id number] Becca Hernandez [facility] [address],[place] [address] 06/30/2023 14:31:50 06/30/2023 14:54:46 Sexually transmitted infectious disease 6836085 A64 Today would like STD urine & serum labs.Will update on resultsRes chedule WWE visit. Time spent in visit is a total of 15 mins with at least 50% of visit consisting of counseling and review of plan of care. [id number] Becca Hernandez [facility] [address],[place] [address] 07/07/2023 14:22:21 07/07/2023 14:48:02 Gynecologic examination 93679048 Z01.419 Take Calcium with Vitamin D 1200mg [...] c Screen discussedC olon Screen naDexa Screen [facility] Labs PCP [id number] Becca Hernandez [facility] [address],[place] [address] 08/09/2023 14:35:44 08/09/2023 15:26:55 Secondary amenorrhea 744585793 N91.1 Today we discussed switching from Provera [...] counseling and review of plan of care. [id number] Becca Hernandez [facility] [address],[facility] [place] [address] 11/01/2023 13:43:06 11/01/2023 15:07:32 Polycystic ovary syndrome 766881678 E28.2 Z68.44 Today we discussed PCOS and [...] Low HDL (good) cholestero l. Insulin resistance 64156 5000 E88.819 Will see if qualifies for injectable or something other than Metformin with her prominent Hx of peptic ulcer/Gall bladder and it likelihood of causing significan t GI issues or exacerbati on of these issues. [facility] 920506252 N91.1 Patient is here today for a [...] of plan of care. Hyperlipid emia screening 823699616 Z13.220 Update to check for high LDL/TG/Tot al/Low HDL [id number] MARCK Gonzales-[facility] [address] [address] 11/16/2023 15:55:38 11/22/2023 17:14:20 Insulin resistance 164339316 E88.819 Z68.44 E66.9 E88.810 E28.2 Will complete 0.75mg weekly x 4wks.Then, return to office for med check & if tolerating we increase to next dose. In depth student support counselor on trulicity purpose, dosage, dosage schedule, [...] counseling and review of plan of care. [id number] Becca Hernandez [facility] [address],[place] [address] 12/13/2023 15:42:18 12/13/2023 16:18:12 Prediabetes 802474174 R73.03 Z68.44 E88.810 E28.2 Z83.49 Patient is [...] and review of plan of care. Tachycardia 2387815 R00. [address] for random HBP/Palpit ations Contracept ion care management 633541114 N91.1 BCP switched to POP only vs CONNER due to verbalizat ion of heart palpitatio ns/HBP. Will f/u in 7wks at med check for trulicity. [id number] Becca Hernandez [facility] [address],[facility] [place] [address] 01/24/2024 15:12:35 01/24/2024 16:03:45 Venereal disease screening 370490532 Z11.3 STD screen urine sent to confirm no std.Partne r recently treated for trich (female partner)Wi ll reach out with results. Time spent in visit is a total of 15 mins with at least 50% of visit consisting of counseling and review of plan of care. Contracept ion care management 997615141 N91.1 BCP switched to POP only vs CONNER due to verbalizat ion of heart palpitatio ns/HBP.Alon ples given x 6mosCall for additional samples if neededDoin g well. [id number] MARCK Donohue [place] [address],[place] [address] 05/10/2024 15:49:03 05/10/2024 16:28:39 Abnormal uterine bleeding 8763121633 9100 N93.9 The patient and I discussed [...] of plan of care. Polycystic ovary syndrome 064254328 E28.2 [id number] Diogo Bryan MD [place] [address],[facility] [place] [address] 05/15/2024 11:58:20 05/15/2024 12:31:15 Abnormal uterine bleeding 1985304225 9100 N93.9 [id number] Diogo Bryan MD [place] [address],[place] [address] 05/18/2024 13:42:09 05/18/2024 14:52:30 Abnormal uterine bleeding 7531130483 9100 N93.9 this patient is a 23-year-ol [...] to proceed with laboratory evaluation Preoperative state 62241 002 Z78.9 [id number] Diogo Bryan MD [place] [address],[facility] [place] [address] 07/27/2024 11:03:55 07/27/2024 12:23:34 Contraception care management 388116075 Z30.9 23-year-ol d female who 1 week from a IUD insertion under anesthesia . Hysterosco py D and C was also performed. She tolerated well. She has no complaints . She will return later for IUD check. [id number] MD Kelli Rojas [address] [address] 08/15/2024 10:37:45 08/15/2024 11:14:49 Pain in pelvis 24274359 R10.2 [id number] MD Kelli Rojas [address] [address] 08/20/2024 10:28:22 08/20/2024 15:10:06 Insertion of intrauterine contraceptive device 71555437 Z30.430 IUD was removed replaced. She tolerated it well. To follow up in 1 month [id number] Diogo Bryan MD [place] [address],[place] [address] 08/29/2024 13:50:59 08/29/2024 15:00:33 Pain in pelvis 86903924 R10.2 23-year-ol d female. Patient has pain [...] sonia of the IUD Bacterial vaginosis 4197 47743 N76.0 [id number] Diogo Bryan MD [place] [address],[place] [address] 08/30/2024 16:35:42 08/30/2024 17:27:27 Mechanical complication of intrauterine contraceptive device 079602328 T83.39XA [id number] Diogo Bryan MD [place] [address],[place] [address] 09/24/2024 10:33:04 09/24/2024 11:22:24 Contraception care management 646458969 Z30.9 This patient is a 23 female who presents for IUD check. She had a mirena IUD inserted formerly [facility] 1 month ago. She has no complaints . She denies any excessive bleeding or pain. She has had some cramping and some spotting. Otherwise, she feels that is going well and wants to continue her IUD. [id number] Diogo Bryan MD [place] [address],[place] [address] 10/26/2024 13:56:29 10/29/2024 07:50:21 Tinea corporis 25814139 B35.4 Health Concerns Section Related Observation LastModified by Organization Detai ls LastModified Time None Recorded Concern Status LastModified by Organization Details LastModified Time None Recorded Advance Directives Directive N: Payers Encounter Date Sequence Insurance Name Policy Number Policy Leija Covered Member ID Leija Member ID Guarantor Name 08/20/2024 1 [facility] (MEDICAID HMO) [id number] Mac Matta [id number] [facility] 08/29/2024 1 [facility] (MEDICAID HMO) [id number] Mac Plascencia Sigrid [id number] [facility] 08/30/2024 1 [facility] (MEDICAID HMO) [id number] Mac Plascencia Sigrid [id number] [facility] 09/24/2024 1 [facility] (MEDICAID HMO) [id number] Mac Cuevaelin [id number] [facility] 10/26/2024 1 [facility] (MEDICAID HMO) [id number] Mac Plascencia Sigrid [id number] [facility] Notes Date Note Type Note Provider Name and Address Organization Details Recorded Time 08/20/2024 text/html Patient presents for IUD removal and insertion. The procedure was explained to the patient in detail. She understands the procedure. She understands the risks, benefits, and alternatives. She has completed the informed consent process and is ready to proceed. Diogo Bryan MD [address], [place], [address], [facility] 08/20/2024 14:47:03 08/29/2024 text/html [...] IUD Diogo Bryan MD [address], [place], [address], [facility] 08/29/2024 15:00:24 09/24/2024 text/html [...] IUD. Diogo Bryan MD [address], [place], [address], [facility] 09/24/2024 11:20:29 10/26/2024 text/html [...] instructions. Diogo Bryan MD [address], [place], [address], [facility] 10/27/2024 12:52:27 OBGyn Episode No OBEpisode recorded.
--- OUTSIDE RECORDS SUMMARY | 2025-02-23 14:28 | XMS_ITS | Referral Summary ---
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
--- OUTSIDE RECORDS SUMMARY | 2025-02-23 14:29 | XMS_ITS | CONTINUITY OF CARE DOCUMENT ---
Author Name paola, paola Address Unknown Organization [facility] Address [address] [place] [address] [address] [place] [address] Phone [phone] Care Team Providers Care Buggy Driver Name Role Phone Raj SIMS, Marvin Unavailable TREVOR SIMS, HUSSEIN Unavailable Unavailable INSURANCE PROVIDERS Payer name Policy type / Coverage type [place] red republic[place] [employer] MEDICAID Medicaid [id number]
--- OUTSIDE RECORDS SUMMARY | 2025-02-23 14:29 | XMS_ITS | Clinical Summary ---
Author Organization [facility] Address [facility] [place] [address] Care Team Providers Care Search Engine Optimizer Name Role Phone Cleveland Barahona MD Primary Care Provider [phone] Allergies Active Allergy Reactions Criticality Noted Date [...] Comments Blood Pressure 158/103 10/27/2023 3:45 PM FOOD COUNSELOR Pulse 73 10/27/2023 3:45 PM FOOD COUNSELOR Temperature 36.6 C (97.9 F) 10/27/2023 2:18 PM FOOD COUNSELOR Respiratory Rate 20 10/27/2023 3:45 PM FOOD COUNSELOR Oxygen Saturation 98% 10/27/2023 3:45 PM FOOD COUNSELOR Inhaled Oxygen Concentration - - Weight 147.8 kg (325 lb 13.4 oz) 10/27/2023 2:18 PM FOOD COUNSELOR Height 154.9 cm (5' 1 ) 10/27/2023 2:18 PM FOOD COUNSELOR Body Mass Index 61.57 10/27/2023 2:18 PM FOOD COUNSELOR Plan of Treatment Health Maintenance Due Date [...] complete this topic Insurance RAMOS Care Teams Search Engine Optimizer Relationship Specialty Start Date End Date Cleveland Barahona MD [address] [place] [address] PCP - General INTERNAL MEDICINE 02/18/22
== END 2025-02-22 15:37 | disposition short-term general hospital (02) ==
PROVIDERS: PCP Nurse Practitioner Family
DX: R10.31 Right lower quadrant pain (principal); R10.32 Left lower quadrant pain; F17.290 Nicotine dependence, other tobacco product, uncomplicated; E11.9 Type 2 diabetes mellitus without complications; Z79.84 Long term (current) use of oral hypoglycemic drugs; I10 Essential (primary) hypertension; E66.01 Morbid (severe) obesity due to excess calories; Z68.44 Body mass index [BMI] 60.0-69.9, adult; K76.0 Fatty (change of) liver, not elsewhere classified; K21.9 Gastro-esophageal reflux disease without esophagitis; E78.1 Pure hyperglyceridemia; F41.9 Anxiety disorder, unspecified; F32.9 Major depressive disorder, single episode, unspecified
CPT/HCPCS: 81003; 87086; 99213; G0463

== ENCOUNTER 2025-02-22 16:02 | Emergency (ER) | payer OTHER, SELFPAY ==
--- NOTE | ~2025-02-22 | CT_ITS ---
CT abdomen pelvis w con Ordering provider: Jeni Oden PA-C History: 24 years Female with . lower abd pain . Comparison: None. Technique: CT abdomen and pelvis with IV and without oral contrast. Automated exposure control and it erative reconstruction technique were employed. The dose-length product was 1691.04 mGy-cm. 100 mL Om nipaque 350 was given IV. Findings: VISUALIZED LOWER CHEST: Normal. UPPER ABDOMINAL ORGANS: Liver: Fat infiltration. Hepatomegaly. Gallbladder: Status post cholecystectomy. Spleen: Normal. Stomach/duodenum: Normal. Pancreas: Normal. Adrenals: Normal. Kidneys: Hypodensity measuring 9 mm and the left kidney midpole most likely a cyst. PELVIC ORGANS: The bladder is normal. IUD is noted in the uterus. Left ovarian cyst measuring 2.2 cm is noted. BOWEL AND MESENTERY: Colon: No evidence of diverticulitis.. Normal appendix. Small Bowel: Normal. No obstruction. Peritoneum/mesentery: No free air or free fluid. No mesenteric lymphadenopathy. RETROPERITONEUM: Normal aorta. No retroperitoneal lymphadenopathy. MUSCULOSKELETAL: Superficial soft tissues: Small fat-containing umbilical hernia. The superficial soft tissues are nor mal. Bones: Normal spine. IMPRESSION: 1. No evidence of appendicitis, diverticulitis or intestinal obstruction. 2. Fat infiltration of the liver. Hepatomegaly. 3. Small left ovarian cyst. Reviewed, dictated and finalized at location A.
--- NOTE | ~2025-02-22 | US_ITS ---
US transvaginal Ordering provider: Odalis Bond APRN History: . history PCOS, lower abdominal pain . Comparison: None. Technique: endovaginal ultrasound of the pelvis (Doppler ultrasound interrogation techniques used as needed for this exam.) FINDINGS: CERVIX: Nabothian cyst. Otherwise, normal. UTERUS: Measures 5.2x 2.3x 2.3 cm in length which is within normal limits and is anteverted. No myom etrial masses. IUD is noted. ENDOMETRIUM: Normal in thickness measuring 3.4 mm. No endometrial masses, cysts or fluid. CUL DE SAC: No free fluid. RIGHT OVARY: Not visualized. LEFT OVARY: Normal in size measuring 2.5x 2x 2 cm. Normal echotexture. Doppler vascular flow present. Cystic area seen measuring 2.5 x 3.1 x 2.3 cm adjacent to the left ovary. ADNEXA: Normal. No mass. IMPRESSION: Cyst is seen adjacent to the left ovary. Further evaluation advised. Right ovary is not demonstrated. Nabothian cyst. Otherwise, normal pelvic ultrasound. Reviewed, dictated and finalized at location A.
[2025-02-22 16:57] VITALS: BP 150/86; PULSE 97; RESP 16; TEMP 36.8; O2SAT 98
--- NOTE | 2025-02-22 16:59 | ECG_ITS ---
Test Date: 2025-02-22 18:10:13 Measurements Intervals [place] Rate: 100 P: 40 FL: 164 QRS: 59 QRSD: 102 T: 28 QT: 340 QTc: 440 Interpretive Statements SINUS TACHYCARDIA ABNORMAL RHYTHM ECG Compared to ECG 04/27/2024 05:15:29 Sinus rhythm no longer present Myocardial infarct finding no longer present Electronically Signed On 02-22-2025 19:18:09 CDT by Melba Gardner
--- NOTE | 2025-02-22 17:00 | ED.ABDPAIN ---
HPI - Abdominal Pain General Chief Complaint: Abdominal Pain <Odalis Bond APRN - Last Filed: 02/22/25 17:02> Stated Complaint: Abdominal pain <Odalis Bond APRN - Last Filed: 02/22/25 17:02> Time Seen by Provider: 02/22/25 17:00 <Odalis Bond APRN - Last Filed: 02/22/25 17:02> Focused HPI: Patient is a 24-year-old female who presents to the ER with complaints of abdominal pain for 4 days. She reports the pain is constant and she has been able to relieve the symptoms with at-home remedies. Patient endorses a band of pain across her left lower and right lower abdomen. She denies any urinary symptoms, recent fevers, back pain, chest pain. Patient endorses a history of high blood pressure, diabetes, and PCOS. GENERAL: Well-appearing, obese, and in no acute distress. HEAD: Normocephalic, atraumatic. CHEST: Clear to auscultation. ?No respiratory distress. HEART: Regular rate and rhythm.? NEURO: ?Alert and oriented x3. Patient screened in triage and initial orders placed.? ?Additional care and disposition to be based upon?diagnostic testing and treatment. <Odalis Bond APRN - Last Filed: 02/22/25 17:02> History of Present Illness HPI narrative: Agree with the above triage note. Patient also states she had some bright red blood per rectum when using the bathroom a couple days ago which has since resolved. She does endorse a history of hemorrhoids. Denies rectal pain, injury or trauma. Has had soft stools. Denies recent antibiotic use, travel, sick contacts. Denies fevers, nausea or vomiting. Last bowel movement was prior to arrival. <Jeni Oden PA-C - Last Filed: 02/22/25 20:09> Related Data Home Medications: Home Medications ?Medication ?Instructions ?Recorded ?Confirmed ?Last Taken ?Type metformin 500 mg tablet,extended 1,000 mg PO BID 07/04/24 02/11/25 01/27/25 History release 24 hr metoprolol tartrate 25 mg tablet 25 mg PO DAILY 10/23/24 02/11/25 01/28/25 07:00 History <Odalis Bond APRN - Last Filed: 02/22/25 17:02> Allergies/Adverse Reactions: Allergies Allergy/AdvReac Type Severity Reaction Status Date / Time morphine Allergy Mild Hives Verified 02/22/25 18:15 bupropion (From Wellbutrin) AdvReac Intermediate Agitated Verified 02/22/25 18:15 <Odalis Bond APRN - Last Filed: 02/22/25 17:02> Review of Systems Review of Systems: All systems reviewed & are unremarkable except as noted in HPI and below <Jeni Oden PA-C - Last Filed: 02/22/25 20:09> [facility] Past Medical History Medical History: Medical History Anxiety Hypertriglyceridemia Type 2 diabetes mellitus with morbid obesity Arthralgia of multiple joints Hypertension Weight gain, abnormal Essential hypertension Elevated BP without diagnosis of hypertension Palpitations Right sided abdominal pain Morbid obesity with BMI of 60.0-69.9, adult Mass of left lobe of liver Hepatic steatosis Elevated glucose Elevated WBCs Hypersomnia Snoring Right knee pain Left ankle pain Major depression Encounter to establish care Acid reflux Gallstones Patient denies significant medical history <Odalis Bond APRN - Last Filed: 02/22/25 17:02> Surgical History Surgical History: Surgical History History of cholecystectomy 05/20/2023 <Odalis Bond APRN - Last Filed: 02/22/25 17:02> Family History Family History: Family History Father Alcoholism Diabetes mellitus Hypertension Heart disease Mother Ovarian cancer Sibling Depression Grandparent Hypertension Heart disease Grandparent Alcoholism Lung cancer <Odalis Bond APRN - Last Filed: 02/22/25 17:02> Social History Social History: Social History Smoking status: Never smoker Tobacco type: smokeless tobacco Smokeless tobacco user: dissolvable tobacco Additional smoking assessment comments: DAILY USE Alcohol intake: former Alcohol use details: 1-2 a month Substance use: never Substance use type: does not use Other substance usage details: daily Last use: 2 MONTHS 2 TIMES PER WEEK Do You Feel Safe in your Home?: Yes Lack of Transportation: No Lack of Food: Never True Current Housing: I Have Housing Concerned About Future Housing: No Difficulty Paying Gas/Electric Bills: No Difficulty Paying for Meds: No Currently Unemployed: YES Education: Trade/Vocational Certificate Difficulty w/ Childcare or Family Care: No Living arrangements: with friend(s) Spiritual care concerns: No <Odalis Bond APRN - Last Filed: 02/22/25 17:02> Exam Narrative: GENERAL: Well-appearing, well-nourished, and in no acute distress. Resting comfortably in exam bed. Morbidly obese HEAD: Normocephalic, atraumatic. EYES: EOMI. ENT: Nares clear, no rhinorrhea or epistaxis. Mucous membranes moist. NECK: Supple. CHEST: Clear to auscultation. No respiratory distress. HEART: Regular rate and rhythm. No murmur heard. Normal peripheral pulses. ABDOMEN: Normoactive bowel sounds. Abdomen soft with tenderness to the suprapubic region and right lower quadrant. No rebound or rigidity. No CVA tenderness RECTAL: Deferred EXTREMITIES: Normal range of motion. No edema. SKIN: Warm, dry, no rash. NEURO: No focal deficits. Alert and oriented x3 <Jeni Oden PA-C - Last Filed: 02/22/25 20:09> Course Vital Signs Vital signs: Vital Signs Temperature 98.2 F 02/22/25 16:57 Pulse Rate 97 02/22/25 16:57 Respiratory Rate 16 02/22/25 16:57 Blood Pressure 150/86 H 02/22/25 16:57 Pulse Oximetry 98 02/22/25 16:57 Temperature 98.2 F 02/22/25 16:57 Pulse Rate 99 02/22/25 18:15 Respiratory Rate 21 H 02/22/25 18:15 Blood Pressure 136/84 02/22/25 18:15 Pulse Oximetry 99 02/22/25 18:15 <Odalis Bond APRN - Last Filed: 02/22/25 17:02> Vital Signs Temperature 98.2 F 02/22/25 16:57 Pulse Rate 97 02/22/25 16:57 Respiratory Rate 16 02/22/25 16:57 Blood Pressure 150/86 H 02/22/25 16:57 Pulse Oximetry 98 02/22/25 16:57 Temperature 98.2 F 02/22/25 16:57 Pulse Rate 99 02/22/25 18:15 Respiratory Rate 21 H 02/22/25 18:15 Blood Pressure 136/84 02/22/25 18:15 Pulse Oximetry 99 02/22/25 18:15 <Jeni Oden PA-C - Last Filed: 02/22/25 20:09> MDM - Abdominal Pain MDM Narrative Medical decision making narrative: 24-year-old female presents to the emergency department for lower abdominal pain for the past 4 days. Also reporting bright red blood per rectum a few days ago which has since resolved. Triage vitals with elevated blood pressure otherwise unremarkable. Patient is afebrile and nontoxic appearing resting comfortably in exam bed. Exam is significant for the above. CBC with leukocytosis of 19 point complication does have chronic leukocytosis sees Hematology for this. States there has been no identifiable cause. No anemia or thrombocytopenia. Chemistries with chronic transaminitis unchanged from baseline, no elevation in bilirubin or alk-phos. Patient is hyperglycemic at 169 with normal bicarb and no anion gap. UA with 1+ glucosuria, no UTI. is negative. Lipase is normal. CT abdomen pelvis shows no evidence of appendicitis, diverticulitis or intestinal obstruction. There is fatty infiltration of the liver and hepatomegaly which is known to the patient. There is a small left ovarian cyst. Pelvic ultrasound shows cyst adjacent to the left ovary. Patient updated on results. On re-evaluation she is found to be resting comfortably in exam bed. Did offer medication for pain, however patient politely declined. She also deferred rectal exam. Suspect source of bleeding was due to internal hemorrhoid, will provide hydrocortisone suppositories. Will provide ibuprofen for abdominal pain and advised her to follow-up closely with PCP and OBGYN. Discussed strict ED return precautions. She is agreeable with the plan verbalized understanding. Discharged in stable condition. <Jeni Oden PA-C - Last Filed: 02/22/25 20:09> Lab Data Result diagrams: 02/22/25 18:21 02/22/25 18:21 <Odalis Lupe Bond, WEATHERIZATION OPERATIONS MANAGER - Last Filed: 02/22/25 17:02> Labs: Lab Results 02/22/25 02/22/25 02/22/25 Range/Units 18:10 18:21 18:24 WBC 19.8 H (4.5-10.0) K/mm3 RBC 5.02 (4.2-5.4) M/mm3 Hgb 13.5 (12.0-15.0) g/dL Hct 43.0 (37.0-47.0) % MCV 85.7 (80-100) fl MCH 26.9 (26-34) pg MCHC 31.4 L (32-36) g/dl RDW 14.1 (11.5-14.5) % Plt Count 367 (150-375) k/mm3 MPV 9.7 (7.4-10.4) fl Immature Gran % (Auto) 0.7 H (0-0.5) % Neut % (Auto) 67.7 (45.5-73.1) % Lymph % (Auto) 24.5 (18.3-44.2) % [place] % (Auto) 4.9 (2.6-8.5) % Eos % (Auto) 1.8 (0-4.4) % Baso % (Auto) 0.4 (0.2-1.2) % Lymph # (Auto) 4.87 H (0.9-3.2) K/mm3 [place] # (Auto) 1.0 H (0.1-0.6) K/mm3 Eos # (Auto) 0.4 H (0-0.3) K/mm3 Baso # (Auto) 0.1 (0.0-0.1) K/mm3 Abs Immat Gran (auto) 0.14 H (0.00-0.031) K/mm3 Absolute Neuts (auto) 13.4 H (1.3-6.7) K/mm3 Absolute Nucleated RBC 0.000 (0.0-0.012) K/mm3 Nucleated RBC % 0.0 (0.0-0.2) % Sodium 135 L (137-145) mmol/L Potassium 4.0 (3.4-5.0) mmol/L Chloride 100 (98-107) mmol/L Carbon Dioxide 29 (22-30) mmol/L Anion Gap 6 (4-12) mmol/L BUN 14 (7-17) mg/dL Creatinine 0.77 (0.7-1.0) mg/dL Estim Creat Clear Calc 140 ml/min Estimated GFR > 60 (59 - ) Glucose 186 H (65-110) mg/dL POC Capillary Glucose 169 H (65-105) mg/dl Calcium 9.1 (8.4-10.2) mg/dL Total Bilirubin 0.8 (0.2-1.3) mg/dL AST 49 H (14-36) U/L ALT 51 H (6-35) U/L Alkaline Phosphatase 91 (38-126) U/L Troponin I < 0.012 (0.000-0.034) ng/mL Total Protein 8.0 (6.3-8.2) g/dL Albumin 4.2 (3.5-5.1) g/dL Lipase 82 (23-300) U/L Urine Color Yellow (Yellow) Urine Appearance Clear (Clear) Urine pH 5.5 (5.0-9.0) Ur Specific [place] 1.016 (1.001-1.035) Urine Protein Negative (Negative) mg/dL Urine Glucose (UA) 1+ H (Negative) mg/dL Urine Ketones Negative (Negative) mg/dL Ur Blood (Man) Negative (Negative) Urine Nitrate Negative (Negative) Urine Bilirubin Negative (Negative) Urine Urobilinogen 0.2 (<2.0) mg/dL Leukocyte Esterase Rfl Negative (Negative) MICKY/UL POC Urine HCG, Qual Negative (Negative) <Odalis Bond, WEATHERIZATION OPERATIONS MANAGER - Last Filed: 02/22/25 17:02> Lab Results 02/22/25 02/22/25 02/22/25 Range/Units 18:10 18:21 18:24 WBC 19.8 H (4.5-10.0) K/mm3 RBC 5.02 (4.2-5.4) M/mm3 Hgb 13.5 (12.0-15.0) g/dL Hct 43.0 (37.0-47.0) % MCV 85.7 (80-100) fl MCH 26.9 (26-34) pg MCHC 31.4 L (32-36) g/dl RDW 14.1 (11.5-14.5) % Plt Count 367 (150-375) k/mm3 MPV 9.7 (7.4-10.4) fl Immature Gran % (Auto) 0.7 H (0-0.5) % Neut % (Auto) 67.7 (45.5-73.1) % Lymph % (Auto) 24.5 (18.3-44.2) % [place] % (Auto) 4.9 (2.6-8.5) % Eos % (Auto) 1.8 (0-4.4) % Baso % (Auto) 0.4 (0.2-1.2) % Lymph # (Auto) 4.87 H (0.9-3.2) K/mm3 [place] # (Auto) 1.0 H (0.1-0.6) K/mm3 Eos # (Auto) 0.4 H (0-0.3) K/mm3 Baso # (Auto) 0.1 (0.0-0.1) K/mm3 Abs Immat Gran (auto) 0.14 H (0.00-0.031) K/mm3 Absolute Neuts (auto) 13.4 H (1.3-6.7) K/mm3 Absolute Nucleated RBC 0.000 (0.0-0.012) K/mm3 Nucleated RBC % 0.0 (0.0-0.2) % Sodium 135 L (137-145) mmol/L Potassium 4.0 (3.4-5.0) mmol/L Chloride 100 (98-107) mmol/L Carbon Dioxide 29 (22-30) mmol/L Anion Gap 6 (4-12) mmol/L BUN 14 (7-17) mg/dL Creatinine 0.77 (0.7-1.0) mg/dL Estim Creat Clear Calc 140 ml/min Estimated GFR > 60 (59 - ) Glucose 186 H (65-110) mg/dL POC Capillary Glucose 169 H (65-105) mg/dl Calcium 9.1 (8.4-10.2) mg/dL Total Bilirubin 0.8 (0.2-1.3) mg/dL AST 49 H (14-36) U/L ALT 51 H (6-35) U/L Alkaline Phosphatase 91 (38-126) U/L Troponin I < 0.012 (0.000-0.034) ng/mL Total Protein 8.0 (6.3-8.2) g/dL Albumin 4.2 (3.5-5.1) g/dL Lipase 82 (23-300) U/L Urine Color Yellow (Yellow) Urine Appearance Clear (Clear) Urine pH 5.5 (5.0-9.0) Ur Specific [place] 1.016 (1.001-1.035) Urine Protein Negative (Negative) mg/dL Urine Glucose (UA) 1+ H (Negative) mg/dL Urine Ketones Negative (Negative) mg/dL Ur Blood (Man) Negative (Negative) Urine Nitrate Negative (Negative) Urine Bilirubin Negative (Negative) Urine Urobilinogen 0.2 (<2.0) mg/dL Leukocyte Esterase Rfl Negative (Negative) MICKY/UL POC Urine HCG, Qual Negative (Negative) <Jeni Oden PA-C - Last Filed: 02/22/25 20:09> Imaging Data Radiologist's impression: ITS Impressions Transvaginal US 02/22/25 17:48 IMPRESSION: Cyst is seen adjacent to the left ovary. Further evaluation advised. Right ovary is not demonstrated. Nabothian cyst. Otherwise, normal pelvic ultrasound. Abdomen/Pelvis CT 02/22/25 19:27 IMPRESSION: 1. No evidence of appendicitis, diverticulitis or intestinal obstruction. 2. Fat infiltration of the liver. Hepatomegaly. 3. Small left ovarian cyst. <Odalis Bond APRN - Last Filed: 02/22/25 17:02> ITS Impressions Transvaginal US 02/22/25 17:48 IMPRESSION: Cyst is seen adjacent to the left ovary. Further evaluation advised. Right ovary is not demonstrated. Nabothian cyst. Otherwise, normal pelvic ultrasound. Abdomen/Pelvis CT 02/22/25 19:27 IMPRESSION: 1. No evidence of appendicitis, diverticulitis or intestinal obstruction. 2. Fat infiltration of the liver. Hepatomegaly. 3. Small left ovarian cyst. <Jeni Oden PA-C - Last Filed: 02/22/25 20:09> Discharge Plan Discharge Clinical Impression: Cyst of left ovary, Fatty liver, Painless rectal bleeding <Odalis Bond APRN - Last Filed: 02/22/25 17:02> Patient Disposition: Home <Odalis Bond APRN - Last Filed: 02/22/25 17:02> Condition: Stable <Odalis Bond APRN - Last Filed: 02/22/25 17:02> Instructions: Antibiotic Form, Ovarian Cyst (ED), Non-Alcoholic Fatty Liver Disease (ED), Abdominal Pain (ED), Sitz Bath (DC) <Odalis Bond APRN - Last Filed: 02/22/25 17:02> Additional Instructions: Your evaluated in the emergency department for lower abdominal pain. You were found to have a cyst on your left ovary. Please follow-up with OBGYN regarding this. He also disclosed that he had bright red blood from your rectum a few days ago which has since resolved. This may have been from a hemorrhoid. Please use the rectal suppositories as directed and refrain from sitting on the toilet, use stool softeners as needed that you have at home, frequently take sitz baths. Please take ibuprofen as needed for pain. Your also found to have fatty liver. Please eat a healthy diet, get plenty of exercise and follow-up closely with your primary care provider. Return to the emergency department if you develop a fever, inability to tolerate food or fluids, worsening pain, or other concerning symptoms. <Odalis Bond APRN - Last Filed: 02/22/25 17:02> Patient Language: Bots[place]an <Odalis Bond APRN - Last Filed: 02/22/25 17:02> Prescriptions: New ibuprofen 800 mg tablet 800 mg PO TID PRN (Reason: pain) Qty: 20 0RF hydrocortisone acetate 25 mg suppository 25 mg RECTAL DAILY Qty: 12 0RF No Action metoprolol tartrate 25 mg tablet 25 mg PO DAILY sertraline 50 mg tablet 50 mg PO DAILY Qty: 30 11RF Rx Instructions: take with 100mg sertraline tab to equal 150mg tab Jardiance 10 mg tablet 10 mg PO QAM Qty: 30 11RF sertraline 100 mg tablet 100 mg PO DAILY Qty: 30 11RF buspirone 7.5 mg tablet 7.5 mg PO BID Qty: 60 11RF omeprazole 40 mg capsule,delayed release(DR/EC) 40 mg PO BID Qty: 60 3RF metoclopramide HCl [Reglan] 5 mg tablet 5 mg PO .HS Qty: 30 3RF metformin 500 mg tablet extended release 24 hr 1,000 mg PO BID Rx Instructions: start 1 tab daily x1 week. Increase by 1 tab each week to 2 tabs 2x/day with meals. (DME) blood-glucose meter [Blood Glucose Monitoring] Kit See Rx Instructions .Route Qty: 1 0RF Rx Instructions: As directed dicyclomine 20 mg tablet See Rx Instructions .ROUTE .COMPLEX Qty: 90 11RF Dose Instruction: TAKE 1 TABLET BY MOUTH THREE TIMES DAILY Rx Instructions: TAKE 1 TABLET BY MOUTH THREE TIMES DAILY (DME) OneTouch Verio test strips Strip See Rx Instructions .Route Qty: 100 3RF Rx Instructions: As directed Trulicity 1.5 mg/0.5 mL pen injector 1.5 mg subcut WEEKLY Qty: 2 5RF Rx Instructions: call office for refill losartan 100 mg tablet 100 mg PO DAILY Qty: 90 3RF hydrochlorothiazide 12.5 mg tablet 12.5 mg PO QAM Qty: 30 5RF trazodone 50 mg tablet 50 mg PO QHS PRN (Reason: sleep) Qty: 30 3RF hyoscyamine sulfate [Levsin/SL] 0.125 mg tablet, sublingual 0.125 mg PO QID Qty: 120 3RF colestipol 1 gram tablet 1 g PO BID Qty: 60 3RF hyoscyamine sulfate [Levsin] 0.125 mg tablet 0.125 mg PO .every 6 hours Qty: 120 3RF amitriptyline 25 mg tablet 25 mg PO QHS Qty: 30 3RF <Odalis Bond APRN - Last Filed: 02/22/25 17:02> Follow-up/Referrals: Ethel Liz NP [Primary Care Provider] - <Odalis Bond APRN - Last Filed: 02/22/25 17:02> Stand Alone Forms: Work/School Release IP <Odalis Bond APRN - Last Filed: 02/22/25 17:02>
[2025-02-22 18:14] LABS: Glucose Point of Care 169 mg/dl (65-105)
[2025-02-22 18:15] VITALS: BP 136/84; PULSE 99; RESP 21; O2SAT 99
[2025-02-22 18:26] LABS: BEDSIDEPREGUCG Negative (Negative)
[2025-02-22 18:30] LABS: Add Urine Microscopic? NO; Appearance Urine Clear (Clear); Basophils Absolute Auto 0.1 K/mm3 (0.0-0.1); Basophils Percent Auto 0.4 % (0.2-1.2); Bilirubin Urine Negative (Negative); Blood Urine Negative (Negative); Color Urine Yellow (Yellow); Eosinophils Absolute Auto 0.4 K/mm3 (0-0.3); Eosinophils Percent Auto 1.8 % (0-4.4); Glucose Urine UA 1+ mg/dL (Negative); Hemoglobin 13.5 g/dL (12.0-15.0); Immature Granulocyte Absolute 0.14 K/mm3 (0.00-0.031); Immature Granulocyte Percent A 0.7 % (0-0.5); Ketones Urine Negative (Negative); Leukocyte Esterase Ur Negative LEU/UL (Negative); Lymphocytes Absolute Auto 4.87 K/mm3 (0.9-3.2); Lymphocytes Percent Auto 24.5 % (18.3-44.2); Mean Corpuscular HGB Conc 31.4 g/dl (32-36); Mean Corpuscular Hemoglobin 26.9 pg (26-34); Mean Corpuscular Volume 85.7 fl (80-100); Mean Platelet Volume 9.7 fl (7.4-10.4); Monocytes Percent Auto 4.9 % (2.6-8.5); Neutrophils Absolute Auto 13.4 K/mm3 (1.3-6.7); Neutrophils Percent Auto 67.7 % (45.5-73.1); Nitrate Urine Negative (Negative); Platelet Count Result 367 k/mm3 (150-375); Protein Urine Negative (Negative); Red Blood Count 5.02 M/mm3 (4.2-5.4); Red Cell Distribution Width 14.1 % (11.5-14.5); Specific Grav Ur 1.016 (1.001-1.035); Urobilinogen Urine 0.2 mg/dL (<2.0); White Blood Count 19.8 K/mm3 (4.5-10.0); pH Urine 5.5 (5.0-9.0)
[2025-02-22 18:40] LABS: Alanine Aminotransferase 51 U/L (6-35); Albumin Level 4.2 g/dL (3.5-5.1); Alkaline Phosphatase 91 U/L (38-126); Anion Gap 6 mmol/L (4-12); Aspartate Amino Transferase 49 U/L (14-36); Bilirubin,Total 0.8 mg/dL (0.2-1.3); Blood Urea Nitrogen 14 mg/dL (7-17); Calcium 9.1 mg/dL (8.4-10.2); Carbon Dioxide 29 mmol/L (22-30); Chloride 100 mmol/L (98-107); Estimated CRCL calculation 140 ml/min; Estimated Glomerular Filt Rate > 60; Glucose 186 mg/dL (65-110); Lipase 82 U/L (23-300); Sodium 135 mmol/L (137-145)
[2025-02-22 18:52] LABS: Troponin I < 0.012 ng/mL (0.000-0.034)
[2025-02-22 20:16] VITALS: BP 130/81; PULSE 88; RESP 16; O2SAT 99
--- OUTSIDE RECORDS SUMMARY | 2025-02-23 14:55 | XMS_ITS | Clinical Summary ---
Author Organization [facility] Address [facility] [place] [address] Care Team Providers Care Brake Linings Coater Name Role Phone Cleveland Barahona MD Primary Care Provider [phone] Allergies Active Allergy Reactions Criticality Noted Date [...] Comments Blood Pressure 158/103 10/27/2023 3:45 PM TRIMMER OPERATOR THREE KNIFE Pulse 73 10/27/2023 3:45 PM TRIMMER OPERATOR THREE KNIFE Temperature 36.6 C (97.9 F) 10/27/2023 2:18 PM TRIMMER OPERATOR THREE KNIFE Respiratory Rate 20 10/27/2023 3:45 PM TRIMMER OPERATOR THREE KNIFE Oxygen Saturation 98% 10/27/2023 3:45 PM TRIMMER OPERATOR THREE KNIFE Inhaled Oxygen Concentration - - Weight 147.8 kg (325 lb 13.4 oz) 10/27/2023 2:18 PM TRIMMER OPERATOR THREE KNIFE Height 154.9 cm (5' 1 ) 10/27/2023 2:18 PM TRIMMER OPERATOR THREE KNIFE Body Mass Index 61.57 10/27/2023 2:18 PM TRIMMER OPERATOR THREE KNIFE Plan of Treatment Health Maintenance Due Date [...] complete this topic Insurance RAMOS Care Teams Brake Linings Coater Relationship Specialty Start Date End Date Cleveland Barahona MD [address] [place] [address] PCP - General INTERNAL MEDICINE 02/18/22
== END 2025-02-22 20:17 | disposition home or self-care (01) ==
PROVIDERS: Registered Nurse; Emergency Provider Physician Assistant; PCP Nurse Practitioner Family
DX: N83.202 Unspecified ovarian cyst, left side (principal); K76.0 Fatty (change of) liver, not elsewhere classified; K62.5 Hemorrhage of anus and rectum; E11.9 Type 2 diabetes mellitus without complications; E66.01 Morbid (severe) obesity due to excess calories; Z68.44 Body mass index [BMI] 60.0-69.9, adult; I10 Essential (primary) hypertension; F41.9 Anxiety disorder, unspecified; F32.9 Major depressive disorder, single episode, unspecified; Z90.49 Acquired absence of other specified parts of digestive tract; F17.220 Nicotine dependence, chewing tobacco, uncomplicated; Z79.84 Long term (current) use of oral hypoglycemic drugs; Z79.899 Other long term (current) drug therapy; Z79.85 Long-term (current) use of injectable non-insulin antidiabetic drugs; R00.0 Tachycardia, unspecified
CPT/HCPCS: 36415; 74177; 76830; 80053; 81003; 81025; 82948; 83690; 84484; 85025; 87086; 93005; 99284; Q9967

== ENCOUNTER 2025-02-26 16:01 | Outpatient (CLI) | payer OTHER, SELFPAY ==
--- OUTSIDE RECORDS SUMMARY | 2025-02-26 16:04 | XMS_ITS | Clinical Summary ---
Author Organization [facility] Address [facility] [place] [address] Care Team Providers Care Power Press Operator Name Role Phone Cleveland Barahona MD Primary Care Provider [phone] Allergies Active Allergy Reactions Criticality Noted Date [...] Comments Blood Pressure 158/103 10/27/2023 3:45 PM STAVE LOG RIPSAW OPERATOR Pulse 73 10/27/2023 3:45 PM STAVE LOG RIPSAW OPERATOR Temperature 36.6 C (97.9 F) 10/27/2023 2:18 PM STAVE LOG RIPSAW OPERATOR Respiratory Rate 20 10/27/2023 3:45 PM STAVE LOG RIPSAW OPERATOR Oxygen Saturation 98% 10/27/2023 3:45 PM STAVE LOG RIPSAW OPERATOR Inhaled Oxygen Concentration - - Weight 147.8 kg (325 lb 13.4 oz) 10/27/2023 2:18 PM STAVE LOG RIPSAW OPERATOR Height 154.9 cm (5' 1 ) 10/27/2023 2:18 PM STAVE LOG RIPSAW OPERATOR Body Mass Index 61.57 10/27/2023 2:18 PM STAVE LOG RIPSAW OPERATOR Plan of Treatment Health Maintenance Due [...] complete this topic Insurance RAMOS Care Teams Power Press Operator Relationship Specialty Start Date End Date Cleveland Barahona MD [address] [place] [address] PCP - General INTERNAL MEDICINE 02/18/22
--- OUTSIDE RECORDS SUMMARY | 2025-02-26 16:04 | XMS_ITS | Clinical Summary ---
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
--- OUTSIDE RECORDS SUMMARY | 2025-02-26 16:04 | XMS_ITS | Clinical Summary ---
Author Organization [facility] Address [address] [address] [place] Marcelo [address] Phone Care Team Providers Care Benefits Counselor Name Role Phone Unavailable Primary Care Provider [...] 01/16/2025 4:15 PM CDT Telephone Check Up [facility] - [place] [address] [place] [address] Felipe Joyner MD Leukocytosis, unspecified type (Primary Dx) 01/09/2025 External Device Data [facility] ABSTRACTION Provider, Abstract 01/09/2025 External Device Data [facility] ABSTRACTION Provider, Abstract 01/07/2025 Orders Only [facility] - [place] [address] [place] [id number] Felipe Joyner MD 01/02/2025 Telephone [facility] - [place] [address] [place] [address] Felipe Joyner MD lab auth 01/02/2025 Abstract [facility] - [place] [address] [place] [address] Felipe Joyner MD 01/01/2025 Orders Only [facility] - [place] [address] [place] [address] Felipe Joyner MD 12/31/2024 1:30 PM CDT Office Visit [facility] - [place] [address] [place] [address] Felipe Joyner MD Leukocytosis, unspecified type (Primary [...] Description 05/20/2025 1:00 PM CDT Office Visit [facility] - [place] [address] [facility] [address] [place] [address] Felipe Joyner MD [address] [facility] [address] [place] [address] Health Maintenance Due Date Last [...] 46(H) < OR = 20 mm/h [facility] Comment: Test Performed at: [place] [address] Steven Roberson MD Blood 01/03/2025 1:36 PM CDT 01/03/2025 1:36 PM CDT Felipe Joyner MD HEMATOLOGY ORDERABLES Final Res ult Performing Organization Address City/[facility]/ZIP Co de Phone Number [employer] [facility] [phone] [facility] [address] [place] [address] * (ABNORMAL) C-REACTIVE PROTEIN (01/03/2025 1:36 PM CDT) CRP 49.2(H) <8.0 mg/L [facility] Comment: Test Performed at: [facility] [address] [place] [address] Steven Roberson MD Blood 01/03/2025 1:36 PM CDT 01/03/2025 1:36 PM CDT Felipe Joyner MD CHEMISTRY ORDERABLES Final Resu lt [facility] [phone] [facility] [address] [facility] [place] [address] * FLOW CYTOMETRY REPORT (01/01/2025 1:52 PM CDT) Felipe Joyner MD PATHOLOGY/CYTOLOGY ORDERABLES F inal Result * COMPREHENSIVE METABOLIC PANEL (12/31/2024 10:31 AM CDT) Blood Felipe Joyner MD CHEMISTRY ORDERABLES Final Resu lt from Last 3 Months Insurance [place] Advance Directives For more information, please contact: [phone] * Full Code (Latest Code Status on File) Date Activated Date Inactivated Comments 06/08/2024 6:25 AM 06/08/2024 11:33 AM
--- OUTSIDE RECORDS SUMMARY | 2025-02-26 16:04 | XMS_ITS | CONTINUITY OF CARE DOCUMENT ---
Author Name paola, paola Address Unknown Organization [facility] Address [address] [place] [address] [address] [place] [address] Phone [phone] Care Team Providers Care Inorganic Chemical Technician Name Role Phone Raj SIMS, Marvin Unavailable TREVOR SIMS, HUSSEIN Unavailable Unavailable INSURANCE PROVIDERS Payer name Policy type / Coverage type [place] red democrat ID [place] MEDICAID Medicaid [id number]
--- OUTSIDE RECORDS SUMMARY | 2025-02-26 16:04 | XMS_ITS | Referral Summary ---
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
[2025-02-26 16:38] LABS: Immunoglobulin A 353 mg/dL (70-400)
[2025-02-28 12:13] LABS: Endomysial Ab (IgA) Screen NEGATIVE (NEGATIVE)
[2025-03-01 03:20] LABS: Gliadin Gluten IgA 6.1 U/mL
[2025-03-05 15:19] LABS: Reference Lab Test Name HLA Typing for Celia
== END 2025-02-26 16:02 | disposition home or self-care (01) ==
LOC: ANHLAB 16:02
PROVIDERS: PCP Nurse Practitioner Family; Visit Provider Nurse Practitioner
DX: R85.7 Abnormal histological findings in specimens from digestive organs and abdominal cavity (principal); K52.9 Noninfective gastroenteritis and colitis, unspecified; K90.0 Celiac disease
CPT/HCPCS: 36415; 81376; 81382; 82784; 86255; 86364

== ENCOUNTER 2025-03-16 19:34 | Emergency (ER) | payer BC, OTHER, SELFPAY ==
--- NOTE | ~2025-03-16 | CT_ITS ---
CTA chest PE protocol Ordering provider: Odalis Bond APRN History: 24 years Female with . shortness of breath, chest pain, tachycardia . Comparison: None. Technique: CT angiogram chest was performed following timed intravenous injection of contrast. Thin s lice axial images and reformatted coronal images were obtained. Three dimensional reformatted images of the chest were also obtained using a [employer] workstation. . Automated exposure control and iterati ve reconstruction technique were employed. The dose-length product was 950.52 mGy-cm. 100 mL Omnipaqu e 350 was given IV. Findings: PULMONARY ARTERIES: No pulmonary embolus. VISUALIZED THORACIC INLET: Normal. MEDIASTINUM: Aorta/coronary arteries: The thoracic aorta is normal. Heart/other: The heart is not enlarged. Lymph nodes: No mediastinal or hilar adenopathy. LUNGS: No pulmonary nodules or masses. No infiltrates or effusions. No pneumothorax. VISUALIZED UPPER ABDOMEN: Fat infiltration of the liver. Otherwise, the visualized upper abdomen is normal. MUSCULOSKELETAL: Soft tissues: The superficial soft tissues are normal. Bones: Normal spine. IMPRESSION: 1. No pulmonary embolism. 2. No acute cardiopulmonary pathology. 3. Fat infiltration of the Reviewed, dictated and finalized at location A.
--- NOTE | ~2025-03-16 | XR_ITS ---
XR chest 1V Ordering provider: Odalis Bond APRN History: 24 years Female with . chest pain, SOB . Comparison: April 01, 2024 FINDINGS: MEDIASTINUM: The cardiac silhouette is not enlarged. LUNGS: No infiltrates, effusions or pneumothorax. OTHER: No free air under the diaphragm. IMPRESSION: No acute cardiopulmonary pathology. Reviewed, dictated and finalized at location A.
[2025-03-16 19:32] VITALS: BP 120/109; PULSE 123; RESP 20; TEMP 36.8; O2SAT 96
[2025-03-16 19:39] VITALS: PULSE 129
--- NOTE | 2025-03-16 19:45 | ECG_ITS ---
Test Date: 2025-03-16 19:38:25 Measurements Intervals Coffeen Rate: 120 P: 34 PA: 161 QRS: 76 QRSD: 92 T: 7 QT: 308 QTc: 435 Interpretive Statements SINUS TACHYCARDIA ABNORMAL RHYTHM ECG Compared to ECG 02/22/2025 18:10:13 No significant changes Electronically Signed On 03-17-2025 10:07:54 CDT by Zeeshan Hoskins M.D.
--- NOTE | 2025-03-16 19:47 | ED_ITS ---
HPI - SOB/Dyspnea General Chief Complaint: Chest Pain Stated Complaint: CP with hx previous MD HX History of Present Illness HPI Narrative: Patient is an obese 24-year-old female who presents to the ER in complaints shortness of breath and midsternal pain. She reports she ate dinner this evening then started experiencing symptoms. Patient reports her ofazhr-of-odj is a nurse, took her vital signs at home and her heart rate was 165 beats per minute. She describes the pain as ?sharp and stabbing and rates it at a 6/10. Patient endorses a history of tachycardia and reports she takes metoprolol. She also endorses a history of diabetes, GERD, hypertension, and chronic abdominal pain. Patient denies any chance of , as she is to another woman. She denies any recent fevers, recent cough, or new onset lower extremity swelling. Related Data Home Medications ?Medication ?Instructions ?Recorded ?Confirmed ?Last Taken ?Type metformin 500 mg tablet,extended 1,000 mg PO BID 07/04/24 02/26/25 01/27/25 History release 24 hr metoprolol tartrate 25 mg tablet 25 mg PO DAILY 10/23/24 02/26/25 01/28/25 07:00 History Allergies Allergy/AdvReac Type Severity Reaction Status Date / Time morphine Allergy Mild Hives Verified 02/26/25 14:52 bupropion (From Wellbutrin) AdvReac Intermediate Agitated Verified 02/26/25 14:52 Review of Systems 2 Review of Systems: All systems reviewed & are unremarkable except as noted in HPI and below PMFSH Past Medical History Medical History Anxiety Hypertriglyceridemia Type 2 diabetes mellitus with morbid obesity Arthralgia of multiple joints Hypertension Weight gain, abnormal Essential hypertension Elevated BP without diagnosis of hypertension Palpitations Right sided abdominal pain Morbid obesity with BMI of 60.0-69.9, adult Mass of left lobe of liver Hepatic steatosis Elevated glucose Elevated WBCs Hypersomnia Snoring Right knee pain Left ankle pain Major depression Encounter to establish care Acid reflux Gallstones Patient denies significant medical history Surgical History Surgical History History of cholecystectomy 05/20/2023 Family History Family History Father Alcoholism Diabetes mellitus Hypertension Heart disease Mother Ovarian cancer Sibling Depression Grandparent Hypertension Heart disease Grandparent Alcoholism Lung cancer Social History Social History Smoking status: Never smoker Tobacco type: smokeless tobacco Smokeless tobacco user: dissolvable tobacco Additional smoking assessment comments: DAILY USE Alcohol intake: former Alcohol use details: 1-2 a month Substance use: never Substance use type: does not use Other substance usage details: daily Last use: 2 MONTHS 2 TIMES PER WEEK Do You Feel Safe in your Home?: Yes Lack of Transportation: No Lack of Food: Never True Current Housing: I Have Housing Concerned About Future Housing: No Difficulty Paying Gas/Electric Bills: No Difficulty Paying for Meds: No Currently Unemployed: YES Education: Trade/Vocational Certificate Difficulty w/ Childcare or Family Care: No Living arrangements: with friend(s) Spiritual care concerns: No Exam 2 Narrative: GENERAL: Well appearing, obese, non-toxic, in mild distress d/t SOB. HEAD: Normocephalic, atraumatic. NECK: Supple. No adenopathy, no masses. RESPIRATORY: Airway patent, respirations mildly labored. Clear to auscultation bilaterally, no rales, rhonchi, wheezing. CARDIOVASCULAR: Tachycardia (baseline for patient) without murmurs, rubs, or gallops. Peripheral pulses 2+ and equal bilaterally. ABDOMINAL: Soft, nontender, nondistended, no hepatosplenomegaly. Normoactive BS. MUSCULOSKELETAL: Moves all extremities. Strength/ROM intact without gross deformities. SKIN: Warm, dry, normal color. No rashes. NEURO: A&O X3. Speech clear. Cranial nerves II-XII intact. No ataxic movements. PSYCHIATRIC: Appropriate mood and affect. Normal interaction. Course Vital Signs Vital signs: Vital Signs Temperature 36.8 C 03/16/25 19:32 Pulse Rate 123 H 03/16/25 19:32 Respiratory Rate 20 03/16/25 19:32 Blood Pressure 120/109 H 03/16/25 19:32 Pulse Oximetry 96 03/16/25 19:32 Oxygen Delivery Room Air 03/16/25 19:32 Temperature 36.8 C 03/16/25 19:32 Pulse Rate 123 H 03/16/25 19:59 Respiratory Rate 20 03/16/25 19:59 Blood Pressure 164/84 H 03/16/25 19:59 Pulse Oximetry 99 03/16/25 19:59 Oxygen Delivery Room Air 03/16/25 19:59 MDM - SOB/Dyspnea MDM Narrative Medical decision making narrative: Patient is an obese 24-year-old female who presents to the ER in complaints shortness of breath and midsternal pain. She reports she ate dinner this evening then started experiencing symptoms. Patient reports her noxbjg-vr-ctc is a nurse, took her vital signs at home and her heart rate was 165 beats per minute. She describes the pain as ?sharp and stabbing and rates it at a 6/10. Patient endorses a history of tachycardia and reports she takes metoprolol. She also endorses a history of diabetes, tachycardia, GERD, hypertension, elevated WBC, and chronic abdominal pain. Patient denies any chance of , as she is to another woman. She denies any recent fevers, recent cough, or new onset lower extremity swelling. Labs Ordered: CBC, CMP, lipase, D-dimer, TSH, PTT, INR, troponin, UA, UDS Imaging Ordered: CT PE scan, chest x-ray Medications Ordered: Results: Patient's chest x-ray indicates No acute cardiopulmonary pathology. Pt's CT scan indicates PULMONARY ARTERIES: No pulmonary embolus. VISUALIZED THORACIC INLET: Normal. MEDIASTINUM: Aorta/coronary arteries: The thoracic aorta is normal. Heart/other: The heart is not enlarged. Lymph nodes: No mediastinal or hilar adenopathy. LUNGS: No pulmonary nodules or masses. No infiltrates or effusions. No pneumothorax. VISUALIZED UPPER ABDOMEN: Fat infiltration of the liver. Otherwise, the visualized upper abdomen is normal. MUSCULOSKELETAL: Soft tissues: The superficial soft tissues are normal. Bones: Normal spine. Diagnosis: Risks: HEART score: low risk HEART Score for Major Cardiac Events from [email or web address] on 03/16/2025 All calculations should be rechecked by clinician prior to use RESULT SUMMARY: 3 points Low Score (0-3 points) Risk of MACE of 0.9-1.7%. INPUTS: History ?> 1 = Moderately suspicious EKG ?> 0 = Normal Age ?> 0 = <45 Risk factors ?> 2 = >= risk factors or history of atherosclerotic disease Initial troponin ?> 0 = <=Normal limit Patient Education/Shared MDM: Results of lab work and imaging shared with patient. She endorses continued chest pain. Pt does not believe her pain is related to GERD and declines a GI cocktail. Pt will be given Toradol for symptom relief. She was strongly advised to maintain hydration status upon discharge and follow-up with her PCP as soon as possible for further glucose management. She will not be discharged home with any new prescriptions. Strict return precautions provided. Patient verbalized understanding and is in agreement with plan. Vital signs stable at time of discharge. All questions answered. 2230- Pt endorses pain relief following Toradol administration. Continue plan for discharge home. Differential Diagnosis Differential diagnosis: Likely community acquired pneumonia, asthma with exacerbation, pulmonary embolism and other (Atypical chest pain, gastric reflux disease) Lab Data Attestation: I reviewed the patient's lab results. 03/16/25 19:47 03/16/25 19:47 Labs: Lab Results 03/16/25 03/16/25 03/16/25 Range/Units 19:47 21:02 22:02 WBC 18.1 H (4.5-10.0) K/mm3 RBC 5.09 (4.2-5.4) M/mm3 Hgb 13.9 (12.0-15.0) g/dL Hct 42.8 (37.0-47.0) % MCV 84.1 (80-100) fl MCH 27.3 (26-34) pg MCHC 32.5 (32-36) g/dl RDW 13.7 (11.5-14.5) % Plt Count 364 (150-375) k/mm3 MPV 9.8 (7.4-10.4) fl Immature Gran % (Auto) 0.8 H (0-0.5) % Neut % (Auto) 67.7 (45.5-73.1) % Lymph % (Auto) 24.4 (18.3-44.2) % Horry % (Auto) 5.2 (2.6-8.5) % Eos % (Auto) 1.5 (0-4.4) % Baso % (Auto) 0.4 (0.2-1.2) % Lymph # (Auto) 4.41 H (0.9-3.2) K/mm3 Horry # (Auto) 0.9 H (0.1-0.6) K/mm3 Eos # (Auto) 0.3 (0-0.3) K/mm3 Baso # (Auto) 0.1 (0.0-0.1) K/mm3 Abs Immat Gran (auto) 0.15 H (0.00-0.031) K/mm3 Absolute Neuts (auto) 12.3 H (1.3-6.7) K/mm3 Absolute Nucleated RBC 0.000 (0.0-0.012) K/mm3 Nucleated RBC % 0.0 (0.0-0.2) % PT 13.4 (11.1-14.7) Seconds INR 1.0 APTT 26.0 (22.3-36.8) Seconds D-Dimer 0.44 (<0.48) ug/mL Sodium 136 L (137-145) mmol/L Potassium 4.3 (3.4-5.0) mmol/L Chloride 99 (98-107) mmol/L Carbon Dioxide 27 (22-30) mmol/L Anion Gap 10 (4-12) mmol/L BUN 14 (7-17) mg/dL Creatinine 0.83 (0.7-1.0) mg/dL Estim Creat Clear Calc 131 ml/min Estimated GFR > 60 (59 - ) Glucose 344 H (65-110) mg/dL Calcium 9.0 (8.4-10.2) mg/dL Total Bilirubin 0.7 (0.2-1.3) mg/dL AST 73 H (14-36) U/L ALT 63 H (6-35) U/L Alkaline Phosphatase 92 (38-126) U/L Troponin I < 0.012 (0.000-0.034) ng/mL Total Protein 8.0 (6.3-8.2) g/dL Albumin 4.2 (3.5-5.1) g/dL Lipase 115 (23-300) U/L TSH (Reflex) 4.590 (0.465-4.68) uIU/mL Free T4 1.42 (0.78-2.19) ng/dL Total T3 Pending Urine Color Yellow (Yellow) Urine Appearance Clear (Clear) Urine pH 6.5 (5.0-9.0) Ur Specific Girard > 1.045 H (1.001-1.035) Urine Protein Negative (Negative) mg/dL Urine Glucose (UA) 3+ H (Negative) mg/dL Urine Ketones Trace H (Negative) mg/dL Ur Blood (Man) Trace (Negative) Urine Nitrate Negative (Negative) Urine Bilirubin Negative (Negative) Urine Urobilinogen 0.2 (<2.0) mg/dL Leukocyte Esterase Rfl Negative (Negative) MICKY/UL Urine RBC 0-2 (0-2) /hpf Urine WBC 0-5 (0-3) /hpf Ur Squamous Epith Cells None seen (Few) /hpf Urine Bacteria 1+ H /hpf Urine Casts 0-2 POC Urine HCG, Qual Negative (Negative) Urine Opiates Screen Negative (Negative) Urine Methadone Screen Negative (Negative) Ur Barbiturates Screen Negative (Negative) Ur Phencyclidine Scrn Negative (Negative) Ur Amphetamine Screen Negative (Negative) U Benzodiazepines Scrn Negative (Negative) Urine Cocaine Screen Negative (Negative) U Cannabinoids Screen Negative (Negative) Imaging Data Attestation: I personally reviewed and interpreted this imaging study as follows: Radiologist's impression: Impressions Chest X-Ray 03/16/25 20:08 IMPRESSION: No acute cardiopulmonary pathology. Chest CTA 03/16/25 21:11 IMPRESSION: 1. No pulmonary embolism. 2. No acute cardiopulmonary pathology. 3. Fat infiltration of the Discharge Plan Discharge Clinical Impression: Atypical chest pain, Elevated blood sugar Patient Disposition: Home Condition: Stable Instructions: Antibiotic Form, Noncardiac Chest Pain (ED) Additional Instructions: Please return to the ER with any worsening symptoms. Follow-up with primary care provider as soon as possible to discuss further glucose management. Take all medications as prescribed, including regularly scheduled medications. You may use Tylenol and or ibuprofen for pain management outside of the hospital. Patient Language: South Korean Prescriptions: No Action metoprolol tartrate 25 mg tablet 25 mg PO DAILY sertraline 50 mg tablet 50 mg PO DAILY Qty: 30 11RF Rx Instructions: take with 100mg sertraline tab to equal 150mg tab Jardiance 10 mg tablet 10 mg PO QAM Qty: 30 11RF sertraline 100 mg tablet 100 mg PO DAILY Qty: 30 11RF buspirone 7.5 mg tablet 7.5 mg PO BID Qty: 60 11RF omeprazole 40 mg capsule,delayed release(DR/EC) 40 mg PO BID Qty: 60 3RF metoclopramide HCl [Reglan] 5 mg tablet 5 mg PO .HS Qty: 30 3RF metformin 500 mg tablet extended release 24 hr 1,000 mg PO BID Rx Instructions: start 1 tab daily x1 week. Increase by 1 tab each week to 2 tabs 2x/day with meals. ibuprofen 800 mg tablet 800 mg PO TID PRN (Reason: pain) Qty: 20 0RF hydrocortisone acetate 25 mg suppository 25 mg RECTAL DAILY Qty: 12 0RF (DME) blood-glucose meter [Blood Glucose Monitoring] Kit See Rx Instructions .Route Qty: 1 0RF Rx Instructions: As directed dicyclomine 20 mg tablet See Rx Instructions .ROUTE .COMPLEX Qty: 90 11RF Dose Instruction: TAKE 1 TABLET BY MOUTH THREE TIMES DAILY Rx Instructions: TAKE 1 TABLET BY MOUTH THREE TIMES DAILY Trulicity 1.5 mg/0.5 mL pen injector 1.5 mg subcut WEEKLY Qty: 2 5RF Rx Instructions: call office for refill losartan 100 mg tablet 100 mg PO DAILY Qty: 90 3RF hydrochlorothiazide 12.5 mg tablet 12.5 mg PO QAM Qty: 30 5RF trazodone 50 mg tablet 50 mg PO QHS PRN (Reason: sleep) Qty: 30 3RF hyoscyamine sulfate [Levsin/SL] 0.125 mg tablet, sublingual 0.125 mg PO QID Qty: 120 3RF hyoscyamine sulfate [Levsin] 0.125 mg tablet 0.125 mg PO .every 6 hours Qty: 120 3RF amitriptyline 25 mg tablet 25 mg PO QHS Qty: 30 3RF colestipol 1 gram tablet 1 g PO BID Qty: 60 3RF (DME) OneTouch Verio test strips Strip See Rx Instructions .Route Qty: 100 3RF Rx Instructions: As directed Follow-up/Referrals: Ethel Liz NP [Primary Care Provider] - Time of Disposition: 22:32
[2025-03-16 19:57] LABS: Basophils Absolute Auto 0.1 K/mm3 (0.0-0.1); Basophils Percent Auto 0.4 % (0.2-1.2); Eosinophils Absolute Auto 0.3 K/mm3 (0-0.3); Eosinophils Percent Auto 1.5 % (0-4.4); Hematocrit 42.8 % (37.0-47.0); Hemoglobin 13.9 g/dL (12.0-15.0); Immature Granulocyte Absolute 0.15 K/mm3 (0.00-0.031); Immature Granulocyte Percent A 0.8 % (0-0.5); Lymphocytes Absolute Auto 4.41 K/mm3 (0.9-3.2); Lymphocytes Percent Auto 24.4 % (18.3-44.2); Mean Corpuscular HGB Conc 32.5 g/dl (32-36); Mean Corpuscular Hemoglobin 27.3 pg (26-34); Mean Corpuscular Volume 84.1 fl (80-100); Mean Platelet Volume 9.8 fl (7.4-10.4); Monocytes Absolute Auto 0.9 K/mm3 (0.1-0.6); Monocytes Percent Auto 5.2 % (2.6-8.5); Neutrophils Absolute Auto 12.3 K/mm3 (1.3-6.7); Neutrophils Percent Auto 67.7 % (45.5-73.1); Platelet Count Result 364 k/mm3 (150-375); Red Blood Count 5.09 M/mm3 (4.2-5.4); Red Cell Distribution Width 13.7 % (11.5-14.5); White Blood Count 18.1 K/mm3 (4.5-10.0)
[2025-03-16 19:59] VITALS: BP 164/84; PULSE 123; RESP 20; O2SAT 99
[2025-03-16 20:08] LABS: Prothrombin Time 13.4 Seconds (11.1-14.7)
[2025-03-16 20:15] LABS: Alanine Aminotransferase 63 U/L (6-35); Albumin Level 4.2 g/dL (3.5-5.1); Alkaline Phosphatase 92 U/L (38-126); Anion Gap 10 mmol/L (4-12); Aspartate Amino Transferase 73 U/L (14-36); Bilirubin,Total 0.7 mg/dL (0.2-1.3); Blood Urea Nitrogen 14 mg/dL (7-17); Carbon Dioxide 27 mmol/L (22-30); Chloride 99 mmol/L (98-107); Estimated CRCL calculation 131 ml/min; Estimated Glomerular Filt Rate > 60; Glucose 344 mg/dL (65-110); Lipase 115 U/L (23-300); Potassium 4.3 mmol/L (3.4-5.0); Sodium 136 mmol/L (137-145)
[2025-03-16 20:16] LABS: D Dimer 0.44 ug/mL (<0.48)
--- OUTSIDE RECORDS SUMMARY | 2025-03-16 20:24 | XMS_ITS | Referral Summary ---
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
--- OUTSIDE RECORDS SUMMARY | 2025-03-16 20:24 | XMS_ITS | CONTINUITY OF CARE DOCUMENT ---
Author Name paola, paola Address Unknown Organization [facility] Address [address] [place] [address] [address] [place] [address] Phone [phone] Care Team Providers Care Library Monitor Name Role Phone Raj SIMS, Marvin Unavailable TREVOR SIMS, HUSSEIN Unavailable Unavailable INSURANCE PROVIDERS Payer name Policy type / Coverage type [employer] red constitution party ID [place] MEDICA[employer] Medicaid [id number]
--- OUTSIDE RECORDS SUMMARY | 2025-03-16 20:24 | XMS_ITS | Encounter Summary ---
Author Organization [facility] Address [address] [place] [address] Care Team Providers Care Supervisor Anodizing Name Role Phone Unavailable Primary Care Provider Unavailabl e Encounter Details Date Type Department Care Team (Late st Contact Info) Description 03/13/2025 External Device Data [facility] ABSTRACTION Provider, Abstract [...] Description 05/20/2025 1:00 PM CDT Office Visit [facility] - [place] [address] [place] [address] Felipe Joyner MD [address] [facility] [address] [place] [address] documented as of this encounter Visit Diagnoses Not on filedocumented in this encounter
--- OUTSIDE RECORDS SUMMARY | 2025-03-16 20:24 | XMS_ITS | Data Portability ---
Author Organization [facility] [place] Address [address] [place] [address] [place] [address] Care Team Providers Care Maintenance Aide Name Role Phone NATALIIA, PATRICIA Primary Care Provider RACHEL ALBERT Primary Care Provider Assessment No assessment recorded. Plan of Treatment Reminders Order Date Submit Date Provider Last Modified By Organization Details Last Modified Time Details Appointments FOLLOW UP 2024 01:30P Katja BRYAN MD Not available Not available Not available Lab None recorded. Referral None recorded. Procedures None recorded. Surgeries None recorded. Imaging US, transvagi nal 2023 024 [email or web address] [place], [address], [address], [place], [address], 08/30/2024 19:45:10 Medication Orders clotrimaz ole-betam ethasone 1 %-0.05 % topical cream 2024 025 [id number], [address] [place], [place], [id number], 10/27/2024 12:50:15 metronida zole 0.75 % (37.5 mg/5 gram) vaginal gel 2023 024 [id number], [address] [place], [place], [id number], 09/24/2024 11:06:13 Mirena 21 mcg/24 hr (up to 8 years) 52 mg intrauter ine device 2023 024 [email or web address] Not available 08/20/2024 14:08:12 Patient TargetsNo targets recorded. Patient InstructionsNo instructions recorded. Reason for Referral None Reported. Results Created Date Observation Date Name Description Value Unit Range Abnormal Flag Note LastModifiedBy Organization Detail LastModifiedTime 08/15/2008/15/2024 US, pelvi s No observ ation record ed. [facility] [address], [place], [address], 08/15/2024 17:30:18 08/15/2008/15/2024 US, trans vagin al No observ ation record ed. [facility] [address], [place], [address], 08/15/2024 17:30:31 08/15/2008/15/2024 , pelvi s No observ ation record ed. [email or web address] [address], [place], [address], 08/16/2024 16:07:33 08/30/20 24 08/30/2024 US, trans vagin al No observ ation record ed. [email or web address] [place] [address], [place], [address], 08/30/2024 21:42:27 08/30/20 24 08/30/2024 , trans vagin al No observ ation record ed. [email or web address] [address], [place], [address], 08/30/2024 21:42:27 Result Notes None recorded. Problems Name Problem SNOMED Code Status Onset Date Resolution Date Notes Provider Name and Address Organization Details Recorded Time Polycystic ovary syndrome 659211553 Active 2023 Becca Hernandez NAD[facility]- [address], [place], [address], [facility] 01/09/202 4 14:57:33 Insulin resistance 699607169 Active 2014 Becca Hernandez [facility] [address], [place], [address], [facility] 4 09:49:09 Secondary amenorrhea 109067417 Active 2017 Becca Hernandez [facility] [address], [place], [address], [facility] 4 09:50:15 Hypertriglyc eridemia 103933403 Active 2023 Becca Hernandez [facility] [address], [place], [address], [facility] 4 09:50:27 Chronic peptic ulcer 311376095 Active 2022 Becca Hernandez [facility] [address], [place], [address], [facility] 4 09:50:53 Problem Notes None recorded. Procedures Surgical History Date Name Laterality Status Provider Name and Address Organization Details Recorded Time IUD Removal completed Diogo Bryan MD [address], [place], [address], [facility] 08/20/2024 14:41:43 024 IUD Insertion completed Diogo Bryan MD [address], [place], [address], [facility] 08/20/2024 14:41:33 024 Laparoscopy completed Digna Ace [facility] 10/26/2024 14:39:20 024 endoscopy completed Estrella Johnson [facility] 05/10/2024 16:00:13 023 Date of Last Pap Smear completed Digna Db [facility] 08/09/2023 15:03:22 023 cholecystectomy completed [facility] 06/30/2023 14:39:16 Imaging Results Imaging Date Name Status LastModified by Organization Details LastModified Time 08/15/2024 US, pelvis completed [email or web address] Pereira [address], [place], [address], 08/15/2024 17:30:18 08/15/2024 US, transvaginal completed [email or web address] gleason [address], [place], [address], 08/15/2024 17:30:31 08/15/2024 US, pelvis completed [email or web address] [address], [place], [address], 08/16/2024 16:07:33 08/30/2024 US, transvaginal completed [email or web address] Carmelo e [address], [place], [address], 08/30/2024 21:42:27 08/30/2024 US, transvaginal completed [email or web address] [address], [place], [address], 08/30/2024 21:42:27 Procedure Notes None recorded. Medical Equipment None Reported. Allergies Allergen ID Allergen Name Allergen Category Reaction Reaction Severity Criticality Documentation Date Start Date Code Code System Note Provider Name and Address Organization Details Recorded Time 57569 morphine medicatio n Not available Not available Not available 05/18/2024 7052 RxNorm Tara lira [facility] 14:01:04 Medications Name Sig Start Date Stop Date Status Note LastModified by Organization Details LastModified Time Prescriptio n - Prior Authorizati on Request 11/01 completed Not Available Not Available Not Available quetiapine 25 mg tablet TAKE 1 TABLET BY MOUTH EVERY DAY AT BEDTIME active Not Available Not Available No t Available medroxyprog esterone 10 mg tablet Take [...] TABLET BY MOUTH EVERY DAY AT BEDTIME NEEDED FOR SLEEP active Not Available Not Available No t Available azithromyci n 250 mg tablet 07/07 completed Not Available Not Available Not Available ibuprofen 800 mg tablet TAKE 1 TABLET BY MOUTH THREE TIMES DAILY NEEDED FOR PAIN active Not Available Not Available No t [...] completed Not Available Not Available Not Available omeprazole 40 mg capsule,del ayed release TAKE 1 CAPSULE BY MOUTH TWICE DAILY active Not Available Not Available No t Available tramadol 50 mg tablet TAKE 1 [...] completed Not Available Not Available Not Available amitriptyli ne 25 mg tablet TAKE 1 TABLET BY MOUTH EVERY DAY AT BEDTIME active Not Available Not Available No t Available metoclopram yaron 5 mg tablet TAKE 1 TABLET BY MOUTH AT BEDTIME active Not Available Not Available No t Available dicyclomine 20 mg tablet TAKE 1 [...] Not Available Not Available No t Available hyoscyamine sulfate 0.125 mg tablet TAKE 1 TABLET BY MOUTH EVERY 6 HOURS FOR ABDOMINAL PAIN active Not Available Not Available No t [...] Not Available Not Available No t Available metformin ER 500 mg tablet,exte nded [...] active Not Available Not Available Not Available colestipol 1 gram tablet TAKE 1 TABLET BY MOUTH TWICE DAILY active Not Available Not Available No t Available dicyclomine 10 mg capsule TAKE 1 [...] completed Not Available Not Available Not Available (28) 1.5 mg-30 mcg (21)/75 mg (7) [...] No t Available OneTouch Verio test strips TEST THREE TIMES DAILY DIRECTED active Not Available Not Available No t Available Jardiance 10 mg tablet TAKE 1 TABLET BY MOUTH EVERY MORNING active Not Available Not Available No t Available Trulicity 1.5 mg/0.5 mL subcutaneou s pen injector ADMINISTE R 1.5 MG UNDER THE SKIN WEEKLY active Not Available Not Available No t Available Trulicity 0.75 mg/0.5 mL subcutaneou s pen injector ADMINISTE R 0.75 MG UNDER THE SKIN WEEKLY 09/24 completed Not Available Not Available Not Available OneTouch Verio Flex Meter USE DIRECTED 07/27 completed Not Available Not Available Not Available Ozempic 0.25 mg or 0.5 mg (2 mg/1.5 mL) subcutaneou s pen injector 11/16 completed Not Available [...] mg or 0.5 mg (2 mg/3 mL) subcutaneou s pen injector 11/16 completed Not Available Not Available Not Available Vitals Date Recorded Body height Body mass index (BMI) Body weight Systolic blood pressure Diastolic blood pressure Provider Name and Address Organization Details Last Updated DateTime 08/20/2024 157.48 cm 65.8 kg/m2 075747.2 5 g 118 mm[Hg] 80 mm[Hg] Digna Ace [facility] 11:16:01 Date Recorded Body height Body mass index (BMI) Body weight Systolic blood pressure Diastolic blood pressure Provider Name and Address Organization Details Last Updated DateTime 08/29/2024 157.48 cm 65.3 kg/m2 176310.4 8 g 150 mm[Hg] 94 mm[Hg] [facility] 4 14:16:12 Date Recorded Body height Body mass index (BMI) Body weight Systolic blood pressure Diastolic blood pressure Provider Name and Address Organization Details Last Updated DateTime 09/24/2024 157.48 cm 65.3 kg/m2 102286.4 8 g 141 mm[Hg] 95 mm[Hg] [facility] 4 11:03:39 Date Recorded Body height Body mass index (BMI) Body weight Systolic blood pressure Diastolic blood pressure Provider Name and Address Organization Details Last Updated DateTime 10/26/2024 157.48 cm 62.7 kg/m2 605162.1 8 g 131 mm[Hg] 93 mm[Hg] [facility] 5 14:36:46 Social History Question Answer Notes LastModified by Organizat ion Details LastModified Time Tobacco Smoking Status Never Smoker [facility] 06/30/2023 14:31:55 Do You Have An Advance Directive? No Information not available 05/03/2023 How Many Years Have You Consumed Alcohol? 1 Information not available 01/11/2023 Are You Blind Or Do You Have Difficulty Seeing? No Information not available 01/11/2023 What Is Your Level Of Caffeine Consumption? Moderate Information not available 01/11/2023 How Much Tobacco Do You Chew? 2-4/day Information not available 07/27/2024 In The 14 Days Before Symptom Onset, Have You Had Close Contact With A Laboratory-confir med COVID-19 While That Case Was Ill? No Information not available 12/30/2022 In The 14 Days Before Symptom Onset, Have You Had Close Contact With A Person Who Is Under Investigation For COVID-19 While That Person Was Ill? No Information not available 12/30/2022 Have You Been To An Area Known To Be High Risk For COVID-19? No Information not available 12/30/2022 Are You Deaf Or Do You Have Serious Difficulty Hearing? No Information not available 01/11/2023 What Type Of Diet Are You Following? REGULAR Information not available 12/30/2022 What Is The Highest Grade Or Level Of School You Have Completed Or The Highest Degree You Have Received? [id number] Information not available 12/30/2022 Are There Any Guns Present In Your Home? Yes Information not available 01/11/2023 Do You Use Protection During Sex? No Information not available 01/11/2023 Do You Use Your Seat Belt Or Car Seat Routinely? No Information not available 01/11/2023 Are You Sexually Active? Yes Female Partners [email or web address] Information not available 06/30/2023 Do You Have Smoke And Carbon Monoxide Detectors In Your Home? Yes Information not available 01/11/2023 How Much Tobacco Do You Smoke? No Information not available 01/11/2023 Do You Use Sunscreen Routinely? No Information not available 01/11/2023 Has Tobacco Cessation Counseling Been Provided? No [email or web address] Information not available 06/30/2023 Have You Used IV Drugs? No Information not available 01/11/2023 Sex: Unknown Functional Status Question Answer Note LastModified by Organizat ion Details LastModified Time Do you use any illicit or recreational drugs? No Information not available 12/30/2022 Do you or have you ever used any other forms of tobacco or nicotine? No [email or web address] Information not available 06/30/2023 What is your level of alcohol consumption? Occasional Information not available 12/30/2022 Are you currently employed? Yes [email or web address] Information not available 06/30/2023 Are you able to walk? 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 Moderate Information not available 01/11/2023 Mental Status Question Answer Note LastModified by Organization D etails LastModified Time Do you feel stressed (tense, restless, nervous, or anxious, or unable to sleep at night)? [id number] Information not available 01/11/2023 Family History Relationship Description Onset Age of [...] ) N Other Y Breast Cancer N Blood Transfusion N Drug/Latex Allergies/Reactions N Dermatologic Disorders N Lung Disease N Defects or Inherited Disease N Breast Problem N Gestational Diabetes N Hematologic disorders N Anesthesia Complications N History of STI N Deep Vein Thrombosis N Polycystic ovary syndrome Y Anxiety Disorder N Autoimmune disease N Arthritis N Polyps N Infertility N Acid Reflux (GERD) N History of abnormal pap N Cancer N Varicosities N Stroke N Neurologic/Epilepsy N Endometriosis N High Cholesterol Y Fibromyalgia N Headaches N Kidney Disease N [...] SNOMED-CT Code Diagnosis ICD10 Code Diagnosis Note [id number] [facility] [address] [address] 12/30/2022 12:18:03 12/30/2022 16:58:19 Secondary amenorrhea 710925499 N91.1 Today we discussed menses & amenorrhei [...] building rapport before more invasive procedures pursued.Se em comfortabl e and cooperativ e of this plan of care. Rx sent with instructio ns reviewed. Counseled on medication R/B's, Most common side effects, & use. All questions were answered to patient satisfacti on. Time spent in visit is a total of 30 mins with at least 50% of visit consisting of counseling and review of plan of care. Cyst of left ovary 02374 12325 2917549 N83.202 Left cyst vs paratubal cyst very smallLikel y not the source of pain that has been plaguing herMore concerned about lack of monthly cycles which we discussedP COS is suspected. Will see if recent cholestero l, hbga1c etc have been performed by PCP.If not will update those next visit. FSH/LH: 7.8/7.1Tot al T- 36 wnlEstroge n (e1): 413.2 [id number] [facility] [address] [address] 01/11/2023 12:29:58 01/11/2023 13:32:02 Secondary amenorrhea 555504109 N91.1 Today we discussed trial of provera.Sh e tolerated medication well but has not initiated [...] counseling and review of plan of care. [id number] Diogo Bryan MD [place] [address],[place] [address] 05/02/2023 16:04:08 05/02/2023 16:44:12 Pain in pelvis 84914674 R10.2 [id number] Becca Hernandez [facility] [address],[place] [address] 05/03/2023 14:32:39 05/03/2023 15:07:47 Secondary amenorrhea 817583696 N91.1 Today we discussed US.Left ovarian cyst [...] counseling and review of plan of care. [id number] Becca Hernandez [facility] [address],[place] [address] 06/30/2023 14:31:50 06/30/2023 14:54:46 Sexually transmitted infectious disease 5636455 A64 Today would like STD urine & serum labs.Will update on resultsRes chedule WWE visit. Time spent in visit is a total of 15 mins with at least 50% of visit consisting of counseling and review of plan of care. [id number] Becca Hernandez , [facility] [address] [address] 07/07/2023 14:22:21 07/07/2023 14:48:02 Gynecologic examination 57643960 Z01.419 Take Calcium with Vitamin D 1200mg [...] c Screen discussedC olon Screen naDexa Screen [facility] PCP [id number] Becca Hernandez , [facility] [address] [address] 08/09/2023 14:35:44 08/09/2023 15:26:55 Secondary amenorrhea 673839828 N91.1 Today we discussed switching from Provera [...] counseling and review of plan of care. [id number] MARCK Gonzales[facility] [address] [address] 11/01/2023 13:43:06 11/01/2023 15:07:32 Polycystic ovary syndrome 396769454 E28.2 Z68.44 Today we discussed PCOS and [...] Low HDL (good) cholestero l. Insulin resistance 32346 5000 E88.819 Will see if qualifies for injectable or something other than Metformin with her prominent Hx of peptic ulcer/Gall bladder and it likelihood of causing significan t GI issues or exacerbati on of these issues. Contracept ion care management 640445071 N91.1 Patient is here today for a [...] of plan of care. Hyperlipid emia screening 811593916 Z13.220 Update to check for high LDL/TG/Tot al/Low HDL [id number] Becca Hernandez [facility] [address],[place] [address] 11/16/2023 15:55:38 11/22/2023 17:14:20 Insulin resistance 494987006 E88.819 Z68.44 E66.9 E88.810 E28.2 Will complete 0.75mg weekly x 4wks.Then, return to office for med check & if tolerating we increase to next dose. In depth adult school counselor on trulicity purpose, dosage, dosage schedule, [...] counseling and review of plan of care. [id number] Becca Hernandez [facility] [address],[place] [address] 12/13/2023 15:42:18 12/13/2023 16:18:12 Prediabetes 805513662 R73.03 Z68.44 E88.810 E28.2 Z83.49 Patient is [...] and review of plan of care. Tachycardia 4661416 R00. [address] for random HBP/Palpit ations Contracept ion care management 525881790 N91.1 BCP switched to POP only vs CONNER due to verbalizat ion of heart palpitatio ns/HBP. Will f/u in 7wks at [facility] check for trulicity. [id number] [facility] [address] [address] 01/24/2024 15:12:35 01/24/2024 16:03:45 Venereal disease screening 990700374 Z11.3 STD screen urine sent to confirm no std.Partne r recently treated for trich (female partner)Wi ll reach out with results. Time spent in visit is a total of 15 mins with at least 50% of visit consisting of counseling and review of plan of care. Contracept ion care management 972064420 N91.1 BCP switched to POP only vs CONNER due to verbalizat ion of heart palpitatio ns/HBP.Alon ples given x 6mosCall for additional samples if neededMeghan sawyer. [id number] Melania Ranodlph NADINE [place] [address] [address] 05/10/2024 15:49:03 05/10/2024 16:28:39 Abnormal uterine bleeding 0453182459 9100 N93.9 The patient and I discussed [...] of plan of care. Polycystic ovary syndrome 290309827 E28.2 [id number] Diogo Bryan MD [place] [address],[place] [address] 05/15/2024 11:58:20 05/15/2024 12:31:15 Abnormal uterine bleeding 1725732136 9100 N93.9 [id number] Diogo Bryan MD [place] [address],[place] [address] 05/18/2024 13:42:09 05/18/2024 14:52:30 Abnormal uterine bleeding 4542114758 9100 N93.9 this patient is a 23-year-ol [...] to proceed with laboratory evaluation Preoperative state 49763 002 Z78.9 [id number] Diogo Bryan MD [place] [address],[place] [address] 07/27/2024 11:03:55 07/27/2024 12:23:34 Contraception care management 889667772 Z30.9 23-year-ol d female who 1 week from a IUD insertion under anesthesia . Hysterosco py D and C was also performed. She tolerated well. She has no complaints . She will return later for IUD check. [id number] Diogo Bryan MD [place] [address],[place] [address] 08/15/2024 10:37:45 08/15/2024 11:14:49 Pain in pelvis 48783622 R10.2 [id number] Diogo Bryan MD [place] [address],[place] [address] 08/20/2024 10:28:22 08/20/2024 15:10:06 Insertion of intrauterine contraceptive device 99670848 Z30.430 IUD was removed replaced. She tolerated it well. To follow up in 1 month [id number] Diogo Bryan MD [place] [address],[place] [address] 08/29/2024 13:50:59 08/29/2024 15:00:33 Pain in pelvis 42867745 R10.2 23-year-ol d female. Patient has pain [...] sonia of the IUD Bacterial vaginosis 4197 45377 N76.0 [id number] Diogo Bryan MD [place] [address],[place] [address] 08/30/2024 16:35:42 08/30/2024 17:27:27 Mechanical complication of intrauterine contraceptive device 856871896 T83.39XA [id number] Diogo Bryan MD [place] [address],[place] [address] 09/24/2024 10:33:04 09/24/2024 11:22:24 Contraception care management 231298891 Z30.9 This patient is a 23 female who presents for IUD check. She [facility]. She has no complaints . She denies any excessive bleeding or pain. She has had some cramping and some spotting. Otherwise, she feels that is going well and wants to continue her IUD. [id number] Diogo Bryan MD [place] [address] [address] 10/26/2024 13:56:29 10/29/2024 07:50:21 Tinea corporis 23757600 B35.4 Health Concerns Section Related Observation LastModified by Organization Detai ls LastModified Time None Recorded Concern Status LastModified by Organization Details LastModified Time None Recorded Advance Directives Directive N: Payers Encounter Date Sequence Insurance Name Policy Number Policy Leija Covered Member ID Leija Member ID Guarantor Name 08/20/2024 1 [employer] [place] [id number] 0003 [facility] [id number] [facility] 08/29/2024 1 [employer] [place] [id number] 0003 [facility] [id number] [facility] 08/30/2024 1 [employer] [place] [id number] 0003 [facility] [id number] [facility] 09/24/2024 1 [employer] [place] [id number] 0003 [facility] [id number] [facility] 10/26/2024 1 [employer] [place] [id number] 0003 [facility] [id number] [facility] Notes Date Note Type Note Provider Name and Address Organization Details Recorded Time 08/20/2024 text/html Patient presents for IUD removal and insertion. The procedure was explained to the patient in detail. She understands the procedure. She understands the risks, benefits, and alternatives. She has completed the informed consent process and is ready to proceed. Diogo Bryan MD [address], [place], [address], [facility] 08/20/2024 14:47:03 08/29/2024 text/html 23-year-old ángel ross. Patient has pain after IUD insertion. She [...] IUD Diogo Bryan MD [address], [place], [address], [facility] 08/29/2024 15:00:24 09/24/2024 text/html [...] IUD. Diogo Bryan MD [address], [place], [address], [facility] 09/24/2024 11:20:29 10/26/2024 text/html [...] instructions. Diogo Bryan MD [address], [place], [address], [facility] 10/27/2024 12:52:27 OBGyn Episode No OBEpisode recorded.
--- OUTSIDE RECORDS SUMMARY | 2025-03-16 20:24 | XMS_ITS | Clinical Summary ---
Author Organization [facility] Address [address] [address] [place] [address] Phone Care Team Providers Care Needle Process Felt Goods Supervisor Name Role Phone Unavailable Primary Care [...] Encounters Date Type Department Care Team Description 03/14/2025 External Device Data STL ABSTRACTION Provider, Abstract 03/13/2025 External Device Data STL ABSTRACTION Provider, Abstract 03/12/2025 External Device Data STL ABSTRACTION Provider, Abstract 02/05/2025 External Device Data STL ABSTRACTION Provider, Abstract 01/16/2025 4:15 PM CDT Telephone Check Up [facility] [address] [place] [address] Felipe Joyner MD Leukocytosis, unspecified type (Primary Dx) 01/09/2025 External Device Data STL ABSTRACTION Provider, Abstract 01/09/2025 External Device Data STL ABSTRACTION Provider, Abstract 01/07/2025 Orders Only [facility] - [place]ie [address] [place] [address] Felipe Joyner MD 01/02/2025 Telephone [facility] [address] [place] [address] Felipe Joyner MD lab auth 01/02/2025 Abstract [facility] - [place] [address] [place] [address] Felipe Joyner MD 01/01/2025 Orders Only [facility] - [place] [address] [place] [address] Felipe Joyner MD 12/31/2024 1:30 PM CDT Office Visit [facility] [place] [address] [place] [address] Felipe Joyner MD Leukocytosis, unspecified type (Primary [...] Description 05/20/2025 1:00 PM CDT Office Visit [facility] - [place] [address] [place] [address] [address] [place] [address] Felipe Joyner MD [address] [facility] [address] [place] [address] Health Maintenance Due Date Last [...] [facility] Comment: Test Performed at: [employer] [address] [facility] [place] [address] Steven Roberson MD Blood 01/03/2025 1:36 PM CDT 01/03/2025 1:36 PM CDT us Felipe Joyner MD HEMATOLOGY ORDERABLES Final Res ult [facility] [phone] [facility] [address] [place] [address] * (ABNORMAL) C-REACTIVE PROTEIN (01/03/2025 1:36 PM CDT) CRP 49.2(H) <8.0 mg/L [facility] Comment: Test Performed at: [employer] [address] [facility] [place] [address] Steven Roberson MD Blood 01/03/2025 1:36 PM CDT 01/03/2025 1:36 PM CDT us Felipe Joyner MD CHEMISTRY ORDERABLES Final Resu lt [facility] [phone] [employer] [address] [address] [place] [address] * FLOW CYTOMETRY REPORT (01/01/2025 1:52 PM CDT) us Felipe Joyner MD PATHOLOGY/CYTOLOGY ORDERABLES F inal Result * COMPREHENSIVE METABOLIC PANEL (12/31/2024 10:31 AM CDT) Blood Felipe Joyner MD CHEMISTRY ORDERABLES Final Resu lt from Last 3 Months Insurance [place] Member Subscriber Plan / Payer ( fective 2023-Present) Name:Esme Matta Relation to Subscriber:Self Name:Sigrid Esme Payer ID:[id number] (NAIC) Type:PPO Address: [address] [address] [place] Advance Directives For more information, please contact: [phone] * Full Code (Latest Code Status on File) Date Activated Date Inactivated Comments 06/08/2024 6:25 AM 06/08/2024 11:33 AM
--- OUTSIDE RECORDS SUMMARY | 2025-03-16 20:24 | XMS_ITS ---
Author Organization [facility] Address [address] [place] [address] Care Team Providers Care Cardio Tech Name Role Phone Yong Noland Unavailable [phone] REASON FOR VISIT PRAPARE Assess Social History PRAPARE Question Answer Notes Date Completed/Updated: 03/14/2025 What is your current housing situation? I have h ousing Are you worried about losing your housing? No What is the highest level of school that you have finished? High school diploma or GED What is your current work situation? Unemployed and seeking work In the past year, have you o r any family members you live with been unable to get any of the following when it was really needed? Check all that apply I do not have problems meeting my needs Has lack of transportation k ept you from medical appointments, meetings, work or from getting things needed for daily living? No How often do you see or talk to people that you care about and feel close to? (For example: talking to friends on the phone, visiting friends or family, going to amish or club meetings) 1 or 2 times a week How stressed are you? Stress is when someone feels tense, nervous, anxious, or can\t sleep at night because their mind is troubled Very much In the past year have you sp ent more than 2 nights in a row in a senior care, usp, alf center, or juvenile correctional facility? No Do you feel physically and e motionally safe where you currently live? Yes In the past year, have you b een afraid of your partner or ex-partner? No PRAPARE Score: 7 Encounters Encounter Location Date Provider Diagnosis [address] [place] [address] 03/15/2025 Yong Noland Plan Of Treatment No Information Progress Notes * Esme MATTADOB:2000 (24 yo F)Acc No.[id number]:03/15/2025 UNLOCKED PROGRESS NOTE Patient: Esme KEITA :2000 A ge:24 Y S ex:Female Address:[address] [place] [address], [address] Subjective: * Chief Complaints: * P DARLINE Assess * Medical History: * Surgical History: * Hospitalization/Major Diagno stic Procedure: * Social History: S ocial Determinants: P DARLINE D ate Completed/Updated: 0 03/14/2025 W hat is your current housing situation? I have housing A re you worried about losing your housing??No W hat is the highest level of school that you have finished? H igh school diploma or GED W hat is your current work situation? U nemployed and seeking work I n the past year, have you or any family members you live with been unable to get any of the following when it was really needed? Check all that apply I do not have problems meeting my needs H as lack of transportation kept you from medical appointments, meetings, work or from getting things needed for daily living? N o H ow often do you see or talk to people that you care about and feel close to? (For example: talking to friends on the phone, visiting friends or family, going to amish or club meetings) 1 or 2 times a week H ow stressed are you? Stress is when someone feels tense, nervous, anxious, or can\t sleep at night because their mind is troubled V myrna much I n the past year have you spent more than 2 nights in a row in a senior care, usp, alf center, or juvenile correctional facility? N o D o you feel physically and emotionally safe where you currently live? Y es I n the past year, have you been afraid of your partner or ex-partner? N o P DARLINE Score: 7 * Medications: Objective: * Vitals: * Physical Examination: Assessment: Plan: * Treatment: * Procedure Codes: * * Date:
--- OUTSIDE RECORDS SUMMARY | 2025-03-16 20:24 | XMS_ITS | Patient Health Record ---
Author Organization [facility] Address [address] [place] [address] Care Team Providers Care Mud Cleaner Operator Name Role Phone Noland Yong Unavailable [phone] Reason For Referral No Information Social History PRAPARE Question Answer Notes Date [...] phone, visiting friends or family, going to restoration or club meetings) 1 or 2 times a week How stressed are you? Stress is when someone feels tense, nervous, anxious, or can\t sleep at night because their mind is troubled Very much In the past year have you sp ent more than 2 nights in a row in a mcc, assisted, penitentiary center, or juvenile correctional facility? No Do you feel physically and e motionally safe where you currently live? Yes In the past year, have you b een afraid of your partner or ex-partner? No PRAPARE Score: 7 Encounters Encounter Location Date Provider Diagnosis [facility] [place] [place] [address] 03/15/2025 Yong Noland Plan Of Treatment No Information Insurance Providers Payer Name Payer Address Payer Phone Subscriber Number Group Number Insured Name Patient Relationship to Insured Coverage Start Date Coverage End Date [facility] [address] [place] [address] [id number] Esme Matta Self - patient is the insured 4
--- OUTSIDE RECORDS SUMMARY | 2025-03-16 20:24 | XMS_ITS | Encounter Summary ---
Author Organization [facility] Address [address] [place] [address] Care Team Providers Care Scheduling Administrator Name Role Phone Unavailable Primary Care Provider Unavailabl e Encounter Details Date Type Department Care Team (Late st Contact Info) Description 03/14/2025 External Device Data STL ABSTRACTION [...] Description 05/20/2025 1:00 PM CDT Office Visit [facility] - [place] [address] [place] [address] Felipe Joyner MD [address] [facility] [address] [place] [address] documented as of this encounter Visit Diagnoses Not on filedocumented in this encounter
--- OUTSIDE RECORDS SUMMARY | 2025-03-16 20:24 | XMS_ITS | Clinical Summary ---
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
[2025-03-16 20:28] LABS: Troponin I < 0.012 ng/mL (0.000-0.034)
[2025-03-16 21:24] LABS: Add Urine Microscopic? YES; Appearance Urine Clear (Clear); Bacteria Urine 1+ /hpf; Bilirubin Urine Negative (Negative); Blood Urine Trace (Negative); Color Urine Yellow (Yellow); Glucose Urine UA 3+ mg/dL (Negative); Ketones Urine Trace mg/dL (Negative); Leukocyte Esterase Ur Negative LEU/UL (Negative); Nitrate Urine Negative (Negative); Non Pathogenic Casts 0-2; Protein Urine Negative (Negative); RBC Urine 0-2 /hpf (0-2); Specific Grav Ur > 1.045 (1.001-1.035); Squamous Epithelial Cell Urine None Seen /hpf (Few); Urobilinogen Urine 0.2 mg/dL (<2.0); WBC Urine 0-5 /hpf (0-3); pH Urine 6.5 (5.0-9.0)
[2025-03-16 21:38] LABS: Amphetamine Screen Urine Negative (Negative); Barbiturate Screen Urine Negative (Negative); Benzodiazepines Screen Urine Negative (Negative); Cannabinoid Screen Urine Negative (Negative); Cocaine Screen Urine Negative (Negative); Methadone Screen Urine Negative (Negative); Opiate Screen Urine Negative (Negative); Phencyclidine Screen Urine Negative (Negative)
[2025-03-16 22:04] LABS: BEDSIDEPREGUCG Negative (Negative)
[2025-03-16 22:05] LABS: Free T4 Free Thyroxine Reflex 1.42 ng/dL (0.78-2.19)
[2025-03-16] MEDS: KETOROLAC 15 MG/ML VIAL (*BKC) IV PUSH (22:21)
[2025-03-16 22:45] LABS: Total Triiodothyronine (T3) 1.33 NG/ML (0.82-1.58)
[2025-03-16 22:57] VITALS: BP 130/80; PULSE 106; RESP 20; O2SAT 96
== END 2025-03-16 23:03 | disposition home or self-care (01) ==
PROVIDERS: Emergency Provider Registered Nurse; PCP Nurse Practitioner Family
DX: E11.65 Type 2 diabetes mellitus with hyperglycemia (principal); R07.89 Other chest pain; I10 Essential (primary) hypertension; F41.8 Other specified anxiety disorders; E66.01 Morbid (severe) obesity due to excess calories; Z68.44 Body mass index [BMI] 60.0-69.9, adult
CPT/HCPCS: 36415; 71045; 71275; 80053; 80307; 81001; 81025; 83690; 84439; 84443; 84480; 84484; 85025; 85380; 85610; 85730; 93005; 96374; 99284; J1885; Q9967

== ENCOUNTER 2025-03-25 14:04 | Emergency (ER) | payer OTHER, SELFPAY ==
[2025-03-25 14:27] VITALS: BP 149/107; PULSE 93; RESP 17; TEMP 36.6; O2SAT 98
--- OUTSIDE RECORDS SUMMARY | 2025-03-25 14:27 | XMS_ITS | Referral Summary ---
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
--- OUTSIDE RECORDS SUMMARY | 2025-03-25 14:27 | XMS_ITS | Clinical Summary ---
Author Organization 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
--- OUTSIDE RECORDS SUMMARY | 2025-03-25 14:27 | XMS_ITS | CONTINUITY OF CARE DOCUMENT ---
Author Name paola, paola Address Unknown Organization [facility] Address [address] [place] [address] [address] [place] [address] Phone [phone] Care Team Providers Care Java Core Developer Name Role Phone Raj SIMS, Marvin Unavailable [phone] TREVOR SIMS, HUSSEIN Unavailable Unavailable INSURANCE PROVIDERS Payer name Policy type / Coverage type [place] red democrat [place] MED[place] Medicaid [id number]
--- OUTSIDE RECORDS SUMMARY | 2025-03-25 14:27 | XMS_ITS | Clinical Summary ---
Author Organization [facility] Address [address] [address] [place] [address] Phone Care Team Providers Care Transit Authority Police Officer Name Role Phone Unavailable Primary Care Provider [...] Encounters Date Type Department Care Team Description 03/19/2025 External Device Data STL ABSTRACTION Provider, Abstract 03/14/2025 External Device Data STL ABSTRACTION Provider, Abstract 03/13/2025 External Device Data STL ABSTRACTION Provider, Abstract 03/12/2025 External Device Data STL ABSTRACTION Provider, Abstract 02/05/2025 External Device Data STL ABSTRACTION Provider, Abstract 01/16/2025 4:15 PM CDT Telephone Check Up [facility] - [place] [address] [place] [address] Felipe Joyner MD Leukocytosis, unspecified type (Primary Dx) 01/09/2025 External Device Data STL ABSTRACTION Provider, Abstract 01/09/2025 External Device Data STL ABSTRACTION Provider, Abstract 01/07/2025 Orders Only [facility] - [place] [address] [place] [address] Felipe Joyner MD 01/02/2025 Telephone [facility] - [place] [address] [place] [address] Felipe Joyner MD lab auth 01/02/2025 Abstract [facility] - [place] [address] [place] [address] Felipe Joyner MD 01/01/2025 Orders Only [facility] - Mik[place] [address] [place] [address] Felipe Joyner MD 12/31/2024 1:30 PM CDT Office Visit [facility] - [place] [address] [place] [address] Felipe Joyner MD Leukocytosis, unspecified type (Primary [...] 1:31 PM CDT Height 154.9 cm (5' 1) 12/31/2024 1:31 PM CDT Body Mass Index 64.36 12/31/2024 1:31 PM CDT Plan of Treatment Upcoming Encounters Date Type Department Care Team (Late st Contact Info) Description 05/20/2025 1:00 PM CDT Office Visit [facility] - Mikie [address] [facility] [address] [place] [address] Felipe Joyner MD [address] [facility] [address] [place] [address] Health Maintenance Due Date Last [...] [facility] Comment: Test Performed at: [employer] [address] [place] [address] tSeven Roberson MD Blood 01/03/2025 1:36 PM CDT 01/03/2025 1:36 PM CDT Felipe Joyner MD HEMATOLOGY ORDERABLES Final Res ult Performing Organization Address [facility] Co de Phone Number [facility] [phone] [facility] [address] [place] [address] * (ABNORMAL) C-REACTIVE PROTEIN (01/03/2025 1:36 PM CDT) CRP 49.2(H) <8.0 mg/L [facility] Comment: Test Performed at: [employer] [address] [place] [address] Steven Roberson MD Blood 01/03/2025 1:36 PM CDT 01/03/2025 1:36 PM CDT Felipe Joyner MD CHEMISTRY ORDERABLES Final Resu lt [facility] [phone] [facility] [address] [address] * FLOW CYTOMETRY REPORT (01/01/2025 1:52 PM CDT) us Felipe Joyner MD PATHOLOGY/CYTOLOGY ORDERABLES F inal Result * COMPREHENSIVE METABOLIC PANEL (12/31/2024 10:31 AM CDT) Blood us Felipe Joyner MD CHEMISTRY ORDERABLES Final Resu lt from Last 3 Months Insurance [place] Advance Directives For more information, please contact: [phone] * Full Code (Latest Code Status on File) Date Activated Date Inactivated Comments 06/08/2024 6:25 AM 06/08/2024 11:33 AM
--- OUTSIDE RECORDS SUMMARY | 2025-03-25 14:27 | XMS_ITS | Patient Health Record ---
Author Organization [facility] Address [address] [place] [address] Care Team Providers Care Detective Lieutenant Name Role Phone Yong Noland Unavailable [phone] Yessi Marrufo Unavailable [phone] Reason For Referral No Information Social History [...] phone, visiting friends or family, going to voodoo or club meetings) 1 or 2 times a week How stressed are you? Stress is when someone feels tense, nervous, anxious, or can\t sleep at night because their mind is troubled Very much In the past year have you sp ent more than 2 nights in a row in a intermediate, fpc, mcc center, or juvenile correctional facility? No Do you feel physically and e motionally safe where you currently live? Yes In the past year, have you b een afraid of your partner or ex-partner? No PRAPARE Score: 7 Encounters Encounter Location Date Provider Diagnosis [facility] [place] [address] 03/15/2025 Yessi Marrufo [address] [place] [address] 03/22/2025 Yong Noland Plan Of Treatment No Information Insurance Providers Payer Name Payer Address Payer Phone Subscriber Number Group Number Insured Name Patient Relationship to Insured Coverage Start Date Coverage End Date [facility] [address] [place] [address] [id number] [place], [place] Self - patient is the insured 4
--- OUTSIDE RECORDS SUMMARY | 2025-03-25 14:28 | XMS_ITS | Data Portability ---
Author Organization [facility] [place] Address [address] [place] [address] [address] [place] [address] Care Team Providers Care Heavy Truck Technician Name Role Phone NATALIIA, PATRICIA Primary Care Provider [phone] RACHEL ALBERT Primary Care Provider Assessment No assessment recorded. Plan of Treatment Reminders Order Date Submit Date Provider Last Modified By Organization Details Last Modified Time Details Appointments None recorded. Lab None recorded. Referral None recorded. Procedures None recorded. Surgeries None recorded. Imaging US, transvagina l 2023 024 [email or web address] [place], [address], [place], [address], 4 19:45:10 Medication Orders clotrimazol e-betametha sone 1 %-0.05 % topical cream 2024 025 [id number] [address], [place], [id number], 5 15:03:28 metronidazo le 0.75 % (37.5 mg/5 gram) vaginal gel 2023 024 [facility][id number], [address], [id number], 4 11:06:13 Patient TargetsNo targets recorded. Patient InstructionsNo instructions recorded. Reason for Referral None Reported. Results Created Date Observation Date Name Description Value Unit Range Abnormal Flag Note LastModifiedBy Organization Detail LastModifiedTime 08/15/2008/15/2024 US, pelvi s No observ ation record ed. [facility] [address], [place], [address], 08/15/2024 17:30:18 08/15/20 24 08/15/2024 US, trans vagin al No observ ation record ed. [facility] [address], [place], [address], 08/15/2024 17:30:31 08/15/20 24 08/15/2024 US, pelvi s No observ ation record ed. [address], [place], [address], 08/16/2024 16:07:33 08/30/20 24 08/30/2024 US, trans vagin al No observ ation record ed. [email or web address], [place], [address], 08/30/2024 21:42:27 08/30/20 24 08/30/2024 US, trans vagin al No observ ation record ed. [email or web address] [address], [place], [address], 08/30/2024 21:42:27 Result Notes None recorded. Problems Name Problem SNOMED Code Status Onset Date Resolution Date Notes Provider Name and Address Organization Details Recorded Time Polycystic ovary syndrome 292870412 Active 2023 [facility] [address], [place], [address], [place] [facility] 14:57:33 Insulin resistance 092256312 Active 2014 Becca Hernandez [facility]- [address], [place], [address], [facility] 4 09:49:09 Secondary amenorrhea 749399061 Active 2017 Becca Hernandez [facility] [address], [place], [address], [facility] 4 09:50:15 Hypertriglyc eridemia 251962731 Active 2023 Becca Hernandez [facility] [address], [place], [address], [facility] 4 09:50:27 Chronic peptic ulcer 718303695 Active 2022 Becca Hernandez [facility] [address], [place], [address], [facility] 4 09:50:53 Problem Notes None recorded. Procedures Surgical History Date Name Laterality Status Provider Name and Address Organization Details Recorded Time 024 IUD Removal completed Diogo Bryan MD [address], [place], [address], [facility] 08/20/2024 14:41:43 024 IUD Insertion completed Diogo Bryan MD [address], [place], [address], [facility] 08/20/2024 14:41:33 024 Laparoscopy completed Digna Ace [facility] 10/26/2024 14:39:20 024 endoscopy completed Estrella Johnson [facility] 05/10/2024 16:00:13 023 Date of Last Pap Smear completed Digna Ace [facility] 08/09/2023 15:03:22 023 cholecystectomy completed Digna cAe [facility] 06/30/2023 14:39:16 Imaging Results None recorded. Procedure Notes None recorded. Medical Equipment None Reported. Allergies Allergen ID Allergen Name Allergen Category Reaction Reaction Severity Criticality Documentation Date Start Date Code Code System Note Provider Name and Address Organization Details Recorded Time 63505 morphine medicatio n Not available Not available Not available 05/18/2024 7052 RxNorm Tara Bliss [facility] 4 14:01:04 Medications Name Sig Start Date Stop [...] tablet TAKE 1 TABLET BY MOUTH DAILY 03/20 completed Not Available Not Available Not Available ciprofloxac in 500 mg tablet TAKE 1 TABLET BY MOUTH EVERY 12 HOURS 09/24 completed Not Available Not Available Not Available omeprazole 40 mg capsule,del ayed release TAKE 1 CAPSULE BY MOUTH TWICE DAILY 03/20 completed Not Available Not Available Not Available [...] sone 1 %-0.05 % topical cream APPLY TO THE AFFECTED AND SURROUNDI NG AREAS OF SKIN BY TOPICAL ROUTE 2 TIMES PER DAY IN THE MORNING AND EVENING FOR 2 WEEKS 03/20 completed Not Available Not Available Not Available lisinopril 10 mg tablet TAKE 1 TABLET BY MOUTH DAILY 07/27 completed Not Available Not Available Not Available losartan 25 mg tablet TAKE 1 TABLET BY MOUTH DAILY 07/27 completed Not Available Not Available Not Available progesteron e micronized 200 mg capsule TAKE 1 CAPSULE BY MOUTH EVERY DAY 03/20 completed Not Available Not Available Not Available betamethaso ne dipropionat e 0.05 % [...] PER DAY IN THE MORNING AND EVENING 03/20 completed Not Available Not Available Not Available sertraline 50 mg tablet 03/20 completed Not Available Not Available Not Available colestipol [...] t Available OneTouch Verio test strips USE TO TEST THREE TIMES DAILY 03/20 completed Not Available Not Available Not Available [...] Updated DateTime 10/26/2024 157.48 cm 62.7 kg/m2 586156.1 8 g 131 mm[Hg] 93 mm[Hg] [facility] 14:36:46 Date Recorded Body height Body mass index (BMI) Body weight Systolic blood pressure Diastolic blood pressure Provider Name and Address Organization Details Last Updated DateTime 03/20/2025 157.48 cm 61.5 kg/m2 355166.0 4 g 121 mm[Hg] 82 mm[Hg] [facility] 5 15:03:01 Date Recorded Body height Body mass index (BMI) Body weight Systolic blood pressure Diastolic blood pressure Provider Name and Address Organization Details Last Updated DateTime 08/29/2024 157.48 cm 65.3 kg/m2 886246.4 8 g 150 mm[Hg] 94 mm[Hg] [facility] 4 14:16:12 Date Recorded Body height Body mass index (BMI) Body weight Systolic blood pressure Diastolic blood pressure Provider Name and Address Organization Details Last Updated DateTime 09/24/2024 157.48 cm 65.3 kg/m2 288876.4 8 g 141 mm[Hg] 95 mm[Hg] [facility] 11:03:39 Social History Question Answer Notes LastModified by Organizat ion Details LastModified Time Tobacco Smoking Status Never Smoker Stefanie lira [facility] 06/30/2023 14:31:55 Do You Have An [...] Or The Highest Degree You Have Received? [id number] Information not available 12/30/2022 Are There Any Guns Present In Your Home? Yes Information not available 01/11/2023 Do You Use Protection During Sex? No Information not available 01/11/2023 Do You Use Your Seat Belt Or Car Seat Routinely? No Information not available 01/11/2023 Are You Sexually Active? Yes Female Partners [email or web address] Information not available 06/30/2023 Do You Have Smoke And Carbon Monoxide Detectors In Your Home? Yes Information not available 01/11/2023 How Much Tobacco Do You Smoke? No Information not available 01/11/2023 Do You Use Sunscreen Routinely? No Information not available 01/11/2023 Has Tobacco Cessation Counseling Been Provided? No [email or web address] Information not available 06/30/2023 Have You Used IV Drugs? No Information not available 01/11/2023 Sex: Unknown Functional Status Question Answer Note LastModified by Organizat ion Details LastModified Time Do you use any illicit or recreational drugs? No Information not available 12/30/2022 Do you or have you ever used any other forms of tobacco or nicotine? No [email or web address] Information not available 06/30/2023 What is your level of alcohol consumption? Occasional Information not available 12/30/2022 Are you currently employed? Yes [email or web address] Information not available 06/30/2023 Are you able to walk? 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 Moderate Information not available 01/11/2023 Mental Status Question Answer Note LastModified by Organization D etails LastModified Time Do you feel stressed (tense, restless, nervous, or anxious, or unable to sleep at night)? [id number] Information not available 01/11/2023 Family History Relationship Description Onset Age of this Age Resolved Age Notes LastModified by Organization Details LastModified Time Father Diabetes mellitus [email or web address] Not available 2022 14:42:16 Mother Malignant neoplasm of ovary [email or web address] Not available 2024 14:14:50 Paternal Grandmother Malignant neoplasm of lung [email or web address] Not available 2024 14:14:50 Maternal Grandmother Hypertensive disorder [email or web address] Not available 2022 14:42:16 Maternal Grandmother Hypercholest erolemia [email or web address] Not available 2022 14:42:16 Unspecified Relation Family history unknown [email or web address] Not available 2024 14:14:50 Medical History Condition Response Allergies (Food, seasonal, environmental ) N Other Y Blood Transfusion N Drug/Latex Allergies/Reactions N Breast Cancer N Dermatologic Disorders N Lung Disease N Defects or Inherited Disease N Breast Problem N Gestational Diabetes N Hematologic disorders N Anesthesia Complications N History of STI N Deep Vein Thrombosis N Polycystic ovary syndrome Y Anxiety Disorder Y Autoimmune disease N Arthritis N Infertility N Polyps N Acid Reflux (GERD) Y History of abnormal pap N Cancer N [...] N Asthma N Trauma/Violence N Depression/ depression Y Heart Disease N Pre-Eclampsia N Hypertension Y [...] SNOMED-CT Code Diagnosis ICD10 Code Diagnosis Note [id number] Becca Hernandez [facility] [address] [address] 12/30/2022 12:18:03 12/30/2022 16:58:19 Secondary amenorrhea 592859029 N91.1 Today we discussed menses & amenorrhei [...] plan of care. Rx sent with instructio sharon reviewed. Counseled on medication R/B's, Most common side effects, & use. All questions were answered to patient satisfacti on. Time spent in visit is a total of 30 mins with at least 50% of visit consisting of counseling and review of plan of care. Cyst of left ovary 20974 28393 0464673 N83.202 Left cyst vs paratubal cyst very smallLikel y not the source of pain that has been plaguing herMore concerned about lack of monthly cycles which we discussedP COS is suspected. Will see if recent cholestero l, hbga1c etc have been performed by PCP.If not will update those next visit. FSH/LH: 7.8/7.1Tot al T- 36 wnlEstroge n (e1): 413.2 [id number] Becca Hernandez [facility] [address] [address] 01/11/2023 12:29:58 01/11/2023 13:32:02 Secondary amenorrhea 243031207 N91.1 Today we discussed trial of provera.Maida [...] counseling and review of plan of care. [id number] Diogo Bryan MD [place] [address] [address] 05/02/2023 16:04:08 05/02/2023 16:44:12 Pain in pelvis 06322992 R10.2 [id number] Becca Hernandez [facility] [address] [address] 05/03/2023 14:32:39 05/03/2023 15:07:47 Secondary amenorrhea 167867293 N91.1 Today we discussed US.Left ovarian cyst [...] counseling and review of plan of care. [id number] Becca Hernandez [facility] [address],[place] [address] 06/30/2023 14:31:50 06/30/2023 14:54:46 Sexually transmitted infectious disease 0664686 A64 Today would like STD urine & serum labs.Will update on resultsRes chedule WWE visit. Time spent in visit is a total of 15 mins with at least 50% of visit consisting of counseling and review of plan of care. [id number] Becca Hernandez [facility] [address],[facility] [place] [address] 07/07/2023 14:22:21 07/07/2023 14:48:02 Gynecologic examination 85190440 Z01.419 Take Calcium with Vitamin D 1200mg [...] c Screen discussedC olon Screen [facility] [id number] Becca Hernandez , [facility] [address],[place] [address] 08/09/2023 14:35:44 08/09/2023 15:26:55 Secondary amenorrhea 053813685 N91.1 Today we discussed switching from Provera [...] counseling and review of plan of care. [id number] Becca Hernandez , [facility] [address],[place] [address] 11/01/2023 13:43:06 11/01/2023 15:07:32 Polycystic ovary syndrome 386071189 E28.2 Z68.44 Today we discussed PCOS and [...] Low HDL (good) cholestero l. Insulin resistance 02915 5000 E88.819 Will see if qualifies for injectable or something other than Metformin with her prominent Hx of peptic ulcer/Gall bladder and it likelihood of causing significan t GI issues or exacerbati on of these issues. [facility] ion care management 058913029 N91.1 Patient is here today for a [...] of plan of care. Hyperlipid emia screening 015269620 Z13.220 Update to check for high LDL/TG/Tot al/Low HDL [id number] Becca Hernandez [facility] [address],[place] [address] 11/16/2023 15:55:38 11/22/2023 17:14:20 Insulin resistance 007718966 E88.819 Z68.44 E66.9 E88.810 E28.2 Will complete 0.75mg weekly x 4wks.Then, return to office for med check & if tolerating we increase to next dose. In depth aids counselor on trulicity purpose, dosage, dosage schedule, [...] counseling and review of plan of care. [id number] Becca Hernandez [facility] [address],[place] [address] 12/13/2023 15:42:18 12/13/2023 16:18:12 Prediabetes 007282505 R73.03 Z68.44 E88.810 E28.2 Z83.49 Patient is [...] and review of plan of care. Tachycardia 3159069 R00. [address] for random HBP/Palpit ations Contracept ion care management 812550981 N91.1 BCP switched to POP only vs CONNER due to verbalizat ion of heart palpitatio ns/HBP. Will f/u in 7wks at med check for trulicity. [id number] [facility] [address] [address] 01/24/2024 15:12:35 01/24/2024 16:03:45 Venereal disease screening 886283028 Z11.3 STD screen urine sent to confirm no std.Partne r recently treated for trich (female partner)Wi ll reach out with results. Time spent in visit is a total of 15 mins with at least 50% of visit consisting of counseling and review of plan of care. Contracept ion care management 445323588 N91.1 BCP switched to POP only vs CONNER due to verbalizat ion of heart palpitatio ns/HBP.Alon ples given x 6mosCall for additional samples if neededMeghan ndiaye well. [id number] Melania Randolph [facility] [place] [address] [address] 05/10/2024 15:49:03 05/10/2024 16:28:39 Abnormal uterine bleeding 7058804105 9100 N93.9 The patient and I discussed [...] of plan of care. Polycystic ovary syndrome 111420235 E28.2 [id number] Diogo Bryan MD [place] [address] [address] 05/15/2024 11:58:20 05/15/2024 12:31:15 Abnormal uterine bleeding 6903573086 9100 N93.9 [id number] Diogo Bryan MD [place] [address],[place] [address] 05/18/2024 13:42:09 05/18/2024 14:52:30 Abnormal uterine bleeding 1637120535 9100 N93.9 this patient is a 23-year-ol [...] to proceed with laboratory evaluation Preoperative state 88178 002 Z78.9 [id number] Diogo Bryan MD [place] [address],[place] [address] 07/27/2024 11:03:55 07/27/2024 12:23:34 Contraception care management 720250507 Z30.9 23-year-ol d female who 1 week from a IUD insertion under anesthesia . Hysterosco py D and C was also performed. She tolerated well. She has no complaints . She will return later for IUD check. [id number] Diogo Bryan MD [place] [address] [address] 08/15/2024 10:37:45 08/15/2024 11:14:49 Pain in pelvis 96928872 R10.2 [id number] Diogo Bryan MD [place] [address] [address] 08/20/2024 10:28:22 08/20/2024 15:10:06 Insertion of intrauterine contraceptive device 18078893 Z30.430 IUD was removed replaced. She tolerated it well. To follow up in 1 month [id number] Diogo Bryan MD [place] [address] [address] 08/29/2024 13:50:59 08/29/2024 15:00:33 Pain in pelvis 31484141 R10.2 23-year-ol d female. Patient has pain [...] sonia of the IUD Bacterial vaginosis 4197 84037 N76.0 [id number] Diogo Bryan MD [place] [address],[place] [address] 08/30/2024 16:35:42 08/30/2024 17:27:27 Mechanical complication of intrauterine contraceptive device 848268723 T83.39XA [id number] Diogo Bryan MD [place] [address],[place] [address] 09/24/2024 10:33:04 09/24/2024 11:22:24 Contraception care management 623189924 Z30.9 This patient is a 23 female who presents for IUD check. She had a mirena IUD inserted [facility] 1 month ago. She has no complaints . She denies any excessive bleeding or pain. She has had some cramping and some spotting. Otherwise, she feels that is going well and wants to continue her IUD. [id number] Diogo Bryan MD [place] [address] [address] 10/26/2024 13:56:29 10/29/2024 07:50:21 Tinea corporis 96003301 B35.4 [id number] Diogo Bryan MD [place] [address] [address] 03/20/2025 14:14:47 03/20/2025 15:41:38 Pain in pelvis 90715930 R10.2 Presents for follow-up on ER visit. She had a cyst in the ER. She had pelvic pain. The cyst is small and simple. The pain has resolved. We agreed to observe. Health Concerns Section Related Observation LastModified by Organization Detai ls LastModified Time None Recorded Concern Status LastModified by Organization Details LastModified Time None Recorded Advance Directives Directive N: Payers Encounter Date Sequence Insurance Name Policy Number Policy Leija Covered Member ID Leija Member ID Guarantor Name 08/29/2024 1 [facility] (MEDICAID HMO) [id number] Mac Cuevaelin [id number] [facility] 08/30/2024 1 [facility] (MEDICAID HMO) [id number] Mac Matta [id number] [facility] 09/24/2024 1 [facility] [place] ([place] [id number] 0003 Mac Matta [id number] [facility] 10/26/2024 1 [facility] (MEDICAID HMO) [id number] 0003 Mac Matta [id number] [facility] 03/20/2025 1 [facility] (MEDICAID HMO) [id number] 0003 Mac Cuevaelin [id number] [facility] Notes Date Note Type Note Provider Name and Address Organization Details Recorded Time 08/29/2024 text/html 23-year-old ángel ross. Patient has [...] IUD Diogo Bryan MD [address], [place], [address], [facility] 08/29/2024 15:00:24 09/24/2024 text/html This patient [...] IUD. Diogo Bryan MD [address], [place], [address], [facility] 09/24/2024 11:20:29 10/26/2024 text/html 23-year-old ángel [...] instructions. Diogo Bryan MD [address], [place], [address], [facility] 10/27/2024 12:52:27 03/20/2025 text/html Presents for follow-up on ER visit. She had a cyst in the ER. She had pelvic pain. The cyst is small and simple. The pain has resolved. We agreed to observe. Diogo Bryan MD [address], [place], [address], [facility] 03/20/2025 15:37:34 OBGyn Episode No OBEpisode recorded.
[2025-03-25 15:29] LABS: BEDSIDEPREGUCG Negative (Negative)
[2025-03-25 16:04] LABS: Glucose Point of Care 255 mg/dl (65-105)
--- NOTE | 2025-03-25 16:04 | ED_ITS ---
HPI - Recheck/Abnormal Lab/Rx General Chief Complaint: Recheck/Abnormal Lab/Rx Stated Complaint: Diff swallowing, High BGL x 5days Time Seen by Provider: 03/25/25 15:32 Source: patient Mode of arrival: ambulatory Limitations: no limitations History of Present Illness HPI narrative: This is a 24 year old female that presents to the ER for sore throat. Ongoing over the last couple of days. Reports her blood sugars have been running high and she feels dehydrated. Sent by her PCP to rule out DKA. Reports body aches, nausea. Denies fevers. Related Data Home Medications ?Medication ?Instructions ?Recorded ?Confirmed ?Last Taken ?Type metformin 500 mg tablet,extended 1,000 mg PO BID 07/04/24 02/26/25 01/27/25 History release 24 hr metoprolol tartrate 25 mg tablet 25 mg PO DAILY 10/23/24 02/26/25 01/28/25 07:00 History Allergies Allergy/AdvReac Type Severity Reaction Status Date / Time morphine Allergy Mild Hives Verified 03/25/25 15:29 bupropion (From Wellbutrin) AdvReac Intermediate Agitated Verified 03/25/25 15:29 Review of Systems 2 Review of Systems: CONSTITUTIONAL: Denies fever ENT: Reports sore throat RESPIRATORY: Denies cough GASTROINTESTINAL: Reports nausea All systems reviewed & are unremarkable except as noted in HPI and below PMFSH Past Medical History Medical History Anxiety Hypertriglyceridemia Type 2 diabetes mellitus with morbid obesity Arthralgia of multiple joints Hypertension Weight gain, abnormal Essential hypertension Elevated BP without diagnosis of hypertension Palpitations Right sided abdominal pain Morbid obesity with BMI of 60.0-69.9, adult Mass of left lobe of liver Hepatic steatosis Elevated glucose Elevated WBCs Hypersomnia Snoring Right knee pain Left ankle pain Major depression Encounter to establish care Acid reflux Gallstones Patient denies significant medical history Surgical History Surgical History History of cholecystectomy 05/20/2023 Family History Family History Father Alcoholism Diabetes mellitus Hypertension Heart disease Mother Ovarian cancer Sibling Depression Grandparent Hypertension Heart disease Grandparent Alcoholism Lung cancer Social History Social History Smoking status: Never smoker Tobacco type: smokeless tobacco Smokeless tobacco user: dissolvable tobacco Additional smoking assessment comments: DAILY USE Alcohol intake: former Alcohol use details: 1-2 a month Substance use: never Substance use type: does not use Other substance usage details: daily Last use: 2 MONTHS 2 TIMES PER WEEK Do You Feel Safe in your Home?: Yes Lack of Transportation: No Lack of Food: Never True Current Housing: I Have Housing Concerned About Future Housing: No Difficulty Paying Gas/Electric Bills: No Difficulty Paying for Meds: No Currently Unemployed: YES Education: Trade/Vocational Certificate Difficulty w/ Childcare or Family Care: No Living arrangements: with friend(s) Spiritual care concerns: No Exam 2 Narrative: GENERAL: Well-appearing, obese, and in no acute distress. HEAD: Normocephalic, atraumatic. EYES: EOMI. ENT: Nares clear, no rhinorrhea or epistaxis. Mucous membranes moist. Oropharynx with mild, symmetric tonsillar hypertrophy, no exudate or other lesions. Uvula midline. Bilateral TMs pearly lino non-bulging NECK: Supple. No adenopathy or masses. CHEST: Clear to auscultation. No respiratory distress. No wheezes rales or rhonchi HEART: Regular rate and rhythm. No murmur heard. Normal peripheral pulses. EXTREMITIES: Normal range of motion. No edema. SKIN: Warm, dry, no rash. NEURO: No focal deficits. Alert and oriented x3. PSYCH: Normal mood and affect Course Course Emergency Course: Patient updated on her workup and agrees with plan of care Vital Signs Vital signs: Vital Signs Temperature 97.8 F 03/25/25 14:27 Pulse Rate 93 03/25/25 14:27 Respiratory Rate 17 03/25/25 14:27 Blood Pressure 149/107 H 03/25/25 14:27 Pulse Oximetry 98 03/25/25 14:27 Oxygen Delivery Room Air 03/25/25 14:27 Temperature 97.8 F 03/25/25 14:27 Pulse Rate 107 H 03/25/25 18:48 Respiratory Rate 20 03/25/25 18:48 Blood Pressure 133/90 03/25/25 18:48 Pulse Oximetry 98 03/25/25 18:48 Oxygen Delivery Room Air 03/25/25 14:27 MDM - Recheck/Abnormal Lab/Rx MDM Narrative Medical decision making narrative: Patient presents to the emergency department for sore throat, myalgias, elevated blood sugar readings. Patient is afebrile and nontoxic appearing. CBC with leukocytosis to 17.2, patient from reviewing past blood work appears to have chronic leukocytosis. CBC also shows hemoconcentration. Metabolic panel with normal bicarb, mildly elevated anion gap. Urine also shows evidence of dehydration, no evidence of infection. test is negative. Strep screen is negative. Beta hydroxybutyrate is not elevated. Repeat metabolic panel with closure of gap. Patient updated on workup agrees with care. She is to follow up with primary provider. She was given warnings to return to the ER Differential Diagnosis Differential diagnosis: Likely other (Dehydration, hyperglycemia, DKA, strep, viral syndrome) Lab Data Attestation: I reviewed the patient's lab results. 03/25/25 15:57 03/25/25 18:38 Labs: Lab Results 03/25/25 03/25/25 03/25/25 Range/Units 15:28 15:57 15:59 WBC 17.2 H (4.5-10.0) K/mm3 RBC 5.55 H (4.2-5.4) M/mm3 Hgb 15.2 H (12.0-15.0) g/dL Hct 46.7 (37.0-47.0) % MCV 84.1 (80-100) fl MCH 27.4 (26-34) pg MCHC 32.5 (32-36) g/dl RDW 13.8 (11.5-14.5) % Plt Count 373 (150-375) k/mm3 MPV 10.1 (7.4-10.4) fl Immature Gran % (Auto) 0.9 H (0-0.5) % Neut % (Auto) 61.0 (45.5-73.1) % Lymph % (Auto) 29.4 (18.3-44.2) % [place] % (Auto) 5.6 (2.6-8.5) % Eos % (Auto) 2.4 (0-4.4) % Baso % (Auto) 0.7 (0.2-1.2) % Lymph # (Auto) 5.05 H (0.9-3.2) K/mm3 [place] # (Auto) 1.0 H (0.1-0.6) K/mm3 Eos # (Auto) 0.4 H (0-0.3) K/mm3 Baso # (Auto) 0.1 (0.0-0.1) K/mm3 Abs Immat Gran (auto) 0.15 H (0.00-0.031) K/mm3 Absolute Neuts (auto) 10.5 H (1.3-6.7) K/mm3 Absolute Nucleated RBC 0.000 (0.0-0.012) K/mm3 Nucleated RBC % 0.0 (0.0-0.2) % Sodium 137 (137-145) mmol/L Potassium 4.3 (3.4-5.0) mmol/L Chloride 101 (98-107) mmol/L Carbon Dioxide 22 (22-30) mmol/L Anion Gap 14 H (4-12) mmol/L BUN 11 (7-17) mg/dL Creatinine 0.58 L (0.7-1.0) mg/dL Estim Creat Clear Calc 183 ml/min Estimated GFR > 60 (59 - ) Glucose 267 H (65-110) mg/dL POC Capillary Glucose (65-105) mg/dl Calcium 9.6 (8.4-10.2) mg/dL Phosphorus 4.3 (2.5-4.5) mg/dL Magnesium 1.8 (1.6-2.3) mg/dL Total Bilirubin 0.9 (0.2-1.3) mg/dL AST 77 H (14-36) U/L ALT 74 H (6-35) U/L Alkaline Phosphatase 99 (38-126) U/L Total Protein 9.0 H (6.3-8.2) g/dL Albumin 4.7 (3.5-5.1) g/dL Beta-Hydroxybutyrate/Acetoacetate 0.12 (0.02-0.27) mmol/L Urine Color Dark yellow (Yellow) Urine Appearance Clear (Clear) Urine pH 5.5 (5.0-9.0) Ur Specific [place] 1.037 H (1.001-1.035) Urine Protein 1+ H (Negative) mg/dL Urine Glucose (UA) 3+ H (Negative) mg/dL Urine Ketones Trace H (Negative) mg/dL Ur Blood (Man) Trace (Negative) Urine Nitrate Negative (Negative) Urine Bilirubin Negative (Negative) Urine Urobilinogen 0.2 (<2.0) mg/dL Leukocyte Esterase Rfl Negative (Negative) MICKY/UL Urine RBC 0-2 (0-2) /hpf Urine WBC 0-5 (0-3) /hpf Ur Squamous Epith Cells Few (Few) /hpf Urine Bacteria 3+ H /hpf Urine Casts 0-2 POC Urine HCG, Qual Negative (Negative) Group A Strep (PCR) Not detected (Negative) 03/25/25 03/25/25 Range/Units 16:01 18:38 WBC (4.5-10.0) K/mm3 RBC (4.2-5.4) M/mm3 Hgb (12.0-15.0) g/dL Hct (37.0-47.0) % MCV (80-100) fl MCH (26-34) pg MCHC (32-36) g/dl RDW (11.5-14.5) % Plt Count (150-375) k/mm3 MPV (7.4-10.4) fl Immature Gran % (Auto) (0-0.5) % Neut % (Auto) (45.5-73.1) % Lymph % (Auto) (18.3-44.2) % [place] % (Auto) (2.6-8.5) % Eos % (Auto) (0-4.4) % Baso % (Auto) (0.2-1.2) % Lymph # (Auto) (0.9-3.2) K/mm3 [place] # (Auto) (0.1-0.6) K/mm3 Eos # (Auto) (0-0.3) K/mm3 Baso # (Auto) (0.0-0.1) K/mm3 Abs Immat Gran (auto) (0.00-0.031) K/mm3 Absolute Neuts (auto) (1.3-6.7) K/mm3 Absolute Nucleated RBC (0.0-0.012) K/mm3 Nucleated RBC % (0.0-0.2) % Sodium 138 (137-145) mmol/L Potassium 4.0 (3.4-5.0) mmol/L Chloride 103 (98-107) mmol/L Carbon Dioxide 25 (22-30) mmol/L Anion Gap 10 (4-12) mmol/L BUN 11 (7-17) mg/dL Creatinine 0.62 L (0.7-1.0) mg/dL Estim Creat Clear Calc 173 ml/min Estimated GFR > 60 (59 - ) Glucose 197 H (65-110) mg/dL POC Capillary Glucose 255 H (65-105) mg/dl Calcium 8.9 (8.4-10.2) mg/dL Phosphorus (2.5-4.5) mg/dL Magnesium (1.6-2.3) mg/dL Total Bilirubin (0.2-1.3) mg/dL AST (14-36) U/L ALT (6-35) U/L Alkaline Phosphatase (38-126) U/L Total Protein (6.3-8.2) g/dL Albumin (3.5-5.1) g/dL Beta-Hydroxybutyrate/Acetoacetate (0.02-0.27) mmol/L Urine Color (Yellow) Urine Appearance (Clear) Urine pH (5.0-9.0) Ur Specific [place] (1.001-1.035) Urine Protein (Negative) mg/dL Urine Glucose (UA) (Negative) mg/dL Urine Ketones (Negative) mg/dL Ur Blood (Man) (Negative) Urine Nitrate (Negative) Urine Bilirubin (Negative) Urine Urobilinogen (<2.0) mg/dL Leukocyte Esterase Rfl (Negative) MICKY/UL Urine RBC (0-2) /hpf Urine WBC (0-3) /hpf Ur Squamous Epith Cells (Few) /hpf Urine Bacteria /hpf Urine Casts POC Urine HCG, Qual (Negative) Group A Strep (PCR) (Negative) Critical Care Time Critical Care Time Critical Care Time: No Discharge Plan Discharge Clinical Impression: Acute dehydration, Acute tonsillitis Patient Disposition: Home Condition: Improved Instructions: Dehydration (ED) Additional Instructions: Return to the emergency department if you experience fever, chest pain, shortness of breath, abdominal pain with nausea and vomiting, you are unable to keep down liquids or solids, or any other symptoms that are concerning to you. Remain well hydrated. Take oral antibiotic as prescribed Follow up with primary care doctor Patient Language: Tanzanian Prescriptions: New amoxicillin-pot clavulanate 875-125 mg tablet 1 tablet PO Q12H 10 Days Qty: 20 0RF No Action metoprolol tartrate 25 mg tablet 25 mg PO DAILY sertraline 50 mg tablet 50 mg PO DAILY Qty: 30 11RF Rx Instructions: take with 100mg sertraline tab to equal 150mg tab Jardiance 10 mg tablet 10 mg PO QAM Qty: 30 11RF sertraline 100 mg tablet 100 mg PO DAILY Qty: 30 11RF buspirone 7.5 mg tablet 7.5 mg PO BID Qty: 60 11RF omeprazole 40 mg capsule,delayed release(DR/EC) 40 mg PO BID Qty: 60 3RF metoclopramide HCl [Reglan] 5 mg tablet 5 mg PO .HS Qty: 30 3RF metformin 500 mg tablet extended release 24 hr 1,000 mg PO BID Rx Instructions: start 1 tab daily x1 week. Increase by 1 tab each week to 2 tabs 2x/day with meals. ibuprofen 800 mg tablet 800 mg PO TID PRN (Reason: pain) Qty: 20 0RF hydrocortisone acetate 25 mg suppository 25 mg RECTAL DAILY Qty: 12 0RF (DME) blood-glucose meter [Blood Glucose Monitoring] Kit See Rx Instructions .Route Qty: 1 0RF Rx Instructions: As directed dicyclomine 20 mg tablet See Rx Instructions .ROUTE .COMPLEX Qty: 90 11RF Dose Instruction: TAKE 1 TABLET BY MOUTH THREE TIMES DAILY Rx Instructions: TAKE 1 TABLET BY MOUTH THREE TIMES DAILY Trulicity 1.5 mg/0.5 mL pen injector 1.5 mg subcut WEEKLY Qty: 2 5RF Rx Instructions: call office for refill losartan 100 mg tablet 100 mg PO DAILY Qty: 90 3RF hydrochlorothiazide 12.5 mg tablet 12.5 mg PO QAM Qty: 30 5RF trazodone 50 mg tablet 50 mg PO QHS PRN (Reason: sleep) Qty: 30 3RF hyoscyamine sulfate [Levsin/SL] 0.125 mg tablet, sublingual 0.125 mg PO QID Qty: 120 3RF hyoscyamine sulfate [Levsin] 0.125 mg tablet 0.125 mg PO .every 6 hours Qty: 120 3RF amitriptyline 25 mg tablet 25 mg PO QHS Qty: 30 3RF colestipol 1 gram tablet 1 g PO BID Qty: 60 3RF (DME) OneTouch Verio test strips Strip See Rx Instructions .Route Qty: 100 3RF Rx Instructions: As directed Follow-up/Referrals: Ethel Liz NP [Primary Care Provider] -
[2025-03-25 16:05] LABS: Basophils Absolute Auto 0.1 K/mm3 (0.0-0.1); Basophils Percent Auto 0.7 % (0.2-1.2); Eosinophils Absolute Auto 0.4 K/mm3 (0-0.3); Eosinophils Percent Auto 2.4 % (0-4.4); Hematocrit 46.7 % (37.0-47.0); Hemoglobin 15.2 g/dL (12.0-15.0); Immature Granulocyte Absolute 0.15 K/mm3 (0.00-0.031); Immature Granulocyte Percent A 0.9 % (0-0.5); Lymphocytes Absolute Auto 5.05 K/mm3 (0.9-3.2); Lymphocytes Percent Auto 29.4 % (18.3-44.2); Mean Corpuscular HGB Conc 32.5 g/dl (32-36); Mean Corpuscular Hemoglobin 27.4 pg (26-34); Mean Corpuscular Volume 84.1 fl (80-100); Mean Platelet Volume 10.1 fl (7.4-10.4); Monocytes Percent Auto 5.6 % (2.6-8.5); Neutrophils Absolute Auto 10.5 K/mm3 (1.3-6.7); Platelet Count Result 373 k/mm3 (150-375); Red Blood Count 5.55 M/mm3 (4.2-5.4); Red Cell Distribution Width 13.8 % (11.5-14.5); White Blood Count 17.2 K/mm3 (4.5-10.0)
[2025-03-25 16:09] LABS: Add Urine Microscopic? YES; Appearance Urine Clear (Clear); Bacteria Urine 3+ /hpf; Bilirubin Urine Negative (Negative); Blood Urine Trace (Negative); Color Urine Dark Yellow (Yellow); Glucose Urine UA 3+ mg/dL (Negative); Ketones Urine Trace mg/dL (Negative); Leukocyte Esterase Ur Negative LEU/UL (Negative); Nitrate Urine Negative (Negative); Non Pathogenic Casts 0-2; Protein Urine 1+ mg/dL (Negative); RBC Urine 0-2 /hpf (0-2); Specific Grav Ur 1.037 (1.001-1.035); Squamous Epithelial Cell Urine Few /hpf (Few); Urobilinogen Urine 0.2 mg/dL (<2.0); WBC Urine 0-5 /hpf (0-3); pH Urine 5.5 (5.0-9.0)
--- OUTSIDE RECORDS SUMMARY | 2025-03-25 16:22 | XMS_ITS | Referral Summary ---
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
--- OUTSIDE RECORDS SUMMARY | 2025-03-25 16:22 | XMS_ITS | Clinical Summary ---
Author Organization [facility] Address [address] [address] [place] [address] Phone Care Team Providers Care Electric Motor Winders Assembler Name Role Phone Unavailable Primary Care [...] 01/16/2025 4:15 PM CDT Telephone Check Up [facility] Oncology and Hematology - [address] [place] [address] Felipe Joyner MD Leukocytosis, unspecified type (Primary Dx) 01/09/2025 External Device Data [facility] ABSTRACTION Provider, Abstract 01/09/2025 External Device Data [facility] ABSTRACTION Provider, Abstract 01/07/2025 Orders Only [facility] Oncology and Hematology - [address] [place] [address] Felipe Joyner MD 01/02/2025 Telephone [facility] Oncology and Hematology - [address] [place] [address] Felipe Joyner MD lab auth 01/02/2025 Abstract [facility] Oncology and Hematology - [address] [place] [address] Felpie Joyner MD 01/01/2025 Orders Only [facility] Oncology and Hematology - [address] [place] [address] Felipe Joyner MD 12/31/2024 1:30 PM CDT Office Visit [facility] Oncology and Hematology - [address] [place] [address] Felipe Joyner MD Leukocytosis, unspecified type (Primary [...] Description 05/20/2025 1:00 PM CDT Office Visit [facility] Oncology and Hematology - [address] [facility] [address] [place] [address] Felipe Joyner MD [address] [facility] [address] [place] [address] Health Maintenance Due Date Last [...] [facility] Comment: Test Performed at: [facility] [address] [place] [address] Steven Roberson MD Blood 01/03/2025 1:36 PM CDT 01/03/2025 1:36 PM CDT Felipe Joyner MD HEMATOLOGY ORDERABLES Final Res ult Performing Organization Address [facility] Co de Phone Number [facility] [phone] [facility] [address] [place] [address] * (ABNORMAL) C-REACTIVE PROTEIN (01/03/2025 1:36 PM CDT) CRP 49.2(H) <8.0 mg/L [facility] Comment: Test Performed at: [facility] [address] [place] [address] Steven Roberson MD Blood 01/03/2025 1:36 PM CDT 01/03/2025 1:36 PM CDT Felipe Joyner MD CHEMISTRY ORDERABLES Final Resu lt [facility] [phone] [facility] [address] [address] * FLOW CYTOMETRY REPORT (01/01/2025 1:52 PM CDT) us Felipe Joyner MD PATHOLOGY/CYTOLOGY ORDERABLES F inal Result * COMPREHENSIVE METABOLIC PANEL (12/31/2024 10:31 AM CDT) Blood us Felipe Joyner MD CHEMISTRY ORDERABLES Final Resu lt from Last 3 Months Insurance [place] Advance Directives For more information, please contact: [phone] * Full Code (Latest Code Status on File) Date Activated Date Inactivated Comments 06/08/2024 6:25 AM 06/08/2024 11:33 AM
--- OUTSIDE RECORDS SUMMARY | 2025-03-25 16:22 | XMS_ITS | CONTINUITY OF CARE DOCUMENT ---
Author Name paola, paola Address Unknown Organization [facility] Address [address] [place] [address] [address] [place] [address] Phone [phone] Care Team Providers Care Telephone Operator Chief Name Role Phone Raj SIMS, Marvin Unavailable TREVOR SIMS, HUSSEIN Unavailable Unavailable INSURANCE PROVIDERS Payer name Policy type / Coverage type [place] red democrat [place] MEDICA[employer] Medicaid [id number]
--- OUTSIDE RECORDS SUMMARY | 2025-03-25 16:22 | XMS_ITS | Clinical Summary ---
Author Organization 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
[2025-03-25 16:30] LABS: Strep Group A RT-PCR NOT DETECTED (Negative)
[2025-03-25 16:36] LABS: Alanine Aminotransferase 74 U/L (6-35); Albumin Level 4.7 g/dL (3.5-5.1); Alkaline Phosphatase 99 U/L (38-126); Anion Gap 14 mmol/L (4-12); Aspartate Amino Transferase 77 U/L (14-36); Bilirubin,Total 0.9 mg/dL (0.2-1.3); Blood Urea Nitrogen 11 mg/dL (7-17); Calcium 9.6 mg/dL (8.4-10.2); Carbon Dioxide 22 mmol/L (22-30); Chloride 101 mmol/L (98-107); Estimated CRCL calculation 183 ml/min; Estimated Glomerular Filt Rate > 60; Glucose 267 mg/dL (65-110); Magnesium 1.8 mg/dL (1.6-2.3); Phosphorus 4.3 mg/dL (2.5-4.5); Potassium 4.3 mmol/L (3.4-5.0); Sodium 137 mmol/L (137-145)
[2025-03-25] MEDS: SODIUM CHLORIDE 0.9% IV 1,000 ML 999 ML IV CONT (17:14)
[2025-03-25 18:07] LABS: Beta-Hydroxybutyrate/Acetoacetate 0.12 mmol/L (0.02-0.27)
[2025-03-25 18:27] VITALS: RESP 20
[2025-03-25 18:48] VITALS: BP 133/90; PULSE 107; RESP 20; O2SAT 98
[2025-03-25 19:16] LABS: Anion Gap 10 mmol/L (4-12); Blood Urea Nitrogen 11 mg/dL (7-17); Calcium 8.9 mg/dL (8.4-10.2); Carbon Dioxide 25 mmol/L (22-30); Chloride 103 mmol/L (98-107); Estimated CRCL calculation 173 ml/min; Estimated Glomerular Filt Rate > 60; Glucose 197 mg/dL (65-110); Sodium 138 mmol/L (137-145)
== END 2025-03-25 19:31 | disposition home or self-care (01) ==
PROVIDERS: Family Medicine; Emergency Provider Physician Assistant; PCP Nurse Practitioner Family
DX: J03.90 Acute tonsillitis, unspecified (principal); E86.0 Dehydration; F41.9 Anxiety disorder, unspecified; E11.9 Type 2 diabetes mellitus without complications; I10 Essential (primary) hypertension; E66.01 Morbid (severe) obesity due to excess calories; Z68.44 Body mass index [BMI] 60.0-69.9, adult; F32.A Depression, unspecified
CPT/HCPCS: 36415; 80048; 80053; 81001; 81025; 82010; 82948; 83735; 84100; 85025; 87651; 96360; 99283; J7030

== ENCOUNTER → 2025-04-22 11:21 | Outpatient (CLI) | payer OTHER, SELFPAY ==
--- NOTE | ~2025-04-22 | XR_ITS ---
XR shoulder left min 2V Ordering provider: Ethel Liz NP History: . M25.511 - Pain in left shoulder . Comparison: None. FINDINGS: BONES: No acute fracture or dislocation. JOINT SPACES: The acromioclavicular joint is normal. The glenohumeral joint is normal. SOFT TISSUES: Normal. IMPRESSION: No acute osseous abnormality left shoulder. Reviewed, dictated and finalized at location A.
--- NOTE | ~2025-04-22 | XR_ITS ---
XR shoulder right min 2V Ordering provider: Ethel Liz NP History: . M25.512 - Pain in right shoulder . Comparison: None. FINDINGS: BONES: No acute fracture or dislocation. JOINT SPACES: The acromioclavicular joint is normal. The glenohumeral joint is normal. SOFT TISSUES: Normal. IMPRESSION: No acute osseous abnormality right shoulder. Reviewed, dictated and finalized at location A.
--- OUTSIDE RECORDS SUMMARY | 2025-04-22 11:50 | XMS_ITS | Patient Health Record ---
Author Organization [facility] Address [address] [place] [address] Care Team Providers Care Brine Well Operator Name Role Phone Yong Noland Unavailable [phone] Yessi Marrufo Unavailable Reason For Referral No Information Social History [...] phone, visiting friends or family, going to hinduism or club meetings) 1 or 2 times a week How stressed are you? Stress is when someone feels tense, nervous, anxious, or can\t sleep at night because their mind is troubled Very much In the past year have you sp ent more than 2 nights in a row in a assisted, usp, prison center, or juvenile correctional facility? No Do you feel physically and e motionally safe where you currently live? Yes In the past year, have you b een afraid of your partner or ex-partner? No PRAPARE Score: 7 Encounters Encounter Location Date Provider Diagnosis Formerly [facility] [address] [place] [address] 03/15/2025 Yessi Marrufo [address] [place] [address] 03/22/2025 Yong Noland Plan Of Treatment No Information Insurance Providers Payer Name Payer Address Payer Phone Subscriber Number Group Number Insured Name Patient Relationship to Insured Coverage Start Date Coverage End Date [facility] [address] [place] [address] [id number] [place], [place] Self - patient is the insured 4
--- OUTSIDE RECORDS SUMMARY | 2025-04-22 11:50 | XMS_ITS | Clinical Summary ---
Author Organization [facility] Address [address] [address] [place] [address] Phone Care Team Providers Care Soda Dialyzer Name Role Phone Unavailable Primary Care Provider [...] Encounters Date Type Department Care Team Description 04/09/2025 External Device Data [facility] ABSTRACTION Provider, Abstract 03/19/2025 External Device Data [facility] ABSTRACTION Provider, [...] Hospital Oncology and Hematology - [address] [facility] [address] [place] [address] Felipe Joyner MD [address] [facility] [address] [place] [address] Health Maintenance Due Date Last Done Comments HPV VACCINES (1 - 3-dose series) 2015 DTAP/TDAP/TD VACCINES (1 - Tdap) 2019 HEPATITIS B VACCINES (1 of 3 - 19+ 3-dose series) 10/24 CERVICAL CANCER SCREENING 2021 HPV/Cotest (21-29) 2021 PAP SMEAR 2021 INFLUENZA VACCINE (#1) 2024 Insurance [place] [address] [place] Advance Directives For more information, please contact: [phone] * Full Code (Latest Code Status on File) Date Activated Date Inactivated Comments 06/08/2024 6:25 AM 06/08/2024 11:33 AM
--- OUTSIDE RECORDS SUMMARY | 2025-04-22 11:50 | XMS_ITS | Clinical Summary ---
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
--- OUTSIDE RECORDS SUMMARY | 2025-04-22 11:50 | XMS_ITS | Referral Summary ---
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
--- OUTSIDE RECORDS SUMMARY | 2025-04-22 11:50 | XMS_ITS | Data Portability ---
Author Organization [facility] [place] Address [address] [place] [address] [place] [address] Care Team Providers Care Primary Care Md Name Role Phone PATRICIA WILLIAM Primary Care Provider RACHEL ALBERT Primary Care Provider [phone] Assessment No assessment recorded. Plan of Treatment Reminders Order Date Submit Date Provider Last Modified By Organization Details Last Modified Time Details Appointments None recorded. Lab None recorded. Referral None recorded. Procedures None recorded. Surgeries None recorded. Imaging US, transvagina l 2023 024 [email or web address] [place], [address], [address], [place], [address], 4 19:45:10 Medication Orders clotrimazol e-betametha sone 1 %-0.05 % topical cream 2024 025 [employer] #[id number] [address], [place], [id number], 5 15:03:28 metronidazo le 0.75 % (37.5 mg/5 gram) vaginal gel 2023 024 [employer] [facility] #[id number], [address], [place], [id number], 4 11:06:13 Patient TargetsNo targets recorded. Patient InstructionsNo instructions recorded. Reason for Referral None Reported. Results Created Date Observation Date Name Description Value Unit Range Abnormal Flag Note LastModifiedBy Organization Detail LastModifiedTime 08/15/20 24 08/15/2024 US, pelvi s No observ ation [facility] ed. [email or web address] [address], [place], [address], 08/15/2024 17:30:18 08/15/20 24 08/15/2024 US, trans vagin al No observ ation record ed. [facility] [address], [place], [address], 08/15/2024 17:30:31 08/15/20 24 08/15/2024 US, pelvi s No observ ation record ed. [email or web address] [address], [place], [address], 08/16/2024 16:07:33 08/30/20 24 08/30/2024 US, trans vagin al No observ ation record ed. [email or web address], [place], [address], 08/30/2024 21:42:27 08/30/20 24 08/30/2024 US, trans vagin al No observ ation record ed. [email or web address], [place], [address], 08/30/2024 21:42:27 Result Notes None recorded. Problems Name Problem SNOMED Code Status Onset Date Resolution Date Notes Provider Name and Address Organization Details Recorded Time Polycystic ovary syndrome 899330750 Active 2023 Becca Hernandez [facility]- [address], [place], [address], [facility] 14:57:33 Insulin resistance 497823278 Active 2014 MARCK Gonzales- [address], [place], [address], [facility] 4 09:49:09 Secondary amenorrhea 056840276 Active 2017 Becca Hernandez [facility] [address], [place], [address], [facility] 4 09:50:15 Hypertriglyc eridemia 628097746 Active 2023 Becca Hernandez [facility] [address], [place], [address], [facility] 4 09:50:27 Chronic peptic ulcer 235920425 Active 2022 Becca Hernandez [facility] [address], [place], [address], [facility] 4 09:50:53 Problem Notes None recorded. Procedures Surgical History Date Name Laterality Status Provider Name and Address Organization Details Recorded Time 024 IUD Removal completed Diogo Bryan MD [address], [place], [address], [facility] 08/20/2024 14:41:43 024 IUD Insertion completed Diogo Bryan MD [address], [place], [address], [facility] 08/20/2024 14:41:33 024 Laparoscopy completed Digna Ace [facility] 10/26/2024 14:39:20 024 endoscopy completed Estrella Johnson [facility] 05/10/2024 16:00:13 023 Date of Last Pap Smear completed Digna Ace [facility] 08/09/2023 15:03:22 023 cholecystectomy completed Digna Ace [facility] 06/30/2023 14:39:16 Imaging Results None recorded. Procedure Notes None recorded. Medical Equipment None Reported. Allergies Allergen ID Allergen Name Allergen Category Reaction Reaction Severity Criticality Documentation Date Start Date Code Code System Note Provider Name and Address Organization Details Recorded Time 67229 morphine medicatio n Not available Not available Not available 05/18/2024 7052 RxNorm Tara Bliss [facility], [facility] 14:01:04 Medications Name Sig Start [...] ne dipropionat e 0.05 % topical cream APPLY A THIN LAYER TO THE AFFECTED AREA(S) BY TOPICAL ROUTE ONCE DAILY 03/20 completed Not Available Not Available Not Available buspirone 7.5 mg tablet TAKE 1 [...] completed Not Available Not Available Not Available 1.530 (28) 1.5 mg-30 mcg (21)/75 mg (7) [...] Updated DateTime 10/26/2024 157.48 cm 62.7 kg/m2 713848.1 8 g 131 mm[Hg] 93 mm[Hg] [facility] 5 14:36:46 Date Recorded Body height Body mass index (BMI) Body weight Systolic blood pressure Diastolic blood pressure Provider Name and Address Organization Details Last Updated DateTime 03/20/2025 157.48 cm 61.5 kg/m2 637977.0 4 g 121 mm[Hg] 82 mm[Hg] [facility] 15:03:01 Date Recorded Body height Body mass index (BMI) Body weight Systolic blood pressure Diastolic blood pressure Provider Name and Address Organization Details Last Updated DateTime 08/29/2024 157.48 cm 65.3 kg/m2 486698.4 8 g 150 mm[Hg] 94 mm[Hg] [facility] 4 14:16:12 Date Recorded Body height Body mass index (BMI) Body weight Systolic blood pressure Diastolic blood pressure Provider Name and Address Organization Details Last Updated DateTime 09/24/2024 157.48 cm 65.3 kg/m2 798650.4 8 g 141 mm[Hg] 95 mm[Hg] [facility] 11:03:39 Social History Question Answer Notes LastModified by Organizat ion Details LastModified Time Tobacco Smoking Status Never Smoker [facility] 06/30/2023 14:31:55 Do You Have An [...] Or The Highest Degree You Have Received? [id number] Information not available 12/30/2022 Are There Any Guns Present In Your Home? Yes Information not available 01/11/2023 Do You Use Protection During Sex? No Information not available 01/11/2023 Do You Use Your Seat Belt Or Car Seat Routinely? No Information not available 01/11/2023 Are You Sexually Active? Yes Female Partners [email or web address] Information not available 06/30/2023 Do You Have [...] other forms of tobacco or nicotine? No [email or web address] Information not available 06/30/2023 What is your level of alcohol consumption? Occasional Information not available 12/30/2022 Are you currently employed? Yes [email or web address] Information not available 06/30/2023 Are you able to walk? 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 Moderate Information not available 01/11/2023 Mental Status Question Answer Note LastModified by Organization D etails LastModified Time Do you feel stressed (tense, restless, nervous, or anxious, or unable to sleep at night)? [id number] Information not available 01/11/2023 Family History Relationship Description Onset Age of this Age Resolved Age Notes LastModified by Organization Details LastModified Time Father Diabetes mellitus [email or web address] Not available 2022 14:42:16 Mother Malignant neoplasm of ovary [email or web address] Not available 2024 14:14:50 Paternal Grandmother Malignant neoplasm of lung [email or web address] Not available 2024 14:14:50 Maternal Grandmother Hypertensive disorder [email or web address] Not available 2022 14:42:16 Maternal Grandmother Hypercholest erolemia [email or web address] Not available 2022 14:42:16 Unspecified Relation Family history unknown [email or web address] Not available 2024 14:14:50 Medical History Condition [...] SNOMED-CT Code Diagnosis ICD10 Code Diagnosis Note [id number] Becca Hernandez [facility] [address] [address] 12/30/2022 12:18:03 12/30/2022 16:58:19 Secondary amenorrhea 914671959 N91.1 Today we discussed menses & amenorrhei [...] plan of care. Cyst of left ovary 04223 70021 8880951 N83.202 Left cyst vs paratubal cyst very smallLikel y not the source of pain that has been plaguing herMore concerned about lack of monthly cycles which we discussedP COS is suspected. Will see if recent cholestero l, hbga1c etc have been performed by PCP.If not will update those next visit. FSH/LH: 7.8/7.1Tot al T- 36 wnlEstroge n (e1): 413.2 [id number] Becca Hernandez [facility] [address] [address] 01/11/2023 12:29:58 01/11/2023 13:32:02 Secondary amenorrhea 033420058 N91.1 Today we discussed trial of provera.Maida [...] counseling and review of plan of care. [id number] Diogo Bryan MD [place] [address] [address] 05/02/2023 16:04:08 05/02/2023 16:44:12 Pain in pelvis 73617553 R10.2 [id number] Becca Hernandez [facility] [address] [address] 05/03/2023 14:32:39 05/03/2023 15:07:47 Secondary amenorrhea 742395391 N91.1 Today we discussed US.Left ovarian cyst [...] counseling and review of plan of care. [id number] Becca Hernandez [facility] [address],[place] [address] 06/30/2023 14:31:50 06/30/2023 14:54:46 Sexually transmitted infectious disease 6494395 A64 Today would like STD urine & serum labs.Will update on resultsRes chedule WWE visit. Time spent in visit is a total of 15 mins with at least 50% of visit consisting of counseling and review of plan of care. [id number] Becca Hernandez [facility] [address],[place] [address] 07/07/2023 14:22:21 07/07/2023 14:48:02 Gynecologic examination 34204406 Z01.419 Take Calcium with Vitamin D 1200mg [...] c Screen discussedC olon Screen naDexa Screen [facility] [id number] Becca Hernandez , [facility] [address],[place] [address] 08/09/2023 14:35:44 08/09/2023 15:26:55 Secondary amenorrhea 507954481 N91.1 Today we discussed switching from Provera [...] counseling and review of plan of care. [id number] Becca Hernandez [facility] [address],[place] [address] 11/01/2023 13:43:06 11/01/2023 15:07:32 Polycystic ovary syndrome 047734867 E28.2 Z68.44 Today we discussed PCOS and [...] Low HDL (good) cholestero l. Insulin resistance 46950 5000 E88.819 Will see if qualifies for injectable or something other than Metformin with her prominent Hx of peptic ulcer/Gall bladder and it likelihood of causing significan t GI issues or exacerbati on of these issues. [facility] ion care management 048483601 N91.1 Patient is here today for a [...] of plan of care. Hyperlipid emia screening 394838959 Z13.220 Update to check for high LDL/TG/Tot al/Low HDL [id number] Becca Hernandez [facility] [address],[place] [address] 11/16/2023 15:55:38 11/22/2023 17:14:20 Insulin resistance 230914554 E88.819 Z68.44 E66.9 E88.810 E28.2 Will complete 0.75mg weekly x 4wks.Then, return to office for med check & if tolerating we increase to next dose. In depth debt management counselor on trulicity purpose, dosage, dosage schedule, [...] counseling and review of plan of care. [id number] Becca Hernandez [facility] [address],[place] [address] 12/13/2023 15:42:18 12/13/2023 16:18:12 Prediabetes 490896808 R73.03 Z68.44 E88.810 E28.2 Z83.49 Patient is [...] and review of plan of care. Tachycardia 7059864 R00. [address] for random HBP/Palpit ations Contracept ion care management 332309442 N91.1 BCP switched to POP only vs CONNER due to verbalizat ion of heart palpitatio ns/HBP. Will f/u in 7wks at med check for trulicity. [id number] [facility] [address] [address] 01/24/2024 15:12:35 01/24/2024 16:03:45 Venereal disease screening 486201858 Z11.3 STD screen urine sent to confirm no std.Partne r recently treated for trich (female partner)Wi ll reach out with results. Time spent in visit is a total of 15 mins with at least 50% of visit consisting of counseling and review of plan of care. Contracept ion care management 284804308 N91.1 BCP switched to POP only vs CONNER due to verbalizat ion of heart palpitatio ns/HBP.Alon ples given x 6mosCall for additional samples if neededDoin g well. [id number] Melania Randolph [facility] [place] [address] [address] 05/10/2024 15:49:03 05/10/2024 16:28:39 Abnormal uterine bleeding 4718035775 9100 N93.9 The patient and I discussed [...] of plan of care. Polycystic ovary syndrome 568809446 E28.2 [id number] Diogo Bryan MD [place] [address] [address] 05/15/2024 11:58:20 05/15/2024 12:31:15 Abnormal uterine bleeding 7176840183 9100 N93.9 [id number] Diogo Bryan MD [place] [address] [address] 05/18/2024 13:42:09 05/18/2024 14:52:30 Abnormal uterine bleeding 9348782345 9100 N93.9 this patient is a 23-year-ol [...] to proceed with laboratory evaluation Preoperative state 86217 002 Z78.9 [id number] Diogo Bryan MD [place] [address],[place] [address] 07/27/2024 11:03:55 07/27/2024 12:23:34 Contraception care management 876311754 Z30.9 23-year-ol d female who 1 week from a IUD insertion under anesthesia . Hysterosco py D and C was also performed. She tolerated well. She has no complaints . She will return later for IUD check. [id number] Diogo Bryan MD [place] [address],[place] [address] 08/15/2024 10:37:45 08/15/2024 11:14:49 Pain in pelvis 52798113 R10.2 [id number] Diogo Bryan MD [place] [address],[place] [address] 08/20/2024 10:28:22 08/20/2024 15:10:06 Insertion of intrauterine contraceptive device 05990111 Z30.430 IUD was removed replaced. She tolerated it well. To follow up in 1 month [id number] Diogo Bryan MD [place] [address],[place] [address] 08/29/2024 13:50:59 08/29/2024 15:00:33 Pain in pelvis 50431598 R10.2 23-year-ol d female. Patient has pain [...] sonia of the IUD Bacterial vaginosis 4197 35034 N76.0 [id number] Diogo Bryan MD [place] [address],[place] [address] 08/30/2024 16:35:42 08/30/2024 17:27:27 Mechanical complication of intrauterine contraceptive device 231614794 T83.39XA [id number] Diogo Bryan MD [place] [address],[place] [address] 09/24/2024 10:33:04 09/24/2024 11:22:24 Contraception care management 057995657 Z30.9 This patient is a 23 female who presents for IUD check. She [facility]. She has no complaints . She denies any excessive bleeding or pain. She has had some cramping and some spotting. Otherwise, she feels that is going well and wants to continue her IUD. [id number] Diogo Bryan MD [place] [address],[place] [address] 10/26/2024 13:56:29 10/29/2024 07:50:21 Tinea corporis 98844491 B35.4 [id number] Diogo Bryan MD [place] [address],[place] [address] 03/20/2025 14:14:47 03/20/2025 15:41:38 Pain in pelvis 44341452 R10.2 Presents for follow-up on ER visit. She had a cyst in the ER. She had pelvic pain. The cyst is small and simple. The pain has resolved. We agreed to observe. Health Concerns Section Related Observation LastModified by Organization Detai ls LastModified Time None Recorded Concern Status LastModified by Organization Details LastModified Time None Recorded Advance Directives Directive N: Payers Insurance Date Sequence Insurance Name Policy Number Policy Leija Covered Member ID Leija Member ID Guarantor Name 07/01/2023 1 *SELF PAY* Rossy Matta 03/19/2025 1 [facility] (MEDICAID HMO) [id number] Mac Matta [id number] [place] Thais Matta Notes Date Note Type Note Provider Name [...] IUD Diogo Bryan MD [address], [place], [address], [facility] 08/29/2024 15:00:24 09/24/2024 text/html This [...] IUD. Diogo Bryan MD [address], [place], [address], [facility] 09/24/2024 11:20:29 10/26/2024 text/html 23-year-old [...] instructions. Diogo Bryan MD [address], [place], [address], [facility] 10/27/2024 12:52:27 03/20/2025 text/html Presents for follow-up on ER visit. She had a cyst in the ER. She had pelvic pain. The cyst is small and simple. The pain has resolved. We agreed to observe. Diogo Bryan MD [address], [place], [address], [facility] 03/20/2025 15:37:34 OBGyn Episode No OBEpisode recorded.
== END ==
LOC: EXPTROY 11:23
PROVIDERS: PCP Nurse Practitioner Family; Visit Provider Nurse Practitioner Family
DX: M25.512 Pain in left shoulder (principal); M25.511 Pain in right shoulder
CPT/HCPCS: 73030

== ENCOUNTER 2025-04-22 12:06 | Outpatient (CLI) | payer OTHER, SELFPAY ==
--- OUTSIDE RECORDS SUMMARY | 2025-04-22 12:11 | XMS_ITS | Clinical Summary ---
Author Organization [facility] Address [address] [address] [place] Marcelo [address] Phone Care Team Providers Care Sewage Treatment Plant Operator Name Role Phone Unavailable Primary Care [...] CDT Office Visit [facility] Oncology and Hematology - Mikie [address] [place] [address] Felipe Joyner MD [address] [facility] [address] [place] [address] Health Maintenance Due Date Last Done Comments HPV VACCINES (1 - 3-dose series) 2015 DTAP/TDAP/TD VACCINES (1 - Tdap) 2019 HEPATITIS B VACCINES (1 of 3 - 19+ 3-dose series) 10/24 CERVICAL CANCER SCREENING 2021 HPV/Cotest (21-29) 2021 PAP SMEAR 2021 INFLUENZA VACCINE (#1) 2024 Insurance [employer] [place] [address] [place] [employer] [place] Advance Directives For more information, please contact: [phone] * Full Code (Latest Code Status on File) Date Activated Date Inactivated Comments 06/08/2024 6:25 AM 06/08/2024 11:33 AM
--- OUTSIDE RECORDS SUMMARY | 2025-04-22 12:11 | XMS_ITS | Clinical Summary ---
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
--- OUTSIDE RECORDS SUMMARY | 2025-04-22 12:11 | XMS_ITS | Referral Summary ---
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
--- OUTSIDE RECORDS SUMMARY | 2025-04-22 12:11 | XMS_ITS | Clinical Summary ---
Author Organization [facility] Address [facility] [place] [address] Care Team Providers Care Restaurant Floor Manager Name Role Phone Cleveland Barahona MD Primary Care Provider [phone] Allergies Active Allergy Reactions Criticality Noted Date [...] Comments Blood Pressure 158/103 10/27/2023 3:45 PM SALES REPRESENTATIVE TRAINEE Pulse 73 10/27/2023 3:45 PM SALES REPRESENTATIVE TRAINEE Temperature 36.6 C (97.9 F) 10/27/2023 2:18 PM SALES REPRESENTATIVE TRAINEE Respiratory Rate 20 10/27/2023 3:45 PM SALES REPRESENTATIVE TRAINEE Oxygen Saturation 98% 10/27/2023 3:45 PM SALES REPRESENTATIVE TRAINEE Inhaled Oxygen Concentration - - Weight 147.8 kg (325 lb 13.4 oz) 10/27/2023 2:18 PM SALES REPRESENTATIVE TRAINEE Height 154.9 cm (5' 1) 10/27/2023 2:18 PM SALES REPRESENTATIVE TRAINEE Body Mass Index 61.57 10/27/2023 2:18 PM SALES REPRESENTATIVE TRAINEE Plan of Treatment Health Maintenance Due Date [...] complete this topic Insurance [employer] Care Teams Restaurant Floor Manager Relationship Specialty Start Date End Date Cleveland Barahona MD [address] [place] [address] PCP - General INTERNAL MEDICINE 02/18/22
[2025-04-22 12:34] LABS: Basophils Absolute Auto 0.1 K/mm3 (0.0-0.1); Basophils Percent Auto 0.6 % (0.2-1.2); Eosinophils Absolute Auto 0.3 K/mm3 (0-0.3); Eosinophils Percent Auto 2.6 % (0-4.4); Hematocrit 46.5 % (37.0-47.0); Hemoglobin 15.2 g/dL (12.0-15.0); Immature Granulocyte Absolute 0.07 K/mm3 (0.00-0.031); Immature Granulocyte Percent A 0.6 % (0-0.5); Lymphocytes Percent Auto 33.1 % (18.3-44.2); Mean Corpuscular HGB Conc 32.7 g/dl (32-36); Mean Corpuscular Hemoglobin 26.9 pg (26-34); Mean Corpuscular Volume 82.3 fl (80-100); Mean Platelet Volume 10.3 fl (7.4-10.4); Monocytes Absolute Auto 0.8 K/mm3 (0.1-0.6); Monocytes Percent Auto 6.4 % (2.6-8.5); Neutrophils Absolute Auto 6.9 K/mm3 (1.3-6.7); Neutrophils Percent Auto 56.7 % (45.5-73.1); Platelet Count Result 317 k/mm3 (150-375); Red Blood Count 5.65 M/mm3 (4.2-5.4); Red Cell Distribution Width 13.5 % (11.5-14.5); White Blood Count 12.1 K/mm3 (4.5-10.0)
[2025-04-22 12:50] LABS: Rheumatoid Factor. < 12.0 IU/ML (<12)
[2025-04-22 12:51] LABS: Alanine Aminotransferase 61 U/L (6-35); Albumin Level 4.4 g/dL (3.5-5.1); Alkaline Phosphatase 100 U/L (38-126); Anion Gap 12 mmol/L (4-12); Aspartate Amino Transferase 70 U/L (14-36); Bilirubin,Total 1.2 mg/dL (0.2-1.3); Blood Urea Nitrogen 11 mg/dL (7-17); Calcium 9.1 mg/dL (8.4-10.2); Carbon Dioxide 23 mmol/L (22-30); Chloride 100 mmol/L (98-107); Estimated Glomerular Filt Rate > 60; Glucose 369 mg/dL (65-110); Potassium 4.3 mmol/L (3.4-5.0); Sodium 135 mmol/L (137-145); Total Protein 8.5 g/dL (6.3-8.2)
[2025-04-22 14:37] LABS: Add Urine Microscopic? YES; Appearance Urine Clear (Clear); Bacteria Urine Rare /hpf; Bilirubin Urine Negative (Negative); Blood Urine Negative (Negative); Color Urine Yellow (Yellow); Glucose Urine UA 3+ mg/dL (Negative); Ketones Urine Trace mg/dL (Negative); Leukocyte Esterase Ur Negative LEU/UL (Negative); Nitrate Urine Negative (Negative); Non Pathogenic Casts 0-2; Protein Urine Trace mg/dL (Negative); RBC Urine 0-2 /hpf (0-2); Specific Grav Ur 1.045 (1.001-1.035); Squamous Epithelial Cell Urine None Seen /hpf (Few); Urobilinogen Urine 0.2 mg/dL (<2.0); WBC Urine 0-5 /hpf (0-3); pH Urine 5.5 (5.0-9.0)
[2025-04-22 14:45] LABS: Free T4 Free Thyroxine Reflex 1.35 ng/dL (0.78-2.19)
[2025-04-22 15:41] LABS: Total Triiodothyronine (T3) 1.24 NG/ML (0.82-1.58)
[2025-04-22 16:24] LABS: Hemoglobin A1C. 12.7 % (<5.7)
[2025-04-24 02:28] LABS: CRP, High Sensitivity 16.1 mg/L
== END 2025-04-22 12:07 | disposition home or self-care (01) ==
PROVIDERS: PCP Nurse Practitioner Family; Visit Provider Nurse Practitioner Family
DX: E11.9 Type 2 diabetes mellitus without complications (principal); I10 Essential (primary) hypertension; R53.83 Other fatigue; M25.50 Pain in unspecified joint
CPT/HCPCS: 36415; 80053; 81001; 83036; 84439; 84443; 84480; 84550; 85025; 86038; 86141; 86430

== ENCOUNTER 2025-05-08 20:15 | Emergency (ER) | payer BC, OTHER, SELFPAY ==
--- OUTSIDE RECORDS SUMMARY | 2025-05-08 20:17 | XMS_ITS | Patient Health Record ---
Author Organization [facility] Address [address] [place] [address] Care Team Providers Care Tubing Supervisor Name Role Phone Yong Noland Unavailable [phone] Yessi Marrufo Unavailable Reason For Referral No [...] 2 nights in a row in a care home, [place] health care facility, senior living center, or juvenile correctional facility? No Do you feel physically and e motionally safe where you currently live? Yes In the past year, have you b een afraid of your partner or ex-partner? No PRAPARE Score: 7 Encounters Encounter Location Date Provider Diagnosis [facility] [place] [address] 03/15/2025 Yessi Marrufo [address] [place] [address] 03/22/2025 Yong Noland Plan Of Treatment No Information Insurance Providers Payer Name Payer Address Payer Phone Subscriber Number Group Number Insured Name Patient Relationship to Insured Coverage Start Date Coverage End Date [facility] [address] [place] [address] [id number] [place], [place] Self - patient is the insured 4
--- OUTSIDE RECORDS SUMMARY | 2025-05-08 20:17 | XMS_ITS | Referral Summary ---
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
--- OUTSIDE RECORDS SUMMARY | 2025-05-08 20:17 | XMS_ITS | Clinical Summary ---
Author Organization [facility] Address [address] [address] AR[place] Marcelo [address] Phone Care Team Providers Care Sterile Processing Technologist Name Role Phone Unavailable Primary Care Provider [...] oz pur e alcohol) None since 11/2023 Comments No Sex and Gender Information Value [...] Description 05/20/2025 1:00 PM CDT Office Visit [facility] Oncology and Hematology - Mikie [address] [place] [address] Felipe Joyner MD [address] [facility] [place] [address] Health Maintenance Due Date Last Done Comments HPV VACCINES (1 - 3-dose series) 2015 DTAP/TDAP/TD VACCINES (1 - Tdap) 2019 HEPATITIS B VACCINES (1 of 3 - 19+ 3-dose series) 10/24 CERVICAL CANCER SCREENING 2021 HPV/Cotest (21-29) 2021 PAP SMEAR 2021 INFLUENZA VACCINE (#1) 2025 [place] Advance Directives For more information, please contact: [phone] * Full Code (Latest Code Status on File) Date Activated Date Inactivated Comments 06/08/2024 6:25 AM 06/08/2024 11:33 AM
--- OUTSIDE RECORDS SUMMARY | 2025-05-08 20:17 | XMS_ITS | Data Portability ---
Author Organization [facility] [place] Address [address] [place] [address] [place] [address] Care Team Providers Care Global Regulatory Lead Name Role Phone PATRICIA WILLIAM Primary Care Provider [phone] RACHEL ALBERT Primary Care Provider Assessment No assessment recorded. Plan of Treatment Reminders Order Date Submit Date Provider Last Modified By Organization Details Last Modified Time Details Appointments None recorded. Lab None recorded. Referral None recorded. Procedures None recorded. Surgeries None recorded. Imaging US, transvagina l 2023 024 [email or web address] [place], [address], [address], [place], [address], 4 19:45:10 Medication Orders clotrimazol e-betametha sone 1 %-0.05 % topical cream 2024 025 [facility][id number] [address], [place], [id number], 5 15:03:28 metronidazo le 0.75 % (37.5 mg/5 gram) vaginal gel 2023 024 [facility][id number], [address], [place], [id number], 4 11:06:13 Patient TargetsNo targets recorded. Patient InstructionsNo instructions recorded. Reason for Referral None Reported. Results Created Date Observation Date Name Description Value Unit Range Abnormal Flag Note LastModifiedBy Organization Detail LastModifiedTime 08/15/20 24 08/15/2024 US, pelvi s No observ ation [facility] [address], [place], [address], 08/15/2024 17:30:18 08/15/20 24 08/15/2024 US, trans vagin al No observ ation record ed. [facility] [address], [place], [address], 08/15/2024 17:30:31 08/15/20 24 08/15/2024 US, pelvi s No observ ation record ed. [email or web address] [address], [place], [address], 08/16/2024 16:07:33 08/30/20 24 08/30/2024 US, trans vagin al No observ ation record ed. [email or web address], [place], [address], 08/30/2024 21:42:27 08/30/20 24 08/30/2024 US, trans vagin al No observ ation record ed. [email or web address], [place], [address], 08/30/2024 21:42:27 Result Notes None recorded. Problems Name Problem SNOMED Code Status Onset Date Resolution Date Notes Provider Name and Address Organization Details Recorded Time Polycystic ovary syndrome 741191076 Active 2023 Becca Hernandez NADINE- [address], [place], [address], [facility] 14:57:33 Insulin resistance 664153649 Active 2014 MARCK Gonzales- [address], [place], [address], [facility] 4 09:49:09 Secondary amenorrhea 465499607 Active 2017 Becca Hernandez [facility] [address], [place], [address], [facility] 4 09:50:15 Hypertriglyc eridemia 596332260 Active 2023 Becca Hernandez [facility] [address], [place], [address], [facility] 4 09:50:27 Chronic peptic ulcer 847440722 Active 2022 Becca Hernandez [facility] [address], [place], [address], [facility] 4 09:50:53 Problem Notes None recorded. Procedures Surgical History Date Name Laterality Status Provider Name and Address Organization Details Recorded Time 024 IUD Removal completed Diogo Bryan MD [address], [place], [address], [facility] 08/20/2024 14:41:43 024 IUD Insertion completed Diogo Bryan MD [address], [place], [address], [facility] 08/20/2024 14:41:33 024 Laparoscopy completed Digna Ace [facility] 10/26/2024 14:39:20 024 endoscopy completed Estrella Johnson [facility] 05/10/2024 16:00:13 023 Date of Last Pap Smear completed Digna Ace [facility] 08/09/2023 15:03:22 023 cholecystectomy completed Digna Ace [facility] 06/30/2023 14:39:16 Imaging Results None recorded. Procedure Notes None recorded. Medical Equipment None Reported. Allergies Allergen ID Allergen Name Allergen Category Reaction Reaction Severity Criticality Documentation Date Start Date Code Code System Note Provider Name and Address Organization Details Recorded Time 16377 morphine medicatio n Not available Not available Not available 05/18/2024 7052 RxNorm Tara Bliss [facility], [facility] 14:01:04 Medications Name Sig Start [...] Body mass index (BMI) Body weight Systolic And Diastolic Provider Name and Address Organization Details Last Updated DateTime 10/26/2024 157.48 cm 62.7 kg/m2 844260.18 g 131/93 mm[Hg] [facility] 10/26/2024 14:36:46 Date Recorded Body height Body mass index (BMI) Body weight Systolic And Diastolic Provider Name and Address Organization Details Last Updated DateTime 03/20/2025 157.48 cm 61.5 kg/m2 158356.04 g 121/82 mm[Hg] [facility] 03/20/2025 15:03:01 Date Recorded Body height Body mass index (BMI) Body weight Systolic And Diastolic Provider Name and Address Organization Details Last Updated DateTime 08/29/2024 157.48 cm 65.3 kg/m2 584465.48 g 150/94 mm[Hg] [facility] 08/29/2024 14:16:12 Date Recorded Body height Body mass index (BMI) Body weight Systolic And Diastolic Provider Name and Address Organization Details Last Updated DateTime 09/24/2024 157.48 cm 65.3 kg/m2 194143.48 g 141/95 mm[Hg] [facility] 09/24/2024 11:03:39 Social History Question Answer Notes LastModified by Organizat ion Details LastModified Time Tobacco Smoking Status Never Smoker Stefaniechuck Elliottjaky [facility] 06/30/2023 14:31:55 Do You Have An [...] Or The Highest Degree You Have Received? [id number] Information not available 12/30/2022 Are There Any Guns Present In Your Home? Yes Information not available 01/11/2023 Do You Use Protection During Sex? No Information not available 01/11/2023 Do You Use Your Seat Belt Or Car Seat Routinely? No Information not available 01/11/2023 Are You Sexually Active? Yes Female Partners [email or web address] Information not available 06/30/2023 Do You Have [...] other forms of tobacco or nicotine? No [email or web address] Information not available 06/30/2023 What is your level of alcohol consumption? Occasional Information not available 12/30/2022 Are you currently employed? Yes [email or web address] Information not available 06/30/2023 Are you able to walk? 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 Moderate Information not available 01/11/2023 Mental Status Question Answer Note LastModified by Organization D etails LastModified Time Do you feel stressed (tense, restless, nervous, or anxious, or unable to sleep at night)? [id number] Information not available 01/11/2023 Family History Relationship Description Onset Age of this Age Resolved Age Notes LastModified by Organization Details LastModified Time Father Diabetes mellitus [email or web address] Not available 2022 14:42:16 Mother Malignant neoplasm of ovary [email or web address] Not available 2024 14:14:50 Paternal Grandmother Malignant neoplasm of lung Not available 2024 14:14:50 Maternal Grandmother Hypertensive disorder [email or web address] Not available 2022 14:42:16 Maternal Grandmother Hypercholest erolemia [email or web address] Not available 2022 14:42:16 Unspecified Relation Family history unknown [email or web address] Not available 2024 14:14:50 Medical History Condition [...] SNOMED-CT Code Diagnosis ICD10 Code Diagnosis Note [id number] Becca Hernandez [facility] [address] [address] 12/30/2022 12:18:03 12/30/2022 16:58:19 Secondary amenorrhea 565497784 N91.1 Today we discussed menses & amenorrhei [...] plan of care. Cyst of left ovary 81788 42659 0154497 N83.202 Left cyst vs paratubal cyst very smallLikel y not the source of pain that has been plaguing herMore concerned about lack of monthly cycles which we discussedP COS is suspected. Will see if recent cholestero l, hbga1c etc have been performed by PCP.If not will update those next visit. FSH/LH: 7.8/7.1Tot al T- 36 wnlEstroge n (e1): 413.2 [id number] Becca Hernandez [facility] [address],[place] [address] 01/11/2023 12:29:58 01/11/2023 13:32:02 Secondary amenorrhea 308221267 N91.1 Today we discussed trial of provera.Maida [...] counseling and review of plan of care. [id number] Diogo Bryan MD [place] [address],[facility] [place] [address] 05/02/2023 16:04:08 05/02/2023 16:44:12 Pain in pelvis 65899881 R10.2 [id number] Becca Hernandez [facility] [address],[facility] [place] [address] 05/03/2023 14:32:39 05/03/2023 15:07:47 Secondary amenorrhea 746695570 N91.1 Today we discussed US.Left ovarian cyst [...] counseling and review of plan of care. [id number] Becca Hernandez [facility] [address],[place] [address] 06/30/2023 14:31:50 06/30/2023 14:54:46 Sexually transmitted infectious disease 4421312 A64 Today would like STD urine & serum labs.Will update on resultsRes chedule WWE visit. Time spent in visit is a total of 15 mins with at least 50% of visit consisting of counseling and review of plan of care. [id number] Becca Hernandez [facility] [address] [address] 07/07/2023 14:22:21 07/07/2023 14:48:02 Gynecologic examination 35383224 Z01.419 Take Calcium with Vitamin D 1200mg [...] c Screen discussedC olon Screen naDexa Screen [facility] PCP [id number] Becca Hernandez , [facility] [address],[place] [address] 08/09/2023 14:35:44 08/09/2023 15:26:55 Secondary amenorrhea 921793928 N91.1 Today we discussed switching from Provera [...] counseling and review of plan of care. [id number] Becca Hernandez , [facility] [address],[place] [address] 11/01/2023 13:43:06 11/01/2023 15:07:32 Polycystic ovary syndrome 740295512 E28.2 Z68.44 Today we discussed PCOS and [...] Low HDL (good) cholestero l. Insulin resistance 27120 5000 E88.819 Will see if qualifies for injectable or something other than Metformin with her prominent Hx of peptic ulcer/Gall bladder and it likelihood of causing significan t GI issues or exacerbati on of these issues. [facility] ion care management 271007276 N91.1 Patient is here today for a [...] of plan of care. Hyperlipid emia screening 025742152 Z13.220 Update to check for high LDL/TG/Tot al/Low HDL [id number] Becca Hernandez [facility] [address],[place] [address] 11/16/2023 15:55:38 11/22/2023 17:14:20 Insulin resistance 605036844 E88.819 Z68.44 E66.9 E88.810 E28.2 Will complete 0.75mg weekly x 4wks.Then, return to office for med check & if tolerating we increase to next dose. In depth trauma counsellor on trulicity purpose, dosage, dosage schedule, administra [...] counseling and review of plan of care. [id number] Becca Hernandez [facility] [address],[place] [address] 12/13/2023 15:42:18 12/13/2023 16:18:12 Prediabetes 353195511 R73.03 Z68.44 E88.810 E28.2 Z83.49 Patient is [...] and review of plan of care. Tachycardia 5543204 R00. [address] for random HBP/Palpit ations Contracept ion care management 758161344 N91.1 BCP switched to POP only vs CONNER due to verbalizat ion of heart palpitatio ns/HBP. Will f/u in 7wks at med check for trulicity. [id number] [facility] [address] [address] 01/24/2024 15:12:35 01/24/2024 16:03:45 Venereal disease screening 705383359 Z11.3 STD screen urine sent to confirm no std.Partne r recently treated for trich (female partner)Wi ll reach out with results. Time spent in visit is a total of 15 mins with at least 50% of visit consisting of counseling and review of plan of care. Contracept ion care management 171213319 N91.1 BCP switched to POP only vs CONNER due to verbalizat ion of heart palpitatio ns/HBP.Alon ples given x 6mosCall for additional samples if neededMeghan ndiaye well. [id number] Melania Randolph NADINE [place] [address] [address] 05/10/2024 15:49:03 05/10/2024 16:28:39 Abnormal uterine bleeding 3100565926 9100 N93.9 The patient and I discussed [...] of plan of care. Polycystic ovary syndrome 931205030 E28.2 [id number] Diogo Bryan MD [place] [address],[facility] [place] [address] 05/15/2024 11:58:20 05/15/2024 12:31:15 Abnormal uterine bleeding 6639070252 9100 N93.9 [id number] Diogo Bryan MD [place] [address],[facility] [place] [address] 05/18/2024 13:42:09 05/18/2024 14:52:30 Abnormal uterine bleeding 0180612936 9100 N93.9 this patient is a 23-year-ol [...] to proceed with laboratory evaluation Preoperative state 65469 002 Z78.9 [id number] Diogo Bryan MD [place] [address],[place] [address] 07/27/2024 11:03:55 07/27/2024 12:23:34 Contraception care management 410999958 Z30.9 23-year-ol d female who 1 week from a IUD insertion under anesthesia . Hysterosco py D and C was also performed. She tolerated well. She has no complaints . She will return later for IUD check. [id number] Diogo Bryan MD [place] [address],[place] [address] 08/15/2024 10:37:45 08/15/2024 11:14:49 Pain in pelvis 35973020 R10.2 [id number] Diogo Bryan MD [place] [address] [address] 08/20/2024 10:28:22 08/20/2024 15:10:06 Insertion of intrauterine contraceptive device 41116315 Z30.430 IUD was removed replaced. She tolerated it well. To follow up in 1 month [id number] Diogo Bryan MD [place] [address] [address] 08/29/2024 13:50:59 08/29/2024 15:00:33 Pain in pelvis 61168169 R10.2 23-year-ol d female. Patient has pain [...] sonia of the IUD Bacterial vaginosis 4197 27208 N76.0 [id number] Diogo Bryan MD [place] [address],[place] [address] 08/30/2024 16:35:42 08/30/2024 17:27:27 Mechanical complication of intrauterine contraceptive device 570127389 T83.39XA [id number] Diogo Bryan MD [place] [address] [address] 09/24/2024 10:33:04 09/24/2024 11:22:24 Contraception care management 843580434 Z30.9 This patient is a 23 female who presents for IUD check. She had a mirena IUD inserted [facility] 1 month ago. She has no complaints . She denies any excessive bleeding or pain. She has had some cramping and some spotting. Otherwise, she feels that is going well and wants to continue her IUD. [id number] Diogo Bryan MD [place] [address],[place] [address] 10/26/2024 13:56:29 10/29/2024 07:50:21 Tinea corporis 80623373 B35.4 [id number] Diogo Bryan MD [place] [address] [address] 03/20/2025 14:14:47 03/20/2025 15:41:38 Pain in pelvis 99175462 R10.2 Presents for follow-up on ER visit. [...] Guarantor Name 07/01/2023 1 *SELF PAY* Rossy Plascencia Sigrid 03/19/2025 1 [facility] (MEDICAID HMO) [id number] Guerrero Thais CuevaSigrid [id number] [place] Th[place] CuevaSigrid Notes Date Note Type Note Provider Name [...] IUD Diogo Bryan MD [address], [place], [address], [facility] 08/29/2024 15:00:24 09/24/2024 text/html This patient [...] IUD. Diogo Bryan MD [address], [place], [address], [facility] 09/24/2024 11:20:29 10/26/2024 text/html 23-year-old ángel [...] instructions. Diogo Bryan MD [address], [place], [address], [facility] 10/27/2024 12:52:27 03/20/2025 text/html Presents for follow-up on ER visit. She had a cyst in the ER. She had pelvic pain. The cyst is small and simple. The pain has resolved. We agreed to observe. Diogo Bryan MD [address], [place], [address], [facility] 03/20/2025 15:37:34 OBGyn Episode No OBEpisode recorded.
--- OUTSIDE RECORDS SUMMARY | 2025-05-08 20:17 | XMS_ITS | Clinical Summary ---
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
--- OUTSIDE RECORDS SUMMARY | 2025-05-08 20:17 | XMS_ITS | Clinical Summary ---
Author Organization [facility] Address [facility] [place] [address] Care Team Providers Care Court Advocate Name Role Phone Cleveland Barahona MD Primary Care Provider [phone] Allergies Active Allergy Reactions Criticality Noted Date [...] Comments Blood Pressure 158/103 10/27/2023 3:45 PM SPONGE CLIPPER Pulse 73 10/27/2023 3:45 PM SPONGE CLIPPER Temperature 36.6 C (97.9 F) 10/27/2023 2:18 PM SPONGE CLIPPER Respiratory Rate 20 10/27/2023 3:45 PM SPONGE CLIPPER Oxygen Saturation 98% 10/27/2023 3:45 PM SPONGE CLIPPER Inhaled Oxygen Concentration - - Weight 147.8 kg (325 lb 13.4 oz) 10/27/2023 2:18 PM SPONGE CLIPPER Height 154.9 cm (5' 1) 10/27/2023 2:18 PM SPONGE CLIPPER Body Mass Index 61.57 10/27/2023 2:18 PM SPONGE CLIPPER Plan of Treatment Health Maintenance Due Date [...] complete this topic Insurance [employer] Care Teams Court Advocate Relationship Specialty Start Date End Date Cleveland Barahona MD [address] [place] [address] PCP - General INTERNAL MEDICINE 02/18/22
[2025-05-08 20:25] VITALS: BP 161/103; PULSE 107; RESP 20; TEMP 36.9; O2SAT 99
--- NOTE | 2025-05-08 20:28 | ECG_ITS ---
Test Date: 2025-05-08 20:34:20 Measurements Intervals Crowley Rate: 108 P: 31 PA: 160 QRS: 93 QRSD: 93 T: 20 QT: 338 QTc: 455 Interpretive Statements SINUS TACHYCARDIA Electronically Signed On 05-08-2025 23:33:56 CDT by Wilfredo Olmos D.O
[2025-05-08 20:45] LABS: Hematocrit 45.4 % (37.0-47.0); Hemoglobin 15.0 g/dL (12.0-15.0); Mean Corpuscular HGB Conc 33.0 g/dl (32-36); Mean Corpuscular Hemoglobin 27.5 pg (26-34); Mean Corpuscular Volume 83.2 fl (80-100); Platelet Count Result 336 k/mm3 (150-375); Red Blood Count 5.46 M/mm3 (4.2-5.4); White Blood Count 15.0 K/mm3 (4.5-10.0)
[2025-05-08 20:58] LABS: Alanine Aminotransferase 73 U/L (6-35); Albumin Level 4.4 g/dL (3.5-5.1); Alkaline Phosphatase 98 U/L (38-126); Anion Gap 12 mmol/L (4-12); Aspartate Amino Transferase 69 U/L (14-36); Bilirubin,Total 0.8 mg/dL (0.2-1.3); Blood Urea Nitrogen 8 mg/dL (7-17); Calcium 9.6 mg/dL (8.4-10.2); Carbon Dioxide 22 mmol/L (22-30); Chloride 99 mmol/L (98-107); Estimated CRCL calculation 153 ml/min; Estimated Glomerular Filt Rate > 60; Glucose 427 mg/dL (65-110); Magnesium 1.8 mg/dL (1.6-2.3); Potassium 4.3 mmol/L (3.4-5.0); Sodium 133 mmol/L (137-145); Total Protein 8.5 g/dL (6.3-8.2)
[2025-05-08 21:03] LABS: Beta-Hydroxybutyrate/Acetoacetate 0.08 mmol/L (0.02-0.27)
[2025-05-08 21:06] LABS: Band Neutrophils Percent 0 % (0-6); Basophils Absolute Manual 0.00 K/mm3 (0.0-0.1); Basophils Percent Manual 0 % (0-1); Eosinophils Absolute Manual 0.45 K/mm3 (0.02-0.50); Eosinophils Percent Manual 3 % (0-4); Lymphocytes Absolute Manual 4.65 K/mm3 (1.1-4.5); Lymphocytes Percent Manual 31 % (18-44); Monocytes Absolute Manual 0.45 K/mm3 (0.1-0.90); Monocytes Percent Manual 3 % (3-9); Neutrophils Absolute Manual 9.45 K/mm3 (1.3-6.7); Neutrophils Percent Manual 63 % (46-73); Schistocytes None Seen; Stomatocytes 1+; Total Cells Counted 100
[2025-05-08 21:10] LABS: Troponin I < 0.012 ng/mL (0.000-0.034)
[2025-05-09 00:10] LABS: Add Urine Microscopic? NO; Appearance Urine Clear (Clear); Glucose Urine UA 3+ mg/dL (Negative); Leukocyte Esterase Ur Negative LEU/UL (Negative); Nitrate Urine Negative (Negative); Specific Grav Ur 1.039 (1.001-1.035)
--- OUTSIDE RECORDS SUMMARY | 2025-05-09 00:31 | XMS_ITS | Clinical Summary ---
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
--- OUTSIDE RECORDS SUMMARY | 2025-05-09 00:31 | XMS_ITS | Referral Summary ---
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
--- OUTSIDE RECORDS SUMMARY | 2025-05-09 00:31 | XMS_ITS | Clinical Summary ---
Author Organization [facility] Address [facility] [place] [address] Care Team Providers Care Battalion Fire Chief Name Role Phone Cleveland Barahona MD Primary Care Provider [phone] Allergies Active Allergy Reactions Criticality Noted Date [...] Comments Blood Pressure 158/103 10/27/2023 3:45 PM PATIENT SAFETY ATTENDANT Pulse 73 10/27/2023 3:45 PM PATIENT SAFETY ATTENDANT Temperature 36.6 C (97.9 F) 10/27/2023 2:18 PM PATIENT SAFETY ATTENDANT Respiratory Rate 20 10/27/2023 3:45 PM PATIENT SAFETY ATTENDANT Oxygen Saturation 98% 10/27/2023 3:45 PM PATIENT SAFETY ATTENDANT Inhaled Oxygen Concentration - - Weight 147.8 kg (325 lb 13.4 oz) 10/27/2023 2:18 PM PATIENT SAFETY ATTENDANT Height 154.9 cm (5' 1) 10/27/2023 2:18 PM PATIENT SAFETY ATTENDANT Body Mass Index 61.57 10/27/2023 2:18 PM PATIENT SAFETY ATTENDANT Plan of Treatment Health Maintenance Due Date [...] complete this topic Insurance [employer] Care Teams Battalion Fire Chief Relationship Specialty Start Date End Date Cleveland Barahona MD [address] [place] [address] PCP - General INTERNAL MEDICINE 02/18/22
--- OUTSIDE RECORDS SUMMARY | 2025-05-09 00:31 | XMS_ITS | Clinical Summary ---
Author Organization [facility] Address [address] [address] [place] Marcelo [address] Phone Care Team Providers Care Concrete Saw Operator Name Role Phone Unavailable Primary Care [...] Description 05/20/2025 1:00 PM CDT Office Visit [facility] Oncology and Hematology - Mikie [address] [place] [address] Felipe Joyner MD [address] [facility] [address] [place] [address] Health Maintenance Due Date Last Done Comments HPV VACCINES (1 - 3-dose series) 2015 DTAP/TDAP/TD VACCINES (1 - Tdap) 2019 HEPATITIS B VACCINES (1 of 3 - 19+ 3-dose series) 10/24 CERVICAL CANCER SCREENING 2021 HPV/Cotest (21-29) 2021 PAP SMEAR 2021 INFLUENZA VACCINE (#1) 2025 [place] Advance Directives For more information, please contact: [phone] * Full Code (Latest Code Status on File) Date Activated Date Inactivated Comments 06/08/2024 6:25 AM 06/08/2024 11:33 AM
--- OUTSIDE RECORDS SUMMARY | 2025-05-09 00:31 | XMS_ITS | Patient Health Record ---
Author Organization [facility] Address [address] [place] [address] Care Team Providers Care Ice Cream Shop Associate Name Role Phone Yong Noland Unavailable [phone] Yessi Marrufo Unavailable [phone] Reason For Referral No Information Social History [...] phone, visiting friends or family, going to yazidi or club meetings) 1 or 2 times a week How stressed are you? Stress is when someone feels tense, nervous, anxious, or can\t sleep at night because their mind is troubled Very much In the past year have you sp ent more than 2 nights in a row in a fci, long-term, long-term center, or juvenile correctional facility? No Do you feel physically and e motionally safe where you currently live? Yes In the past year, have you b een afraid of your partner or ex-partner? No PRAPARE Score: 7 Encounters Encounter Location Date Provider Diagnosis [facility] [address] [place] [address] 03/15/2025 Yessi Marrufo [address] [place] [address] 03/22/2025 Yong Noland Plan Of Treatment No Information Insurance Providers Payer Name Payer Address Payer Phone Subscriber Number Group Number Insured Name Patient Relationship to Insured Coverage Start Date Coverage End Date [facility] [address] [place] [address] [id number] [place], [place] Self - patient is the insured 4
[2025-05-09] MEDS: SODIUM CHLORIDE 0.9% IV 1,000 ML 999 ML IV CONT ×2 (00:51→02:06)
[2025-05-09 01:19] LABS: Troponin I < 0.012 ng/mL (0.000-0.034)
[2025-05-09] MEDS: INSULIN HUMAN REGULAR (*BKC) 100 UNITS/ML 10 UNITS IV PUSH (02:06)
[2025-05-09] MEDS: FAMOTIDINE 20 MG/2 ML VIAL IV PUSH (02:06)
--- NOTE | 2025-05-09 02:43 | ED_ITS ---
HPI - Recheck/Abnormal Lab/Rx General Chief Complaint: Recheck/Abnormal Lab/Rx Stated Complaint: high BS 400-500s Time Seen by Provider: 05/09/25 00:20 History of Present Illness HPI narrative: Patient is a 24-year-old female who presents to the ER with concerns for elevated blood sugars. She reports she is on metformin and Jardiance, but her primary care provider will not prescribe her insulin without her seeing endocrinology first. Patient reports she cannot get into endocrinology until November 2025. She reports she checks her blood sugars at home and recently it has been as high as 500. Patient endorses intermittent chest tightness, blurry vision, and shaking over the last 24 hours. She is requesting medication for her heartburn at the time of examination. Patient has been seen in the ER multiple times for elevated blood sugars. She denies any recent fevers, shortness of breath, chest pain, urinary symptoms, or abdominal pain. Related Data Home Medications ?Medication ?Instructions ?Recorded ?Confirmed ?Last Taken ?Type metoprolol tartrate 25 mg tablet 25 mg PO DAILY 10/23/24 04/22/25 01/28/25 07:00 History Allergies Allergy/AdvReac Type Severity Reaction Status Date / Time morphine Allergy Mild Hives Verified 05/08/25 20:16 bupropion (From Wellbutrin) AdvReac Intermediate Agitated Verified 05/08/25 20:16 Review of Systems 2 Review of Systems: All systems reviewed & are unremarkable except as noted in HPI and below [facility] Past Medical History Medical History Elevated C-reactive protein (CRP) Positive FANNIE (antinuclear antibody) Uncontrolled diabetes mellitus Elevated TSH Fatigue Right shoulder pain Left shoulder pain Anxiety Hypertriglyceridemia Type 2 diabetes mellitus with morbid obesity Arthralgia of multiple joints Hypertension Weight gain, abnormal Essential hypertension Elevated BP without diagnosis of hypertension Palpitations Right sided abdominal pain Morbid obesity with BMI of 60.0-69.9, adult Mass of left lobe of liver Hepatic steatosis Elevated glucose Elevated WBCs Hypersomnia Snoring Right knee pain Left ankle pain Major depression Encounter to establish care Acid reflux Gallstones Patient denies significant medical history Surgical History Surgical History History of cholecystectomy 05/20/2023 Family History Family History Father Alcoholism Diabetes mellitus Hypertension Heart disease Mother Ovarian cancer Sibling Depression Grandparent Hypertension Heart disease Grandparent Alcoholism Lung cancer Social History Social History Smoking status: Never smoker Tobacco type: smokeless tobacco Smokeless tobacco user: dissolvable tobacco Additional smoking assessment comments: DAILY USE Alcohol intake: former Alcohol use details: 1-2 a month Substance use: never Substance use type: does not use Other substance usage details: daily Last use: 2 MONTHS 2 TIMES PER WEEK Do You Feel Safe in your Home?: Yes Lack of Transportation: No Lack of Food: Never True Current Housing: I Have Housing Concerned About Future Housing: No Difficulty Paying Gas/Electric Bills: No Difficulty Paying for Meds: No Currently Unemployed: YES Education: Trade/Vocational Certificate Difficulty w/ Childcare or Family Care: No Living arrangements: with friend(s) Spiritual care concerns: No Exam 2 Narrative: GENERAL: Well appearing, obese, non-toxic, in no acute distress. HEAD: Normocephalic, atraumatic. NECK: Supple. No adenopathy, no masses. RESPIRATORY: Airway patent, respirations nonlabored. Clear to auscultation bilaterally, no rales, rhonchi, wheezing. CARDIOVASCULAR: Regular rate and rhythm without murmurs, rubs, or gallops. Peripheral pulses 2+ and equal bilaterally. ABDOMINAL: Soft, nontender, nondistended, no hepatosplenomegaly. Normoactive BS. MUSCULOSKELETAL: Moves all extremities. Strength/ROM intact without gross deformities. SKIN: Warm, dry, normal color. No rashes. NEURO: A&O X3. Speech clear. Cranial nerves II-XII intact. No ataxic movements. PSYCHIATRIC: Appropriate mood and affect. Normal interaction. Course Vital Signs Vital signs: Vital Signs Temperature 36.9 C 05/08/25 20:25 Pulse Rate 107 H 05/08/25 20:25 Respiratory Rate 20 05/08/25 20:25 Blood Pressure 161/103 H 05/08/25 20:25 Pulse Oximetry 99 05/08/25 20:25 Temperature 36.9 C 05/09/25 03:09 Pulse Rate 105 H 05/09/25 03:09 Respiratory Rate 16 05/09/25 03:09 Blood Pressure 130/99 H 05/09/25 03:09 Pulse Oximetry 97 05/09/25 03:09 Oxygen Delivery Room Air 05/09/25 03:09 MDM - Recheck/Abnormal Lab/Rx MDM Narrative Medical decision making narrative: Patient is a 24-year-old female who presents to the ER with concerns for elevated blood sugars. She reports she is on metformin and Jardiance, but her primary care provider will not prescribe her insulin without her seeing endocrinology first. Patient reports she cannot get into endocrinology until November 2025. She reports she checks her blood sugars at home and recently it has been as high as 500. Patient endorses intermittent chest tightness, blurry vision, and shaking over the last 24 hours. She is requesting medication for her heartburn at the time of examination. Patient has been seen in the ER multiple times for elevated blood sugars. She denies any recent fevers, shortness of breath, chest pain, urinary symptoms, or abdominal pain. Labs Ordered: CBC, CMP, troponin, beta hydroxybutyrate, phosphorus, magnesium, UA Imaging Ordered: None Medications Ordered: 2 L normal saline IV bolus, Pepcid IV, insulin 10 units IV Results: Patient's CBC indicates a white blood cell count of 15. Her chemistry indicates a sodium of 133, glucose of 427, AST of 69, ALT of 73, and protein of 8.5. Her urinalysis indicates specific gravity of 1.039 and glucose of 3+. Diagnosis: Hyperglycemia, mild dehydration Risks: HEART Score for Major Cardiac Events from [email or web address] on 05/09/2025 All calculations should be rechecked by clinician prior to use RESULT SUMMARY: 1 points Low Score (0-3 points) Risk of MACE of 0.9-1.7%. INPUTS: History ?> 0 = Slightly suspicious EKG ?> 0 = Normal Age ?> 0 = <45 Risk factors ?> 1 = 1-2 risk factors Initial troponin ?> 0 = <=Normal limit Consults: endocrinology (outpatient) Patient Education/Shared MDM: Results of lab work shared with patient. She endorses improvement of symptoms (GERD) following medication administration and is requesting to be discharged home. Patient reports she has not had any more symptoms dizziness, visual changes, or chest tightness while in the ER. She reports she not need any refills on her prescriptions at this time. Patient strongly advised to maintain hydration status upon discharge and follow-up with her PCP and endocrinology as soon as possible. She will be discharged home with a prescription for Pepcid. Strict return precautions provided. Patient verbalized understanding and is in agreement with plan. Vital signs stable at time of discharge. All questions answered. Differential Diagnosis Differential diagnosis: Likely other (DKA, hyperglycemia, dehydration) Lab Data Attestation: I reviewed the patient's lab results. 05/08/25 20:40 05/08/25 20:40 Labs: Lab Results 05/08/25 05/08/25 05/09/25 Range/Units 20:26 20:40 00:02 WBC 15.0 H (4.5-10.0) K/mm3 RBC 5.46 H (4.2-5.4) M/mm3 Hgb 15.0 (12.0-15.0) g/dL Hct 45.4 (37.0-47.0) % MCV 83.2 (80-100) fl MCH 27.5 (26-34) pg MCHC 33.0 (32-36) g/dl RDW 13.4 (11.5-14.5) % Plt Count 336 (150-375) k/mm3 MPV 10.2 (7.4-10.4) fl Immature Gran % (Auto) Not Reportable Neut % (Auto) Not Reportable Lymph % (Auto) Not Reportable [place] % (Auto) Not Reportable Eos % (Auto) Not Reportable Baso % (Auto) Not Reportable Lymph # (Auto) Not Reportable [place] # (Auto) Not Reportable Eos # (Auto) Not Reportable Baso # (Auto) Not Reportable Abs Immat Gran (auto) Not Reportable Absolute Neuts (auto) Not Reportable Absolute Nucleated RBC Not Reportable Total Counted 100 Neutrophils % (Manual) 63 (46-73) % Band Neutrophils % 0 (0-6) % Lymphocytes % (Manual) 31 (18-44) % Monocytes % (Manual) 3 (3-9) % Eosinophils % (Manual) 3 (0-4) % Basophils % (Manual) 0 (0-1) % Nucleated RBC % Not Reportable Abs Neuts (Manual) 9.45 H (1.3-6.7) K/mm3 Abs Lymphs (Manual) 4.65 H (1.1-4.5) K/mm3 Abs Monocytes (Manual) 0.45 (0.1-0.90) K/mm3 Absolute Eos (Manual) 0.45 (0.02-0.50) K/mm3 Abs Basophils (Manual) 0.00 (0.0-0.1) K/mm3 Atypical Lymphocytes Present Platelet Estimate Slightly increased (Adequate) Stomatocytes 1+ Schistocytes None seen Sodium 133 L (137-145) mmol/L Potassium 4.3 (3.4-5.0) mmol/L Chloride 99 (98-107) mmol/L Carbon Dioxide 22 (22-30) mmol/L Anion Gap 12 (4-12) mmol/L BUN 8 (7-17) mg/dL Creatinine 0.67 L (0.7-1.0) mg/dL Estim Creat Clear Calc 153 ml/min Estimated GFR > 60 (59 - ) Glucose 427 H (65-110) mg/dL POC Capillary Glucose 391 H (65-105) mg/dl Calcium 9.6 (8.4-10.2) mg/dL Phosphorus 4.0 (2.5-4.5) mg/dL Magnesium 1.8 (1.6-2.3) mg/dL Total Bilirubin 0.8 (0.2-1.3) mg/dL AST 69 H (14-36) U/L ALT 73 H (6-35) U/L Alkaline Phosphatase 98 (38-126) U/L Troponin I < 0.012 (0.000-0.034) ng/mL Total Protein 8.5 H (6.3-8.2) g/dL Albumin 4.4 (3.5-5.1) g/dL Beta-Hydroxybutyrate/Acetoacetate 0.08 (0.02-0.27) mmol/L Urine Color Yellow (Yellow) Urine Appearance Clear (Clear) Urine pH 5.5 (5.0-9.0) Ur Specific [place] 1.039 H (1.001-1.035) Urine Protein Negative (Negative) mg/dL Urine Glucose (UA) 3+ H (Negative) mg/dL Urine Ketones Negative (Negative) mg/dL Ur Blood (Man) Negative (Negative) Urine Nitrate Negative (Negative) Urine Bilirubin Negative (Negative) Urine Urobilinogen 0.2 (<2.0) mg/dL Leukocyte Esterase Rfl Negative (Negative) MICKY/UL POC Urine HCG, Qual (Negative) 05/09/25 05/09/25 05/09/25 Range/Units 00:37 02:00 02:46 WBC (4.5-10.0) K/mm3 RBC (4.2-5.4) M/mm3 Hgb (12.0-15.0) g/dL Hct (37.0-47.0) % MCV (80-100) fl MCH (26-34) pg MCHC (32-36) g/dl RDW (11.5-14.5) % Plt Count (150-375) k/mm3 MPV (7.4-10.4) fl Immature Gran % (Auto) Neut % (Auto) Lymph % (Auto) [place] % (Auto) Eos % (Auto) Baso % (Auto) Lymph # (Auto) [place] # (Auto) Eos # (Auto) Baso # (Auto) Abs Immat Gran (auto) Absolute Neuts (auto) Absolute Nucleated RBC Total Counted Neutrophils % (Manual) (46-73) % Band Neutrophils % (0-6) % Lymphocytes % (Manual) (18-44) % Monocytes % (Manual) (3-9) % Eosinophils % (Manual) (0-4) % Basophils % (Manual) (0-1) % Nucleated RBC % Abs Neuts (Manual) (1.3-6.7) K/mm3 Abs Lymphs (Manual) (1.1-4.5) K/mm3 Abs Monocytes (Manual) (0.1-0.90) K/mm3 Absolute Eos (Manual) (0.02-0.50) K/mm3 Abs Basophils (Manual) (0.0-0.1) K/mm3 Atypical Lymphocytes Platelet Estimate (Adequate) Stomatocytes Schistocytes Sodium (137-145) mmol/L Potassium (3.4-5.0) mmol/L Chloride (98-107) mmol/L Carbon Dioxide (22-30) mmol/L Anion Gap (4-12) mmol/L BUN (7-17) mg/dL Creatinine (0.7-1.0) mg/dL Estim Creat Clear Calc ml/min Estimated GFR (59 - ) Glucose (65-110) mg/dL POC Capillary Glucose 312 H (65-105) mg/dl Calcium (8.4-10.2) mg/dL Phosphorus (2.5-4.5) mg/dL Magnesium (1.6-2.3) mg/dL Total Bilirubin (0.2-1.3) mg/dL AST (14-36) U/L ALT (6-35) U/L Alkaline Phosphatase (38-126) U/L Troponin I < 0.012 (0.000-0.034) ng/mL Total Protein (6.3-8.2) g/dL Albumin (3.5-5.1) g/dL Beta-Hydroxybutyrate/Acetoacetate (0.02-0.27) mmol/L Urine Color (Yellow) Urine Appearance (Clear) Urine pH (5.0-9.0) Ur Specific [place] (1.001-1.035) Urine Protein (Negative) mg/dL Urine Glucose (UA) (Negative) mg/dL Urine Ketones (Negative) mg/dL Ur Blood (Man) (Negative) Urine Nitrate (Negative) Urine Bilirubin (Negative) Urine Urobilinogen (<2.0) mg/dL Leukocyte Esterase Rfl (Negative) MICKY/UL POC Urine HCG, Qual Negative (Negative) 05/09/25 Range/Units 03:12 WBC (4.5-10.0) K/mm3 RBC (4.2-5.4) M/mm3 Hgb (12.0-15.0) g/dL Hct (37.0-47.0) % MCV (80-100) fl MCH (26-34) pg MCHC (32-36) g/dl RDW (11.5-14.5) % Plt Count (150-375) k/mm3 MPV (7.4-10.4) fl Immature Gran % (Auto) Neut % (Auto) Lymph % (Auto) [place] % (Auto) Eos % (Auto) Baso % (Auto) Lymph # (Auto) [place] # (Auto) Eos # (Auto) Baso # (Auto) Abs Immat Gran (auto) Absolute Neuts (auto) Absolute Nucleated RBC Total Counted Neutrophils % (Manual) (46-73) % Band Neutrophils % (0-6) % Lymphocytes % (Manual) (18-44) % Monocytes % (Manual) (3-9) % Eosinophils % (Manual) (0-4) % Basophils % (Manual) (0-1) % Nucleated RBC % Abs Neuts (Manual) (1.3-6.7) K/mm3 Abs Lymphs (Manual) (1.1-4.5) K/mm3 Abs Monocytes (Manual) (0.1-0.90) K/mm3 Absolute Eos (Manual) (0.02-0.50) K/mm3 Abs Basophils (Manual) (0.0-0.1) K/mm3 Atypical Lymphocytes Platelet Estimate (Adequate) Stomatocytes Schistocytes Sodium (137-145) mmol/L Potassium (3.4-5.0) mmol/L Chloride (98-107) mmol/L Carbon Dioxide (22-30) mmol/L Anion Gap (4-12) mmol/L BUN (7-17) mg/dL Creatinine (0.7-1.0) mg/dL Estim Creat Clear Calc ml/min Estimated GFR (59 - ) Glucose (65-110) mg/dL POC Capillary Glucose 277 H (65-105) mg/dl Calcium (8.4-10.2) mg/dL Phosphorus (2.5-4.5) mg/dL Magnesium (1.6-2.3) mg/dL Total Bilirubin (0.2-1.3) mg/dL AST (14-36) U/L ALT (6-35) U/L Alkaline Phosphatase (38-126) U/L Troponin I (0.000-0.034) ng/mL Total Protein (6.3-8.2) g/dL Albumin (3.5-5.1) g/dL Beta-Hydroxybutyrate/Acetoacetate (0.02-0.27) mmol/L Urine Color (Yellow) Urine Appearance (Clear) Urine pH (5.0-9.0) Ur Specific [place] (1.001-1.035) Urine Protein (Negative) mg/dL Urine Glucose (UA) (Negative) mg/dL Urine Ketones (Negative) mg/dL Ur Blood (Man) (Negative) Urine Nitrate (Negative) Urine Bilirubin (Negative) Urine Urobilinogen (<2.0) mg/dL Leukocyte Esterase Rfl (Negative) MICKY/UL POC Urine HCG, Qual (Negative) Discharge Plan Discharge Clinical Impression: Hyperglycemia, Uncontrolled diabetes mellitus, Gastric reflux Patient Disposition: Home Condition: Stable Instructions: Antibiotic Form, Diabetic Hyperglycemia (ED) Additional Instructions: Please return to the ER with any worsening symptoms. Follow-up with primary care provider and endocrinology as soon as possible. Take all medications as prescribed, including regularly scheduled medications. Patient Language: Croatian Prescriptions: New famotidine [Pepcid] 40 mg tablet 40 mg PO BID Qty: 60 0RF No Action metoprolol tartrate 25 mg tablet 25 mg PO DAILY sertraline 50 mg tablet 50 mg PO DAILY Qty: 30 11RF Rx Instructions: take with 100mg sertraline tab to equal 150mg tab sertraline 100 mg tablet 100 mg PO DAILY Qty: 30 11RF buspirone 7.5 mg tablet 7.5 mg PO BID Qty: 60 11RF omeprazole 40 mg capsule,delayed release(DR/EC) 40 mg PO BID Qty: 60 3RF ibuprofen 800 mg tablet 800 mg PO TID PRN (Reason: pain) Qty: 20 0RF hydrocortisone acetate 25 mg suppository 25 mg RECTAL DAILY Qty: 12 0RF Trulicity 1.5 mg/0.5 mL pen injector 1.5 mg subcut WEEKLY Qty: 2 5RF Rx Instructions: call office for refill losartan 100 mg tablet 100 mg PO DAILY Qty: 90 3RF hydrochlorothiazide 12.5 mg tablet 12.5 mg PO QAM Qty: 30 5RF hyoscyamine sulfate [Levsin/SL] 0.125 mg tablet, sublingual 0.125 mg PO QID Qty: 120 3RF hyoscyamine sulfate [Levsin] 0.125 mg tablet 0.125 mg PO .every 6 hours Qty: 120 3RF amitriptyline 25 mg tablet 25 mg PO QHS Qty: 30 3RF colestipol 1 gram tablet 1 g PO BID Qty: 60 3RF metformin 500 mg tablet extended release 24 hr 1,000 mg PO BID Qty: 120 11RF metoclopramide HCl 5 mg tablet See Rx Instructions .ROUTE .COMPLEX Qty: 30 3RF Dose Instruction: TAKE 1 TABLET BY MOUTH AT BEDTIME Rx Instructions: TAKE 1 TABLET BY MOUTH AT BEDTIME Jardiance 25 mg tablet 25 mg PO QAM Qty: 30 11RF trazodone 50 mg tablet 50 mg PO QHS PRN (Reason: sleep) Qty: 30 3RF cephalexin 500 mg capsule 500 mg PO Q8H Qty: 30 0RF (DME) Contour Next Test Strips Strip See Rx Instructions .Route Qty: 100 11RF Rx Instructions: check blood sugars 3x/day as directed (DME) blood-glucose meter [Contour Next Glucose Meter] Kit See Rx Instructions .Route Qty: 1 0RF Rx Instructions: As directed Follow-up/Referrals: [facility] [Provider Group] - 1 Day () Ethel Liz NP [Primary Care Provider] - Time of Disposition: 03:28
[2025-05-09 02:48] LABS: BEDSIDEPREGUCG Negative (Negative)
[2025-05-09 03:08] VITALS: BP 104/93; PULSE 99; RESP 17; O2SAT 98
[2025-05-09 03:09] VITALS: BP 130/99; PULSE 105; RESP 16; TEMP 36.9; O2SAT 97
== END 2025-05-09 03:36 | disposition home or self-care (01) ==
PROVIDERS: Student in an Organized Health Care Education/Training Program; Emergency Provider Registered Nurse; PCP Nurse Practitioner Family
DX: E11.65 Type 2 diabetes mellitus with hyperglycemia (principal); Z79.84 Long term (current) use of oral hypoglycemic drugs; Z79.85 Long-term (current) use of injectable non-insulin antidiabetic drugs; F41.9 Anxiety disorder, unspecified; I10 Essential (primary) hypertension; F32.A Depression, unspecified
CPT/HCPCS: 36415; 80053; 81003; 81025; 82010; 82948; 83735; 84100; 84484; 85025; 93005; 96361; 96374; 96375; 99284; J1815; J7030

== ENCOUNTER 2025-05-20 12:57 | Outpatient (CLI) | payer OTHER, SELFPAY ==
--- OUTSIDE RECORDS SUMMARY | 2025-05-20 13:00 | XMS_ITS | Patient Health Record ---
Author Organization [facility] Address [address] [place] [address] Care Team Providers Care Inspector Pawnshop Detail Name Role Phone Yong Noland Unavailable [phone] Yessi Marrufo Unavailable Reason For Referral No [...] nights in a row in a senior living, shelter, prison center, or juvenile correctional facility? No Do you feel physically and e motionally safe where you currently live? Yes In the past year, have you b een afraid of your partner or ex-partner? No PRAPARE Score: 7 Encounters Encounter Location Date Provider Diagnosis [facility] [place] [address] 03/15/2025 Yessi Marrufo [address] [place] [address] 03/22/2025 Yong Noland Plan Of Treatment No Information Insurance Providers Payer Name Payer Address Payer Phone Subscriber Number Group Number Insured Name Patient Relationship to Insured Coverage Start Date Coverage End Date [facility] [address] [place] [address] [id number] [place], [place] Self - patient is the insured 4
--- OUTSIDE RECORDS SUMMARY | 2025-05-20 13:01 | XMS_ITS | Clinical Summary ---
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 Temperature 36.6 C (97.9 F) 10/27/2023 2:18 PM RUBBER THREAD SPOOLER Respiratory Rate 20 10/27/2023 3:45 PM RUBBER THREAD SPOOLER Oxygen Saturation 98% 10/27/2023 3:45 PM RUBBER THREAD SPOOLER Inhaled Oxygen Concentration - - Weight 147.8 kg (325 lb 13.4 oz) 10/27/2023 2:18 PM RUBBER THREAD SPOOLER Height 154.9 cm (5' 1) 10/27/2023 2:18 PM RUBBER THREAD SPOOLER Body Mass Index 61.57 10/27/2023 2:18 PM RUBBER THREAD SPOOLER Plan of Treatment Health Maintenance Due Date [...] complete this topic Insurance RAMOS Care Teams Mountain Or Glacier Guide Relationship Specialty Start Date End Date Cleveland Barahona MD [address] [place] [address] PCP - General INTERNAL MEDICINE 02/18/22
--- OUTSIDE RECORDS SUMMARY | 2025-05-20 13:01 | XMS_ITS | Referral Summary ---
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
--- OUTSIDE RECORDS SUMMARY | 2025-05-20 13:01 | XMS_ITS | Clinical Summary ---
Author Organization [facility] Address [address] [address] [place] [address] Phone Care Team Providers Care Boring Machine Operator Name Role Phone Unavailable Primary [...] Encounters Date Type Department Care Team Description 05/08/2025 External Device Data [facility] Provider, Abstract 05/07/2025 External Device Data [facility] Provider, Abstract 04/09/2025 External Device Data [facility] Provider, [...] 12/31/2024 1:31 PM CDT Plan of Treatment Health Maintenance [...] Advance Directives For more information, please contact: [phone] * Full Code (Latest Code Status on File) Date Activated Date Inactivated Comments 06/08/2024 6:25 AM 06/08/2024 11:33 AM
--- OUTSIDE RECORDS SUMMARY | 2025-05-20 13:01 | XMS_ITS | Clinical Summary ---
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 Gender Identity Not on file Sexual Orientation [...] 04/15/2003, Additional history exists Influenza Vaccine (#1) 2025 09/28/2003 Hepatitis B Screening Completed 08/17/2001 , 2000, 2000 Pneumococcal vaccine <65 Completed 003, 05/17/2001, 03/15/2001, Additional history exists HPV Vaccines Completed 05/24/2012, 05/0 10/2011, 12/01/2011 Varicella Vaccines Completed 06/09/2015, 02/08/2002 Insurance [facility] Care Teams Vp Global Relationship Specialty Start Date End Date Becca Hernandez NP [address] [place] [address] PCP - General Nurse Practitioner 12/14/23
--- OUTSIDE RECORDS SUMMARY | 2025-05-20 13:01 | XMS_ITS | Data Portability ---
Author Organization [facility] [place] Address [address] [place] [address] [place] [address] Care Team Providers Care Community Integration Specialist Name Role Phone PATRICIA WILLIAM Primary Care Provider RACHEL ALBERT Primary Care Provider Assessment No assessment recorded. Plan of Treatment Reminders Order Date Submit Date Provider Last Modified By Organization Details Last Modified Time Details Appointments None recorded. Lab None recorded. Referral None recorded. Procedures None recorded. Surgeries None recorded. Imaging US, transvagina l 2023 024 [email or web address] [place], [address], [address], [place], [address], 4 19:45:10 Medication Orders clotrimazol e-betametha sone 1 %-0.05 % topical cream 2024 025 [facility] #[id number] [address], [id number], 5 15:03:28 metronidazo le 0.75 % (37.5 mg/5 gram) vaginal gel 2023 024 [facility] #[id number], [address], [place], [id number], 4 11:06:13 Patient TargetsNo targets recorded. Patient InstructionsNo instructions recorded. Reason for Referral None Reported. Results Created Date Observation Date Name Description Value Unit Range Abnormal Flag Note LastModifiedBy Organization Detail LastModifiedTime 08/15/20 24 08/15/2024 US, pelvi s No observ ation record ed. [email or web address] [place] [address], [place], [address], 08/15/2024 17:30:18 08/15/20 24 08/15/2024 US, trans vagin al No observ ation record ed. [email or web address] [address], [place], [address], 08/15/2024 17:30:31 08/15/20 24 08/15/2024 US, pelvi s No observ ation record ed. [email or web address] [address], [place], [address], 08/16/2024 16:07:33 08/30/20 24 08/30/2024 US, trans vagin al No observ ation record ed. [email or web address], [place], [address], 08/30/2024 21:42:27 08/30/20 24 08/30/2024 US, trans vagin al No observ ation record ed. [email or web address] [address], [place], [address], 08/30/2024 21:42:27 Result Notes None recorded. Problems Name Problem SNOMED Code Status Onset Date Resolution Date Notes Provider Name and Address Organization Details Recorded Time Insulin resistance 929035353 Active 2014 MARCK Gonzales- [address], [place], [address], [facility] 4 09:49:09 Secondary amenorrhea 966212780 Active 2017 MARCK Gonzales-BEVERLEY [address], [place], [address], [facility] 4 09:50:15 Chronic peptic ulcer 059274666 Active 2022 Becca Hernandez [facility] [address], [place], [address], [facility] 4 09:50:53 Polycystic ovary syndrome 277197970 Active 2023 Becca Hernandez [facility] [address], [place], [address], [facility] 4 14:57:33 Hypertriglyc eridemia 936755415 Active 2023 Becca Hernandez [facility] [address], [place], [address], [facility] 4 09:50:27 Problem Notes None recorded. Procedures Surgical History Date Name Laterality Status Provider Name and Address Organization Details Recorded Time 024 IUD Removal completed Diogo Bryan MD [address], [place], [address], [facility] 08/20/2024 14:41:43 024 IUD Insertion completed Diogo Bryan MD [address], [place], [address], [facility] 08/20/2024 14:41:33 024 Laparoscopy completed Digna Ace [facility] 10/26/2024 14:39:20 024 endoscopy completed Estrella Johnson [facility] 05/10/2024 16:00:13 023 Date of Last Pap Smear completed Digna Ace [facility] 08/09/2023 15:03:22 023 cholecystectomy completed Digna Ace [facility] 06/30/2023 14:39:16 Imaging Results None recorded. Procedure Notes None recorded. Medical Equipment None Reported. Allergies Allergen ID Allergen Name Allergen Category Reaction Reaction Severity Criticality Documentation Date Start Date Code Code System Note Provider Name and Address Organization Details Recorded Time 40643 morphine medicatio n Not available Not available Not available 05/18/2024 7052 RxNorm Traa Bliss [facility], [facility] 14:01:04 Medications Name Sig Start Date [...] Updated DateTime 10/26/2024 157.48 cm 62.7 kg/m2 732757.18 g 131/93 mm[Hg] [facility] 10/26/2024 14:36:46 Date Recorded Body height Body mass index (BMI) Body weight Systolic And Diastolic Provider Name and Address Organization Details Last Updated DateTime 03/20/2025 157.48 cm 61.5 kg/m2 642188.04 g 121/82 mm[Hg] [facility] 03/20/2025 15:03:01 Date Recorded Body height Body mass index (BMI) Body weight Systolic And Diastolic Provider Name and Address Organization Details Last Updated DateTime 08/29/2024 157.48 cm 65.3 kg/m2 608315.48 g 150/94 mm[Hg] [facility] 08/29/2024 14:16:12 Date Recorded Body height Body mass index (BMI) Body weight Systolic And Diastolic Provider Name and Address Organization Details Last Updated DateTime 09/24/2024 157.48 cm 65.3 kg/m2 163510.48 g 141/95 mm[Hg] [facility] 09/24/2024 11:03:39 Social History Question Answer Notes LastModified by Organizat ion Details LastModified Time Tobacco Smoking Status Never Smoker [facility] 06/30/2023 14:31:55 Do You Have An [...] Or The Highest Degree You Have Received? [id number] Information not available 12/30/2022 Are There Any Guns Present In Your Home? Yes Information not available 01/11/2023 Do You Use Protection During Sex? No Information not available 01/11/2023 Do You Use Your Seat Belt Or Car Seat Routinely? No Information not available 01/11/2023 Are You Sexually Active? Yes Female Partners [email or web address] Information not available 06/30/2023 Do You Have [...] other forms of tobacco or nicotine? No Information not available 06/30/2023 What is your level of alcohol consumption? Occasional Information not available 12/30/2022 Are you currently employed? Yes [email or web address] Information not available 06/30/2023 Are you able to walk? YESWOREST Information not available 01/11/2023 What is your occupation? [employer] Information not available 01/11/2023 What is your exercise level? Moderate Information not available 01/11/2023 Mental Status Question Answer Note LastModified by Organization D etails LastModified Time Do you feel stressed (tense, restless, nervous, or anxious, or unable to sleep at night)? [id number] Information not available 01/11/2023 Family History Relationship Description Onset Age of this Age Resolved Age Notes LastModified by Organization Details LastModified Time Father Diabetes mellitus [email or web address] Not available 2022 14:42:16 Mother Malignant neoplasm of ovary [email or web address] Not available 2024 14:14:50 Paternal Grandmother Malignant neoplasm of lung Not available 2024 14:14:50 Maternal Grandmother Hypertensive disorder [email or web address] Not available 2022 14:42:16 Maternal Grandmother Hypercholest erolemia [email or web address] Not available 2022 14:42:16 Unspecified Relation Family history unknown [email or web address] Not available 2024 14:14:50 Medical History Condition Response Allergies (Food, seasonal, environmental ) N Other Y Drug/Latex Allergies/Reactions N Blood Transfusion N Breast Cancer N Dermatologic Disorders N Lung Disease N Defects or Inherited Disease N Breast Problem N Gestational Diabetes N Hematologic disorders N Anesthesia Complications N History of STI N Deep Vein Thrombosis N Polycystic ovary syndrome Y Anxiety Disorder Y Autoimmune disease N Arthritis N Polyps N Infertility N Acid Reflux (GERD) Y History of [...] SNOMED-CT Code Diagnosis ICD10 Code Diagnosis Note [id number] Becca Hernandez [facility] [address] [address] 12/30/2022 12:18:03 12/30/2022 16:58:19 Secondary amenorrhea 020001932 N91.1 Today we discussed menses & amenorrhei [...] plan of care. Cyst of left ovary 98227 83992 4289256 N83.202 Left cyst vs paratubal cyst very smallLikel y not the source of pain that has been plaguing herMore concerned about lack of monthly cycles which we discussedP COS is suspected. Will see if recent cholestero l, hbga1c etc have been performed by PCP.If not will update those next visit. FSH/LH: 7.8/7.1Tot al T- 36 wnlEstroge n (e1): 413.2 [id number] Becca Hernandez [facility] [address] [address] 01/11/2023 12:29:58 01/11/2023 13:32:02 Secondary amenorrhea 085530394 N91.1 Today we discussed trial of provera.Maida [...] counseling and review of plan of care. [id number] Diogo Bryan MD [place] [address],[facility] [place] [address] 05/02/2023 16:04:08 05/02/2023 16:44:12 Pain in pelvis 94854023 R10.2 [id number] Becca Hernandez [facility] [address],[facility] [place] [address] 05/03/2023 14:32:39 05/03/2023 15:07:47 Secondary amenorrhea 337930810 N91.1 Today we discussed US.Left ovarian cyst [...] counseling and review of plan of care. [id number] Becca Hernandez [facility] [address] [address] 06/30/2023 14:31:50 06/30/2023 14:54:46 Sexually transmitted infectious disease 9014929 A64 Today would like STD urine & serum labs.Will update on resultsRes chedule WWE visit. Time spent in visit is a total of 15 mins with at least 50% of visit consisting of counseling and review of plan of care. [id number] Becca Hernandez [facility] [address] [address] 07/07/2023 14:22:21 07/07/2023 14:48:02 Gynecologic examination 13415827 Z01.419 Take Calcium with Vitamin D 1200mg [...] c Screen discussedC olon Screen naDexa Screen [facility] PCP [id number] Becca Hernandez , [facility] [address],[place] [address] 08/09/2023 14:35:44 08/09/2023 15:26:55 Secondary amenorrhea 689108411 N91.1 Today we discussed switching from Provera [...] counseling and review of plan of care. [id number] Becca Hernandez , [facility] [address] [address] 11/01/2023 13:43:06 11/01/2023 15:07:32 Polycystic ovary syndrome 195186741 E28.2 Z68.44 Today we discussed PCOS and [...] Low HDL (good) cholestero l. Insulin resistance 81550 5000 E88.819 Will see if qualifies for injectable or something other than Metformin with her prominent Hx of peptic ulcer/Gall bladder and it likelihood of causing significan t GI issues or exacerbati on of these issues. [facility] ion care management 194420491 N91.1 Patient is here today for a [...] of plan of care. Hyperlipid emia screening 478868514 Z13.220 Update to check for high LDL/TG/Tot al/Low HDL [id number] Becca Hernandez [facility] [address] [address] 11/16/2023 15:55:38 11/22/2023 17:14:20 Insulin resistance 529037920 E88.819 Z68.44 E66.9 E88.810 E28.2 Will complete 0.75mg weekly x 4wks.Then, return to office for med check & if tolerating we increase to next dose. In depth primary counselor on trulicity purpose, dosage, dosage schedule, [...] counseling and review of plan of care. [id number] Becca Hernandez [facility] [address],[place] [address] 12/13/2023 15:42:18 12/13/2023 16:18:12 Prediabetes 230688799 R73.03 Z68.44 E88.810 E28.2 Z83.49 Patient is [...] and review of plan of care. Tachycardia 4368485 R00. [address] for random HBP/Palpit ations Contracept ion care management 098840713 N91.1 BCP switched to POP only vs CONNER due to verbalizat ion of heart palpitatio ns/HBP. Will f/u in 7wks at med check for trulicity. [id number] [facility] [address] [address] 01/24/2024 15:12:35 01/24/2024 16:03:45 Venereal disease screening 616745185 Z11.3 STD screen urine sent to confirm no std.Partne r recently treated for trich (female partner)Wi ll reach out with results. Time spent in visit is a total of 15 mins with at least 50% of visit consisting of counseling and review of plan of care. Contracept ion care management 078857828 N91.1 BCP switched to POP only vs CONNER due to verbalizat ion of heart palpitatio ns/HBP.Alon ples given x 6mosCall for additional samples if neededMeghan ndiaye well. [id number] Melania Randolph NADINE [place] [address] [address] 05/10/2024 15:49:03 05/10/2024 16:28:39 Abnormal uterine bleeding 9029561341 9100 N93.9 The patient and I discussed [...] of plan of care. Polycystic ovary syndrome 248211264 E28.2 [id number] Diogo Bryan MD [place] [address],[facility] [address] 05/15/2024 11:58:20 05/15/2024 12:31:15 Abnormal uterine bleeding 2042561967 9100 N93.9 [id number] Diogo Bryan MD [place] [address],[facility] [place] [address] 05/18/2024 13:42:09 05/18/2024 14:52:30 Abnormal uterine bleeding 9802686508 9100 N93.9 this patient is a 23-year-ol [...] to proceed with laboratory evaluation Preoperative state 82450 002 Z78.9 [id number] Diogo Bryan MD [place] [address],[place] [address] 07/27/2024 11:03:55 07/27/2024 12:23:34 Contraception care management 781397656 Z30.9 23-year-ol d female who 1 week from a IUD insertion under anesthesia . Hysterosco py D and C was also performed. She tolerated well. She has no complaints . She will return later for IUD check. [id number] Diogo Bryan MD [place] [address] [address] 08/15/2024 10:37:45 08/15/2024 11:14:49 Pain in pelvis 07367473 R10.2 [id number] Diogo Bryan MD [place] [address] [address] 08/20/2024 10:28:22 08/20/2024 15:10:06 Insertion of intrauterine contraceptive device 78894566 Z30.430 IUD was removed replaced. She tolerated it well. To follow up in 1 month [id number] Diogo Bryan MD [place] [address] [address] 08/29/2024 13:50:59 08/29/2024 15:00:33 Pain in pelvis 64481812 R10.2 23-year-ol d female. Patient has pain [...] sonia of the IUD Bacterial vaginosis 4197 29792 N76.0 [id number] Diogo Bryan MD [place] [address] [address] 08/30/2024 16:35:42 08/30/2024 17:27:27 Mechanical complication of intrauterine contraceptive device 432349982 T83.39XA [id number] Diogo Bryan MD [place] [address] [address] 09/24/2024 10:33:04 09/24/2024 11:22:24 Contraception care management 235511698 Z30.9 This patient is a 23 female who presents for IUD check. She had a mirena IUD inserted [facility] 1 month ago. She has no complaints . She denies any excessive bleeding or pain. She has had some cramping and some spotting. Otherwise, she feels that is going well and wants to continue her IUD. [id number] Diogo Bryan MD [place] [address] [address] 10/26/2024 13:56:29 10/29/2024 07:50:21 Tinea corporis 93177306 B35.4 [id number] Diogo Bryan MD [place] [address] [address] 03/20/2025 14:14:47 03/20/2025 15:41:38 Pain in pelvis 31777198 R10.2 Presents for follow-up on ER visit. [...] 1 *SELF PAY* Rossy Matta 03/19/2025 1 [facility] (MEDICAID HMO) [id number] 0003 Mac Matta [id number] Esme Matta OBGytrent Episode No OBEpisode recorded.
[2025-05-20 13:09] LABS: Hematocrit 45.3 % (37.0-47.0); Hemoglobin 15.0 g/dL (12.0-15.0); Immature Granulocyte Percent A 0.9 % (0-0.5); Lymphocytes Absolute Auto 4.79 K/mm3 (0.9-3.2); Mean Corpuscular HGB Conc 33.1 g/dl (32-36); Mean Corpuscular Hemoglobin 27.5 pg (26-34); Mean Corpuscular Volume 83.0 fl (80-100); Nucleated Red Blood Cells Absolute Auto 0.000 K/mm3 (0.0-0.012); Nucleated Red Blood Cells Perc 0.0 % (0.0-0.2); Platelet Count Result 323 k/mm3 (150-375); Red Blood Count 5.46 M/mm3 (4.2-5.4); White Blood Count 15.0 K/mm3 (4.5-10.0)
== END 2025-05-20 12:58 | disposition home or self-care (01) ==
PROVIDERS: PCP Nurse Practitioner Family; Visit Provider Internal Medicine Hematology & Oncology
DX: D72.829 Elevated white blood cell count, unspecified (principal)
CPT/HCPCS: 36415; 85025

== ENCOUNTER 2025-06-14 11:17 | Emergency (ER) | payer OTHER, SELFPAY ==
--- NOTE | 2025-06-14 11:21 | ED.URI ---
HPI - URI/Sore Throat General Chief Complaint: Upper Respiratory Infection Stated Complaint: Sore Throat/Hard Time Swallowing Time Seen by Provider: 06/14/25 11:37 Source: patient and RN notes reviewed Mode of arrival: ambulatory Limitations: no limitations History of Present Illness HPI Narrative: 24-year-old female presents concern for sore throat. Reports she has had a sore throat since March. She was seen in the emergency room and was given Augmentin in March for tonsillitis, reports her symptoms did not improve. She was not instructed to replace her toothbrush at that time and she did not do that. She reports intermittent nasal congestion for which she takes Sudafed with relief. She denies fever, body aches, chills, sweats, trouble swallowing. MD elicited complaint: sore throat Related Data Home Medications ?Medication ?Instructions ?Recorded ?Confirmed ?Last Taken ?Type metoprolol tartrate 25 mg tablet 25 mg PO DAILY 10/23/24 06/14/25 01/28/25 07:00 History Allergies Allergy/AdvReac Type Severity Reaction Status Date / Time morphine Allergy Mild Hives Verified 06/14/25 11:27 bupropion (From Wellbutrin) AdvReac Intermediate Agitated Verified 06/14/25 11:27 Review of Systems Review of Systems: CONSTITUTIONAL: Denies malaise, chills, sweats, or fever. EYES: Denies visual changes, redness, or discharge. ENT: Reports intermittent rhinorrhea, congestion. Reports sore throat. CARDIOVASCULAR: Denies chest pain, palpitations, or edema. RESPIRATORY: Denies cough. Denies dyspnea. GASTROINTESTINAL: Denies abdominal pain, nausea, vomiting, diarrhea SKIN: Denies rash or itching. MUSCULOSKELETAL: Denies myalgia. NEUROLOGIC: Denies headache. All systems reviewed & are unremarkable except as noted in HPI and below PMFSH Past Medical History Medical History Elevated C-reactive protein (CRP) Positive FANNIE (antinuclear antibody) Uncontrolled diabetes mellitus Elevated TSH Fatigue Right shoulder pain Left shoulder pain Anxiety Hypertriglyceridemia Type 2 diabetes mellitus with morbid obesity Arthralgia of multiple joints Hypertension Weight gain, abnormal Essential hypertension Elevated BP without diagnosis of hypertension Palpitations Right sided abdominal pain Morbid obesity with BMI of 60.0-69.9, adult Mass of left lobe of liver Hepatic steatosis Elevated glucose Elevated WBCs Hypersomnia Snoring Right knee pain Left ankle pain Major depression Encounter to establish care Acid reflux Gallstones Patient denies significant medical history Surgical History Surgical History History of cholecystectomy 05/20/2023 Family History Family History Father Alcoholism Diabetes mellitus Hypertension Heart disease Mother Ovarian cancer Sibling Depression Grandparent Hypertension Heart disease Grandparent Alcoholism Lung cancer Social History Social History Smoking status: Never smoker Tobacco type: smokeless tobacco Smokeless tobacco user: dissolvable tobacco Additional smoking assessment comments: DAILY USE Alcohol intake: former Alcohol use details: 1-2 a month Substance use: never Substance use type: does not use Other substance usage details: daily Last use: 2 MONTHS 2 TIMES PER WEEK Do You Feel Safe in your Home?: Yes Lack of Transportation: No Lack of Food: Never True Current Housing: I Have Housing Concerned About Future Housing: No Difficulty Paying Gas/Electric Bills: No Difficulty Paying for Meds: No Currently Unemployed: YES Education: Trade/Vocational Certificate Difficulty w/ Childcare or Family Care: No Living arrangements: with friend(s) Spiritual care concerns: No Comments At time of signature, agree with nursing past medical, surgical, social and family history. There is no relevant family history pertinent to the presenting complaint Exam Narrative: GENERAL: Well-appearing, well-nourished, and in no acute distress. HEAD: Normocephalic EYES: PERRLA, conjunctivae clear ENT: Nares clear. Mucous membranes moist. TM pearly lino with dull light reflex bilaterally; no tragal tenderness. Oropharynx erythematous without lesions. Tonsils slightly enlarged and without exudate, no drooling, no hoarseness, no trismus, uvula midline. NECK: Supple. No lymphadenopathy CHEST: Clear to auscultation, breath sounds equal. No wheezing, rhonchi, rales, or stridor. No respiratory distress, speaks in full sentences. HEART: Regular rate and rhythm. No murmur heard. SKIN: Warm, dry, no rash. NEURO: Alert and oriented x3. PSYCH: Normal mood and affect Course Course Emergency Course: Patient is aware of diagnosis, understands and agrees to treatment plan. Anticipatory guidance given. Patient agrees to follow-up as directed and is aware of reasons to seek care at the emergency department. Portions of this record may have been created with voice recognition software Level of Care: Express Care Visit Vital Signs Vital signs: Reviewed. MDM - URI/Sore Throat MDM Narrative Medical decision making narrative: Differential diagnosis considered: Young virus, strep pharyngitis, allergic rhinitis, upper respiratory tract infection, sinusitis, rhinosinusitis, nasopharyngitis. viral pharyngitis, otitis media, otitis externa, pneumonia, bronchitis, viral cough syndrome, viral syndrome, and influenza. Exam findings show no acute concerns or changes; patient is non-toxic appearing and is in no distress. Patient is appropriate for outpatient treatment and follow-up. Lab Data Attestation: I reviewed the patient's lab results. Critical Care Time Critical Care Time Critical Care Time: No Discharge Plan Discharge Clinical Impression: Acute streptococcal pharyngitis Patient Disposition: Home Condition: Stable Instructions: Antibiotic Form, Strep Throat (ED) Additional Instructions: -Take the medication as prescribed. Throw away the toothbrush after 24hours of antibiotic. -Eat and drink things that are easy to swallow, like tea or soup, or popsicles to suck on. -Oral rinses such as: Salt water gargles and/or may use topical anesthetic (eg. Chloraseptic spray) or lozenges to relieve dryness or throat pain). -Take Tylenol and ibuprofen as needed for pain and fever as directed. -Frequent hand washing or hand autism teacher is one of the best ways to prevent spread of infection. -Follow up with primary care provider in 2-3 days if condition is not improving; or seek ER visit if you have trouble breathing, cannot drink enough fluids, have muffled voice, difficulty opening your mouth, or severe swelling. Patient Language: Latvian Prescriptions: New clindamycin HCl 300 mg capsule 300 mg PO Q8H 7 Days Qty: 21 0RF No Action metoprolol tartrate 25 mg tablet 25 mg PO DAILY sertraline 50 mg tablet 50 mg PO DAILY Qty: 30 11RF Rx Instructions: take with 100mg sertraline tab to equal 150mg tab sertraline 100 mg tablet 100 mg PO DAILY Qty: 30 11RF colestipol 1 gram tablet 1 g PO BID Qty: 60 3RF metoclopramide HCl 5 mg tablet See Rx Instructions .ROUTE .COMPLEX Qty: 30 3RF Dose Instruction: TAKE 1 TABLET BY MOUTH AT BEDTIME Rx Instructions: TAKE 1 TABLET BY MOUTH AT BEDTIME omeprazole 40 mg capsule,delayed release(DR/EC) 40 mg PO BID Qty: 60 3RF losartan 100 mg tablet 100 mg PO DAILY Qty: 90 3RF metformin 500 mg tablet extended release 24 hr 1,000 mg PO BID Qty: 120 11RF Jardiance 25 mg tablet 25 mg PO QAM Qty: 30 11RF trazodone 50 mg tablet 50 mg PO QHS PRN (Reason: sleep) Qty: 30 3RF insulin glargine [Lantus Solostar U-100 Insulin] 100 unit/mL (3 mL) insulin pen 10 unit subcut QPM Qty: 15 3RF (DME) pen needle, diabetic [CareFine Pen Needle] 32 gauge x 3/16 needle See Rx Instructions .Route Qty: 100 3RF Rx Instructions: As directed with insulin pen hyoscyamine sulfate 0.125 mg tablet See Rx Instructions .ROUTE .COMPLEX Qty: 120 3RF Dose Instruction: TAKE 1 TABLET BY MOUTH EVERY 6 HOURS FOR ABDOMINAL PAIN Rx Instructions: TAKE 1 TABLET BY MOUTH EVERY 6 HOURS FOR ABDOMINAL PAIN amitriptyline 25 mg tablet See Rx Instructions .ROUTE .COMPLEX Qty: 30 3RF Dose Instruction: TAKE 1 TABLET BY MOUTH EVERY DAY AT BEDTIME Rx Instructions: TAKE 1 TABLET BY MOUTH EVERY DAY AT BEDTIME (DME) Contour Plus Test Strip Strip See Rx Instructions .Route Qty: 100 11RF Rx Instructions: check blood sugars 3x/day as directed (DME) blood-glucose meter [Contour Plus Blue Meter] [facility] See Rx Instructions .Route Qty: 1 0RF Rx Instructions: As directed (DME) lancing device with lancets Kit See Rx Instructions .Route Qty: 1 0RF Rx Instructions: As directed hydrochlorothiazide 12.5 mg tablet 12.5 mg PO QAM Qty: 30 11RF buspirone 7.5 mg tablet 7.5 mg PO BID Qty: 60 11RF Follow-up/Referrals: Ethel Liz NP [Primary Care Provider, Family Practice] Time of Disposition: 11:46
--- OUTSIDE RECORDS SUMMARY | 2025-06-14 11:21 | XMS_ITS | Patient Health Record ---
Author Organization [facility] Address [address] [place] [address] Care Team Providers Care Neurosurgical Nurse Name Role Phone Yong Noland Unavailable [phone] Yessi Marrufo Unavailable [phone] Reason For Referral No Information Social [...] phone, visiting friends or family, going to methodist or club meetings) 1 or 2 times a week How stressed are you? Stress is when someone feels tense, nervous, anxious, or can\t sleep at night because their mind is troubled Very much In the past year have you sp ent more than 2 nights in a row in a correction, senior care, care home center, or juvenile correctional facility? No Do you feel physically and e motionally safe where you currently live? Yes In the past year, have you b een afraid of your partner or ex-partner? No PRAPARE Score: 7 Encounters Encounter Location Date Provider Diagnosis [facility] [place] [place] [address] 03/15/2025 Yessi Marrufo [address] [place] [address] 03/22/2025 Yong Noland Plan Of Treatment No Information Insurance Providers Payer Name Payer Address Payer Phone Subscriber Number Group Number Insured Name Patient Relationship to Insured Coverage Start Date Coverage End Date [facility] [address] [place] [address] [id number] [place], [place] Self - patient is the insured 4
--- OUTSIDE RECORDS SUMMARY | 2025-06-14 11:21 | XMS_ITS | Clinical Summary ---
Author Organization [facility] Address [address] [address] [place] [address] Phone Care Team Providers Care Supervisor Of Operations Name Role Phone Unavailable Primary Care Provider [...] Take 1 Tablet by mouth daily. Active amitriptyline (ELAVIL) 25 mg tablet Take 25 mg by mouth daily at bedtime. Active Active Problems No known active problems Encounters Date Type Department Care Team Description 05/20/2025 1:00 PM CDT Office Visit [facility] Oncology and Hematology - [address] [place] [address] Felipe Joyner MD Leukocytosis, unspecified type (Primary Dx) 05/08/2025 External Device Data STL ABSTRACTION Provider, [...] Sign Reading Time Taken Comments Blood Pressure 137/90 05/20/2025 1:17 PM CDT Pulse 98 05/20/2025 1:17 PM CDT Temperature 36.6 C (97.8 F) 05/20/2025 1:17 PM CDT Respiratory Rate 16 05/20/2025 1:17 PM CDT Oxygen Saturation 96% 05/20/2025 1:17 PM CDT Inhaled Oxygen Concentration - - Weight 146.7 kg (323 lb 6.4 oz) 05/20/2025 1:17 PM CDT Height 154.9 cm (5' 1) 12/31/2024 1:31 PM CDT Body Mass Index 61.11 12/31/2024 1:31 PM CDT Plan of Treatment Upcoming Encounters Date Type Department Care Team (Late st Contact Info) Description 11/20/2025 1:15 PM ACCOUNTING ADMINISTRATIVE ASSISTANT Office Visit [facility] Oncology and Hematology - [place] [address] [place] [address] Felipe Joyner MD [address] [facility] [address] [place] [address] Health Maintenance Due Date Last Done Comments HPV VACCINES (1 - 3-dose series) 2015 DTAP/TDAP/TD VACCINES (1 - Tdap) 2019 HEPATITIS B VACCINES (1 of 3 - 19+ 3-dose series) 10/24 CERVICAL CANCER SCREENING 2021 HPV/Cotest (21-29) 2021 PAP SMEAR 2021 INFLUENZA VACCINE (#1) 2025 Insurance [place] Advance Directives For more information, please contact: [phone] * Full Code (Latest Code Status on File) Date Activated Date Inactivated Comments 06/08/2024 6:25 AM 06/08/2024 11:33 AM
--- OUTSIDE RECORDS SUMMARY | 2025-06-14 11:21 | XMS_ITS | Clinical Summary ---
Author Organization [facility] Address [address] [place] [address] Care Team Providers Care Director Asset Name Role Phone Becca Hernandez NP Primary [...] file Legal Sex Female 1:41 PM [employer] Gender Identity Not on file Sexual Orientation [...] 12/01/2011 Varicella Vaccines Completed 06/09/2015, 02/08/2002 Insurance [facility] Care Teams Director Asset Relationship Specialty Start Date End Date Becca Hernandez NP [address] [place] [address] PCP - General Nurse Practitioner 12/14/23
--- OUTSIDE RECORDS SUMMARY | 2025-06-14 11:21 | XMS_ITS | Clinical Summary ---
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 WELDING MACHINE OPERATOR Oxygen Saturation 98% 10/27/2023 3:45 PM 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
[2025-06-14 11:27] VITALS: BP 135/92; PULSE 84; RESP 18; TEMP 35.8; O2SAT 99
[2025-06-14 11:36] LABS: EDSTREPNEGPOS1 Positive (Negative)
== END 2025-06-14 11:48 | disposition home or self-care (01) ==
PROVIDERS: Emergency Provider Nurse Practitioner; PCP Nurse Practitioner Family
DX: J02.0 Streptococcal pharyngitis (principal); E11.9 Type 2 diabetes mellitus without complications; Z79.4 Long term (current) use of insulin; Z79.84 Long term (current) use of oral hypoglycemic drugs; E78.1 Pure hyperglyceridemia; I10 Essential (primary) hypertension; K76.0 Fatty (change of) liver, not elsewhere classified; K21.9 Gastro-esophageal reflux disease without esophagitis; F41.9 Anxiety disorder, unspecified; F32.9 Major depressive disorder, single episode, unspecified; E66.01 Morbid (severe) obesity due to excess calories; Z68.44 Body mass index [BMI] 60.0-69.9, adult
CPT/HCPCS: 87880; 99213; G0463

== ENCOUNTER 2025-06-27 18:24 | Emergency (ER) | payer BC, OTHER, SELFPAY ==
--- NOTE | ~2025-06-27 | XR_ITS ---
EXAMINATION: XR chest 2V 06/27/2025 18:52 INDICATION: Chest pain PROCEDURE: 2 view chest COMPARISON: Comparison to multiple prior studies sequentially, with oldest reviewed study dated 10/26/2023. FINDINGS: The lungs are clear. The cardiomediastinal silhouette is within normal limits. There are no pleural effusions. There is no pneumothorax suspected. IMPRESSION: 1: NO ACUTE CARDIOPULMONARY DISEASE. Reviewed, dictated and finalized at location O.
--- NOTE | 2025-06-27 18:26 | ECG_ITS ---
Test Date: 2025-06-27 18:33:36 Measurements Intervals [place] Rate: 91 P: 41 NC: 172 QRS: 62 QRSD: 95 T: 32 QT: 341 QTc: 420 Interpretive Statements SINUS RHYTHM Compared to ECG 05/08/2025 20:34:20 Sinus tachycardia no longer present Electronically Signed On 06-28-2025 12:17:33 CDT by Zeeshan Hoskins M.D.
--- OUTSIDE RECORDS SUMMARY | 2025-06-27 18:26 | XMS_ITS | Clinical Summary ---
Author Organization [facility] Address [address] [place] [address] Care Team Providers Care Jackspooler Name Role Phone Becca Hernandez NP Primary [...] on file Legal Sex Female 1:41 PM PACKER AND CARRY OUT Gender Identity Not on file Sexual Orientation [...] 12/01/2011 Varicella Vaccines Completed 06/09/2015, 02/08/2002 Insurance [facility] Care Teams Jackspooler Relationship Specialty Start Date End Date Becca Hernandez NP [address] [place] [address] PCP - General Nurse Practitioner 12/14/23
--- OUTSIDE RECORDS SUMMARY | 2025-06-27 18:26 | XMS_ITS | Clinical Summary ---
Author Organization [facility] Address [address] [address] [place] [address] Phone Care Team Providers Care Botany Technician Name Role Phone Unavailable Primary Care [...] Description 05/20/2025 1:00 PM CDT Office Visit [facility] Oncology and Hematology - [address] [place] [phone] Felipe Joyner MD Leukocytosis, unspecified type [...] st Contact Info) Description 11/20/2025 1:15 PM CURRICULUM DEVELOPMENT MANAGER Office Visit [facility] Oncology and Hematology - [address] [place] [address] Felipe Joyner MD [address] [facility] [address] [place] [address] Health Maintenance Due Date Last Done Comments HPV VACCINES (1 - 3-dose series) 2015 DTAP/TDAP/TD VACCINES (1 - Tdap) 2019 HEPATITIS B VACCINES (1 of 3 - 19+ 3-dose series) 10/24 CERVICAL CANCER SCREENING 2021 HPV/Cotest (21-29) 2021 PAP SMEAR 2021 INFLUENZA VACCINE (#1) 2025 Insurance [employer] [place] [address] [employer] [place] Advance Directives For more information, please contact: [phone] * Full Code (Latest Code Status on File) Date Activated Date Inactivated Comments 06/08/2024 6:25 AM 06/08/2024 11:33 AM
--- OUTSIDE RECORDS SUMMARY | 2025-06-27 18:26 | XMS_ITS | Clinical Summary ---
Author Organization [facility] Address [facility] [place] [address] Care Team Providers Care Pharmacology Teacher Name Role Phone Cleveland Barahona MD Primary Care Provider [phone] Allergies Active Allergy Reactions Criticality Noted Date [...] Information Value Date Recorded Sex Assigned at Female 06/15/2025 1:16 PM CDT Legal Sex Female 8:12 PM CDT Gender Identity Not on file Sexual Orientation Not on file Last Filed Vital Signs Vital Sign Reading Time Taken Comments Blood Pressure 158/103 10/27/2023 3:45 PM LABOR TRAINING MANAGER Pulse 73 10/27/2023 3:45 PM LABOR TRAINING MANAGER Temperature 36.6 C (97.9 F) 10/27/2023 2:18 PM LABOR TRAINING MANAGER Respiratory Rate 20 10/27/2023 3:45 PM LABOR TRAINING MANAGER Oxygen Saturation 98% 10/27/2023 3:45 PM LABOR TRAINING MANAGER Inhaled Oxygen Concentration - - Weight 147.8 kg (325 lb 13.4 oz) 10/27/2023 2:18 PM LABOR TRAINING MANAGER Height 154.9 cm (5' 1) 10/27/2023 2:18 PM LABOR TRAINING MANAGER Body Mass Index 61.57 10/27/2023 2:18 PM LABOR TRAINING MANAGER Plan of Treatment Upcoming Encounters Date Type Department Care Team (Late st Contact Info) Description 07/05/2025 9:00 AM CDT Appointment [facility] Ultrasound [address] [place] [address] Rafiq Valdes, DPM [address] [place] [id number] Health Maintenance Due Date Last Done Comments Annual Physical 2003 Hepatitis C 2018 DTaP, Tdap and Td Vaccines (7 - Td or Tdap) 05/24/2022 05/24/2012, 08/26/2005, 04/15/2003, Additional history exists Chlamydia Screening Females ages 16-24 07/07/2024 07/07/2023 COVID-19 Vaccine ( season) 2025 12/22/2021, 10/21/2021, 04/08/2021, Additional history exists Cervical Cancer Screening Pap Smear (Age 21 [...] complete this topic Insurance [employer] Care Teams Pharmacology Teacher Relationship Specialty Start Date End Date Cleveland Barahona MD [address] [place] [address] PCP - General INTERNAL MEDICINE 02/18/22
[2025-06-27 18:28] VITALS: BP 147/92; PULSE 94; RESP 20; TEMP 36.6; O2SAT 97
[2025-06-27 18:46] LABS: Hematocrit 45.9 % (37.0-47.0); Hemoglobin 14.9 g/dL (12.0-15.0); Immature Granulocyte Percent A 0.7 % (0-0.5); Lymphocytes Absolute Auto 4.62 K/mm3 (0.9-3.2); Mean Corpuscular HGB Conc 32.5 g/dl (32-36); Mean Corpuscular Hemoglobin 27.2 pg (26-34); Mean Corpuscular Volume 83.8 fl (80-100); Nucleated Red Blood Cells Absolute Auto 0.000 K/mm3 (0.0-0.012); Nucleated Red Blood Cells Perc 0.0 % (0.0-0.2); Platelet Count Result 321 k/mm3 (150-375); Red Blood Count 5.48 M/mm3 (4.2-5.4); White Blood Count 16.7 K/mm3 (4.5-10.0)
[2025-06-27 19:05] LABS: Alanine Aminotransferase 74 U/L (6-35); Albumin Level 4.6 g/dL (3.5-5.1); Alkaline Phosphatase 92 U/L (38-126); Anion Gap 11 mmol/L (4-12); Aspartate Amino Transferase 74 U/L (14-36); Bilirubin,Total 1.0 mg/dL (0.2-1.3); Blood Urea Nitrogen 12 mg/dL (7-17); Calcium 9.4 mg/dL (8.4-10.2); Carbon Dioxide 26 mmol/L (22-30); Chloride 98 mmol/L (98-107); Estimated CRCL calculation 130 ml/min; Estimated Glomerular Filt Rate > 60; Glucose 406 mg/dL (65-110); Lipase 96 U/L (23-300); Potassium 4.5 mmol/L (3.4-5.0); Sodium 135 mmol/L (137-145); Total Protein 8.9 g/dL (6.3-8.2)
[2025-06-27 19:06] LABS: INR 1.0; Partial Thromboplastin Time 24.6 Seconds (22.3-36.8); Prothrombin Time 12.7 Seconds (11.1-14.7)
--- OUTSIDE RECORDS SUMMARY | 2025-06-27 19:16 | XMS_ITS | Clinical Summary ---
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
--- OUTSIDE RECORDS SUMMARY | 2025-06-27 19:16 | XMS_ITS | Clinical Summary ---
Author Organization [facility] Address [facility] [place] [address] Care Team Providers Care Welding Rod Coater Name Role Phone Cleveland Barahona MD Primary Care Provider [phone] Allergies Active Allergy Reactions Criticality Noted Date [...] Comments Blood Pressure 158/103 10/27/2023 3:45 PM CAR AND YARD SUPERVISOR Pulse 73 10/27/2023 3:45 PM CAR AND YARD SUPERVISOR Temperature 36.6 C (97.9 F) 10/27/2023 2:18 PM CAR AND YARD SUPERVISOR Respiratory Rate 20 10/27/2023 3:45 PM CAR AND YARD SUPERVISOR Oxygen Saturation 98% 10/27/2023 3:45 PM CAR AND YARD SUPERVISOR Inhaled Oxygen Concentration - - Weight 147.8 kg (325 lb 13.4 oz) 10/27/2023 2:18 PM CAR AND YARD SUPERVISOR Height 154.9 cm (5' 1) 10/27/2023 2:18 PM CAR AND YARD SUPERVISOR Body Mass Index 61.57 10/27/2023 2:18 PM CAR AND YARD SUPERVISOR Plan of Treatment Upcoming Encounters Date Type Department Care Team (Late st Contact Info) Description 07/05/2025 9:00 AM CDT Appointment [facility] Ultrasound [address] [place] [address] Rafiq Valdes, DPM [address] [place] [phone] Health Maintenance Due Date Last Done Comments [...] complete this topic Insurance [employer] Care Teams Welding Rod Coater Relationship Specialty Start Date End Date Cleveland Barahona MD [address] [place] [address] PCP - General INTERNAL MEDICINE 02/18/22
--- OUTSIDE RECORDS SUMMARY | 2025-06-27 19:16 | XMS_ITS | Clinical Summary ---
Author Organization [facility] Address [address] [address] [place] [address] Phone Care Team Providers Care Wine Steward/Stewardess Name Role Phone Unavailable Primary Care Provider [...] 05/20/2025 1:00 PM CDT Office Visit [facility] Oncology and Hematology - [address] [place] [phone] Felipe Joyner MD Leukocytosis, unspecified type [...] st Contact Info) Description 11/20/2025 1:15 PM AUTOMOTIVE SALESPERSON Office Visit [facility] Oncology and Hematology - [address] [place] [address] Felipe Joyner MD [address] [facility] [address] [place] [address] Health Maintenance Due Date Last Done Comments HPV VACCINES (1 - 3-dose series) 2015 DTAP/TDAP/TD VACCINES (1 - Tdap) 2019 HEPATITIS B VACCINES (1 of 3 - 19+ 3-dose series) 10/24 CERVICAL CANCER SCREENING 2021 HPV/Cotest (21-29) 2021 PAP SMEAR 2021 INFLUENZA VACCINE (#1) 2025 Insurance [employer] [place] [address] [employer] [place] Advance Directives For more information, please contact: [phone] * Full Code (Latest Code Status on File) Date Activated Date Inactivated Comments 06/08/2024 6:25 AM 06/08/2024 11:33 AM
[2025-06-27 19:25] LABS: Troponin I < 0.012 ng/mL (0.000-0.034)
[2025-06-27 19:42] VITALS: BP 126/64; PULSE 95; PULSE 96; RESP 20; O2SAT 95; O2SAT 96
--- NOTE | 2025-06-27 19:59 | ED.CHESTPAIN ---
HPI - Chest Pain General Chief Complaint: Chest Pain Stated Complaint: CHEST PAIN Time Seen by Provider: 06/27/25 19:12 History of Present Illness HPI narrative: Patient is a 24-year-old female who presents emergency department this evening complaining of chest pain which started yesterday and progressed today. Admits that she does have a history of acid reflux. Denies any history of cardiovascular disease. Denies any shortness of breath, any recent illness, fevers or chills. Chest pain is not positional and does not worsen with deep inspiration. Otherwise patient denies any additional symptoms or concerns. Related Data Home Medications ?Medication ?Instructions ?Recorded ?Confirmed ?Last Taken ?Type metoprolol tartrate 25 mg tablet 25 mg PO DAILY 10/23/24 06/14/25 01/28/25 07:00 History Allergies Allergy/AdvReac Type Severity Reaction Status Date / Time morphine Allergy Mild Hives Verified 06/27/25 19:45 bupropion (From Wellbutrin) AdvReac Intermediate Agitated Verified 06/27/25 19:45 Review of Systems Review of Systems: All systems are reviewed and are negative unless stated otherwise in the HPI. [facility] Past Medical History Medical History Elevated C-reactive protein (CRP) Positive FANNIE (antinuclear antibody) Uncontrolled diabetes mellitus Elevated TSH Fatigue Right shoulder pain Left shoulder pain Anxiety Hypertriglyceridemia Type 2 diabetes mellitus with morbid obesity Arthralgia of multiple joints Hypertension Weight gain, abnormal Essential hypertension Elevated BP without diagnosis of hypertension Palpitations Right sided abdominal pain Morbid obesity with BMI of 60.0-69.9, adult Mass of left lobe of liver Hepatic steatosis Elevated glucose Elevated WBCs Hypersomnia Snoring Right knee pain Left ankle pain Major depression Encounter to establish care Acid reflux Gallstones Patient denies significant medical history Surgical History Surgical History History of cholecystectomy 05/20/2023 Family History Family History Father Alcoholism Diabetes mellitus Hypertension Heart disease Mother Ovarian cancer Sibling Depression Grandparent Hypertension Heart disease Grandparent Alcoholism Lung cancer Social History Social History Smoking status: Never smoker Tobacco type: smokeless tobacco Smokeless tobacco user: dissolvable tobacco Additional smoking assessment comments: DAILY USE Alcohol intake: former Alcohol use details: 1-2 a month Substance use: never Substance use type: does not use Other substance usage details: daily Last use: 2 MONTHS 2 TIMES PER WEEK Do You Feel Safe in your Home?: Yes Lack of Transportation: No Lack of Food: Never True Current Housing: I Have Housing Concerned About Future Housing: No Difficulty Paying Gas/Electric Bills: No Difficulty Paying for Meds: No Currently Unemployed: YES Education: Trade/Vocational Certificate Difficulty w/ Childcare or Family Care: No Living arrangements: with friend(s) Spiritual care concerns: No Exam Narrative: General: Alert, awake, afebrile, in no acute distress. HEENT: PERRL, no rhinorrhea, no post nasal drip, oropharynx clear. Neck: Trachea midline, no JVD, no lymphadenopathy. Cardiovascular: Regular rate and rhythm, no murmurs, rubs or gallops, no peripheral edema. Respiratory: Clear to auscultation bilaterally, no tachypnea, no wheezing, no rhonchi, no rubs, no respiratory distress. Abdomen: Soft, nontender, nondistended, no rebound, no guarding, no peritoneal signs. Musculoskeletal: No joint swelling or deformity, normal muscle tone. Skin: No rashes or petechia, no signs of infection. Psychiatric: Alert and oriented, normal behavior and judgment for situation. Neurological: Alert and oriented to person, place, and time. Follows all commands. No focal deficits, speech is clear and fluent. Course Vital Signs Vital signs: Vital Signs Temperature 97.9 F 06/27/25 18:28 Pulse Rate 94 06/27/25 18:28 Respiratory Rate 20 06/27/25 18:28 Blood Pressure 147/92 H 06/27/25 18:28 Pulse Oximetry 97 06/27/25 18:28 Temperature 97.9 F 06/27/25 18:28 Pulse Rate 95 06/27/25 19:42 Respiratory Rate 20 06/27/25 19:42 Blood Pressure 126/64 06/27/25 19:42 Pulse Oximetry 96 06/27/25 19:42 Oxygen Delivery Room Air 06/27/25 19:42 MDM - Chest Pain MDM Narrative Medical decision making narrative: The patient was evaluated by myself in the emergency department. History is obtained from patient who is an independent historian and physical exam was performed. External medical records were reviewed at this time. IV was established and pertinent tests were ordered. Patient was administered 20mg of IV Pepcid. Patient was white count was noted to be elevated at 16.7, however, patient's white count is chronically elevated usually ranging between 15 and 19. EKG was obtained which revealed sinus rhythm at a rate of 91 beats per minute. No ST changes, T wave inversions or evidence of acute ischemia. EKG was independently interpreted by me and is currently pending official cardiology read. Laboratory results obtained revealing no acute process. Troponin negative. D-dimer negative. Imaging studies obtained included CXR which was independently interpreted by me revealing no acute cardiopulmonary process, which is pending final radiology interpretation. Differential diagnosis considerations include GERD/peptic ulcer disease, acute coronary syndrome, infectious process such as pneumonia, acute viral syndrome, acute stress reaction. Comorbidities impacting this visit include history of GERD. I have evaluated and discussed social determinants of health with the patient that could potentially impact subsequent diagnosis and treatment plans. On repeat assessment of the patient, reevaluation revealed that the patient is doing well and is in no acute distress. Patient symptoms have remained stable since she arrived to our emergency department. Repeat vital signs were all reviewed and noted to be stable. Differential diagnosis and treatment plan were discussed with the patient at bedside. Patient agrees with discussion and after shared medical decision making agrees with discharge. All questions were answered to the patient's satisfaction. Patient will follow up with her PCP in 3-5 days. Patient was provided with strict return precautions and instructed to return to the emergency department if any new or worsening symptoms develop. The patient was discharged in stable condition. Lab Data 06/27/25 18:40 06/27/25 18:40 Labs: Lab Results 06/27/25 Range/Units 18:40 WBC 16.7 H (4.5-10.0) K/mm3 RBC 5.48 H (4.2-5.4) M/mm3 Hgb 14.9 (12.0-15.0) g/dL Hct 45.9 (37.0-47.0) % MCV 83.8 (80-100) fl MCH 27.2 (26-34) pg MCHC 32.5 (32-36) g/dl RDW 13.4 (11.5-14.5) % Plt Count 321 (150-375) k/mm3 MPV 10.0 (7.4-10.4) fl Immature Gran % (Auto) 0.7 H (0-0.5) % Neut % (Auto) 65.0 (45.5-73.1) % Lymph % (Auto) 27.7 (18.3-44.2) % Crook % (Auto) 4.6 (2.6-8.5) % Eos % (Auto) 1.5 (0-4.4) % Baso % (Auto) 0.5 (0.2-1.2) % Lymph # (Auto) 4.62 H (0.9-3.2) K/mm3 Crook # (Auto) 0.8 H (0.1-0.6) K/mm3 Eos # (Auto) 0.3 (0-0.3) K/mm3 Baso # (Auto) 0.1 (0.0-0.1) K/mm3 Abs Immat Gran (auto) 0.12 H (0.00-0.031) K/mm3 Absolute Neuts (auto) 10.9 H (1.3-6.7) K/mm3 Absolute Nucleated RBC 0.000 (0.0-0.012) K/mm3 Nucleated RBC % 0.0 (0.0-0.2) % PT 12.7 (11.1-14.7) Seconds INR 1.0 APTT 24.6 (22.3-36.8) Seconds D-Dimer < 0.27 (<0.48) ug/mL Sodium 135 L (137-145) mmol/L Potassium 4.5 (3.4-5.0) mmol/L Chloride 98 (98-107) mmol/L Carbon Dioxide 26 (22-30) mmol/L Anion Gap 11 (4-12) mmol/L BUN 12 (7-17) mg/dL Creatinine 0.79 (0.7-1.0) mg/dL Estim Creat Clear Calc 130 ml/min Estimated GFR > 60 (59 - ) Glucose 406 H (65-110) mg/dL Calcium 9.4 (8.4-10.2) mg/dL Total Bilirubin 1.0 (0.2-1.3) mg/dL AST 74 H (14-36) U/L ALT 74 H (6-35) U/L Alkaline Phosphatase 92 (38-126) U/L Troponin I < 0.012 (0.000-0.034) ng/mL Total Protein 8.9 H (6.3-8.2) g/dL Albumin 4.6 (3.5-5.1) g/dL Lipase 96 (23-300) U/L Discharge Plan Discharge Clinical Impression: Chest pain Patient Disposition: Home Condition: Improved Instructions: Antibiotic Form, Chest Pain (ED) Additional Instructions: Please follow-up with family doctor within the next 3-5 days. Return to emergency department if any new or worsening symptoms develop. Patient Language: Sammarinese Prescriptions: No Action metoprolol tartrate 25 mg tablet 25 mg PO DAILY clindamycin HCl 300 mg capsule 300 mg PO Q8H 7 Days Qty: 21 0RF sertraline 50 mg tablet 50 mg PO DAILY Qty: 30 11RF Rx Instructions: take with 100mg sertraline tab to equal 150mg tab sertraline 100 mg tablet 100 mg PO DAILY Qty: 30 11RF colestipol 1 gram tablet 1 g PO BID Qty: 60 3RF metoclopramide HCl 5 mg tablet See Rx Instructions .ROUTE .COMPLEX Qty: 30 3RF Dose Instruction: TAKE 1 TABLET BY MOUTH AT BEDTIME Rx Instructions: TAKE 1 TABLET BY MOUTH AT BEDTIME omeprazole 40 mg capsule,delayed release(DR/EC) 40 mg PO BID Qty: 60 3RF losartan 100 mg tablet 100 mg PO DAILY Qty: 90 3RF metformin 500 mg tablet extended release 24 hr 1,000 mg PO BID Qty: 120 11RF Jardiance 25 mg tablet 25 mg PO QAM Qty: 30 11RF trazodone 50 mg tablet 50 mg PO QHS PRN (Reason: sleep) Qty: 30 3RF insulin glargine [Lantus Solostar U-100 Insulin] 100 unit/mL (3 mL) insulin pen 10 unit subcut QPM Qty: 15 3RF (DME) pen needle, diabetic [CareFine Pen Needle] 32 gauge x 3/16 needle See Rx Instructions .Route Qty: 100 3RF Rx Instructions: As directed with insulin pen hyoscyamine sulfate 0.125 mg tablet See Rx Instructions .ROUTE .COMPLEX Qty: 120 3RF Dose Instruction: TAKE 1 TABLET BY MOUTH EVERY 6 HOURS FOR ABDOMINAL PAIN Rx Instructions: TAKE 1 TABLET BY MOUTH EVERY 6 HOURS FOR ABDOMINAL PAIN amitriptyline 25 mg tablet See Rx Instructions .ROUTE .COMPLEX Qty: 30 3RF Dose Instruction: TAKE 1 TABLET BY MOUTH EVERY DAY AT BEDTIME Rx Instructions: TAKE 1 TABLET BY MOUTH EVERY DAY AT BEDTIME (DME) Contour Plus Test Strip Strip See Rx Instructions .Route Qty: 100 11RF Rx Instructions: check blood sugars 3x/day as directed (DME) blood-glucose meter [Contour Plus Blue Meter] Misc See Rx Instructions .Route Qty: 1 0RF Rx Instructions: As directed (DME) lancing device with lancets Kit See Rx Instructions .Route Qty: 1 0RF Rx Instructions: As directed hydrochlorothiazide 12.5 mg tablet 12.5 mg PO QAM Qty: 30 11RF buspirone 7.5 mg tablet 7.5 mg PO BID Qty: 60 11RF Follow-up/Referrals: Ethle Liz NP [Primary Care Provider, Family Practice] - 3 Days Time of Disposition: 20:00
[2025-06-27 20:07] VITALS: BP 142/67; PULSE 97; RESP 18; TEMP 36.7; O2SAT 96
== END 2025-06-27 20:08 | disposition home or self-care (01) ==
PROVIDERS: Emergency Provider Emergency Medicine; PCP Nurse Practitioner Family
DX: R07.9 Chest pain, unspecified (principal); I10 Essential (primary) hypertension; E11.9 Type 2 diabetes mellitus without complications; E66.01 Morbid (severe) obesity due to excess calories; Z68.43 Body mass index [BMI] 50.0-59.9, adult; E78.1 Pure hyperglyceridemia; K21.9 Gastro-esophageal reflux disease without esophagitis; F41.9 Anxiety disorder, unspecified; F32.9 Major depressive disorder, single episode, unspecified; F17.290 Nicotine dependence, other tobacco product, uncomplicated; Z90.49 Acquired absence of other specified parts of digestive tract; Z79.899 Other long term (current) drug therapy; Z79.84 Long term (current) use of oral hypoglycemic drugs; Z79.4 Long term (current) use of insulin
CPT/HCPCS: 36415; 71046; 80053; 83690; 84484; 85025; 85380; 85610; 85730; 93005; 99284

== ENCOUNTER 2025-08-30 13:01 | Outpatient (CLI) | payer OTHER, SELFPAY ==
--- OUTSIDE RECORDS SUMMARY | 2025-08-30 13:08 | XMS_ITS | Patient Health Record ---
Author Organization [facility] Address [address] [place] [address] Care Team Providers Care Ocean Lifeguard Name Role Phone Yong Noland Unavailable [phone] Yessi Marrufo Unavailable [phone] Reason For Referral No Information Social History [...] phone, visiting friends or family, going to taoism or club meetings) 1 or 2 times a week How stressed are you? Stres s is when someone feels tense, nervous, anxious, or can\t sleep at night because their mind is troubled Very much In the past year have you sp ent more than 2 nights in a row in a fci, snf, residential center, or juvenile correctional facility? No Do you feel physically and e motionally safe where you currently live? Yes In the past year, have you b een afraid of your partner or ex-partner? No PRAPARE Score: 7 Encounters Encounter Location Date Provider Diagnosis [address] [place] [address] 03/15/2025 Yessi Marrufo [address] [place] [address] 03/22/2025 Yong Noland Plan Of Treatment No Information Insurance Providers Payer Name Payer Address Payer Phone Subscriber Number Group Number Insured Name Patient Relationship to Insured Coverage Start Date Coverage End Date [facility] [address] [place] [phone] [id number] [place], [place] Self - patient is the insured 4
--- OUTSIDE RECORDS SUMMARY | 2025-08-30 13:08 | XMS_ITS | Clinical Summary ---
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 Office Visit [facility] - [place] [address] [place] [address] Felipe Joyner MD [address] [facility] [address] [place] [address] Health Maintenance Due Date Last Done Comments HPV VACCINES (1 - 3-dose series) 2015 DTAP/TDAP/TD VACCINES (1 - Tdap) 2019 HEPATITIS B VACCINES (1 of 3 - 19+ 3-dose series) 10/24 CERVICAL CANCER SCREENING 2021 HPV/Cotest (21-29) 2021 PAP SMEAR 2021 INFLUENZA VACCINE (#1) 2025 Insurance [employer] Advance Directives For more information, please contact: [phone] * Full Code (Latest Code Status on File) Date Activated Date Inactivated Comments 06/08/2024 6:25 AM 06/08/2024 11:33 AM
--- OUTSIDE RECORDS SUMMARY | 2025-08-30 13:08 | XMS_ITS | Data Portability ---
Author Organization [facility] [place] Address [address] [place] [address] [place] [address] Care Team Providers Care Counter Caser Name Role Phone PATRICIA WILLIAM Primary Care Provider [phone] RACHEL ALBERT Primary Care Provider [phone] Assessment No assessment recorded. Plan of Treatment Reminders Order Date Submit Date Provider Last Modified By Organization Details Last Modified Time Details Appointments None recorded. Lab None recorded. Referral None recorded. Procedures None recorded. Surgeries None recorded. Imaging US, transvagina l 2023 024 [email or web address] [place], [address], [address], [place], [address], 4 19:45:10 Medication Orders clotrimazol e-betametha sone 1 %-0.05 % topical cream 2024 025 [facility] #[id number] [address], [place], [id number], 5 15:03:28 metronidazo le 0.75 % (37.5 mg/5 gram) vaginal gel 2023 024 [facility] #[id number], [address], [place], [id number], 4 11:06:13 Patient TargetsNo targets recorded. Patient InstructionsNo instructions recorded. Reason for Referral None Reported. Results Created Date Observation Date Name Description Value Unit Range Abnormal Flag Note LastModifiedBy Organization Detail LastModifiedTime 08/15/20 24 08/15/2024 US, pelvi s No observ ation record ed. [email or web address] [place] [address], [place], [address], 08/15/2024 17:30:18 08/15/20 24 08/15/2024 US, trans vagin al No observ ation record ed. [email or web address] [place], [place], [address], 08/15/2024 17:30:31 08/15/20 24 08/15/2024 US, pelvi s No observ ation record ed. [email or web address] [address], [place], [address], 08/16/2024 16:07:33 08/30/20 24 08/30/2024 US, trans vagin al No observ ation record ed. [email or web address], [place], [address], 08/30/2024 21:42:27 08/30/20 24 08/30/2024 US, trans vagin al No observ ation record ed. [email or web address] Jackie [address], [place], [address], 08/30/2024 21:42:27 Result Notes None recorded. Problems Name Problem SNOMED Code Status Onset Date Resolution Date Notes Provider Name and Address Organization Details Recorded Time Insulin resistance 546293895 Active 2014 Becca Hernandez [facility]- [address], [place], [address], [facility] 4 09:49:09 Secondary amenorrhea 337617997 Active 2017 Becca Hernandez [facility]- [address], [place], [address], [facility] 4 09:50:15 Chronic peptic ulcer 822215298 Active 2022 Becca Hernandez [facility] [address], [place], [address], [facility] 4 09:50:53 Polycystic ovary syndrome 127709522 Active 2023 Becca Hernandez [facility] [address], [place], [address], [facility] 4 14:57:33 Hypertriglyc eridemia 763263999 Active 2023 Becca Hernandez [facility] [address], [place], [address], [facility] 4 09:50:27 Problem Notes None recorded. Procedures Surgical History Date Name Laterality Status Provider Name and Address Organization Details Recorded Time 024 IUD Removal completed Diogo Bryan MD [address], [place], [address], [facility] 08/20/2024 14:41:43 024 IUD Insertion completed Diogo Bryan MD [address], [place], [address], [facility] 08/20/2024 14:41:33 024 Laparoscopy completed Digna Ace [facility] 10/26/2024 14:39:20 024 endoscopy completed Estrella Johnson [facility] 05/10/2024 16:00:13 023 Date of Last Pap Smear completed Digna Ace [facility] 08/09/2023 15:03:22 023 cholecystectomy completed Digna Ace [facility] 06/30/2023 14:39:16 Imaging Results None recorded. Procedure Notes None recorded. Medical Equipment None Reported. Allergies Allergen ID Allergen Name Allergen Category Reaction Reaction Severity Criticality Documentation Date Start Date Code Code System Note Provider Name and Address Organization Details Recorded Time 76876 morphine medicatio n Not available Not available Not available 05/18/2024 7052 RxNorm Tara Bliss soraya, [facility] 14:01:04 Medications Name Sig Start [...] Not Available Not Available Not Avai lable clindamycin HCl 300 mg capsule TAKE 1 CAPSULE BY MOUTH EVERY 8 HOURS FOR 7 DAYS active Not Available Not Available No t Available trazodone 50 mg tablet TAKE 1 TABLET [...] completed Not Available Not Available Not Available cephalexin 500 mg capsule TAKE 1 CAPSULE BY MOUTH EVERY 8 HOURS active Not Available Not Available No t Available pantoprazol e 40 mg tablet,abdi yed [...] Available Not Available sertraline 50 mg tablet active Not [...] TABLET BY MOUTH EVERY 12 HOURS FOR 10 DAYS active Not Available Not Available No t Available neomycin-po lymyxin-hyd rocort 3.5 mg-10,000 unit/mL-1 [...] completed Not Available Not Available Not Available 1.30 (28) 1.5 mg-30 mcg (21)/75 mg (7) [...] Not Available Not Available No t Available Lantus Solostar U-100 Insulin 100 unit/mL (3 mL) subcutaneou s pen INJECT 10 UNITS SUBCUTANE OUS EVERY EVENING active Not Available Not Available No t Available Jardiance 10 mg tablet TAKE 1 TABLET BY MOUTH EVERY MORNING active Not Available Not Available No t Available Jardiance 25 mg tablet TAKE 1 TABLET BY [...] completed Not Available Not Available Not Available TRUEplus Pen Needle 32 gauge x /32 USE DIRECTED DAILY WITH INSULIN PEN active Not Available Not Available No t Available Ozempic 0.25 mg or 0.5 mg [...] mg or 0.5 mg (2 mg/3 mL) [facility] pen injector 11/16 completed Not Available Not Available Not Available Contour Plus Test Strip CHECK BLOOD SUGAR THREE TIMES DAILY DIRECTED active Not Available Not Available No t Available Vitals Date Recorded Body height Body mass index (BMI) Body weight Systolic And Diastolic Provider Name and Address Organization Details Last Updated DateTime 10/26/2024 157.48 cm 62.7 kg/m2 410300.18 g 131/93 mm[Hg] [facility] 10/26/2024 14:36:46 Date Recorded Body height Body mass index (BMI) Body weight Systolic And Diastolic Provider Name and Address Organization Details Last Updated DateTime 03/20/2025 157.48 cm 61.5 kg/m2 727146.04 g 121/82 mm[Hg] [facility] 03/20/2025 15:03:01 Date Recorded Body height Body mass index (BMI) Body weight Systolic And Diastolic Provider Name and Address Organization Details Last Updated DateTime 08/29/2024 157.48 cm 65.3 kg/m2 749977.48 g 150/94 mm[Hg] [facility] 08/29/2024 14:16:12 Date Recorded Body height Body mass index (BMI) Body weight Systolic And Diastolic Provider Name and Address Organization Details Last Updated DateTime 09/24/2024 157.48 cm 65.3 kg/m2 238118.48 g 141/95 mm[Hg] [facility] 09/24/2024 11:03:39 Social History Question Answer Notes LastModified by Organizat ion Details LastModified Time Tobacco Smoking Status Never Smoker Stefanie Nassar [facility] 06/30/2023 14:31:55 Do You Have An [...] Or The Highest Degree You Have Received? [id number] Information not available 12/30/2022 Are There Any Guns Present In Your Home? Yes Information not available 01/11/2023 Do You Use Protection During Sex? No Information not available 01/11/2023 Do You Use Your Seat Belt Or Car Seat Routinely? No Information not available 01/11/2023 Are You Sexually Active? Yes Female Partners [email or web address] Information not available 06/30/2023 Do You Have Smoke And Carbon Monoxide Detectors In Your Home? Yes Information not available 01/11/2023 How Much Tobacco Do You Smoke? No Information not available 01/11/2023 Do You Use Sunscreen Routinely? No Information not available 01/11/2023 Has Tobacco Cessation Counseling Been Provided? No [email or web address] Information not available 06/30/2023 Have You Used IV Drugs? No Information not available 01/11/2023 Sex: Unknown Functional Status Question Answer Note LastModified by Organizat ion Details LastModified Time Do you use any illicit or recreational drugs? No Information not available 12/30/2022 Do you or have you ever used any other forms of tobacco or nicotine? No [email or web address] Information not available 06/30/2023 What is your level of alcohol consumption? Occasional Information not available 12/30/2022 Are you currently employed? Yes [email or web address] Information not available 06/30/2023 Are you able to walk independently without assistance or assistive devices? 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 Moderate Information not available 01/11/2023 Mental Status Question Answer Note LastModified by Organization D etails LastModified Time Do you feel stressed (tense, restless, nervous, or anxious, or unable to sleep at night)? [id number] Information not available 01/11/2023 Family History Relationship Description Onset Age of this Age Resolved Age Notes LastModified by Organization Details LastModified Time Father Diabetes mellitus [email or web address] Not available 2022 14:42:16 Mother Malignant neoplasm of ovary [email or web address] Not available 2024 14:14:50 Paternal Grandmother Malignant neoplasm of lung [email or web address] Not available 2024 14:14:50 Maternal Grandmother Hypertensive disorder [email or web address] Not available 2022 14:42:16 Maternal Grandmother Hypercholest erolemia [email or web address] Not available 2022 14:42:16 Unspecified Relation Family history unknown [email or web address] Not available 2024 14:14:50 Medical History Condition Response Other Y Blood Transfusion N Dermatologic Disorders N Gestational Diabetes N Anxiety Disorder Y Autoimmune disease N Arthritis N Polyps N Infertility N Acid Reflux (GERD) Y Cancer N Varicosities N Stroke N Neurologic/Epilepsy [...] Eczema N Abuse/Domestic Violence N Depression/ depression Y Heart Disease N [...] Diagnosis SNOMED-CT Code Diagnosis ICD10 Code Diagnosis IMO Codes Diagnosis Note [id number] Becca Hernandez , [facility] [address] [address] 12/30/2022 12:18:03 12/30/2022 16:58:19 Secondary amenorrhea 604832196 N91.1 Today we discussed menses & amenorrhei [...] this plan of care. Rx sent with min herrera reviewed. Counseled on medication R/B's, Most common side effects, & use. All questions were answered to patient satisfacti on. Time spent in visit is a total of 30 mins with at least 50% of visit consisting of counseling and review of plan of care. Cyst of left ovary 91284 76244 7248227 N83.202 Left cyst vs paratubal cyst very smallLikel y not the source of pain that has been plaguing herMore concerned about lack of monthly cycles which we discussedP COS is suspected. Will see if recent cholestero l, hbga1c etc have been performed by PCP.If not will update those next visit. FSH/LH: 7.8/7.1Tot al T- 36 wnlEstroge n (e1): 413.2 [id number] Becca Hernandez [facility] [address],[place] [address] 01/11/2023 12:29:58 01/11/2023 13:32:02 Secondary amenorrhea 276096062 N91.1 Today we discussed trial of provera.Maida [...] counseling and review of plan of care. [id number] Diogo Bryan MD [place] [address] [address] 05/02/2023 16:04:08 05/02/2023 16:44:12 Pain in pelvis 47887780 R10.2 [id number] Becca Hernandez [facility] [address],[place] [address] 05/03/2023 14:32:39 05/03/2023 15:07:47 Secondary amenorrhea 660045336 N91.1 Today we discussed US.Left ovarian cyst [...] counseling and review of plan of care. [id number] Becca Hernandez [facility] [address],[place] [address] 06/30/2023 14:31:50 06/30/2023 14:54:46 Sexually transmitted infectious disease 3221155 A64 Today would like STD urine & serum labs.Will update on resultsRes chedule WWE visit. Time spent in visit is a total of 15 mins with at least 50% of visit consisting of counseling and review of plan of care. [id number] Becca Hernandez , [facility] [address],[place] [address] 07/07/2023 14:22:21 07/07/2023 14:48:02 Gynecologic examination 31672016 Z01.419 Take Calcium with Vitamin D 1200mg [...] c Screen discussedC olon Screen naDexa Screen naRlucile [facility] PCP [id number] Becca Hernandez [facility] [address],[place] [address] 08/09/2023 14:35:44 08/09/2023 15:26:55 Secondary amenorrhea 097982848 N91.1 Today we discussed switching from Provera [...] counseling and review of plan of care. [id number] Becca Hernandez [facility] [address],[place] [address] 11/01/2023 13:43:06 11/01/2023 15:07:32 Polycystic ovary syndrome 500063145 E28.2 Z68.44 Today we discussed PCOS and [...] Low HDL (good) cholestero l. Insulin resistance 71862 5000 E88.819 Will see if qualifies for injectable or something other than Metformin with her prominent Hx of peptic ulcer/Gall bladder and it likelihood of causing significan t GI issues or exacerbati on of these issues. [facility] ion care management 963923452 N91.1 Patient is here today for a [...] of plan of care. Hyperlipid emia screening 507424274 Z13.220 Update to check for high LDL/TG/Tot al/Low HDL [id number] MARCK Gonzales-[facility] [address] [address] 11/16/2023 15:55:38 11/22/2023 17:14:20 Insulin resistance 348248513 E88.819 Z68.44 E66.9 E88.810 E28.2 Will complete 0.75mg weekly x 4wks.Then, return to office for med check & if tolerating we increase to next dose. In depth mitochondrial disorders counselor on trulicity purpose, dosage, dosage schedule, [...] counseling and review of plan of care. [id number] Becca Hernandez [facility] [address] [address] 12/13/2023 15:42:18 12/13/2023 16:18:12 Prediabetes 181364030 R73.03 Z68.44 E88.810 E28.2 Z83.49 Patient is [...] and review of plan of care. Tachycardia 0014969 R00. [address] for random HBP/Palpit ations Contracept ion care management 965267375 N91.1 BCP switched to POP only vs CONNER due to verbalizat ion of heart palpitatio ns/HBP. Will f/u in 7wks at med check for trulicity. [id number] Becca Hernandez [facility] [address] [address] 01/24/2024 15:12:35 01/24/2024 16:03:45 Venereal disease screening 267187541 Z11.3 STD screen urine sent to confirm no std.Partne r recently treated for trich (female partner)Wi ll reach out with results. Time spent in visit is a total of 15 mins with at least 50% of visit consisting of counseling and review of plan of care. Contracept ion care management 580851320 N91.1 BCP switched to POP only vs CONNER due to verbalizat ion of heart palpitatio ns/HBP.Alon ples given x 6mosCall for additional samples if neededDoin g well. [id number] MARCK Donohue [place] [address] [address] 05/10/2024 15:49:03 05/10/2024 16:28:39 Abnormal uterine bleeding 9588518804 9100 N93.9 The patient and I discussed [...] of plan of care. Polycystic ovary syndrome 533475433 E28.2 [id number] Diogo Bryan MD [place] [address] [address] 05/15/2024 11:58:20 05/15/2024 12:31:15 Abnormal uterine bleeding 3591970964 9100 N93.9 [id number] Diogo Bryan MD [place] [address] [address] 05/18/2024 13:42:09 05/18/2024 14:52:30 Abnormal uterine bleeding 7060472494 9100 N93.9 this patient is a 23-year-ol [...] to proceed with laboratory evaluation Preoperative state 80943 002 Z78.9 [id number] Diogo Bryan MD [place] [address],[place] [address] 07/27/2024 11:03:55 07/27/2024 12:23:34 Contraception care management 285002631 Z30.9 23-year-ol d female who 1 week from a IUD insertion under anesthesia . Hysterosco py D and C was also performed. She tolerated well. She has no complaints . She will return later for IUD check. [id number] Diogo Bryan MD [place] [address],[place] [address] 08/15/2024 10:37:45 08/15/2024 11:14:49 Pain in pelvis 56842999 R10.2 [id number] Diogo Bryan MD [place] [address],[place] [address] 08/20/2024 10:28:22 08/20/2024 15:10:06 Insertion of intrauterine contraceptive device 47258752 Z30.430 IUD was removed replaced. She tolerated it well. To follow up in 1 month [id number] Diogo Bryan MD [place] [address],[place] [address] 08/29/2024 13:50:59 08/29/2024 15:00:33 Pain in pelvis 07075593 R10.2 23-year-ol d female. Patient has pain [...] sonia of the IUD Bacterial vaginosis 4197 32158 N76.0 [id number] Diogo Bryan MD [place] [address],[place] [address] 08/30/2024 16:35:42 08/30/2024 17:27:27 Mechanical complication of intrauterine contraceptive device 699016842 T83.39XA [id number] Diogo Bryan MD [place] [address],[place] [address] 09/24/2024 10:33:04 09/24/2024 11:22:24 Contraception care management 324654270 Z30.9 This patient is a 23 female who presents for IUD check. She had a mirena IUD inserted [facility] 1 month ago. She has no complaints . She denies any excessive bleeding or pain. She has had some cramping and some spotting. Otherwise, she feels that is going well and wants to continue her IUD. [id number] Diogo Bryan MD [place] [address] [address] 10/26/2024 13:56:29 10/29/2024 07:50:21 Tinea corporis 69570007 B35.4 [id number] Diogo Bryan MD [place] [address],[place] [address] 03/20/2025 14:14:47 03/20/2025 15:41:38 Pain in pelvis 72455103 R10.2 [id number] Presents for follow-up on ER visit. She [...] Guarantor Name 07/01/2023 1 *SELF PAY* Rossy roy Thais Matta 03/19/2025 1 [facility] (MEDICAID HMO) [id number] [facility] Thais Matta [id number] [place] Thais Matta Notes Date Note Type Note Provider Name and Address Organization Details Recorded Time 08/29/2024 text/html Beer - Abnormal BleedingReported by Patient 23-year-old female. Patient has pain after IUD insertion. [...] IUD Diogo Bryan MD [address], [place], [address], [facility] 08/29/2024 15:00:24 09/24/2024 text/html This [...] IUD. Diogo Bryan MD [address], [place], [address], [facility] 09/24/2024 11:20:29 10/26/2024 text/html 23-year-old female complains of skin changes on her pannus [...] instructions. Diogo Bryan MD [address], [place], [address], [facility] 10/27/2024 12:52:27 03/20/2025 text/html Presents for follow-up on ER visit. She had a cyst in the ER. She had pelvic pain. The cyst is small and simple. The pain has resolved. We agreed to observe. Diogo Bryan MD [address], [place], [address], [facility] 03/20/2025 15:37:34 OBGyn Episode No OBEpisode recorded.
--- OUTSIDE RECORDS SUMMARY | 2025-08-30 13:08 | XMS_ITS | Clinical Summary ---
Author Organization [facility] Address [address] [place] [address] Care Team Providers Care E Merchant Name Role Phone Ceci Astudillo TEXTILE CONVERSION MANAGER Primary Care Provider Allergies Active Allergy Reactions Criticality Noted Date Comments Morphine Hives Medium 12/08/2023 Bupropion Agitation Low 12/08/2023 Medications dicyclomine (BENTYL) 20 mg tablet Take 1 tablet (20 mg total) by mouth 3 (three) times a day Active Slynd tablet tablet TAKE 1 TABLET BY MOUTH WITH A MEAL EVERY DAY FOR 90 DAYS 01/24/[address] (PROTONIX) 40 mg EC tablet Take 1 tablet (40 mg total) by mouth 2 (two) times a day Active amitriptyline (ELAVIL) 25 mg tablet Take 1 tablet (25 mg total) by mouth nightly at bedtime Active busPIRone (BUSPAR) 7.5 mg tablet Take 1 tablet (7.5 mg total) by mouth 2 (two) times a day Active Jardiance 25 mg tablet Take 1 tablet (25 mg total) by mouth every morning 07/12/20 25 Active hyoscyamine (LEVSIN) 0.125 mg tablet Take 1 tablet (0.125 mg total) by mouth every 4 (four) hours as needed 07/31/20 25 Active LANTUS 100 unit/mL (3 mL) pen for injection Inject 15 Units under the skin Active losartan (COZAAR) 100 mg tablet Take 1 tablet (100 mg total) by mouth daily 07/09/20 25 Active metFORMIN XR (GLUCOPHAGE XR) 500 mg 24 hr tablet Take 2 tablets (1,000 mg total) by mouth daily with breakfast Active metoclopramide (REGLAN) 5 mg tablet Take 1 tablet (5 mg total) by mouth nightly at bedtime. Active metoprolol tartrate (LOPRESSOR) 25 mg immediate release tablet Take 1 tablet (25 mg total) by mouth 2 (two) times a day Active omeprazole (PriLOSEC) 40 mg capsule Take 1 capsule (40 mg total) by mouth 2 (two) times a day Active sertraline (ZOLOFT) 100 mg tablet Take 1 tablet (100 mg total) by mouth daily Active sertraline (ZOLOFT) 50 mg tablet Take 1 tablet (50 mg total) by mouth daily Active traZODone (DESYREL) 50 mg tablet Take 1 tablet (50 mg total) by mouth daily as needed Active sulfaSALAzine EN (AZULFIDINE EN) 500 mg EC tablet Take 1 tablet daily by mouth for 1 week, then take 1 tablet twice daily by mouth (am and pm) for 1 week, then take 2 tablets daily (am and pm) by mouth until next follow up. 120 tablet 08/07/20 25 Active amLODIPine (NORVASC) 5 mg tablet Take 1 tablet (5 mg total) by mouth daily 12/22/19 24 025 Discontinued amoxicillin-cl avulanate (AUGMENTIN) 875-125 mg per tablet Take 1 tablet by mouth every 12 (twelve) hours for 7 days 02/08/20 24 025 Discontinued escitalopram (LEXAPRO) 20 mg tablet Take 1 tablet (20 mg total) by mouth daily 01/12/20 24 025 Discontinued hydroCHLOROthi azide (HYDRODIURIL) 12.5 mg tablet Take 1 tablet (12.5 mg total) by mouth daily 02/09/20 24 025 Discontinued Active Problems Problem Noted Date Diagnosed Date Morbid obesity 02/10/2024 Palpitations 02/10/2024 Hypertension 02/10/2024 Obstructive sleep apnea 02/10/2024 Tobacco dependence 02/10/2024 Encounters Date Type Department Care Team Description 08/22/2025 Orders Only [facility] Medicine Rheumatology [address] [facility] [address] [place] [address] Suzanna Spear RMA Right shoulder pain, unspecified chronicity (Primary Dx) 08/22/2025 Results Follow-Up [facility] Medicine Rheumatology [address] [facility] 5[address] [place] [address] [place] [phone] Robyn Elmore NP US Shoulder Left Complete 08/19/2025 10:08 AM CDT - 08/19/2025 11:59 PM CDT Hospital Encounter [facility] Radiology [address] [place] [address] Polyarthralgia; Left shoulder pain, unspecified chronicity Discharge Disposition: Discharge to home or self care 08/13/2025 [facility] Rhe[facility] [address] [facility] 5[address] [place] [address] [place] [phone] Robyn Elmore NP Polyarthralgia (Primary Dx); Left shoulder pain, unspecified chronicity 08/12/2025 Telephone [facility] Medicine Ophthalmology [address] [place] [address] Ramses Torre MD New Patient Appointment Request 08/07/2025 Orders Only [facility] Rheumatology [address] [facility] [address] [place] [phone] Suzanna Spear RMA High risk medication use (Primary Dx) 08/02/2025 11:30 AM CDT Lab [facility] Medicine Endocrinology Metabolism and Lipid [address] [facility] [address] [place] [address] [place] [phone] Positive FANNIE (antinuclear antibody) 08/02/2025 11:23 AM CDT - 08/02/2025 11:59 PM CDT Hospital Encounter [facility] Radiology [facility] [address] [place] [address] Polyarthralgia Discharge Disposition: Discharge to home or self care 08/02/2025 11:17 AM CDT - 08/02/2025 11:59 PM CDT Hospital Encounter [address] [address] Polyarthralgia; Positive FANNIE (antinuclear antibody); Dry mouth and eyes Discharge Disposition: Discharge to home or self care 08/02/2025 10:00 AM CDT Office Visit [facility] Medicine Rheumatology [address] [facility] [address] [place] [address] [place] [phone] Robyn Elmore NP Polyarthralgia (Primary Dx); Positive FANNIE (antinuclear antibody); Dry mouth and eyes; Scleral injection from Last 3 Months Medical History Medical History Date Comments Hypertension [...] on file Legal Sex Female 1:41 PM [employer] Gender Identity Not on file Sexual Orientation Not on file Last Filed Vital Signs Vital Sign Reading Time Taken Comments Blood Pressure 125/85 08/02/2025 9:23 AM CDT Pulse 90 08/02/2025 9:23 AM CDT Temperature 36.6 C (97.9 F) 08/02/2025 9:23 AM CDT Respiratory Rate 20 04/27/2024 8:53 PM CDT Oxygen Saturation 94% 08/02/2025 9:23 AM CDT Inhaled Oxygen Concentration - - Weight 142.4 kg (314 lb) 08/02/2025 9:23 AM CDT Height 154.9 cm (5' 1) 08/02/2025 9:23 AM CDT Body Mass Index 59.33 08/02/2025 9:23 AM CDT Plan of Treatment Health Maintenance Due Date Last Done Comments Cervical Cancer Screening 2000 Depression Screening 2000 Hepatitis C Screening 2000 Regular Well Visit/Exam 18-64 2018 Influenza Vaccine (#1) 2025 09/28/2003 DTaP/Tdap/Td Vaccine (8 - Td or Tdap) 07/31/2035 07/31/2025, 05/24/2012, 08/26/2005, Additional history exists Hepatitis B Screening Completed 08/17/2001 , 2000, 2000 Pneumococcal vaccine <65 Completed 003, 05/17/2001, 03/15/2001, Additional history exists HPV Vaccines Completed 05/24/2012, 05/10/2011, 12/01/2011 Varicella Vaccines Completed 06/09/2015, 02/08/2002 Procedures Procedure Name Priority Date/Time Associated Diagnosis Comments US SHOULDER LEFT COMPLETE Schedule Routine, Read Routine (OP Routine) 08/19/2025 10:37 AM CDT Polyarthralgia Left shoulder pain, unspecified chronicity C3 COMPLEMENT Routine 08/02/2025 12:47 PM CDT Positive FANNIE (antinuclear antibody) C4 COMPLEMENT Routine 08/02/2025 12:47 PM CDT Positive FANNIE (antinuclear antibody) ANTI-DOUBLE STRANDED DNA ANTIBODIES Routine 08/02/2025 12:47 PM CDT Positive FANNIE (antinuclear antibody) CHANDA ANTIBODY EVALUATION WITH REFLEX Routine 08/02/2025 12:47 PM CDT Positive FANNIE (antinuclear antibody) Dry mouth and eyes URINALYSIS AND REFLEX TO MICROSCOPIC Routine 08/02/2025 12:47 PM CDT Positive FANNIE (antinuclear antibody) FANNIE QUALITATIVE WITH REFLEX TO FANNIE QUANTITATIVE Routine 08/02/2025 12:47 PM CDT Positive FANNIE (antinuclear antibody) PROTEIN / CREATININE RATIO, URINE, RANDOM Routine 08/02/2025 12:47 PM CDT Positive FANNIE (antinuclear antibody) CYCLIC CITRUL PEPTIDE ANTIBODY, IGG Routine 08/02/2025 12:47 PM CDT Polyarthralgia XR SHOULDER LEFT 2 OR MORE VIEWS Schedule Routine, Read Routine (OP Routine) 08/02/2025 11:55 AM CDT Polyarthralgia XR ANKLE LEFT 3 OR MORE VIEWS Routine 08/02/2025 11:55 AM CDT Polyarthralgia XR WRIST LEFT 3 OR MORE VIEWS Schedule Routine, Read Routine (OP Routine) 08/02/2025 11:55 AM CDT Polyarthralgia CRP (ACUTE PHASE) Routine 08/02/2025 11: 17 AM CDT Positive FANNIE (antinuclear antibody) ERYTHROCYTE SEDIMENTATION RATE Routine 08/02/2025 11:17 AM CDT Positive FANNIE (antinuclear antibody) COMPREHENSIVE METABOLIC PANEL Routine 08/02/2025 11:17 AM CDT Positive FANNIE (antinuclear antibody) CBC WITH AUTO DIFFERENTIAL Routine 08/02/2025 11:17 AM CDT Positive FANNIE (antinuclear antibody) from Last 3 Months Results * US Shoulder Left Complete (08/19/2025 10:37 AM CDT) Anatomical Region Laterality Modality Shoulder Left Ultrasound 08/19/2025 10:4 3 AM CDT Impressions 08/19/2025 10:43 AM CDT Significantly limited evaluation due to body habitus with likely intact rotator cuff. Electronically signed by: Dane Alaniz M.D. Narrative 08/19/2025 10:43 AM CDT EXAMINATION: US SHOULDER LEFT COMPLETE HISTORY: Polyarthralgia FINDINGS: Complete ultrasound of the left shoulder was performed. Examination is significantly limited due to body habitus and poor penetration of sound waves. Within these limitations, the biceps tendon is intact and located within the bicipital groove. There is no tendon sheath effusion. The subscapularis tendon appears intact. The supraspinatus and infraspinatus tendons also appear intact. There is no atrophy or fatty infiltration of the supraspinatus, infraspinatus or teres minor muscles. There is no significant subacromial/subdeltoid bursitis. There is no evidence of posterior joint fluid. Procedure Note Dane Alaniz MD - 08/19/2025 EXAMINATION: US SHOULDER LEFT COMPLETE HISTORY: Polyarthralgia FINDINGS: Complete ultrasound of the left shoulder was performed. Examination is significantly limited due to body habitus and poor penetration of sound waves. Within these limitations, the biceps tendon is intact and located within the bicipital groove. There is no tendon sheath effusion. The subscapularis tendon appears intact. The supraspinatus and infraspinatus tendons also appear intact. There is no atrophy or fatty infiltration of the supraspinatus, infraspinatus or teres minor muscles. There is no significant subacromial/subdeltoid bursitis. There is no evidence of posterior joint fluid. IMPRESSION: Significantly limited evaluation due to body habitus with likely intact rotator cuff. Electronically signed by: Dane Alaniz M.D. Robyn Elmore TEXTILE CONVERSION MANAGER IMG US PROCEDURES Fin al Result * (ABNORMAL) FANNIE ab ql w/rflx to FANNIE qn (08/02/2025 12:47 PM CDT) FANNIE Positive( A) Comment: Interpretive Data Normal range for FANNIE Qualitative Antibody = Negative. 1. FANNIE is performed using indirect immunofluorescence against HEp-2 cells 2. FANNIE titers are performed on all positive qualitative results. 3. A significantly positive FANNIE result is defined as a positive nuclear fluorescence at a titer of 1:80 or greater. 4. 15% of normal people above age 65 have significantly positive FANNIE results. 5% or less of normal people age 65 or under have significantly positive FANNIE results. Current interpretive data was last revised on 2020. FANNIE, quant 1:320 titer [facility] FANNIE, interp Homogeneo us(A) [facility] Blood 08/02/2025 12:4 7 PM CDT 08/02/2025 3:47 PM CDT us Robyn Elmore NP LAB BLOOD ORDERABLES Final Result [facility] [place] [address] * (ABNORMAL) Anti-double stranded DNA abs (08/02/2025 12:47 PM CDT) Pathologist [facility] dsDNA Ab 8.0(H) <=4.0 IUnits/mL Comment: Interpretive Data Negative: < or = 4 IUnits/mL Indeterminate: 5 - 9 IUnits/mL Positive: > or = 10 IUnits/mL Current interpretive data was last revised on 2017. Blood 08/02/2025 12:4 7 PM CDT 08/02/2025 3:47 PM CDT Robyn Elmore LAB BLOOD ORDERABLES Final Result Performing Organization Address City/[facility] Co de Phone Number [facility] Department [place] [address] * C4 complement (08/02/2025 12:47 PM CDT) [facility] Complement C4 17.0 10.0 - 40.0 mg/dL Blood 08/02/2025 12:4 7 PM CDT 08/02/2025 3:47 PM CDT [facility] BLOOD ORDERABLES Final Result Performing Organization Address City/[facility] Co de Phone Number [facility] [place] [address] * CHANDA ab eval w/reflex (08/02/2025 12:47 PM CDT) [facility] CHANDA ab Negative Negative Comment: Interpretive Data Positive Screens will be reflexed to specific testing for Antibodies against the following antigens: Danielle-1 Ab, [employer] Ab, Scl-70 Ab, Wen Ab, SS-A/Ro Ab, and SS- B/La Ab. Further testing for dsDNA, Centromere, or Ribosomal P antibodies is suggested in patient with a positive screen and negative specific antibodies. Current interpretive data was last revised on 2023. Blood 08/02/2025 12:4 7 PM CDT 08/02/2025 3:47 PM CDT Robyn Elmore TEXTILE CONVERSION MANAGER LAB BLOOD ORDERABLES Final Result [facility] Department [place] [address] * (ABNORMAL) Urinalysis reflex to microscopic (08/02/2025 12:47 PM CDT) Color, ur Yellow Yellow Clarity, ur Clear Clear [facility] Specific gravity, ur >1.042(H) 1.003 - 1.030 [facility] pH, urine 5.5 [facility] Comment: Interpretive Data U rine pH is affected by diet, medications, systemic acid-base disturbances, and renal tubular function. pH may affect urinary stone formation. For example, urine pH below 6.0 may help reduce the tendency for calcium phosphate stones and pH greater than 6.0 may reduce the tendency for uric acid stone formation. Source: [facility] Current Interpretive Data was last revised on 2017 Protein, ur ql Trace Negative [facility] Glucose, ur ql 4+(A) Negative [facility] Ketones, ur 1+(A) Negative [facility] Bilirubin, ur Negative Negative [facility] Blood, ur Negative Negative [facility] Urobilinogen, ur <2.0 <2.0 mg/dL [facility] Nitrite, ur Negative Negative [facility] Leukocyte esterase, ur Negative Negative [facility] UA reflex comment Reflex conditions for microscopic UA not met. [facility] Urine, clean voided 08/02/2025 12:47 PM CDT 08/02/2025 3:47 PM CDT Narrative [facility] - 08/02/2025 4:17 PM CDT Must be sterile please Robyn Elmore NP LAB URINE ORDERABLES Final Result Performing Organization Address City/[facility]/ZIP Co de Phone Number [facility] [place] [address] * Cyclic citrul peptide antibody, IgG (08/02/2025 12:47 PM CDT) Pathologist [facility] CCP Ab <0.5 <=2.9 units/mL Comment: Interpretive data Negative: <3 units/mL Positive: > or equal to 3 units/mL Current interpretive data was last revised on 2017. Blood 08/02/2025 12:4 7 PM CDT 08/02/2025 3:47 PM CDT [facility] Rashida [facility] TEXTILE CONVERSION MANAGER LAB BLOOD ORDERABLES Final Result Performing Organization Address [facility] de Phone Number [facility] Department [place] [address] * Protein / creatinine ratio, urine, random (08/02/2025 12:47 PM CDT) [facility] Protein, ur, quant 19.2 mg/dL Comment: Interpretive Data No reference range established. Current interpretive data was last revised 2019. Creatinine Ur 112.3 mg/dL [facility] Comment: Interpretive Data No reference range established. Current interpretive data was last revised 2019. Protein/creatinin e ratio 171.0 0.0 - 180.0 mg/g CR [facility] Urine 08/02/2025 12:4 7 PM CDT 08/02/2025 3:47 PM CDT [facility] TEXTILE CONVERSION MANAGER LAB URINE ORDERABLES Final Result Performing Organization Address [facility] Co de Phone Number [facility] Department [place] [address] * (ABNORMAL) C3 complement (08/02/2025 12:47 PM CDT) [facility] Complement C3 243.0(H) 90.0 - 180.0 mg/dL Blood 08/02/2025 12:4 7 PM CDT 08/02/2025 3:47 PM CDT us Robyn Elmore TEXTILE CONVERSION MANAGER LAB BLOOD ORDERABLES Final Result [facility] Department [place] [address] * XR Ankle Left 3 or More Views (08/02/2025 11:55 AM CDT) Anatomical Region Laterality Modality Lower Extremities, Ankle Left Compute d Radiography 08/02/2025 12:5 4 PM CDT Impressions 08/02/2025 12:54 PM CDT 1. No radiographic evidence of inflammatory arthritis involving the left shoulder, wrist, or ankle. Electronically signed by: Ellen Machuca MD Narrative 08/02/2025 12:54 PM CDT EXAMINATION: XR ANKLE LEFT 3 OR MORE VIEWS, XR WRIST LEFT 3 OR MORE VIEWS, XR SHOULDER LEFT 2 OR MORE VIEWS HISTORY: Inflammatory arthritis. FINDINGS: No comparison. Left shoulder: Acromioclavicular ankle humeral joint spaces are preserved. No acute fracture. No dislocation. No erosions. Left wrist: Negative ulnar variance. No acute fracture. Joint spaces preserved. No erosions. Soft tissues unremarkable. No dislocation. Left ankle: Talar dome is intact. No acute fracture. Joint spaces preserved. Prominent os trigonum. No erosions. Small Achilles enthesophyte. Procedure Note Ellen Machuca MD - 08/02/2025 EXAMINATION: XR ANKLE LEFT 3 OR MORE VIEWS, XR WRIST LEFT 3 OR MORE VIEWS, XR SHOULDER LEFT 2 OR MORE VIEWS HISTORY: Inflammatory arthritis. FINDINGS: No comparison. Left shoulder: Acromioclavicular ankle humeral joint spaces are preserved. No acute fracture. No dislocation. No erosions. Left wrist: Negative ulnar variance. No acute fracture. Joint spaces preserved. No erosions. Soft tissues unremarkable. No dislocation. Left ankle: Talar dome is intact. No acute fracture. Joint spaces preserved. Prominent os trigonum. No erosions. Small Achilles enthesophyte. IMPRESSION: 1. No radiographic evidence of inflammatory arthritis involving the left shoulder, wrist, or ankle. Electronically signed by: Ellen Machuca MD Robyn Elmore NP IM XR PROCEDURES Fin al Result * X-ray wrist left 3+ views (08/02/2025 11:55 AM CDT) Anatomical Region Laterality Modality Upper Extremities, Wrist Left Compute d Radiography 08/02/2025 12:5 4 PM CDT Impressions 08/02/2025 12:54 PM CDT 1. No radiographic evidence of inflammatory arthritis involving the left shoulder, wrist, or ankle. Electronically signed by: Ellen Machuca MD Narrative 08/02/2025 12:54 PM CDT EXAMINATION: XR ANKLE LEFT 3 OR MORE VIEWS, XR WRIST LEFT 3 OR MORE VIEWS, XR SHOULDER LEFT 2 OR MORE VIEWS HISTORY: Inflammatory arthritis. FINDINGS: No comparison. Left shoulder: Acromioclavicular ankle humeral joint spaces are preserved. No acute fracture. No dislocation. No erosions. Left wrist: Negative ulnar variance. No acute fracture. Joint spaces preserved. No erosions. Soft tissues unremarkable. No dislocation. Left ankle: Talar dome is intact. No acute fracture. Joint spaces preserved. Prominent os trigonum. No erosions. Small Achilles enthesophyte. Procedure Note Ellen Machuca MD - 08/02/2025 EXAMINATION: XR ANKLE LEFT 3 OR MORE VIEWS, XR WRIST LEFT 3 OR MORE VIEWS, XR SHOULDER LEFT 2 OR MORE VIEWS HISTORY: Inflammatory arthritis. FINDINGS: No comparison. Left shoulder: Acromioclavicular ankle humeral joint spaces are preserved. No acute fracture. No dislocation. No erosions. Left wrist: Negative ulnar variance. No acute fracture. Joint spaces preserved. No erosions. Soft tissues unremarkable. No dislocation. Left ankle: Talar dome is intact. No acute fracture. Joint spaces preserved. Prominent os trigonum. No erosions. Small Achilles enthesophyte. IMPRESSION: 1. No radiographic evidence of inflammatory arthritis involving the left shoulder, wrist, or ankle. Electronically signed by: Ellen Machuca MD Robyn Rashida Dostal TEXTILE CONVERSION MANAGER IMG XR PROCEDURES Fin al Result * XR Shoulder Left 2 or More Views (08/02/2025 11:55 AM CDT) Anatomical Region Laterality Modality Upper Extremities, Shoulder Left Comp uted Radiography 08/02/2025 12:5 4 PM CDT Impressions 08/02/2025 12:54 PM CDT 1. No radiographic evidence of inflammatory arthritis involving the left shoulder, wrist, or ankle. Electronically signed by: Ellen Machuca MD Narrative 08/02/2025 12:54 PM CDT EXAMINATION: XR ANKLE LEFT 3 OR MORE VIEWS, XR WRIST LEFT 3 OR MORE VIEWS, XR SHOULDER LEFT 2 OR MORE VIEWS HISTORY: Inflammatory arthritis. FINDINGS: No comparison. Left shoulder: Acromioclavicular ankle humeral joint spaces are preserved. No acute fracture. No dislocation. No erosions. Left wrist: Negative ulnar variance. No acute fracture. Joint spaces preserved. No erosions. Soft tissues unremarkable. No dislocation. Left ankle: Talar dome is intact. No acute fracture. Joint spaces preserved. Prominent os trigonum. No erosions. Small Achilles enthesophyte. Procedure Note Ellen Machuca MD - 08/02/2025 EXAMINATION: XR ANKLE LEFT 3 OR MORE VIEWS, XR WRIST LEFT 3 OR MORE VIEWS, XR SHOULDER LEFT 2 OR MORE VIEWS HISTORY: Inflammatory arthritis. FINDINGS: No comparison. Left shoulder: Acromioclavicular ankle humeral joint spaces are preserved. No acute fracture. No dislocation. No erosions. Left wrist: Negative ulnar variance. No acute fracture. Joint spaces preserved. No erosions. Soft tissues unremarkable. No dislocation. Left ankle: Talar dome is intact. No acute fracture. Joint spaces preserved. Prominent os trigonum. No erosions. Small Achilles enthesophyte. IMPRESSION: 1. No radiographic evidence of inflammatory arthritis involving the left shoulder, wrist, or ankle. Electronically signed by: Ellen Machuca MD Robyn Field Ramírze TEXTILE CONVERSION MANAGER IMG XR PROCEDURES Fin al Result * (ABNORMAL) CBC with auto differential (08/02/2025 11:17 AM CDT) White Blood Count 14.4(H) 3.6 - 11.2 K/uL [facility] RBC 5.54(H) 3.63 - 4.92 M/uL [facility] Hemoglobin 15.3 11.9 - 15.5 g/dL [facility] Hematocrit 46.4(H) 36.1 - 44.3 % [facility] MCV 83.7 80.0 - 97.6 fL [facility] MCH 27.5 26.7 - 33.7 pg [facility] MCHC 32.9 32.7 - 35.5 g/dL [facility] RBC Dist Width 13.9 12.3 - 17.0 % [facility] Platelet Count 314 140 - 440 K/uL [facility] MPV 8.8 6.8 - 10.4 fL [facility] Neutrophils % 67.6 38.7 - 74.5 % [facility] Lymphocyte % 24.8 20.0 - 54.3 % [facility] Monocytes % 5.0 4.3 - 13.5 % [facility] Eosinophils % 2.0 0.0 - 6.0 % [facility] Basophil % 0.6 0.0 - 3.0 % [facility] Absolute Neutrophil 9.7(H) 1.8 - 6.6 K/uL [facility] Absolute Lymphocyte 3.6(H) 0.8 - 3.3 K/uL [facility] Absolute Monocyte 0.7 0.2 - 1.2 K/uL [facility] Absolute Eosinophil 0.3 0.0 - 0.5 K/uL [facility] Absolute Basophil 0.1 0.0 - 0.2 K/uL [facility] Nucleated RBC % 0.0 0.0 - 0.4 /100 WBC [facility] Blood 08/02/2025 11:1 7 AM CDT 08/02/2025 12:32 PM CDT us Robyn Elmore TEXTILE CONVERSION MANAGER LAB BLOOD ORDERABLES Final Result [facility] * (ABNORMAL) Erythrocyte sedimentation rate (08/02/2025 11:17 AM CDT) Erythrocyte Sedimentation Rate 49(H) <20 mm/hr [facility] Blood 08/02/2025 11:1 7 AM CDT 08/02/2025 12:32 PM CDT [facility] TEXTILE CONVERSION MANAGER LAB BLOOD ORDERABLES Final Result Performing Organization Address City/[facility] Co de Phone Number [facility] * (ABNORMAL) CRP (acute phase) (08/02/2025 11:17 AM CDT) Pathologist [facility] C-Reactive Protein, Acute 23.9(H) <5.0 mg/L [facility] Blood 08/02/2025 11:1 7 AM CDT 08/02/2025 12:32 PM CDT [facility] TEXTILE CONVERSION MANAGER LAB BLOOD ORDERABLES Final Result Performing Organization Address [facility] de Phone Number [facility] * (ABNORMAL) Comprehensive metabolic panel (08/02/2025 11:17 AM CDT) Pathologist [facility] Total Protein 8.4 6.1 - 8.4 g/dL [facility] Albumin 4.3 3.5 - 5.2 g/dL [facility] Calcium 9.5 8.6 - 10.3 mg/dL [facility] BUN 15 7 - 23 mg/dL [facility] Total Bilirubin 0.97 0.20 - 1.40 mg/dL [facility] Alk Phos, Total 110 35 - 129 IU/L [facility] AST (SGOT) 39 11 - 47 IU/L [facility] ALT (SGPT) 52 6 - 53 IU/L [facility] Creatinine 0.63 0.60 - 1.10 mg/dL [facility] Sodium 134(L) 135 - 145 mmol/L [facility] Potassium 4.2 3.3 - 5.1 mmol/L [facility] Chloride 96 95 - 107 mmol/L [facility] CO2 Content 25 21 - 29 mmol/L [facility] Glucose 350(H) 64 - 99 mg/dL [facility] Comment: NONFASTING GLUCOSE RANGE = 64-199 mg/dL FASTING GLUCOSE 64 - 99 = NORMAL FASTING GLUCOSE 100 - 125 = IMPAIRED FASTING GLUCOSE FASTING GLUCOSE >=126 = PROVISIONAL DIAGNOSIS OF DIABETES eGFR >90.0 >60.0 mL/min/1.7 3 m2 [facility] Comment:eGFR is calculated b y the CKD-EPIcr() equation (2020). Blood 08/02/2025 11:1 7 AM CDT 08/02/2025 12:32 PM CDT Robyn Elmore TEXTILE CONVERSION MANAGER LAB BLOOD ORDERABLES Final Result [facility] from Last 3 Months Insurance [facility] Care Teams E Merchant Relationship Specialty Start Date End Date Ceci Astudillo NP [phone] [facility] [place] [address] PCP - General Nurse Practitioner 08/05/25
[2025-09-03 14:08] LABS: Pancreatic Elastase, Fecal 14 (>200)
[2025-09-04 07:09] LABS: Calprotectin, Fecal <5 ug/g (0-120)
== END 2025-08-30 13:02 | disposition home or self-care (01) ==
LOC: ANHLAB 13:02
PROVIDERS: Visit Provider Nurse Practitioner
DX: K58.0 Irritable bowel syndrome with diarrhea (principal)
CPT/HCPCS: 82653; 83993; 87507

== ENCOUNTER 2025-09-05 16:15 | Outpatient (CLI) | payer OTHER, SELFPAY ==
--- OUTSIDE RECORDS SUMMARY | 2025-09-05 16:19 | XMS_ITS | Data Portability ---
Author Organization [place] [facility] [place] [employer], Main Office Address [address] [place] [address] Care Team Providers Care Outreach Consultant Name Role Phone ALEX QUEZADA Primary Care Provider [phone] ALEX QUEZADA Referring Provider Assessment Encounter Date Assessment Date Assessment LastModified by Organization Details LastModified Time 06/11/2025 06/11/2025 This note is dictated and transcribed by [employer]. [employer] variances may occur. Despite proofreading, typographical errors may occur. Occasional wrong-word or 'grgsb-r-iryl' substitutions may have occurred due to the inherent limitations of voice recording. Read the chart carefully and recognize, using context, where substitutions have occurred. Not available 06/11/2025 15:29:10 08/01/2025 08/01/2025 This note is dictated and transcribed by [employer]. [employer] variances may occur. Despite proofreading, typographical errors may occur. Occasional wrong-word or 'lojsi-c-arwl' substitutions may have occurred due to the inherent limitations of voice recording. Read the chart carefully and recognize, using context, where substitutions have occurred. Not available 08/19/2025 10:11:29 09/05/2025 09/05/2025 This note is dictated and transcribed by [employer]. [employer] variances may occur. Despite proofreading, typographical errors may occur. Occasional wrong-word or 'sdjpk-w-lbvb' substitutions may have occurred due to the inherent limitations of voice recording. Read the chart carefully and recognize, using context, where substitutions have occurred. Not available 09/05/2025 15:12:15 Plan of Treatment Reminders Order Date Submit Date Provider Last Modified By Organization Details Last Modified Time Details Appointments Establish ed Patient 15 2024 02:00P M Rafiq Valdes DPM Not available Not available Not available Follow Up 15 2024 08:45A M RUDY Salcedo Not available Not available Not available Lab glycohemo globin, total, blood 2024 [facility] (Lab), [address] [place], [address], 07/31/2025 13:37:36 Referral endocrino logy referral - Please call patient to schedule an appointme nt. Thank you. 2024 [facility] - Endocr[facility]ology , [address], [address], [place], [address], 08/05/2025 09:55:18 physical therapist referral - Please call patient to schedule. 2024 [facility], [address], [place], [address], 09/02/2025 13:24:12 Procedures None recorded. Surgeries None recorded. Imaging US, ankle - PLEASE CALL PT TO SCHEDULE AN APPT...TH ANK YOU!!! [address] [facility], [address] [facility], [place], [address], 07/22/2025 18:45:55 Medication Orders None recorded. Patient TargetsNo targets recorded. Patient InstructionsNo instructions recorded. Reason for Referral Endocrinology Referral for W ell controlled type 2 diabetes mellitus Please call patient to schedule an appointment. Thank you. Referring Physician: Alex Quezada, Family Medicine, Encounter Date: 07/31/2025 Physical Therapist Referral for Chronic pain of left upper limb Please call patient to schedule. Referring Physician: Alex Quezada Family Medicine, Encounter Date: 07/31/2025 Results Created Date Observation Date Name Description Value Unit Range Abnormal Flag Note LastModifiedBy Organization Detail LastModifiedTime 07/22/2007/22/2025 US, ankle No observ ation record ed. [email or web address] [facility] [address] [place], [address], 07/23/2025 09:46:31 Result Notes None recorded. Problems Name Problem SNOMED Code Status Onset Date Resolution Date Notes Provider Name and Address Organization Details Recorded Time Chronic ankle pain 0860937735705 9 Active 2024 Rafiq Valdes DPM [address], [address], [place], [address], [employer] 5 15:27:57 Sprain of lateral ligament of ankle joint 326815567 Active 2024 Rafiq Valdes DPM [address], [address], [place], [address], [employer] 15:28:18 Peroneal tendinitis of left lower limb 6772033685548 07 Active 2024 Rafiq Valdes DPM [address], [address], [place], [address], [employer] 15:28:30 Morbid obesity 805322482 Active 2024 Rafiq Valdes DPM [address], [address], [place], [address], [employer] 15:29:53 Well controlled type 2 diabetes mellitus 250167812 Active 2024 RUDY Salcedo [address], [address], [place], [address], [employer] 5 10:37:20 Chronic pain of left upper limb 6400877843380 9103 Active 2024 RUDY Salcedo [address], [address], [place], [address], [employer] 10:39:08 Uncontrolle d type 2 diabetes mellitus 948841801 Active 2024 RUDY Salcedo [address] [facility], [facility] [address], [place], [address], [facility] [employer] [facility] [employer] 08:54:40 Problem Notes None recorded. Procedures Surgical History Date Name Laterality Status Provider Name and Address Organization Details Recorded Time 08/01/20 25 Plantar Fascia Injection Left Foot completed Rafiq Valdes DPM [address] [facility], [facility] [address], [place], [address], [employer] [facility] [employer] 08/19/2025 10:15:35 Cholecystectomy completed Taylor Bar [employer] [facility] [employer] 06/11/2025 15:07:20 Imaging Results None recorded. Procedure Notes None recorded. Medical Equipment None Reported. Allergies Allergen ID Allergen Name Allergen Category Reaction Reaction Severity Criticality Documentation Date Start Date Code Code System Note Provider Name and Address Organization Details Recorded Time 31286 morphine medicatio n Not available Not available Not available 06/11/2025 7052 RxNorm Taylor [place] null, [facility] [employer] 15:05:11 09960 Wellbutri n medicatio n Not available Not available Not available 07/31/2025 49587 RxNorm Shruti Gottlieb RN [facility], [facility] [employer] [facility] 09:27:48 Medications Name Sig Start Date Stop Date Status Note LastModified by Organization Details LastModified Time quetiapine 25 mg tablet TAKE 1 TABLET BY MOUTH EVERY DAY AT BEDTIME 07/31 completed Not Available Not Available Not Available clindamycin HCl 300 mg capsule TAKE 1 CAPSULE BY MOUTH EVERY 8 HOURS FOR 7 DAYS 07/28 completed Not Available Not Available Not Available trazodone 50 mg tablet TAKE 1 TABLET BY MOUTH EVERY DAY AT BEDTIME NEEDED FOR SLEEP active Not Available Not Available No t Available ibuprofen 800 mg tablet TAKE 1 TABLET BY MOUTH THREE TIMES DAILY NEEDED FOR PAIN 07/31 completed Not Available Not Available Not Available metronidazo le 0.75 % (37.5 mg/5 gram) vaginal gel INSERT 1 APPLICATO RFUL VAGINALLY EVERY DAY 10/08 /2025 completed Not Available Not Available Not Available sertraline 100 mg tablet TAKE 1 TABLET BY MOUTH DAILY active Not Available Not Available No t Available diphenoxyla te-atropine 2.5 mg-0.025 mg tablet TAKE 1 TABLET BY MOUTH THREE TIMES DAILY NEEDED FOR DIARRHEA active Not Available Not Available No t Available amlodipine 5 mg tablet TAKE 1 TABLET BY MOUTH DAILY 07/31 completed Not Available Not Available Not Available ciprofloxac in 500 mg tablet TAKE 1 TABLET BY MOUTH EVERY 12 HOURS 07/31 completed Not Available Not Available Not Available omeprazole 40 mg capsule,del ayed release TAKE 1 CAPSULE BY MOUTH TWICE DAILY active Not Available Not Available No t Available ondansetron 8 mg disintegrat ing tablet DISSOLVE 1 TABLET ON THE TONGUE 2 HOURS BEFORE PROCEDURE 07/31 completed Not Available Not Available Not Available oxycodone-a cetaminophe n 5 mg-325 mg tablet TAKE 2 TABLETS BY MOUTH 2 HOURS BEFORE THE PROCEDURE DIRECTED 07/31 completed Not Available Not Available Not Available hydrocortis one 2.5 % topical cream with perineal applicator APPLY RECTALLY TO THE AFFECTED AREA TWICE DAILY active Not Available Not Available No t Available alprazolam 0.5 mg tablet TAKE 1 TABLET BY MOUTH 2 HOURS BEFORE PROCEDURE 07/31 completed Not Available Not Available Not Available amitriptyli ne 25 mg tablet TAKE 1 TABLET BY MOUTH EVERY DAY AT BEDTIME active Not Available Not Available No t Available metoclopram yaron 5 mg tablet TAKE 1 TABLET BY MOUTH AT BEDTIME active Not Available Not Available No t Available dicyclomine 20 mg tablet TAKE 1 TABLET BY MOUTH THREE TIMES DAILY 07/31 completed Not Available Not Available Not Available phenazopyri dine 100 mg tablet TAKE 1 TABLET BY MOUTH THREE TIMES DAILY NEEDED FOR PAIN 07/31 completed Not Available Not Available Not Available cephalexin 500 mg capsule TAKE 1 CAPSULE BY MOUTH EVERY 8 HOURS 07/31 completed Not Available Not Available Not Available pantoprazol e 40 mg tablet,abdi yed release TAKE 1 TABLET BY MOUTH TWICE DAILY 07/31 completed Not Available Not Available Not Available hyoscyamine sulfate 0.125 mg tablet TAKE 1 TABLET BY MOUTH EVERY 6 HOURS FOR ABDOMINAL PAIN active Not Available Not Available No t Available progesteron e micronized 200 mg capsule TAKE 1 CAPSULE BY MOUTH EVERY DAY 07/31 completed Not Available Not Available Not Available buspirone 7.5 mg tablet TAKE 1 TABLET BY MOUTH TWICE DAILY 07/31 completed Not Available Not Available Not Available losartan 100 mg tablet TAKE 1 TABLET BY MOUTH DAILY 07/31 completed Not Available Not Available Not Available clotrimazol e 1 % topical cream APPLY TOPICALLY TO THE AFFECTED AND SURROUNDI NG AREAS TWICE DAILY IN THE MORNING AND IN THE EVENING 07/31 completed Not Available Not Available Not Available sertraline 50 mg tablet TAKE 1 TABLET BY MOUTH DAILY active Not Available Not Available No t Available colestipol 1 gram tablet TAKE 1 TABLET BY MOUTH TWICE DAILY 07/31 completed Not Available Not Available Not Available amoxicillin 875 mg-potassiu m clavulanate 125 mg tablet TAKE 1 TABLET BY MOUTH EVERY 12 HOURS FOR 10 DAYS 07/31 completed Not Available Not Available Not Available metoprolol tartrate 25 mg tablet TAKE 1 TABLET BY MOUTH TWICE DAILY active Not Available Not Available No t Available metformin ER 500 mg 24 hr tablet,exte nded release (gastric retention) Take 2 tablets twice a day by oral route. 07/31 completed Not Available Not Available Not Available hydrochloro thiazide 12.5 mg tablet TAKE 1 TABLET BY MOUTH EVERY MORNING 07/31 completed Not Available Not Available Not Available Lantus Solostar U-100 Insulin 100 unit/mL (3 mL) subcutaneou s pen INJECT 10 UNITS SUBCUTANE OUS EVERY EVENING active Not Available Not Available No t Available Lantus Solostar U-100 Insulin 10units every evening 07/31 completed Not Available Not Available Not Available liraglutide 0.6 mg/0.1 mL (18 mg/3 mL) subcutaneou s pen injector ADMINISTE R 0.6 MG UNDER THE SKIN DAILY FOR 2 WEEKS. INCREASE TO 1.2 MG DAILY active Not Available Not Available No t Available Jardiance 10 mg tablet TAKE 1 TABLET BY MOUTH EVERY MORNING 07/31 completed Not Available Not Available Not Available Jardiance 25 mg tablet TAKE 1 TABLET BY MOUTH EVERY MORNING active Not Available Not Available No t Available Trulicity 1.5 mg/0.5 mL subcutaneou s pen injector ADMINISTE R 1.5 MG UNDER THE SKIN WEEKLY 07/31 completed Not Available Not Available Not Available Trulicity 0.75 mg/0.5 mL subcutaneou s pen injector ADMINISTE R 0.75 MG UNDER THE SKIN WEEKLY 07/31 completed Not Available Not Available Not Available TRUEplus Pen Needle 32 gauge x 32 USE DIRECTED DAILY WITH INSULIN PEN active Not Available Not Available No t Available Mounjaro 2.5 mg/0.5 mL subcutaneou s pen injector Inject by subcutane ous route for 28 days. active Not Available Not Available No t Available Contour Plus Test Strip CHECK BLOOD SUGAR THREE TIMES DAILY DIRECTED active Not Available Not Available No t Available buspirone 7.5 mg capsule Take 1 capsule twice a day by oral route. 07/31 completed Not Available Not Available Not Available Vitals Date Recorded Oxygen saturation Oxygen saturation in Arterial blood by Pulse oximetry Body temperature Heart rate Systolic And Diastolic Provider Name and Address Organization Details Last Updated DateTime 99 % 99 % 97.7 [degF] 97 /min 129/97 mm[Hg] AICHA Arboleda [place] [employer] [facility] [employer] 15:06:11 Date Recorded Body height Body mass index (BMI) Body weight Provider Name and Address Organization Details Last Updated DateTime 06/11/2025 157.48 cm 59.4 kg/m2 594031.52 g Taylor [place] [employer] [facility] [employer] 06/11/2025 15:04:50 Date Recorded Body height Body mass index (BMI) Body weight Body temperature Heart rate Respiratory rate Oxygen saturation Oxygen saturation in Arterial blood by Pulse oximetry Pain severity - 0-10 verbal numeric rating [Score] - Reported Systolic And Diastolic Provider Name and Address Organization Details Last Updated DateTime 157.48 cm 57.5 kg/m2 797645. 75 g 97 [degF] 89 /min 20 /min 98 % 98 % 10 120/82 mm[Hg] Shruti Gottlieb RN [facility] [employer] [facility] 09:40:06 Date Recorded Body height Body mass index (BMI) Body weight Oxygen saturation Oxygen saturation in Arterial blood by Pulse oximetry Body temperature Heart rate Systolic And Diastolic Provider Name and Address Organization Details Last Updated DateTime 157.48 cm 57.4 kg/m2 528474 g 97 % 97 % 97.5 [degF] 108 /min 132/99 mm[Hg] AICHA Arboleda [facility] [employer] [facility] 15:25:52 Date Recorded Body height Body mass index (BMI) Body weight Heart rate Oxygen saturation Oxygen saturation in Arterial blood by Pulse oximetry Body temperature Systolic And Diastolic Provider Name and Address Organization Details Last Updated DateTime 157.48 cm 57.4 kg/m2 305514 g 94 /min 98 % 98 % 98.4 [degF] 131/95 mm[Hg] AICAH Arboleda [place] [employer] [facility] [employer] [facility] 14:58:13 Social History Question Answer Notes LastModified by Organizat ion Details LastModified Time Tobacco Smoking Status Former Smoker Shruti Gottlieb RN [facility], [facility] [employer] [facility] 07/31/2025 09:43:05 Do You Have An Advance Directive? No Information not available 07/31/2025 What Is Your Level Of Caffeine Consumption? Occasional Information not available 06/11/2025 In The 14 Days Before Symptom Onset, Have You Had Close Contact With A Laboratory-confi rmed COVID-19 While That Case Was Ill? No Information not available 07/31/2025 In The 14 Days Before Symptom Onset, Have You Had Close Contact With A Person Who Is Under Investigation For COVID-19 While That Person Was Ill? No Information not available 07/31/2025 What Type Of Diet Are You Following? REGULAR Information not available 07/31/2025 Which Illicit Or Recreational Drugs Have You Used? [place] Information not available 07/31/2025 Have There Been Any Changes To Your Family Or Social Situation? No Information not available 07/31/2025 When Did You Quit Smoking? 11-15yearssincelas tcigarette Information not available 07/31/2025 Do You Use Insect Repellent Routinely? No Information not available 07/31/2025 Where [facility] You Live? [facility] Information not available 07/31/2025 Do You Have A Medical Power Of [place] Heavy Equipment Mechanic? No Information not available 07/31/2025 What Was The Date Of Your Most Recent Tobacco Screening? 09/05/2025 [email or web address] Information not available 09/05/2025 How Many Children Do You Have? 0 Information not available 07/31/2025 Do You Have Any Pets? Yes Information not available 07/31/2025 What Is Your Relationship Status? Single Engaged Information not available 07/31/2025 Do You Use Your Seat Belt Or Car Seat Routinely? Yes Information not available 07/31/2025 Do You Have Smoke And Carbon Monoxide Detectors In Your Home? Yes Information not available 07/31/2025 At What Age Did You Start Smoking Tobacco? 13 Information not available 07/31/2025 Are You Passively Exposed To Smoke? Yes Information not available 07/31/2025 Are There Any Smokers In Your House? Yes Information not available 07/31/2025 How Much Tobacco Do You Smoke? 1 PPW Information not available 07/31/2025 Do You Participate In Social Media? Yes Information not available 07/31/2025 What Types Of Sporting Activities Do You Participate In? Walk Information not available 07/31/2025 Do You Use Sunscreen Routinely? No Information not available 07/31/2025 Has Tobacco Cessation Counseling Been Provided? No Information not available 06/11/2025 How Many Years Have You Smoked Tobacco? 2 Information not available 07/31/2025 Have You Recently Traveled Abroad? No Information not available 07/31/2025 How Many Years Have You Used Smokeless Tobacco? 2 Information not available 07/31/2025 Sex: Unknown Functional Status Question Answer Note LastModified by Organizat ion Details LastModified Time Do you use any illicit or recreational drugs? Yes Information not available 07/31/2025 Do you or have you ever used any other forms of tobacco or nicotine? Yes Information not available 07/31/2025 What is your level of alcohol consumption? Occasional Information not available 07/31/2025 Do you or have you ever used smokeless tobacco? 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 Never used electronic cigarettes Information not available 07/31/2025 Mental Status Question Answer Note LastModified by Organization D etails LastModified Time Do you feel stressed (tense, restless, nervous, or anxious, or unable to sleep at night)? [id number] Information not available 07/31/2025 Family History Relationship Description Onset Age of this Age Resolved Age Notes LastModified by Organization Details LastModified Time Father Diabetes mellitus Not available 2024 09:26:45 Father Hypertensive disorder Not available 2024 09:26:45 Father Heart disease Not available 2024 09:26:45 Mother Arthritis Not availa ble 09/05/2025 14:50:36 Mother Malignant neoplastic disease [email or web address] Not available 09/05 14:50:36 Maternal Grandmother Malignant neoplastic disease Not available 09/05 14:50:36 Medical History Condition Response DIABETES, TYPE Y ALLERGIES/HAYFEVER Y OTHER # 1 Y HEART ARRHYTHMIA INSOMNIA Y HEARTBURN / REFLUX Y HYPERTENSION Y Other # 2 Y CARDIAC ARRHYTHMIA Y OBESITY Y ANXIETY DISORDER Y URINARY/BLADDER/KIDNEY PROBLEMS Y DEPRESSION (INCLUDING POST ) Y BOWEL PROBLEMS Y PAIN Y Gynecological History Statement/Question Response Current Control Method IUD Obstetrics History GPAL:G 0 P 0 0 0 0 Immunizations Vaccine Type Date Status Note Provider Nam e and Address Organization Details Recorded Time Tdap 07/31/2025 completed Shruti Gottlieb RN [facility], [place] [facility] [employer] [facility] 07/31/2025 14:20:45 Past Encounters Encounter ID Performer Location Encounter Start Date Encounter Closed Date Diagnosis/Indication Diagnosis SNOMED-CT Code Diagnosis ICD10 Code Diagnosis IMO Codes Diagnosis Note [id number] Rafiq Valdes DPM [facility] [place] [address] [address] 06/11/2025 14:54:45 06/12/2025 16:35:28 Chronic ankle pain 7190856150 9109 M25.572 G89.29 42264090 left ankle xrays 01/2025-- reviewed neg for acute ankle injuryas below Sprain of lateral ligament of ankle joint 819155894 S93.409A 56436419 obtain ultrasound rule out ligament tearrice therapyno strenuous activityre commend supportive shoe gearfollow -up testing Peroneal t endinitis of left lower limb 7058142223 26553 M76.72 0072185 obtain ultrasound rule out tendon tear versus tendinitis rice therapyrec ommend supportive shoe gearfollow -up testing Morbid obesity 706842497 E66.01 38785 recommend weight loss [id number] Jony Stoner MD [facility] [address] 07/31/2025 09:21:20 07/31/2025 11:13:35 Well controlled type 2 diabetes mellitus 716841701 E11.9 606371 [employer] sample given in officeCurr ently taking lantus Chronic pa in of left upper limb 7587066976 4573312 M25.512 G89.29 193914 Per pt, weakness and inability to support herself with this arm. Administra tion of tetanus vaccine 700754809 Z23 Physical examination 588 0005 Z00.00 454380 [facility] is [facility] sc[facility] diet and exercisePa tient questions answered [id number] Rafiq Valdes DPM [facility] [place] [address] [place] [address] 08/01/2025 15:09:32 08/20/2025 13:49:46 Chronic ankle pain 6558766003 9109 M25.572 G89.29 82733707 left ankle xrays 01/2025-- reviewed neg for acute ankle injuryUltr asound negative Sprain of lateral ligament of ankle joint 974336780 S93.409A 60927868 rice therapyno strenuous activityre commend supportive shoe gearcontin ue at home range of motion stretching Rx physical therapy- by sushma for shoulder Peroneal t endinitis of left lower limb 1821078712 12606 M76.72 3462540 obtain ultrasound rule out tendon tear versus tendinitis rice therapyinj ection today along peroneal tendons leftrecomm end supportive shoe gearfollow -up one month Morbid obesity 579114105 E66.01 30012 recommend weight loss [id number] Rafiq Valdes DPM [facility] [place] [address] [place] [address] 09/05/2025 14:49:19 09/05/2025 15:13:46 Chronic ankle pain 2783428048 9109 M25.572 G89.29 93336347 left ankle xrays 01/2025-- reviewed neg for acute ankle injuryUltr asound negativepa in resolved Sprain of lateral ligament of ankle joint 547920144 S93.409A 61512143 Resolved paincontin ue at-home physical therapysof t ankle brace if walking on unstable terrainric e therapy as neededreco mmend supportive shoe gear at all timesfollo w-up as needed Peroneal t endinitis of left lower limb 0464328074 88350 M76.72 5313013 resolved Morbid obesity 187981629 E66.01 38902 recommend weight loss Health Concerns Section Related Observation LastModified by Organization Detai ls LastModified Time None Recorded Concern Status LastModified by Organization Details LastModified Time None Recorded Advance Directives Directive N: Payers Insurance Date Sequence Insurance Name Policy Number Policy Leija Covered Member ID Leija Member ID Guarantor Name 09/05/2025 1 [facility] (MEDICAID HMO) [id number] Mac Matta [id number] Esme Matta Notes Date Note Type Note Provider Name and Address Organization Details Recorded Time 06/11/2025 text/html . Patient is a 24-year-old female she presents to the office with complaints of pain to her left ankle. Patient states that several months ago she injured her left ankle when she walked into a freezer and sprained her left ankle. Patient states since that time she has had swelling and pain about the lateral ankle she expresses pain along the peroneal tendons at the fibular notch as well as pain at the ATFL area. Patient states that when she is at rest it does feel better. Patient denies any other complaints. Rafiq Valdes DPM [address], [address], [place], [address], [employer] 06/11/2025 15:34:43 07/31/2025 text/html Kristian Matta is a 24 year old female patient here today to establish care. She has a past medical history of diabetes. She is a type 2 diabetic, she has an appointment with endocrinology in November but she would like a different provider for this.She is currently taking lantusShe did take trulicity but states this tore up her stomach lining. She is followed by rheumatology. She states they suspect she has lupus. She has IBS-D, she is seeing GI. She is currently taking amitriptyline, hyoscyamine, metoclopramide, omeprazole She has a history of anxiety and depression. She is not currently taking any medication for this.She does take trazodone for insomnia. 5-6 months ago she developed pain in the left shoulder and wrist with numbness and tingling in the left hand. She has weakness and loss of function of this whole arm. She states she needs assistance with ADLs due to this. Has had many benign XRs. She has sleep apnea. She is non complaint with CPAP She does have some SOB on exertion. Had an allergic reaction to an unknown inhaler. Flu shot: declinesCOVID vaccines: x3tdap: 07/31/25PAP: 2023 RUDY Salcedo [address], [place], [address], [employer] 07/31/2025 11:26:23 08/01/2025 text/html . Patient is a 24-year-old female who returns the office for follow-up on ultrasound. Patient had a ankle ultrasound which was negative for any acute findings. Patient states she is still having discomfort along the peroneal tendons. Patient states is mostly when she is walking. Patient denies any other complaints. Rafiq Valdes DPM [address], [place], [address], [employer] 08/19/2025 10:15:59 09/05/2025 text/html . Patient is a 24-year-old female who returns the office for follow-up on lateral ankle sprain and peroneal tendinitis of the left lower extremity overall she is doing well she underwent a injection and states that she is currently pain-free she has been walking without any difficulty. Patient states she walked a mi yesterday and had no issues she states that she has not had any more complaints. Rafiq Valdes DPM [address] [facility], [facility] [address], [place], [address], [place] - [facility] [employer] 09/05/2025 15:13:45 OBGyn Episode No OBEpisode recorded.
--- OUTSIDE RECORDS SUMMARY | 2025-09-05 16:19 | XMS_ITS | Clinical Summary ---
Author Organization [facility] Address [facility] [place] [address] Care Team Providers Care Block Hand Name Role Phone Cleveland Barahona MD Primary Care Provider [phone] Allergies Active Allergy Reactions Criticality Noted Date [...] Encounters Date Type Department Care Team Description 07/22/2025 12:58 PM CDT - 07/22/2025 11:59 PM CDT Hospital Encounter [facility] [address] [address] Robert Estrada, DPM Discharge Disposition: Home or Self Care (Routine Discharge) 07/22/2025 Travel from Last 3 Months Family History Medical History Relation Comments Diabetes [...] Comments Blood Pressure 158/103 10/27/2023 3:45 PM [employer] Pulse 73 10/27/2023 3:45 PM [employer] Temperature 36.6 C (97.9 F) 10/27/2023 2:18 PM [employer] Respiratory Rate 20 10/27/2023 3:45 PM [employer] Oxygen Saturation 98% 10/27/2023 3:45 PM [employer] Inhaled Oxygen Concentration - - Weight 147.8 kg (325 lb 13.4 oz) 10/27/2023 2:18 PM [employer] Height 154.9 cm (5' 1) 10/27/2023 2:18 PM [employer] Body Mass Index 61.57 10/27/2023 2:18 PM [employer] Plan of Treatment Health Maintenance Due Date Last Done Comments Annual Physical 2003 Hepatitis A Vaccines (2 of 2 - 2-dose series) 12/10/2015 06/09/2015 Hepatitis C 2018 DTaP, Tdap and Td Vaccines (7 - Td or Tdap) 05/24/2022 05/24/2012, 08/26/2005, 04/15/2003, Additional history exists Chlamydia Screening Females ages 16-24 07/07/2024 07/07/2023 COVID-19 Vaccine ( season) 2025 12/22/2021, 10/21/2021, 04/08/2021, Additional history exists Influenza Adult (#1) 2025 09/28/2003 Cervical Cancer Screening Pap Smear (Age [...] complete this topic HPV Vaccines Completed 05/24/2012, 0510/2011, 12/01/2011 Meningococcal Vaccine Completed 05/31/2018, 012 Meningococcal B Vaccine Aged Out No l onger eligible based on patient's age to complete this topic RSV Immunizations Under 20 Months Aged Out No longer eligible based on patient's age to complete this topic Procedures Procedure Name Priority Date/Time Associated Diagnosis Comments US LOW EXT NONVASC COMP LT Routine 07/22/2025 1:51 PM CDT Pain in left ankle and joints of left foot Other chronic pain from Last 3 Months Results * US LOW EXT NONVASC COMP LT (07/22/2025 1:51 PM CDT) Anatomical Region Laterality Modality Extremity Ultrasound 07/22/2025 5:28 PM CDT Impressions 07/22/2025 5:39 PM CDT =====IMPRESSION:===== 1. Unremarkable lateral ankle ligaments and peroneal tendons. 2. Minimal distal Achilles tendinosis. Ordered By: ROBERT ESTRADA Interpreted By: Geraldo Barker MD, 07/22/2025 5:28 PM Narrative 07/22/2025 5:39 PM CDT [address] [address] Exam date/time: 07/22/2025 1:17 PM Examination: Left ankle ultrasound Reason For Exam: Left lateral ankle pain. Intermittent pain since injury a few years ago. Comparison: Prior ankle radiographs 08/16/2022 Findings: Targeted ultrasound was performed in the areas requested, lateral ankle ligaments and tendons. Additional scanning of the Achilles due to patient indicating pain further posterior. In the lateral ankle, the peroneus longus and brevis tendons are intact. No significant tendinosis or discrete tear. No tendon sheath effusion. The anterior tibiofibular, anterior talofibular and calcaneofibular ligaments are well visualized and sonographically intact. Posteriorly, there is slight thickening and signal inhomogeneity of the distal Achilles tendon suggesting at least very mild tendinosis. Associated tiny enthesophytes of the posterior calcaneus. No discrete tear or bursal effusion. Procedure Note Geraldo Barker MD - 07/22/[address] [address] Exam date/time: 07/22/2025 1:17 PM Examination: Left ankle ultrasound Reason For Exam: Left lateral ankle pain. Intermittent pain since injurya few years ago. Comparison: Prior ankle radiographs 08/16/2022 Findings: Targeted ultrasound was performed in the areas requested,lateral ankle ligaments and tendons. Additional scanning of the Achillesdue to patient indicating pain further posterior. In the lateral ankle,the peroneus longus and brevis tendons are intact. No significanttendinosis or discrete tear. No tendon sheath effusion. The anteriortibiofibular, anterior talofibular and calcaneofibular ligaments are wellvisualized and sonographically intact. Posteriorly, there is slightthickening and signal inhomogeneity of the distal Achilles tendonsuggesting at least very mild tendinosis. Associated tiny enthesophytes ofthe posterior calcaneus. No discrete tear or bursal effusion. =====IMPRESSION:===== 1. Unremarkable lateral ankle ligaments and peroneal tendons. 2. Minimal distal Achilles tendinosis. Ordered By: ROBERT ESTRADA Interpreted By: Geraldo Barker MD, 07/22/2025 5:28 PM us Robert Estrada DPM ULTRASOUND Final Resul t from Last 3 Months Insurance [employer] Care Teams Block Hand Relationship Specialty Start Date End Date Cleveland Barahona MD [address] [place] [phone] PCP - General INTERNAL MEDICINE 02/18/22
--- OUTSIDE RECORDS SUMMARY | 2025-09-05 16:19 | XMS_ITS | Clinical Summary ---
Author Organization [facility] Address [address] [facility] [address] [address] Phone Care Team Providers Care Display Manager Name Role Phone Unavailable Primary Care Provider [...] st Contact Info) Description 11/20/2025 1:15 PM [employer] SPECIALIST Office Visit [facility] Oncology and Hematology - [place] [address] [place] [address] Felipe Joyner MD [address] [facility] [address] [place] [address] Health Maintenance Due Date Last Done Comments HPV VACCINES (1 - 3-dose series) 2015 DTAP/TDAP/TD VACCINES (1 - Tdap) 2019 HEPATITIS B VACCINES (1 of 3 - 19+ 3-dose series) 10/24 CERVICAL CANCER SCREENING 2021 HPV/Cotest (21-29) 2021 PAP SMEAR 2021 INFLUENZA VACCINE (#1) 2025 Insurance [employer] [address] [place] [employer] [place] Advance Directives For more information, please contact: [phone] * Full Code (Latest Code Status on File) Date Activated Date Inactivated Comments 06/08/2024 6:25 AM 06/08/2024 11:33 AM
--- OUTSIDE RECORDS SUMMARY | 2025-09-05 16:19 | XMS_ITS | Continuity of Care Document ---
Author Organization [facility], [facility] Podiatry Courtney Harris Address [address] [place] [address] Care Team Providers Care Director Digital Marketing Name Role Phone ALEX QUEZADA Primary Care Provider ALEX QUEZADA Referring Provider Assessment Encounter Date Assessment Date Assessment LastModified by Organization Details LastModified Time 09/05/2025 09/05/2025 This note is dictated and transcribed by [employer]. Telephone Claims Representative variances may occur. Despite proofreading, typographical errors may occur. Occasional wrong-word or 'moogn-y-efru' substitutions may have occurred due to the inherent limitations of voice recording. Read the chart carefully and recognize, using context, where substitutions have occurred. [email or web address] Not available 09/05/2025 15:12:15 Plan of Treatment Reminders Order Date Submit Date Provider Last Modified By Organization Details Last Modified Time Details Appointments Establish ed Patient 15 2024 02:00P Katja Valdes DPM Not available Not available Not available Follow Up 15 2024 08:45A RUDY Wells Not available Not available Not available Lab None recorded. Referral None recorded. Procedures None recorded. Surgeries None recorded. Imaging None recorded. Medication Orders None recorded. Patient TargetsNo targets recorded. Patient InstructionsNo instructions recorded. Reason for Referral None Reported. Problems Name Problem SNOMED Code Status Onset Date Resolution Date Notes Provider Name and Address Organization Details Recorded Time Chronic ankle pain 1174686540655 9 Active 2024 Rafiq Valdes DPM [address] [facility], [facility] [address], [place], [address], [employer] 15:27:57 Sprain of lateral ligament of ankle joint 837524593 Active 2024 Rafiq Valdes DPM [address], [address], [place], [address], [employer] 15:28:18 Peroneal tendinitis of left lower limb 6194597203807 07 Active 2024 Rafiq Valdes DPM [address], [address], [place], [address], [employer] 15:28:30 Morbid obesity 274745693 Active 2024 Rafiq Valdes DPM [address], [address], [place], [address], [employer] 15:29:53 Well controlled type 2 diabetes mellitus 376944763 Active 2024 RUDY Salcedo [address], [address], [place], [address], [employer] 10:37:20 Chronic pain of left upper limb 0633398939150 9103 Active 2024 RUDY Salcedo [address], [address], [place], [address], [employer] 10:39:08 Uncontrolle d type 2 diabetes mellitus 961679404 Active 2024 RUDY Salcedo [address], [address], [place], [address], [employer] 08:54:40 Problem Notes None recorded. Procedures Surgical History Date Name Laterality Status Provider Name and Address Organization Details Recorded Time 08/01/20 25 Plantar Fascia Injection Left Foot completed Rafiq Valdes DPM [address], [place], [address], [employer] 08/19/2025 10:15:35 Cholecystectomy completed Taylor Bar [facility] 06/11/2025 15:07:20 Imaging Results None recorded. Procedure Notes None recorded. Medical Equipment None Reported. Allergies Allergen ID Allergen Name Allergen Category Reaction Reaction Severity Criticality Documentation Date Start Date Code Code System Note Provider Name and Address Organization Details Recorded Time 97189 morphine medicatio n Not available Not available Not available 06/11/2025 7052 RxNorm Taylor Bar null, [facility] 15:05:11 76630 Wellbutri n medicatio n Not available Not available Not available 07/31/2025 46686 RxNorm CAMRYN Mistry, [facility] 09:27:48 Medications Name Sig Start Date Stop [...] INSERT 1 APPLICATO RFUL VAGINALLY EVERY DAY 07/31 completed Not Available Not [...] Available TRUEplus Pen Needle 32 gauge x 5/32 USE DIRECTED DAILY WITH INSULIN PEN active [...] Last Updated DateTime 157.48 cm 57.4 kg/m2 354677 g 94 /min 98 % 98 % 98.4 [degF] 131/95 mm[Hg] AICHA Arboleda [employer] 14:58:13 Social History Question Answer Notes LastModified by Organizat ion Details LastModified Time Tobacco Smoking Status Former Smoker Shruti Gottlieb RN [facility], [employer] 07/31/2025 09:43:05 Do You Have An Advance [...] Illicit Or Recreational Drugs Have You Used? [place] Information not available 07/31/2025 Have There Been Any Changes To Your Family Or Social Situation? No Information not available 07/31/2025 When Did You Quit Smoking? 11-15yearssincelas tcigarette Information not available 07/31/2025 Do You Use Insect Repellent Routinely? No Information not available 07/31/2025 Where [facility] You Live? [facility] Information not available 07/31/2025 Do You Have A Medical Power Of Human Resources Benefits Administrator? No Information not available 07/31/2025 What Was The Date Of Your Most Recent Tobacco Screening? 09/05/2025 [email or web address] Information not available 09/05/2025 How Many Children [...] anxious, or unable to sleep at night)? [id number] Information not available 07/31/2025 Family History Relationship Description Onset Age of this Age Resolved Age Notes LastModified by Organization Details LastModified Time Father Diabetes mellitus Not available 2024 09:26:45 Father Hypertensive disorder Not available 2024 09:26:45 Father Heart disease Not available 2024 09:26:45 Mother Arthritis [email or web address] Not availa ble 09/05/2025 14:50:36 Mother Malignant neoplastic disease [email or web address] Not available 09/05 14:50:36 Maternal Grandmother Malignant neoplastic disease [email or web address] Not available 09/05 14:50:36 Medical History Condition Response ALLERGIES/HAYFEVER Y OTHER # 1 Y HEART ARRHYTHMIA INSOMNIA Y Other # 2 Y BOWEL PROBLEMS Y DEPRESSION (INCLUDING POST ) Y OBESITY Y URINARY/BLADDER/KIDNEY PROBLEMS Y DIABETES, TYPE Y HEARTBURN / REFLUX Y PAIN Y HYPERTENSION Y CARDIAC ARRHYTHMIA Y ANXIETY DISORDER Y Gynecological History Statement/Question Response Current Control Method IUD Obstetrics History GPAL:G 0 P 0 0 0 0 Immunizations Vaccine Type Date Status Note Provider Nam e and Address Organization Details Recorded Time Tdap 07/31/2025 completed Shruti Gottlieb RN null, [place] [facility] 07/31/2025 14:20:45 Past Encounters Encounter ID Performer Location Encounter Start Date Encounter Closed Date Diagnosis/Indication Diagnosis SNOMED-CT Code Diagnosis ICD10 Code Diagnosis IMO Codes Diagnosis Note [id number] Rafiq Valdes DPM [facility] Podiatry Courtney Harris [address] [place] [address] 09/05/2025 14:49:19 09/05/2025 15:13:46 Chronic ankle pain 3582855215 9109 M25.572 G89.29 [id number] left ankle xrays 01/2025-- reviewed neg for acute ankle injuryUltr asound negativepa in resolved Sprain of lateral ligament of ankle joint 780416853 S93.409A 92731121 Resolved paincontin ue at-home physical therapysof t ankle brace if walking on unstable terrainric e therapy as neededreco mmend supportive shoe gear at all timesfollo w-up as needed Peroneal t endinitis of left lower limb 4595634542 42203 M76.72 4268437 resolved Morbid obesity 556534640 E66.01 16221 recommend weight loss Health Concerns Section Related Observation LastModified by Organization Detai ls LastModified Time None Recorded Concern Status LastModified by Organization Details LastModified Time None Recorded Payers Encounter Date Sequence Insurance Name Policy Number Policy Leija Covered Member ID Leija Member ID Guarantor Name 09/05/2025 1 [facility] (MEDICAID HMO) [id number] [facility] Thais Matta [id number] [place] Thais Matta Notes Date Note Type Note Provider Name and Address Organization Details Recorded Time 09/05/2025 text/html . Patient is a 24-year-old [...] has not had any more complaints. Rafiq Valdes, MAN [address] [facility], [facility] [address], [place], [address], [facility] [employer] [facility] 09/05/2025 15:13:45 OBGyn Episode No OBEpisode recorded.
--- OUTSIDE RECORDS SUMMARY | 2025-09-05 16:19 | XMS_ITS | Clinical Summary ---
Author Organization [facility] Address [address] [place] [address] Care Team Providers Care Network Systems Consultant Name Role Phone Ceci Astudillo BUTTERMAKER CONTINUOUS CHURN Primary Care Provider Allergies Active Allergy Reactions Criticality Noted Date Comments Morphine Hives Medium 12/08/2023 Bupropion Agitation Low 12/08/2023 Medications dicyclomine (BENTYL) 20 mg tablet Take 1 tablet (20 mg total) by mouth 3 (three) times a day Active Slynd tablet tablet TAKE 1 TABLET BY MOUTH WITH A MEAL EVERY DAY FOR 90 DAYS [address] (PROTONIX) 40 mg EC [...] (25 mg total) by mouth every morning 5 Active hyoscyamine (LEVSIN) 0.125 mg tablet Take 1 tablet (0.125 mg total) by mouth every 4 (four) hours as needed 5 Active LANTUS 100 unit/mL (3 mL) pen for injection Inject 15 Units under the skin Active losartan (COZAAR) 100 mg tablet Take 1 tablet (100 mg total) by mouth daily 5 Active metFORMIN XR (GLUCOPHAGE XR) 500 mg [...] mouth until next follow up. 120 tablet Active Active Problems Problem Noted Date Diagnosed Date Morbid obesity 02/10/2024 Palpitations 02/10/2024 Hypertension 02/10/2024 Obstructive sleep apnea 02/10/2024 Tobacco dependence 02/10/2024 Encounters Date Type Department Care Team Description 08/22/2025 Orders Only [facility] Medicine Rheumatology [address] [facility] Office Building [address] [place] [id number] Suzanna Spear RMA Right shoulder pain, unspecified chronicity (Primary Dx) 08/22/2025 Results Follow-Up [facility] Medicine Rheumatology [address] [facility] 5th [place] [address] [place] [address] Robyn Elmore NP US Shoulder Left Complete 08/19/2025 10:08 AM CDT - 08/19/2025 11:59 PM CDT Hospital Encounter [facility] Radiology [address] [facility] [place] [address] Polyarthralgia; Left shoulder pain, unspecified chronicity Discharge Disposition: Discharge to home or self care 08/13/2025 Orders Only [facility] Medicine Rheumatology [address] [facility] 5th [place] [address] [place] [address] Robyn Elmore NP Polyarthralgia (Primary Dx); Left shoulder pain, unspecified chronicity 08/12/2025 Telephone [facility] Medicine Ophthalmology [address] [place] [address] Ramses Torre MD New Patient Appointment Request 08/07/2025 Orders Only [facility] Medicine Rheumatology [address] [facility] Office Building [address] [place] [phone] Suzanna Spear RMA High risk medication use (Primary Dx) 08/02/2025 11:30 AM CDT Lab [facility] Medicine Endocrinology Metabolism and Lipid [address] [facility] 5th [place] [address] [place] [phone] Positive FANNIE (antinuclear antibody) 08/02/2025 11:23 AM CDT - 08/02/2025 11:59 PM CDT Hospital Encounter [facility] Radiology [facility] [address] [place] [address] Polyarthralgia Discharge Disposition: Discharge to home or self care 08/02/2025 11:17 AM CDT - 08/02/2025 11:59 PM CDT Hospital Encounter [facility] of [address] [address] Polyarthralgia; Positive FANNIE (antinuclear antibody); Dry mouth and eyes Discharge Disposition: Discharge to home or self care 08/02/2025 10:00 AM CDT Office Visit [facility] Medicine Rheumatology [address] 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 Electronically signed by: Dane Alaniz M.D. us Robyn Elmore BUTTERMAKER CONTINUOUS CHURN IMG US PROCEDURES Fin al Result * [...] revised on 2020. FANNIE, quant 1:320 titer [facility] FANNIE, interp Homogeneo us(A) [facility] Blood 08/02/2025 12:4 7 PM CDT 08/02/2025 3:47 PM CDT us Robyn Elmore BUTTERMAKER CONTINUOUS CHURN LAB BLOOD ORDERABLES Final Result [facility] [place] [address] * (ABNORMAL) Anti-double stranded DNA abs (08/02/2025 12:47 PM CDT) dsDNA Ab 8.0(H) <=4.0 IUnits/mL Comment: Interpretive Data Negative: < or = 4 IUnits/mL Indeterminate: 5 - 9 IUnits/mL Positive: > or = 10 IUnits/mL Current interpretive data was last revised on 2017. Blood 08/02/2025 12:4 7 PM CDT 08/02/2025 3:47 PM CDT Robyn Elmore BUTTERMAKER CONTINUOUS CHURN LAB BLOOD ORDERABLES Final Result [facility] [place] [address] * C4 complement (08/02/2025 12:47 PM CDT) Pathologist [facility] Complement C4 17.0 10.0 - 40.0 mg/dL Blood 08/02/2025 12:4 7 PM CDT 08/02/2025 3:47 PM CDT Robynmaura Field aRmírez BUTTERMAKER CONTINUOUS CHURN LAB BLOOD ORDERABLES Final Result Performing Organization Address [facility] [place] [address] * CHANDA ab eval w/reflex (08/02/2025 12:47 PM CDT) [facility] CHANDA ab Negative Negative Comment: Interpretive Data Positive Screens will be reflexed to specific testing for Antibodies against the following antigens: Danielle-1 Ab, RN LACTATION Ab, Scl-70 Ab, Wen Ab, SS-A/Ro Ab, and SS- B/La Ab. Further testing for dsDNA, Centromere, or Ribosomal P antibodies is suggested in patient with a positive screen and negative specific antibodies. Current interpretive data was last revised on 2023. Blood 08/02/2025 12:4 7 PM CDT 08/02/2025 3:47 PM CDT Robyn Elmore BUTTERMAKER CONTINUOUS CHURN LAB BLOOD ORDERABLES Final Result Performing Organization Address [facility] Co de Phone Number [facility] [place] [address] * (ABNORMAL) Urinalysis reflex to microscopic (08/02/2025 12:47 PM CDT) Pathologist [facility] Color, ur Yellow Yellow Clarity, ur Clear Clear [facility] Specific gravity, ur >1.042(H) 1.003 - 1.030 [facility] pH, urine 5.5 [facility] Comment: Interpretive Data U rine pH is affected by diet, medications, systemic acid-base disturbances, and renal tubular function. pH may affect urinary stone formation. For example, urine pH below 6.0 may help reduce the tendency for calcium phosphate stones and pH greater than 6.0 may reduce the tendency for uric acid stone formation. Source: [facility] Current Interpretive Data was last revised on 2017 Protein, ur ql Trace Negative [facility] Glucose, ur ql 4+(A) Negative [facility] Ketones, ur 1+(A) Negative [facility] Bilirubin, ur Negative Negative [facility] Blood, ur Negative Negative [facility] Urobilinogen, ur <2.0 <2.0 mg/dL [facility] Nitrite, ur Negative Negative [facility] Leukocyte esterase, ur Negative Negative [facility] UA reflex comment Reflex conditions for microscopic UA not met. [facility] Urine, clean voided 08/02/2025 12:47 PM CDT 08/02/2025 3:47 PM CDT Narrative [facility] - 08/02/2025 4:17 PM CDT Must be sterile please Robyn Elmore BUTTERMAKER CONTINUOUS CHURN LAB URINE ORDERABLES Final Result [facility] [place] [address] * Cyclic citrul peptide antibody, IgG (08/02/2025 12:47 PM CDT) CCP Ab <0.5 <=2.9 units/mL Comment: Interpretive data Negative: <3 units/mL Positive: > or equal to 3 units/mL Current interpretive data was last revised on 2017. Blood 08/02/2025 12:4 7 PM CDT 08/02/2025 3:47 PM CDT Robyn Elmore BUTTERMAKER CONTINUOUS CHURN LAB BLOOD ORDERABLES Final Result Performing Organization Address [facility] de Phone Number [facility] [place] [address] * Protein / creatinine ratio, urine, random (08/02/2025 12:47 PM CDT) Pathologist [facility] Protein, ur, quant 19.2 mg/dL Comment: Interpretive Data No reference range established. Current interpretive data was last revised 2019. Creatinine Ur 112.3 mg/dL [facility] Comment: Interpretive Data No reference range established. Current interpretive data was last revised 2019. Protein/creatinin e ratio 171.0 0.0 - 180.0 mg/g CR [facility] Urine 08/02/2025 12:4 7 PM CDT 08/02/2025 3:47 PM CDT Robyn Elmore BUTTERMAKER CONTINUOUS CHURN LAB URINE ORDERABLES Final Result Performing Organization Address [facility] de Phone Number [facility] [place] [address] * (ABNORMAL) C3 complement (08/02/2025 12:47 PM CDT) [facility] Complement C3 243.0(H) 90.0 - 180.0 mg/dL Blood 08/02/2025 12:4 7 PM CDT 08/02/2025 3:47 PM CDT Robyn Elmore BUTTERMAKER CONTINUOUS CHURN LAB BLOOD ORDERABLES Final Result Performing Organization Address [facility] Co de Phone Number [facility] [place] [address] * XR Ankle Left 3 or More [...] IM XR PROCEDURES Fin al Result * XR [...] signed by: Ellen Machuca MD Robyn Elmore BUTTERMAKER CONTINUOUS CHURN IMG XR PROCEDURES Fin al Result * [...] CDT 08/02/2025 12:32 PM CDT Robyn Elmore NP LAB BLOOD ORDERABLES Final Result [facility] * (ABNORMAL) Erythrocyte sedimentation rate (08/02/2025 11:17 AM CDT) Pathologist [facility] Erythrocyte Sedimentation Rate 49(H) <20 mm/hr [facility] Blood 08/02/2025 11:1 7 AM CDT 08/02/2025 12:32 PM CDT Robyn Elmore NP LAB BLOOD ORDERABLES Final Result [facility] * (ABNORMAL) CRP (acute phase) (08/02/2025 11:17 AM CDT) C-Reactive Protein, Acute 23.9(H) <5.0 mg/L [facility] Blood 08/02/2025 11:1 7 AM CDT 08/02/2025 12:32 PM CDT Robyn Elmore BUTTERMAKER CONTINUOUS CHURN LAB BLOOD ORDERABLES Final Result [facility] * (ABNORMAL) Comprehensive metabolic panel (08/02/2025 11:17 AM CDT) Total Protein 8.4 6.1 - 8.4 g/dL [...] CDT 08/02/2025 12:32 PM CDT Robyn Elmore BUTTERMAKER CONTINUOUS CHURN LAB BLOOD ORDERABLES Final Result [facility] from Last 3 Months Insurance [facility] Care Teams Network Systems Consultant Relationship Specialty Start Date End Date Ceci Astudillo NP Naman [facility] [place] [address] PCP - General Nurse Practitioner 08/05/25
== END 2025-09-05 16:16 | disposition home or self-care (01) ==
LOC: ANHLAB 16:16
PROVIDERS: Visit Provider Nurse Practitioner
DX: K86.81 Exocrine pancreatic insufficiency (principal)
CPT/HCPCS: 36415; 82306; 84446; 84590